=== PATIENT | male | born 1955 | race Caucasian/White ===

== ENCOUNTER 2020-06-25 13:45 | Outpatient (REF) | payer MEDICARE, BC, SELFPAY ==
--- NOTE | 2020-06-25 13:50 | US_ITS ---
EXAMINATION: US EXTRACRANIAL CAROTID DUPLEX, BILATERAL CLINICAL INFORMATION: Bilateral carotid stenosis. COMPARISON: None. TECHNIQUE: Real-time ultrasound and Doppler techniques (integrating B-mode 2-D vascular images, Doppler spectral analysis and color-flow Doppler imaging) were utilized to interrogate the extracranial carotid arteries, the vertebral arteries and proximal subclavian arteries bilaterally. The degree of stenosis is determined by criteria similar to NASCET. FINDINGS: Right Side: 1. There is hard atherosclerotic plaque seen in the bifurcation/proximal ICA region. 2. The common carotid artery PSV proximally is 107 cm/s and distally 70.4 cm/s. 3. The proximal internal carotid artery velocities are 70.9 cm/s systolic and 17.6 cm/s diastolic. 4. The proximal external carotid artery PSV is 145 cm/s. 5. The vertebral artery shows 38.9 flow. 6. The subclavian artery waveforms are normal. Left Side: 1. There is hard atherosclerotic plaque seen in the bifurcation/proximal ICA region. 2. The common carotid artery PSV proximally is 121 cm/s and distally 115 cm/s. 3. The proximal internal carotid artery velocities are 75.8 cm/s systolic and 19.9 cm/s diastolic. 4. The proximal external carotid artery PSV is 145 cm/s. 5. The vertebral artery shows antegrade flow. 6. The subclavian artery waveforms are normal. US/US carotid duplex BI IMPRESSION: 1. RIGHT: No hemodynamically significant stenosis in the right carotid artery. There is minimal soft atherosclerotic plaque in both common carotid bulbs and proximal ICA. 2. LEFT: No hemodynamically significant stenosis in the left carotid artery. There is minimal soft atherosclerotic plaque in both common carotid bulbs and proximal ICA. 3. There are decreased velocities in the left common carotid arteries since the last exam 09/19/2018. Patient is status post left endarterectomy in 2018.
== END 2020-06-25 13:46 | disposition home or self-care (01) ==
LOC: HO.HMGCX 13:45
PROVIDERS: PCP Internal Medicine; Visit Provider Surgery Vascular Surgery
DX: I65.23 Occlusion and stenosis of bilateral carotid arteries (principal)
CPT/HCPCS: 93880

== ENCOUNTER 2020-12-14 06:46 | Outpatient (REF) | payer MEDICARE, BC, SELFPAY ==
[2020-12-14 11:18] LABS: MANUAL DIFF FLAG NO
[2020-12-14 11:23] LABS: Glucose Urine UA 250 MG/DL (NEG); Leukocyte Esterase Urine NEG (NEG); Nitrite Urine NEG (NEG); PH 5.5 (5.0-8.0); Specific Gravity - Urine >= 1.030 (1.005-1.025); Urine Blood NEG (NEG); Urine Ketones NEG (NEG); Urine Protein NEG (NEG-TRACE)
[2020-12-14 11:25] LABS: Appearance Urine TURBID; Color Urine YELLOW
[2020-12-14 11:26] LABS: Basophils Percent Auto 0.5 % (0-2); Eosinophils Absolute Auto 0.2 X10*3/uL (0.0-0.4); Hematocrit 42.7 % (42-52); Hemoglobin 14.5 g/dl (14.0-18.0); Imm Gran Abs Auto 0.03 X10*3/uL (0.00-0.03); Imm Gran Pct Auto 0.4 % (0.0-0.4); Lymphocytes Absolute Auto 2.4 X10*3/uL (1.2-4.9); Lymphocytes Percent Auto 31.5 % (20-40); Mean Corpuscular Hemoglobin 29.5 pg (27.0-33.0); Mean Platelet Volume 11.5 fL (9.4-12.4); Monocytes Absolute Auto 0.7 X10*3/uL (0.1-1.2); Monocytes Percent Auto 8.9 % (2-11); Neutrophils Absolute Auto 4.3 X10*3/uL (2.0-8.3); Neutrophils Percent Auto 56.7 % (45-73); Platelet Count 242 X10*3/uL (160-400); Red Blood Count 4.91 X10*6/uL (4.60-5.80); White Blood Count 7.6 X10*3/uL (4.8-10.8)
[2020-12-14 11:49] LABS: Creatinine Urine 126.78 mg/dL; Microalbum/Creatinine Ratio Ur 11.8 ug/mg cr
[2020-12-14 12:06] LABS: Alanine Aminotransferase 46 U/L (0-40); Albumin Level 4.3 g/dL (3.5-5.0); Alkaline Phosphatase 44 U/L (39-117); Anion Gap 14 (12-20); Aspartate Amino Transferase 39 U/L (5-37); Bilirubin Total 0.3 mg/dL (0.0-1.0); Blood Urea Nitrogen 22 mg/dL (9-16); Calcium 9.2 mg/dL (8.4-10.2); Carbon Dioxide 28 mmol/L (22-29); Chloride 101 mmol/L (96-108); Cholesterol 184 mg/dL; Estimated Glomerular Filt Rate > 60; Glucose Fasting 196 mg/dL (60-99); HDL Cholesterol 38 mg/dL; LDL Cholesterol Calculated 84 mg/dl; Potassium 4.8 mmol/L (3.3-5.1); Sodium 138 mmol/L (135-145); Total Protein 6.9 g/dL (6.5-8.0); Triglycerides 314 mg/dL
[2020-12-14 12:11] LABS: Estimated Average Glucose 200 mg/dL; Hemoglobin A1c % 8.6 %
[2020-12-14 12:29] LABS: TSH reflex Free T4 2.21 uIU/mL (0.32-4.0); Vitamin D 25-OH Total 22.2 ng/mL (>30)
== END 2020-12-14 06:47 | disposition home or self-care (01) ==
LOC: HO.HMGCLDS 06:46
PROVIDERS: PCP Internal Medicine; Visit Provider Internal Medicine
DX: E55.9 Vitamin D deficiency, unspecified (principal); I10 Essential (primary) hypertension; E11.9 Type 2 diabetes mellitus without complications; E66.9 Obesity, unspecified; E78.2 Mixed hyperlipidemia
CPT/HCPCS: 36415; 80053; 80061; 81003; 82043; 82306; 83036; 84443; 85025

== ENCOUNTER 2021-09-02 15:17 | Outpatient (REF) | payer MEDICARE, BC, SELFPAY ==
--- NOTE | ~2021-09-02 | US_ITS ---
EXAMINATION: US EXTRACRANIAL CAROTID DUPLEX, BILATERAL CLINICAL INFORMATION: Carotid artery stenosis. History of left endarterectomy in 2018. COMPARISON: June 25, 2020 and June 16, 2019 TECHNIQUE: Real-time ultrasound and Doppler techniques (integrating B-mode 2-D vascular images, Doppler spectral analysis and color-flow Doppler imaging) were utilized to interrogate the extracranial carotid arteries, the vertebral arteries and proximal subclavian arteries bilaterally. The degree of stenosis is determined by criteria similar to NASCET. FINDINGS: Right Side: 1. There is minimal atherosclerotic plaque seen in the bifurcation/proximal ICA region. 2. The common carotid artery PSV proximally is 113 cm/s and distally 87.4 cm/s. 3. The proximal internal carotid artery velocities are 90.9 cm/s systolic and 19.3 cm/s diastolic. 4. The proximal external carotid artery PSV is 142 cm/s. 5. The vertebral artery shows antegrade flow. 6. The subclavian artery waveforms are normal. Left Side: 1. There is minimal atherosclerotic plaque seen in the bifurcation/proximal ICA region. 2. The common carotid artery PSV proximally is 138 cm/s and distally 104 cm/s. 3. The proximal internal carotid artery velocities are 118 cm/s systolic and 29.5 cm/s diastolic. 4. The proximal external carotid artery PSV is 149 cm/s. 5. The vertebral artery shows antegrade flow. 6. The subclavian artery waveforms are normal. US/US carotid duplex BI IMPRESSION: 1. RIGHT: Minimal, non-hemodynamically significant stenosis of the proximal right internal carotid artery corresponding to a 0-49% stenosis by velocity criteria. 2. LEFT: Minimal, non-hemodynamically significant stenosis of the proximal left internal carotid artery corresponding to a 0-49% stenosis by velocity criteria. 3. There is no change in the category severity of disease when compared to the previous study dated June 25, 2020.
== END 2021-09-02 15:18 | disposition home or self-care (01) ==
LOC: HO.HMGCX 15:17
PROVIDERS: PCP Internal Medicine; Visit Provider Surgery Vascular Surgery
DX: I65.23 Occlusion and stenosis of bilateral carotid arteries (principal)
CPT/HCPCS: 93880

== ENCOUNTER → 2021-09-05 14:23 | Outpatient (BNVA) | payer MEDICARE, BC, SELFPAY | PROVIDERS: PCP Internal Medicine; Visit Provider Surgery Vascular Surgery | DX: I65.22 Occlusion and stenosis of left carotid artery (principal) | CPT/HCPCS: 99212 ==

== ENCOUNTER 2021-12-06 06:44 | Outpatient (REF) | payer MEDICARE, BC, SELFPAY ==
[2021-12-06 11:43] LABS: MANUAL DIFF FLAG NO
[2021-12-06 11:48] LABS: Basophils Percent Auto 0.3 % (0-2); Eosinophils Absolute Auto 0.1 X10*3/uL (0.0-0.4); Eosinophils Percent Auto 1.4 % (0-4); Hematocrit 40.8 % (42.0-52.0); Hemoglobin 13.8 g/dl (14.0-18.0); Imm Gran Abs Auto 0.04 X10*3/uL (0.00-0.03); Imm Gran Pct Auto 0.6 % (0.0-0.4); Lymphocytes Absolute Auto 1.7 X10*3/uL (1.2-4.9); Lymphocytes Percent Auto 26.8 % (20-40); Mean Corpuscular HGB Conc 33.8 g/dl (31.0-36.0); Mean Corpuscular Hemoglobin 29.6 pg (27.0-33.0); Mean Corpuscular Volume 87.4 fL (80.0-98.0); Mean Platelet Volume 11.5 fL (9.4-12.4); Monocytes Absolute Auto 0.6 X10*3/uL (0.1-1.2); Monocytes Percent Auto 8.7 % (2-11); Neutrophils Percent Auto 62.2 % (45-73); Platelet Count 193 X10*3/uL (160-400); Red Blood Count 4.67 X10*6/uL (4.60-5.80); Red Cell Distribution Width 12.6 % (11.0-16.0); White Blood Count 6.4 X10*3/uL (4.8-10.8)
[2021-12-06 11:51] LABS: Appearance Urine TURBID; Color Urine YELLOW; Glucose Urine UA >=1000 MG/DL (NEG); Leukocyte Esterase Urine NEG (NEG); Nitrite Urine NEG (NEG); PH 5.5 (5.0-8.0); Specific Gravity - Urine 1.025 (1.005-1.025); Urine Blood NEG (NEG); Urine Ketones NEG (NEG); Urine Protein NEG (NEG-TRACE)
[2021-12-06 12:17] LABS: Alanine Aminotransferase 55 U/L (0-40); Albumin Level 4.1 g/dL (3.5-5.0); Alkaline Phosphatase 43 U/L (39-117); Anion Gap 13 (12-20); Aspartate Amino Transferase 49 U/L (5-37); Bilirubin Total 0.5 mg/dL (0.0-1.0); Blood Urea Nitrogen 22 mg/dL (9-16); Carbon Dioxide 25 mmol/L (22-29); Chloride 101 mmol/L (96-108); Cholesterol 184 mg/dL; Estimated Glomerular Filt Rate > 60; Glucose Fasting 241 mg/dL (60-99); HDL Cholesterol 35 mg/dL; LDL Cholesterol Calculated 84 mg/dl; Potassium 4.5 mmol/L (3.3-5.1); Sodium 134 mmol/L (135-145); Total Protein 6.5 g/dL (6.5-8.0); Triglycerides 327 mg/dL
[2021-12-06 12:19] LABS: Estimated Average Glucose 232 mg/dL; Hemoglobin A1c % 9.7 %
[2021-12-06 12:24] LABS: Vitamin D 25-OH Total 22.9 ng/mL (>30)
[2021-12-06 12:29] LABS: Bacteria Urine 2+ /LPF; RBC Urine 0 /HPF (0); Uric Acid Crystals Urine 2+ /LPF; WBC Urine 0 /HPF (0-4)
[2021-12-06 12:30] LABS: Amorphous Sediment Urine 3+ /LPF
[2021-12-06 12:32] LABS: Folate 13.5 ng/mL (> or = 4.0); Vitamin B12 294 pg/mL (200-900)
[2021-12-06 12:33] LABS: Creatinine Urine 103.33 mg/dL; Microalbum/Creatinine Ratio Ur 10.6 ug/mg cr
== END 2021-12-06 06:45 | disposition home or self-care (01) ==
LOC: HO.HMGCLDS 06:44
PROVIDERS: PCP Internal Medicine; Visit Provider Internal Medicine
DX: E11.9 Type 2 diabetes mellitus without complications (principal); E78.00 Pure hypercholesterolemia, unspecified; E55.9 Vitamin D deficiency, unspecified; E53.8 Deficiency of other specified B group vitamins; I10 Essential (primary) hypertension
CPT/HCPCS: 36415; 80053; 80061; 81001; 82043; 82306; 82607; 82746; 83036; 84443; 85025

== ENCOUNTER 2022-04-14 06:54 | Outpatient (REF) | payer MEDICARE, BC, SELFPAY ==
[2022-04-14 11:38] LABS: MANUAL DIFF FLAG NO
[2022-04-14 11:55] LABS: Estimated Average Glucose 180 mg/dL; Hemoglobin A1c % 7.9 %
[2022-04-14 11:59] LABS: Basophils Percent Auto 0.5 % (0-2); Eosinophils Absolute Auto 0.1 X10*3/uL (0.0-0.4); Eosinophils Percent Auto 1.6 % (0-4); Hematocrit 42.9 % (42.0-52.0); Hemoglobin 14.4 g/dl (14.0-18.0); Imm Gran Abs Auto 0.03 X10*3/uL (0.00-0.03); Imm Gran Pct Auto 0.4 % (0.0-0.4); Lymphocytes Absolute Auto 2.2 X10*3/uL (1.2-4.9); Lymphocytes Percent Auto 28.9 % (20-40); Mean Corpuscular HGB Conc 33.6 g/dl (31.0-36.0); Mean Corpuscular Hemoglobin 29.3 pg (27.0-33.0); Mean Corpuscular Volume 87.4 fL (80.0-98.0); Mean Platelet Volume 11.5 fL (9.4-12.4); Monocytes Absolute Auto 0.7 X10*3/uL (0.1-1.2); Monocytes Percent Auto 9.5 % (2-11); Neutrophils Absolute Auto 4.5 x10*3/uL (2.0-8.3); Neutrophils Percent Auto 59.1 % (45-73); Platelet Count 223 X10*3/uL (160-400); Red Blood Count 4.91 X10*6/uL (4.60-5.80); Red Cell Distribution Width 12.4 % (11.0-16.0); White Blood Count 7.7 X10*3/uL (4.8-10.8)
[2022-04-14 12:11] LABS: Alanine Aminotransferase 47 U/L (0-40); Albumin Level 4.4 g/dL (3.5-5.0); Alkaline Phosphatase 42 U/L (39-117); Anion Gap 15 (12-20); Aspartate Amino Transferase 34 U/L (5-37); Bilirubin Total 0.5 mg/dL (0.0-1.0); Blood Urea Nitrogen 26 mg/dL (9-16); Calcium 9.7 mg/dL (8.4-10.2); Carbon Dioxide 28 mmol/L (22-29); Chloride 99 mmol/L (96-108); Cholesterol 185 mg/dL; Estimated Glomerular Filt Rate 56; Glucose Fasting 217 mg/dL (60-99); HDL Cholesterol 41 mg/dL; LDL Cholesterol Calculated 97 mg/dl; Potassium 5.2 mmol/L (3.3-5.1); Sodium 137 mmol/L (135-145); Total Protein 7.1 g/dL (6.5-8.0); Triglycerides 238 mg/dL
[2022-04-14 12:13] LABS: Appearance Urine CLEAR; Color Urine YELLOW; Glucose Urine UA 250 MG/DL (NEG); Leukocyte Esterase Urine NEG (NEG); Nitrite Urine NEG (NEG); PH 5.5 (5.0-8.0); Specific Gravity - Urine 1.025 (1.005-1.025); Urine Blood NEG (NEG); Urine Ketones NEG (NEG); Urine Protein NEG (NEG-TRACE)
[2022-04-14 12:20] LABS: TSH reflex Free T4 2.26 uIU/mL (0.32-4.0); Vitamin D 25-OH Total 36.4 ng/mL (>30)
[2022-04-14 12:30] LABS: Folate 16.3 ng/mL (> or = 4.0); Vitamin B12 379 pg/mL (200-900)
[2022-04-14 12:45] LABS: Creatinine Urine 103.31 mg/dL; Microalbum/Creatinine Ratio Ur 7.7 ug/mg cr
== END 2022-04-14 06:55 | disposition home or self-care (01) ==
LOC: HO.HMGCLDS 06:54
PROVIDERS: PCP Internal Medicine; Visit Provider Internal Medicine
DX: E11.9 Type 2 diabetes mellitus without complications (principal); I10 Essential (primary) hypertension; E78.00 Pure hypercholesterolemia, unspecified; E53.8 Deficiency of other specified B group vitamins; E55.9 Vitamin D deficiency, unspecified
CPT/HCPCS: 36415; 80053; 80061; 81003; 82043; 82306; 82607; 82746; 83036; 84443; 85025

== ENCOUNTER 2022-08-12 08:09 | Outpatient (REF) | payer MEDICARE, BC, SELFPAY ==
[2022-08-12 11:33] LABS: Appearance Urine Clear; Color Urine Yellow; Glucose Urine UA Negative (Negative); Leukocyte Esterase Urine Trace (Negative); Nitrite Urine Negative (Negative); UMIC TRIGGER UACC YES; Urine Blood Negative (Negative); Urine Ketones Negative (Negative); Urine Protein Negative (Neg-Trace)
[2022-08-12 11:36] LABS: Bacteria Urine None Seen (None Seen); Hyaline Casts Urine 0-2 /LPF (0-2); RBC Urine 0-2 /HPF (0-2); Squamous Epithelial Cell Urine 0-2 /HPF (0-2); UACC Culture Trigger YES
[2022-08-12 11:45] LABS: MANUAL DIFF FLAG NO
[2022-08-12 12:21] LABS: Estimated Average Glucose 197 mg/dL; Hemoglobin A1c % 8.5 %
[2022-08-12 12:26] LABS: Basophils Absolute Auto 0.1 X10*3/uL (0.0-0.2); Basophils Percent Auto 0.4 % (0-2); Eosinophils Absolute Auto 0.1 X10*3/uL (0.0-0.4); Eosinophils Percent Auto 1.2 % (0-4); Hematocrit 43.2 % (42.0-52.0); Hemoglobin 14.5 g/dl (14.0-18.0); Imm Gran Abs Auto 0.06 X10*3/uL (0.00-0.03); Imm Gran Pct Auto 0.5 % (0.0-0.4); Lymphocytes Percent Auto 17.9 % (20-40); Mean Corpuscular HGB Conc 33.6 g/dl (31.0-36.0); Mean Corpuscular Hemoglobin 28.7 pg (27.0-33.0); Mean Corpuscular Volume 85.5 fL (80.0-98.0); Mean Platelet Volume 10.9 fL (9.4-12.4); Monocytes Absolute Auto 0.7 X10*3/uL (0.1-1.2); Monocytes Percent Auto 6.5 % (2-11); Neutrophils Absolute Auto 8.2 x10*3/uL (2.0-8.3); Neutrophils Percent Auto 73.5 % (45-73); Platelet Count 272 X10*3/uL (160-400); Red Blood Count 5.05 X10*6/uL (4.60-5.80); Red Cell Distribution Width 12.3 % (11.0-16.0); White Blood Count 11.2 X10*3/uL (4.8-10.8)
[2022-08-12 12:46] LABS: Alanine Aminotransferase 38 U/L (0-40); Albumin Level 4.4 g/dL (3.5-5.0); Alkaline Phosphatase 46 U/L (39-117); Anion Gap 15 (12-20); Aspartate Amino Transferase 35 U/L (5-37); Bilirubin Total 0.5 mg/dL (0.0-1.0); Blood Urea Nitrogen 22 mg/dL (9-16); Calcium 9.6 mg/dL (8.4-10.2); Carbon Dioxide 28 mmol/L (22-29); Chloride 100 mmol/L (96-108); Cholesterol 207 mg/dL; Estimated Glomerular Filt Rate > 60; Glucose Fasting 205 mg/dL (60-99); HDL Cholesterol 38 mg/dL; LDL Cholesterol Calculated 106 mg/dl; Sodium 138 mmol/L (135-145); TSH reflex Free T4 1.42 uIU/mL (0.32-4.0); Total Protein 7.1 g/dL (6.5-8.0); Triglycerides 319 mg/dL; Vitamin D 25-OH Total 38.8 ng/mL (>30)
[2022-08-12 12:51] LABS: Creatinine Urine 105.42 mg/dL; Microalbum/Creatinine Ratio Ur 14.2 ug/mg cr
== END 2022-08-12 08:10 | disposition home or self-care (01) ==
LOC: HO.HMGCLDS 08:09
PROVIDERS: PCP Internal Medicine; Visit Provider Internal Medicine
DX: E78.00 Pure hypercholesterolemia, unspecified (principal); I10 Essential (primary) hypertension; E11.9 Type 2 diabetes mellitus without complications; E55.9 Vitamin D deficiency, unspecified
CPT/HCPCS: 36415; 80053; 80061; 81001; 82043; 82306; 83036; 84443; 85025; 87086

== ENCOUNTER 2022-09-08 14:23 | Outpatient (REF) | payer MEDICARE, BC, SELFPAY ==
--- NOTE | ~2022-09-08 | US_ITS ---
EXAMINATION: US EXTRACRANIAL CAROTID DUPLEX, BILATERAL CLINICAL INFORMATION: Carotid stenosis, status post left carotid endarterectomy COMPARISON: 09/02/2021 TECHNIQUE: Real-time ultrasound and Doppler techniques (integrating B-mode 2-D vascular images, Doppler spectral analysis and color-flow Doppler imaging) were utilized to interrogate the extracranial carotid arteries, the vertebral arteries and proximal subclavian arteries bilaterally. The degree of stenosis is determined by criteria similar to NASCET. FINDINGS: Right Side: 1. There is mild to moderate atherosclerotic plaque seen in the bifurcation/proximal ICA region. 2. The common carotid artery PSV proximally is 116 cm/s and distally 85.6 cm/s. 3. The proximal internal carotid artery velocities are 101 cm/s systolic and 26.7 cm/s diastolic. 4. The proximal external carotid artery PSV is 220 cm/s. 5. The vertebral artery shows antegrade flow. 6. The subclavian artery waveforms are normal. Left Side: 1. There is mild atherosclerotic plaque seen in the bifurcation/proximal ICA region. 2. The common carotid artery PSV proximally is 145 cm/s and distally 151 cm/s. 3. The proximal internal carotid artery velocities are 119 cm/s systolic and 21.2 cm/s diastolic. 4. The proximal external carotid artery PSV is 161 cm/s. 5. The vertebral artery shows antegrade flow. 6. The subclavian artery waveforms are normal. US/US carotid duplex BI IMPRESSION: 1. RIGHT: Minimal, non-hemodynamically significant stenosis of the proximal right internal carotid artery corresponding to a 0-49% stenosis by velocity criteria. 2. LEFT: Minimal, non-hemodynamically significant stenosis of the proximal left internal carotid artery corresponding to a 0-49% stenosis by velocity criteria. 3. There is no change in the category severity of disease when compared to the previous study dated 09/02/2021.
== END 2022-09-08 14:24 | disposition home or self-care (01) ==
LOC: HO.HMGCX 14:23
PROVIDERS: PCP Internal Medicine; Visit Provider Surgery Vascular Surgery
DX: I65.23 Occlusion and stenosis of bilateral carotid arteries (principal)
CPT/HCPCS: 93880

== ENCOUNTER → 2022-09-25 14:45 | Outpatient (BNVA) | payer MEDICARE, BC, SELFPAY | PROVIDERS: PCP Internal Medicine; Visit Provider Surgery Vascular Surgery | DX: I65.22 Occlusion and stenosis of left carotid artery (principal) | CPT/HCPCS: 99212 ==

== ENCOUNTER 2022-11-22 13:10 | Emergency (ER) | payer MEDICARE, BC, SELFPAY ==
--- NOTE | 2022-11-22 13:54 | ED_ITS ---
HPI - URI/Sore Throat General Chief Complaint: General Medical <SRINIVAS Lemus - Last Filed: 11/22/22 13:57> Stated Complaint: covid <SRINIVAS Lemus - Last Filed: 11/22/22 13:57> Time Seen by Provider: 11/22/22 15:05 <SRINIVAS Lemus - Last Filed: 11/22/22 13:57> Source: patient <Nadya Mohamud NP - Last Filed: 11/22/22 16:58> Mode of arrival: ambulatory <Nadya Mohamud NP - Last Filed: 11/22/22 16:58> Limitations: no limitations <Nadya Mohamud NP - Last Filed: 11/22/22 16:58> History of Present Illness HPI Narrative: 67-year-old male with a history of [id number] diabetes, hypertension, hyperlipidemia who presents the ER with complaints of being COVID positive at home. Patient reports since yesterday he has had poor p.o. intake, fevers, chills, malaise since yesterday. Took a home COVID test which was positive. No shortness of breath, chest pain, vomiting, diarrhea, abdominal pain, leg swelling or leg pain, headache, neck pain or neck stiffness. <Nadya Mohamud NP - Last Filed: 11/22/22 16:58> Related Data Home Medications: Previous Rx's Medication Instructions Recorded ergocalciferol (vitamin D2) 1,250 1,250 mcg PO QWEEK 90 days #13 caps 09/24/21 mcg (50,000 unit) capsule (Vitamin D2) blood-glucose meter (FreeStyle #1 ea 12/13/21 Lite Meter kit) dulaglutide 1.5 mg/0.5 mL 1.5 mg (0.5 mL) subcut QWEEK 90 12/13/21 subcutaneous pen injector days #13 mL ezetimibe 10 mg tablet 10 mg PO DAILY 90 days #90 caps 12/13/21 fenofibrate 160 mg tablet 160 mg PO DAILY 90 days #90 caps 12/13/21 lancets 28 gauge (FreeStyle #100 ea 12/13/21 Lancets) sitagliptin phosphate 100 mg 100 mg PO DAILY 90 days #90 caps 12/13/21 tablet (Januvia) metformin 1,000 mg tablet 1,000 mg PO BID 90 days #180 tabs 01/24/22 blood sugar diagnostic (FreeStyle #100 ea 08/18/22 Lite Strips) hydrochlorothiazide 12.5 mg tablet 12.5 mg PO QAM #90 caps 08/18/22 losartan 100 mg tablet 100 mg PO DAILY 90 days #90 tabs 08/18/22 pantoprazole 40 mg tablet,delayed 40 mg PO DAILY PRN for acid reflux 08/18/22 release #90 tabs nirmatrelvir 300 mg (150 mg See Rx Instructions PO .COMPLEX 11/22/22 x2)-ritonavir 100 mg tablet,dose #30 ea pack(EUA) (Paxlovid) <SRINIVAS Lemus - Last Filed: 11/22/22 13:57> Allergies/Adverse Reactions: Allergies Allergy/AdvReac Type Severity Reaction Status Date / Time simvastatin Allergy Unknown Unknown Verified 09/25/22 14:54 atorvastatin AdvReac Unknown diarrhea Verified 09/25/22 14:54 and abdominal pain, diarrhea rosuvastatin AdvReac Unknown diarrhea Verified 09/25/22 14:54 and abdominal pain, diarrhea <SRINIVAS Lemus - Last Filed: 11/22/22 13:57> Review of Systems Review of Systems: Yes all other systems are reviewed and are negative <Nadya Mohamud NP - Last Filed: 11/22/22 16:58> Constitutional: Constitutional: Reports no additional constitutional complaints, Denies body ache(s), Reports chills, Reports fever(s), Denies headache(s), Reports malaise, Reports poor appetite and Denies weakness <Nadya Mohamud NP - Last Filed: 11/22/22 16:58> Eyes: Eyes: Reports no additional eye complaints and Denies change in vision <Nadya Mohamud NP - Last Filed: 11/22/22 16:58> ENT: Reports system reviewed and no additional complaints, except as documented, Denies dizziness, Denies headache(s), Denies nasal congestion, Denies nasal discharge and Denies neck pain <Nadya Mohamud NP - Last Filed: 11/22/22 16:58> Cardiovascular: Cardiovascular: Reports no additional cardiovascular complaints, Denies chest pain, Denies leg edema and Denies dyspnea <Nadya Mohamud NP - Last Filed: 11/22/22 16:58> Respiratory: Respiratory: Reports no additional respiratory complaints, Denies cough and Denies dyspnea <Nadya Mohamud NP - Last Filed: 11/22/22 16:58> Gastrointestinal: Gastrointestinal: Reports no additional gastrointestinal complaints, Denies abdominal pain, Denies diarrhea, Denies nausea and Denies vomiting <Nadya Mohamud NP - Last Filed: 11/22/22 16:58> Genitourinary: Genitourinary: Denies urinary incontinence <Nadya Mohamud NP - Last Filed: 11/22/22 16:58> Musculoskeletal: Musculoskeletal: Reports no additional musculoskeletal complaints, Denies back pain, Denies arthralgias, Denies joint swelling, Denies neck pain, Denies numbness and Denies tingling <Nadya Mohamud NP - Last Filed: 11/22/22 16:58> Integumentary/Breasts: Skin/Breast: Reports system reviewed and no additional complaints, except as docu and Denies rash <Nadya Mohamud NP - Last Filed: 11/22/22 16:58> Neurologic: Reports system reviewed and no additional complaints, except as documented, Denies Abnormal speech present, Denies dizziness, Denies headache(s), Denies numbness, Denies tingling and Denies weakness <Nadya Mohamud NP - Last Filed: 11/22/22 16:58> [facility] Past Medical History Attestation statement: The following information was validated with the patient. <Nadya Mohamud NP - Last Filed: 11/22/22 16:58> Source: old records reviewed and nursing notes reviewed <Nadya Mohamud NP - Last Filed: 11/22/22 16:58> Medical History: Medical History Benign essential hypertension Diabetes mellitus GERD without esophagitis Left carotid artery stenosis Lumbar spinal stenosis Mixed hyperlipidemia Neuropathy Obesity (BMI 30-39.9) Obstructive sleep apnea Vitamin D deficiency <SRINIVAS Lemus - Last Filed: 11/22/22 13:57> Surgical History: Surgical History History of colonoscopy History of endarterectomy <SRINIVAS Lemus - Last Filed: 11/22/22 13:57> Family History Family History: Family History Father Hypertension Cancer Mother Hypertension Diabetes <SRINIVAS Lemus - Last Filed: 11/22/22 13:57> Social History Social History: Social History Housing: House Alcohol intake: current Alcohol intake frequency: holidays/special occasions only Patient Tobacco Use Status: Former Tobacco user Smoked in Last 30 Days: No Second Hand Smoke Exposure: Yes Use of substances other than those prescribed or required for medical reasons: No Advance Directives: No Advance Directives Information Provided: No service: No Current occupational status: employed Cognitive needs: No Hearing needs: No Vision needs: Yes <SRINIVAS Lemus - Last Filed: 11/22/22 13:57> Physical Exam Vital Signs: Vital Signs: Last Vital Signs Temp 99.0 F 11/22/22 16:50 Pulse 94 11/22/22 16:50 Resp 16 11/22/22 16:50 BP 139/57 L 11/22/22 16:50 Pulse Ox 94 11/22/22 16:50 O2 Del Method Room Air 11/22/22 16:50 BMI result Body Mass Index 32.8 <SRINIVAS Lemus - Last Filed: 11/22/22 13:57> Vital Signs: Last Vital Signs Temp 99.0 F 11/22/22 16:50 Pulse 94 11/22/22 16:50 Resp 16 11/22/22 16:50 BP 139/57 L 11/22/22 16:50 Pulse Ox 94 11/22/22 16:50 O2 Del Method Room Air 11/22/22 16:50 BMI result Body Mass Index 32.8 <Nadya Mohamud NP - Last Filed: 11/22/22 16:58> Const: General: cooperative, healthy appearing, comfortable and no acute distress <Nadya Mohamud [employer] - Last Filed: 11/22/22 16:58> Orientation/consciousness: patient oriented x3 <Nadya Mohamud [employer] - Last Filed: 11/22/22 16:58> Limitations: no limitations <Nadya Mohamud [employer] - Last Filed: 11/22/22 16:58> HEENT: Head: Yes normal to inspection <Nadya Mohamud [employer] - Last Filed: 11/22/22 16:58> Ears: hearing grossly normal bilaterally <Nadya Mohamud, [employer] - Last Filed: 11/22/22 16:58> General nose exam: Normal external nose present <Nadya Mohamud [employer] - Last Filed: 11/22/22 16:58> Face and sinus: Yes normal facial exam <Nadya Mohamud [employer] - Last Filed: 11/22/22 16:58> Mouth: Normal oral and palatal mucosa present <Nadya Mohamud [employer] - Last Filed: 11/22/22 16:58> Throat: Yes posterior oropharynx normal <Nadya Mohamud [employer] - Last Filed: 11/22/22 16:58> Eyes: General: appearance normal, both eyes and all related structures <Naday Mohamud [employer] - Last Filed: 11/22/22 16:58> Pupils: Equal, round and reactive pupils present <Nadya Mohamud [employer] - Last Filed: 11/22/22 16:58> Neck: Neck: Yes normal visual inspection <Nadya Mohamud [employer] - Last Filed: 11/22/22 16:58> Chest: Chest palpation & inspection: normal inspection of the chest <Nadya Mohamud [employer] - Last Filed: 11/22/22 16:58> Resp: Effort & Inspection: normal respiratory effort <Nadya Mohamud [employer] - Last Filed: 11/22/22 16:58> Auscultation: clear to auscultation bilaterally <Nadya Mohamud [employer] - Last Filed: 11/22/22 16:58> Cardio: Rate: regular rate <Nadya Bluecci, [employer] - Last Filed: 11/22/22 16:58> Rhythm: regular rhythm <Nadya Mohamud [employer] - Last Filed: 11/22/22 16:58> Peripheral pulses: Peripheral pulses 2+ throughout <Nadya Mohamud, [employer] - Last Filed: 11/22/22 16:58> GI: Inspection: Yes normal to inspection <Nadya Mohamud, [employer] - Last Filed: 11/22/22 16:58> Palpation (GI): Soft to palpation and nontender <Nadya Mohamud, [employer] - Last Filed: 11/22/22 16:58> Auscultation: normal bowel sounds <Nadya Mohamud, [employer] - Last Filed: 11/22/22 16:58> Back/Spine/Pelvis: Thoracic/Lumbar Spine: thoracic and lumbar spine normal to inspection <Nadya Mohamud, [employer] - Last Filed: 11/22/22 16:58> Skin: General skin exam: no rashes or lesions noted <Nadya Mohamud, [employer] - Last Filed: 11/22/22 16:58> Neuro: General: patient oriented x3, moves all extremities, no focal motor deficits and normal sensation to monofilament <Nadya Mohamud, [employer] - Last Filed: 11/22/22 16:58> Cranial nerves: Yes CN's II-XII intact bilaterally, Yes Equal, round and reactive pupils present, Yes Bilaterally intact EOM present, Yes Nystagmus not present, Yes Normal facial strength present and Yes Midline tongue present <Nadya Mohamud [employer] - Last Filed: 11/22/22 16:58> Cognition (Neuro): normal cognition <Nadya Cade, [employer] - Last Filed: 11/22/22 16:58> Speech: No Abnormal speech present <Nadya Mohamud, [employer] - Last Filed: 11/22/22 16:58> Gait exam (Neuro): Normal gait present <Nadya Mohamud, [employer] - Last Filed: 11/22/22 16:58> Motor exam (neuro): 5/5 motor strength present throughout <Nadya Mohamud, [employer] - Last Filed: 11/22/22 16:58> Sensory Exam: Normal double simultaneous stimulation for sensation <Nadya zamora NP - Last Filed: 11/22/22 16:58> Extrem: General: Yes normal to inspection, Yes no pedal edema and Yes no calf tenderness <Nadya Mohamud NP - Last Filed: 11/22/22 16:58> Course Course Course Narrative: RME--67yo M w/PMHx DM, HTN, HLD, BARAK, c/o fatigue, generalized weakness, decreased PO intake, & + home COVID test today. Reports anorexia. Denies CP/SOB, abd pain, N/V Mildly tachy 109 in triage, nontoxic appearing Labs, COVID testing ordered <SRINIVAS Lemus - Last Filed: 11/22/22 13:57> Reevaluation(s) Reevaluation #1: 1540-patient reports after having his blood drawn (4 attempts) he felt very lightheaded and he believes he may have passed out. He is now alert and oriented with normal neuro exam. Likely vasovagal syncope. Will check EKG. Labs show hypo magnesemia. COVID screen positive. No hypoxia or tachypnea. Will give replacement and IV fluids as well as antipyretic for fever <Nadya Mohamud NP - Last Filed: 11/22/22 16:58> Reevaluation #2: 1700-patient feeling improved. Heart rate and temperature are improved after receiving antipyretic. We discussed Paxlovid in patient would like to continue with treatment aware that it is not FDA approved and only has an emergency use authorization. We discussed common side effects. Reviewed worrisome signs and symptoms of when to return to the emergency room. Comfortable plan for discharge home. <Nadya Mohamud NP - Last Filed: 11/22/22 16:58> Medications Administered Generic Name Dose Route Start Last Admin Trade Name Freq PRN Reason Stop Dose Admin Magnesium Sulfate 2 gm in 50 mls @ 25 mls/hr 11/22/22 15:19 11/22/22 15:45 Magnesium Sulfate/H2o IV 11/22/22 17:18 25 mls/hr ONCE ONE Administration Discontinued Medications Generic Name Dose Route Start Last Admin Trade Name Freq PRN Reason Stop Dose Admin Acetaminophen 975 mg 11/22/22 15:07 11/22/22 15:14 Acetaminophen 325 Mg Tablet PO 11/22/22 15:08 975 mg ONCE ONE Administration Sodium Chloride 1,000 mls @ 999 mls/hr 11/22/22 15:19 11/22/22 15:43 Ns IV 11/22/22 16:19 999 mls/hr .Q1H1M STA Administration <SRINIVAS Lemus - Last Filed: 11/22/22 13:57> Medications Administered Generic Name Dose Route Start Last Admin Trade Name Freq PRN Reason Stop Dose Admin Magnesium Sulfate 2 gm in 50 mls @ 25 mls/hr 11/22/22 15:19 11/22/22 15:45 Magnesium Sulfate/H2o IV 11/22/22 17:18 25 mls/hr ONCE ONE Administration Discontinued Medications Generic Name Dose Route Start Last Admin Trade Name Freq PRN Reason Stop Dose Admin Acetaminophen 975 mg 11/22/22 15:07 11/22/22 15:14 Acetaminophen 325 Mg Tablet PO 11/22/22 15:08 975 mg ONCE ONE Administration Sodium Chloride 1,000 mls @ 999 mls/hr 11/22/22 15:19 11/22/22 15:43 Ns IV 11/22/22 16:19 999 mls/hr .Q1H1M STA Administration <Nadya Mohamud NP - Last Filed: 11/22/22 16:58> Medical Decision Making Medical Decision Making [facility] Narrative: 67-year-old male coming in COVID positive but with complaints of malaise, poor appetite, fevers and chills since yesterday. Vitals are stable. Patient does have low-grade fever and mild tachycardia which is likely secondary fever Lungs are clear Will obtain labs, COVID screen <Nadya Mohamud NP - Last Filed: 11/22/22 16:58> Differential Diagnosis Differential Diagnoses: The differential diagnosis associated with the presentation includes <Nadya Mohamud NP - Last Filed: 11/22/22 16:58> Low concern for PE/pneumonia likely viral syndrome <Nadya Mohamud NP - Last Filed: 11/22/22 16:58> Lab Data [facility] Lab Attestation statement: I reviewed the patient's lab results. <Nadya Mohamud NP - Last Filed: 11/22/22 16:58> Result Diagrams: 11/22/22 14:42 11/22/22 14:42 <SRINIVAS Lemus - Last Filed: 11/22/22 13:57> Labs: Lab Results 11/22/22 11/22/22 11/22/22 Range/Units 14:41 14:42 14:42 WBC 11.2 H (4.8-10.8) X10*3/uL RBC 5.31 (4.60-5.80) X10*6/uL Hgb 15.6 (14.0-18.0) g/dl Hct 45.0 (42.0-52.0) % MCV 84.7 (80.0-98.0) fL MCH 29.4 (27.0-33.0) pg MCHC 34.7 (31.0-36.0) g/dl RDW 12.4 (11.0-16.0) % Plt Count 184 D (160-400) X10*3/uL MPV 11.2 (9.4-12.4) fL Immature Gran % (Auto) 0.5 H (0.0-0.4) % Neut % (Auto) 86.7 H (45-73) % Lymph % (Auto) 5.2 L (20-40) % Campbell % (Auto) 7.1 (2-11) % Eos % (Auto) 0.1 (0-4) % Baso % (Auto) 0.4 (0-2) % Lymph # (Auto) 0.6 L (1.2-4.9) X10*3/uL Campbell # (Auto) 0.8 (0.1-1.2) X10*3/uL Eos # (Auto) 0.0 (0.0-0.4) X10*3/uL Baso # (Auto) 0.1 (0.0-0.2) X10*3/uL Abs Immat Gran (auto) 0.06 H (0.00-0.03) X10*3/uL Absolute Neuts (auto) 9.7 H (2.0-8.3) x10*3/uL Absolute Nucleated RBC 0.000 (0.0-0.012) X10*3/uL Nucleated RBC % (auto) 0.0 (0.0-0.2) /100WBC Sodium 134 L (135-145) mmol/L Potassium 4.4 (3.3-5.1) mmol/L Chloride 97 (96-108) mmol/L Carbon Dioxide 23 (22-29) mmol/L Anion Gap 18 (12-20) BUN 18 H (9-16) mg/dL Creatinine 1.17 (0.5-1.4) mg/dL Estim Creat Clear Calc 74.0 Estimated GFR > 60 POC Glucose (60-115) mg/dL Random Glucose 265 H (60-115) mg/dL Calcium 9.6 (8.4-10.2) mg/dL Magnesium 1.2 L* (1.6-2.6) mg/dL Total Bilirubin 1.1 H (0.0-1.0) mg/dL Direct Bilirubin 0.3 (0.0-0.5) mg/dL AST 37 (5-37) U/L ALT 51 H (0-40) U/L Alkaline Phosphatase 54 (39-117) U/L Total Protein 7.2 (6.5-8.0) g/dL Albumin 4.5 (3.5-5.0) g/dL COVID-19 (JAQUELIN) Positive A (Negative) COVID-19 Clin Com See Note 11/22/22 Range/Units 14:48 WBC (4.8-10.8) X10*3/uL RBC (4.60-5.80) X10*6/uL Hgb (14.0-18.0) g/dl Hct (42.0-52.0) % MCV (80.0-98.0) fL MCH (27.0-33.0) pg MCHC (31.0-36.0) g/dl RDW (11.0-16.0) % Plt Count (160-400) X10*3/uL MPV (9.4-12.4) fL Immature Gran % (Auto) (0.0-0.4) % Neut % (Auto) (45-73) % Lymph % (Auto) (20-40) % Campbell % (Auto) (2-11) % Eos % (Auto) (0-4) % Baso % (Auto) (0-2) % Lymph # (Auto) (1.2-4.9) X10*3/uL Campbell # (Auto) (0.1-1.2) X10*3/uL Eos # (Auto) (0.0-0.4) X10*3/uL Baso # (Auto) (0.0-0.2) X10*3/uL Abs Immat Gran (auto) (0.00-0.03) X10*3/uL Absolute Neuts (auto) (2.0-8.3) x10*3/uL Absolute Nucleated RBC (0.0-0.012) X10*3/uL Nucleated RBC % (auto) (0.0-0.2) /100WBC Sodium (135-145) mmol/L Potassium (3.3-5.1) mmol/L Chloride (96-108) mmol/L Carbon Dioxide (22-29) mmol/L Anion Gap (12-20) BUN (9-16) mg/dL Creatinine (0.5-1.4) mg/dL Estim Creat Clear Calc Estimated GFR POC Glucose 253 H (60-115) mg/dL Random Glucose (60-115) mg/dL Calcium (8.4-10.2) mg/dL Magnesium (1.6-2.6) mg/dL Total Bilirubin (0.0-1.0) mg/dL Direct Bilirubin (0.0-0.5) mg/dL AST (5-37) U/L ALT (0-40) U/L Alkaline Phosphatase (39-117) U/L Total Protein (6.5-8.0) g/dL Albumin (3.5-5.0) g/dL COVID-19 (JAQUELIN) (Negative) COVID-19 Clin Com <SRINIVAS Lemus - Last Filed: 11/22/22 13:57> Lab Results 11/22/22 11/22/22 11/22/22 Range/Units 14:41 14:42 14:42 WBC 11.2 H (4.8-10.8) X10*3/uL RBC 5.31 (4.60-5.80) X10*6/uL Hgb 15.6 (14.0-18.0) g/dl Hct 45.0 (42.0-52.0) % MCV 84.7 (80.0-98.0) fL MCH 29.4 (27.0-33.0) pg MCHC 34.7 (31.0-36.0) g/dl RDW 12.4 (11.0-16.0) % Plt Count 184 D (160-400) X10*3/uL MPV 11.2 (9.4-12.4) fL Immature Gran % (Auto) 0.5 H (0.0-0.4) % Neut % (Auto) 86.7 H (45-73) % Lymph % (Auto) 5.2 L (20-40) % Campbell % (Auto) 7.1 (2-11) % Eos % (Auto) 0.1 (0-4) % Baso % (Auto) 0.4 (0-2) % Lymph # (Auto) 0.6 L (1.2-4.9) X10*3/uL Campbell # (Auto) 0.8 (0.1-1.2) X10*3/uL Eos # (Auto) 0.0 (0.0-0.4) X10*3/uL Baso # (Auto) 0.1 (0.0-0.2) X10*3/uL Abs Immat Gran (auto) 0.06 H (0.00-0.03) X10*3/uL Absolute Neuts (auto) 9.7 H (2.0-8.3) x10*3/uL Absolute Nucleated RBC 0.000 (0.0-0.012) X10*3/uL Nucleated RBC % (auto) 0.0 (0.0-0.2) /100WBC Sodium 134 L (135-145) mmol/L Potassium 4.4 (3.3-5.1) mmol/L Chloride 97 (96-108) mmol/L Carbon Dioxide 23 (22-29) mmol/L Anion Gap 18 (12-20) BUN 18 H (9-16) mg/dL Creatinine 1.17 (0.5-1.4) mg/dL Estim Creat Clear Calc 74.0 Estimated GFR > 60 POC Glucose (60-115) mg/dL Random Glucose 265 H (60-115) mg/dL Calcium 9.6 (8.4-10.2) mg/dL Magnesium 1.2 L* (1.6-2.6) mg/dL Total Bilirubin 1.1 H (0.0-1.0) mg/dL Direct Bilirubin 0.3 (0.0-0.5) mg/dL AST 37 (5-37) U/L ALT 51 H (0-40) U/L Alkaline Phosphatase 54 (39-117) U/L Total Protein 7.2 (6.5-8.0) g/dL Albumin 4.5 (3.5-5.0) g/dL COVID-19 (JAQUELIN) Positive A (Negative) COVID-19 Clin Com See Note 11/22/22 Range/Units 14:48 WBC (4.8-10.8) X10*3/uL RBC (4.60-5.80) X10*6/uL Hgb (14.0-18.0) g/dl Hct (42.0-52.0) % MCV (80.0-98.0) fL MCH (27.0-33.0) pg MCHC (31.0-36.0) g/dl RDW (11.0-16.0) % Plt Count (160-400) X10*3/uL MPV (9.4-12.4) fL Immature Gran % (Auto) (0.0-0.4) % Neut % (Auto) (45-73) % Lymph % (Auto) (20-40) % Campbell % (Auto) (2-11) % Eos % (Auto) (0-4) % Baso % (Auto) (0-2) % Lymph # (Auto) (1.2-4.9) X10*3/uL Campbell # (Auto) (0.1-1.2) X10*3/uL Eos # (Auto) (0.0-0.4) X10*3/uL Baso # (Auto) (0.0-0.2) X10*3/uL Abs Immat Gran (auto) (0.00-0.03) X10*3/uL Absolute Neuts (auto) (2.0-8.3) x10*3/uL Absolute Nucleated RBC (0.0-0.012) X10*3/uL Nucleated RBC % (auto) (0.0-0.2) /100WBC Sodium (135-145) mmol/L Potassium (3.3-5.1) mmol/L Chloride (96-108) mmol/L Carbon Dioxide (22-29) mmol/L Anion Gap (12-20) BUN (9-16) mg/dL Creatinine (0.5-1.4) mg/dL Estim Creat Clear Calc Estimated GFR POC Glucose 253 H (60-115) mg/dL Random Glucose (60-115) mg/dL Calcium (8.4-10.2) mg/dL Magnesium (1.6-2.6) mg/dL Total Bilirubin (0.0-1.0) mg/dL Direct Bilirubin (0.0-0.5) mg/dL AST (5-37) U/L ALT (0-40) U/L Alkaline Phosphatase (39-117) U/L Total Protein (6.5-8.0) g/dL Albumin (3.5-5.0) g/dL COVID-19 (JAQUELIN) (Negative) COVID-19 Clin Com <Nadya Mohamud NP - Last Filed: 11/22/22 16:58> Independent Interpretation I performed an independent interpretation of an: EKG <Nadya Mohamud NP - Last Filed: 11/22/22 16:58> Interpretation: I independetely reviewed the EKG which is sinus tachycardia with a rate of 104, normal MN, normal QRS, normal QT <Nadya Mohamud NP - Last Filed: 3 16:58> Independent Historian Clinical information obtained from an independent historian. History obtained from or confirmed by: Spouse <Nadya Mohamud NP - Last Filed: 11/22/22 16:58> Prescription Management I considered prescription management with: Antiviral <Nadya Mohamud NP - Last Filed: 11/22/22 16:58> see discussion in the course <Nadya Mohamud NP - Last Filed: 11/22/22 16:58> Discharge Plan Discharge Clinical Impression: COVID-19 <SRINIVAS Lemus - Last Filed: 11/22/22 13:57> Patient Disposition: Home, Self-Care <SRINIVAS Lemus Last Filed: 11/22/22 13:57> Instructions: COVID-19 (Coronavirus Disease 2019) (ED) <SRINIVAS Lemus Last Filed: 11/22/22 13:57> Additional Instructions: Your COVID test is positive. Quarantine for 5 days and mask up for an additional 5 days Your magnesium level was mildly decreased. You received some magnesium and IV fluids through your IV. Make sure that you are drinking plenty of fluids and staying hydrated Alternate Motrin and Tylenol for any pain or fever they you may have We did discuss Paxlovid which is a current medication available for the treatment of COVID. It is not FDA approved and has an emergency use authori zation for the medication. Your provided with the information sheet on the medication. Common side effects or vomiting and diarrhea. You may discontinue the medication if these side effects occur <SRINIVAS Lemus Last Filed: 11/22/22 13:57> Prescriptions: New Paxlovid (EUA) 300 mg (150 mg x 2)-100 mg tablets,dose pack See Rx Instructions .ROUTE .COMPLEX Qty: 30 0RF Rx Instructions: take TWO 150 mg tablets of nirmatrelvir with ONE 100 mg tablet of ritonavir twice daily for 5 days No Action ergocalciferol (vitamin D2) [Vitamin D2] 1,250 mcg (50,000 unit) capsule 1,250 mcg PO QWEEK 90 Days Qty: 13 5RF metformin 1,000 mg tablet 1,000 mg PO BID 90 Days Qty: 180 3RF dulaglutide 1.5 mg/0.5 mL pen injector 1.5 mg subcut QWEEK 90 Days Qty: 13 3RF ezetimibe 10 mg tablet 10 mg PO DAILY 90 Days Qty: 90 3RF fenofibrate 160 mg tablet 160 mg PO DAILY 90 Days Qty: 90 3RF Januvia 100 mg tablet 100 mg PO DAILY 90 Days Qty: 90 3RF (DME) blood-glucose meter [FreeStyle Lite Meter] Kit See Rx Instructions .ROUTE .MEDSUPPLY Qty: 1 0RF Rx Instructions: As directed (DME) lancets [FreeStyle Lancets] 28 gauge misc See Rx Instructions .ROUTE .MEDSUPPLY Qty: 100 3RF Rx Instructions: As directed (DME) FreeStyle Lite Strips Strip See Rx Instructions .ROUTE .MEDSUPPLY Qty: 100 12RF Rx Instructions: As directed once a day hydrochlorothiazide 12.5 mg tablet 12.5 mg PO QAM Qty: 90 3RF pantoprazole 40 mg tablet,delayed release (DR/EC) 40 mg PO DAILY PRN (Reason: for acid reflux) Qty: 90 1RF losartan 100 mg tablet 100 mg PO DAILY 90 Days Qty: 90 1RF <SRINIVAS Lemus - Last Filed: 11/22/22 13:57> Referrals: Gustavo Watts MD [Primary Care Provider] - 1 week <SRINIVAS Lemus - Last Filed: 11/22/22 13:57>
[2022-11-22 13:55] VITALS: BP 160/85; PULSE 111; RESP 18; TEMP 37.7; O2SAT 96; BMI 32.8
[2022-11-22 14:49] VITALS: BP 152/65; RESP 18; TEMP 38.1; O2SAT 92
[2022-11-22 14:53] LABS: MANUAL DIFF FLAG NO
[2022-11-22 15:00] LABS: Glucose, Whole Blood 253 mg/dL (60-115)
[2022-11-22 15:02] LABS: Basophils Absolute Auto 0.1 X10*3/uL (0.0-0.2); Basophils Percent Auto 0.4 % (0-2); Eosinophils Percent Auto 0.1 % (0-4); Hemoglobin 15.6 g/dl (14.0-18.0); Imm Gran Abs Auto 0.06 X10*3/uL (0.00-0.03); Imm Gran Pct Auto 0.5 % (0.0-0.4); Lymphocytes Absolute Auto 0.6 X10*3/uL (1.2-4.9); Lymphocytes Percent Auto 5.2 % (20-40); Mean Corpuscular HGB Conc 34.7 g/dl (31.0-36.0); Mean Corpuscular Hemoglobin 29.4 pg (27.0-33.0); Mean Corpuscular Volume 84.7 fL (80.0-98.0); Mean Platelet Volume 11.2 fL (9.4-12.4); Monocytes Absolute Auto 0.8 X10*3/uL (0.1-1.2); Monocytes Percent Auto 7.1 % (2-11); Neutrophils Absolute Auto 9.7 x10*3/uL (2.0-8.3); Neutrophils Percent Auto 86.7 % (45-73); Platelet Count 184 X10*3/uL (160-400); Red Blood Count 5.31 X10*6/uL (4.60-5.80); Red Cell Distribution Width 12.4 % (11.0-16.0); White Blood Count 11.2 X10*3/uL (4.8-10.8)
[2022-11-22 15:06] LABS: COVID-19 Test Positive (Negative); IDNOW Serial# 9DB6401D
[2022-11-22] MEDS: Acetaminophen 325 MG TABLET 975 MG PO (15:14)
--- NOTE | 2022-11-22 15:16 | ECG_ITS ---
Test Reason : SYNCOPEE Blood Pressure : / mmHG Vent. Rate : 104 BPM Atrial Rate : 104 BPM P-R Int : 162 ms QRS Dur : 086 ms QT Int : 310 ms P-R-T Axes : 029 012 063 degrees QTc Int : 407 ms Sinus tachycardia Low voltage QRS Septal infarct , age undetermined Abnormal ECG When compared with ECG of 18-SEP-2017 12:18, Vent. rate has increased BY 36 BPM Septal infarct is now Present Referred By: Nadya Mohamud Electronically Signed By:TEMI SMITH
[2022-11-22 15:19] LABS: Alanine Aminotransferase 51 U/L (0-40); Albumin Level 4.5 g/dL (3.5-5.0); Alkaline Phosphatase 54 U/L (39-117); Anion Gap 18 (12-20); Aspartate Amino Transferase 37 U/L (5-37); Bilirubin Direct 0.3 mg/dL (0.0-0.5); Bilirubin Total 1.1 mg/dL (0.0-1.0); Blood Urea Nitrogen 18 mg/dL (9-16); Calcium 9.6 mg/dL (8.4-10.2); Carbon Dioxide 23 mmol/L (22-29); Chloride 97 mmol/L (96-108); Estimated Glomerular Filt Rate > 60; Glucose Random 265 mg/dL (60-115); Magnesium 1.2 mg/dL (1.6-2.6); Potassium 4.4 mmol/L (3.3-5.1); Sodium 134 mmol/L (135-145); Total Protein 7.2 g/dL (6.5-8.0)
[2022-11-22 15:38] VITALS: BP 154/71; PULSE 103; RESP 22; TEMP 38.1; O2SAT 94
[2022-11-22] MEDS: 0.9 % Sodium Chloride 1,000 ML 999 ML IV (15:43)
[2022-11-22] MEDS: Magnesium Sulfate/H2O 2 GM/50 ML PIGGYBACK IV (15:45)
--- NOTE | 2022-11-22 15:47 | MHC.EDTECH ---
this pct assumed care of pt at 1500 ,ekg done and was read by provider ,vitals sign taken .
[2022-11-22 16:50] VITALS: BP 139/57; PULSE 94; RESP 16; TEMP 37.2; O2SAT 94
== END 2022-11-22 17:17 | disposition home or self-care (01) ==
PROVIDERS: Physician Assistant; Emergency Provider Emergency Medicine; PCP Internal Medicine
DX: U07.1 COVID-19 (principal); E83.42 Hypomagnesemia; E11.9 Type 2 diabetes mellitus without complications; I10 Essential (primary) hypertension; E78.5 Hyperlipidemia, unspecified; Z79.84 Long term (current) use of oral hypoglycemic drugs; Z79.899 Other long term (current) drug therapy
CPT/HCPCS: 80048; 80076; 82947; 83735; 85025; 87635; 93005; 99283; 99285; J3475

== ENCOUNTER → 2022-12-10 07:55 | Outpatient (BNVA) | payer MEDICARE, BC, SELFPAY | PROVIDERS: PCP Internal Medicine; Visit Provider Physician Assistant | DX: K21.9 Gastro-esophageal reflux disease without esophagitis (principal); Z86.010 Personal history of colon polyps | CPT/HCPCS: 99202 ==

== ENCOUNTER 2022-12-16 08:04 | Outpatient (REF) | payer MEDICARE, BC, SELFPAY ==
[2022-12-16 11:03] LABS: Appearance Urine Clear; Color Urine Yellow; Glucose Urine UA 250 mg/dL (Negative); Leukocyte Esterase Urine Negative (Negative); Nitrite Urine Negative (Negative); PH 6.5 (5.0-9.0); Urine Blood Negative (Negative); Urine Ketones Negative (Negative); Urine Protein Trace mg/dL (Neg-Trace)
[2022-12-16 11:11] LABS: MANUAL DIFF FLAG NO
[2022-12-16 11:35] LABS: Basophils Percent Auto 0.3 % (0-2); Eosinophils Absolute Auto 0.1 X10*3/uL (0.0-0.4); Eosinophils Percent Auto 1.3 % (0-4); Hematocrit 44.1 % (42.0-52.0); Hemoglobin 14.8 g/dl (14.0-18.0); Imm Gran Abs Auto 0.03 X10*3/uL (0.00-0.03); Imm Gran Pct Auto 0.3 % (0.0-0.4); Lymphocytes Absolute Auto 2.4 X10*3/uL (1.2-4.9); Lymphocytes Percent Auto 26.4 % (20-40); Mean Corpuscular HGB Conc 33.6 g/dl (31.0-36.0); Mean Corpuscular Hemoglobin 28.9 pg (27.0-33.0); Mean Corpuscular Volume 86.1 fL (80.0-98.0); Mean Platelet Volume 11.9 fL (9.4-12.4); Monocytes Absolute Auto 0.9 X10*3/uL (0.1-1.2); Monocytes Percent Auto 9.6 % (2-11); Neutrophils Absolute Auto 5.6 x10*3/uL (2.0-8.3); Neutrophils Percent Auto 62.1 % (45-73); Platelet Count 246 X10*3/uL (160-400); Red Blood Count 5.12 X10*6/uL (4.60-5.80); Red Cell Distribution Width 12.8 % (11.0-16.0)
[2022-12-16 11:52] LABS: Alanine Aminotransferase 50 U/L (0-40); Albumin Level 4.2 g/dL (3.5-5.0); Alkaline Phosphatase 51 U/L (39-117); Anion Gap 16 (12-20); Aspartate Amino Transferase 39 U/L (5-37); Bilirubin Total 0.6 mg/dL (0.0-1.0); Blood Urea Nitrogen 20 mg/dL (9-16); Calcium 9.4 mg/dL (8.4-10.2); Carbon Dioxide 28 mmol/L (22-29); Chloride 99 mmol/L (96-108); Cholesterol 187 mg/dL; Estimated Glomerular Filt Rate 59; Glucose Fasting 222 mg/dL (60-99); HDL Cholesterol 34 mg/dL; LDL Cholesterol Calculated 75 mg/dl; Potassium 4.8 mmol/L (3.3-5.1); Sodium 138 mmol/L (135-145); Total Protein 6.7 g/dL (6.5-8.0); Triglycerides 391 mg/dL
[2022-12-16 12:10] LABS: TSH reflex Free T4 2.27 uIU/mL (0.32-4.0)
[2022-12-16 12:12] LABS: Estimated Average Glucose 232 mg/dL; Hemoglobin A1c % 9.7 %
[2022-12-16 12:20] LABS: Creatinine Urine 131.77 mg/dL; Microalbum/Creatinine Ratio Ur 29.5 ug/mg cr
== END 2022-12-16 08:05 | disposition home or self-care (01) ==
LOC: HO.HMGCLDS 08:04
PROVIDERS: PCP Internal Medicine; Visit Provider Internal Medicine
DX: E78.00 Pure hypercholesterolemia, unspecified (principal); E11.9 Type 2 diabetes mellitus without complications; E55.9 Vitamin D deficiency, unspecified; R30.0 Dysuria; I10 Essential (primary) hypertension
CPT/HCPCS: 36415; 80053; 80061; 81003; 82043; 82306; 83036; 84443; 85025

== ENCOUNTER 2023-02-27 11:12 | Outpatient (REF) | payer MEDICARE, BC, SELFPAY ==
--- NOTE | ~2023-02-27 | XR_ITS ---
EXAMINATION: XR CHEST CLINICAL INFORMATION: Cough COMPARISON: 09/03/2017 TECHNIQUE: 2 views of the chest were obtained. FINDINGS: No significant abnormality is noted involving the heart, lungs, mediastinum, bony thorax or soft tissues. XR/XR chest 2V IMPRESSION: Unremarkable examination with no interval change.
== END 2023-02-27 11:13 | disposition home or self-care (01) ==
LOC: HO.HMGCX 11:12
PROVIDERS: PCP Internal Medicine; Visit Provider Nurse Practitioner Family
DX: R05.9 Cough, unspecified (principal); R50.9 Fever, unspecified
CPT/HCPCS: 71046

== ENCOUNTER 2023-04-14 07:03 | Outpatient (REF) | payer MEDICARE, BC, SELFPAY ==
[2023-04-14 11:17] LABS: MANUAL DIFF FLAG NO
[2023-04-14 11:26] LABS: Basophils Absolute Auto 0.1 X10*3/uL (0.0-0.2); Basophils Percent Auto 0.7 % (0-2); Eosinophils Absolute Auto 0.1 X10*3/uL (0.0-0.4); Eosinophils Percent Auto 1.2 % (0-4); Hematocrit 48.7 % (42.0-52.0); Hemoglobin 15.8 g/dl (14.0-18.0); Imm Gran Abs Auto 0.02 X10*3/uL (0.00-0.03); Imm Gran Pct Auto 0.3 % (0.0-0.4); Lymphocytes Absolute Auto 2.1 X10*3/uL (1.2-4.9); Lymphocytes Percent Auto 28.7 % (20-40); Mean Corpuscular HGB Conc 32.4 g/dl (31.0-36.0); Mean Corpuscular Hemoglobin 28.8 pg (27.0-33.0); Mean Corpuscular Volume 88.9 fL (80.0-98.0); Mean Platelet Volume 11.6 fL (9.4-12.4); Monocytes Absolute Auto 0.5 X10*3/uL (0.1-1.2); Neutrophils Absolute Auto 4.5 x10*3/uL (2.0-8.3); Neutrophils Percent Auto 62.1 % (45-73); Platelet Count 242 X10*3/uL (160-400); Red Blood Count 5.48 X10*6/uL (4.60-5.80); White Blood Count 7.2 X10*3/uL (4.8-10.8)
[2023-04-14 11:33] LABS: Estimated Average Glucose 200 mg/dL; Hemoglobin A1c % 8.6 %
[2023-04-14 11:45] LABS: Appearance Urine Clear; Color Urine Yellow; Glucose Urine UA >=1000 mg/dL (Negative); Leukocyte Esterase Urine Negative (Negative); Nitrite Urine Negative (Negative); PH 5.5 (5.0-9.0); Specific Gravity - Urine >= 1.030 (1.005-1.025); UMIC TRIGGER UACC YES; Urine Blood Negative (Negative); Urine Ketones Negative (Negative); Urine Protein Negative (Neg-Trace)
[2023-04-14 11:53] LABS: Bacteria Urine None Seen (None Seen); Hyaline Casts Urine 0-2 /LPF (0-2); RBC Urine 0-2 /HPF (0-2); Squamous Epithelial Cell Urine 0-2 /HPF (0-2); WBC Urine 0-5 /HPF (0-5)
[2023-04-14 12:01] LABS: Alanine Aminotransferase 44 U/L (0-40); Albumin Level 4.4 g/dL (3.5-5.0); Alkaline Phosphatase 41 U/L (39-117); Anion Gap 15 (12-20); Aspartate Amino Transferase 37 U/L (5-37); Bilirubin Total 0.6 mg/dL (0.0-1.0); Blood Urea Nitrogen 28 mg/dL (9-16); Calcium 9.8 mg/dL (8.4-10.2); Carbon Dioxide 24 mmol/L (22-29); Chloride 103 mmol/L (96-108); Cholesterol 188 mg/dL; Estimated Glomerular Filt Rate 53; Glucose Fasting 192 mg/dL (60-99); HDL Cholesterol 41 mg/dL; LDL Cholesterol Calculated 75 mg/dl; Potassium 4.4 mmol/L (3.3-5.1); Sodium 138 mmol/L (135-145); Total Protein 7.5 g/dL (6.5-8.0); Triglycerides 361 mg/dL
[2023-04-14 12:19] LABS: TSH reflex Free T4 2.41 uIU/mL (0.32-4.0); Vitamin D 25-OH Total 47.3 ng/mL (>30)
[2023-04-14 12:22] LABS: Creatinine Urine 83.02 mg/dL; Microalbum/Creatinine Ratio Ur 30.1 ug/mg cr
== END 2023-04-14 07:04 | disposition home or self-care (01) ==
LOC: HO.HMGCLDS 07:03
PROVIDERS: PCP Internal Medicine; Visit Provider Internal Medicine
DX: Z12.5 Encounter for screening for malignant neoplasm of prostate (principal); E11.9 Type 2 diabetes mellitus without complications; E78.00 Pure hypercholesterolemia, unspecified; E55.9 Vitamin D deficiency, unspecified; N40.0 Benign prostatic hyperplasia without lower urinary tract symptoms; I10 Essential (primary) hypertension
CPT/HCPCS: 36415; 80053; 80061; 81001; 82043; 82306; 83036; 83735; 84153; 84443; 85025

== ENCOUNTER 2023-04-20 15:48 | Outpatient (AMB) | payer MEDICARE, BC, SELFPAY ==
[2023-04-20 15:50] VITALS: BP 118/76; PULSE 73; O2SAT 93; BMI 32.0
--- NOTE | 2023-04-20 15:50 | MHC.PC.OV ---
Vital Signs 04/20/23 15:50 Height 5 ft 11 in Weight 229 lb 2 oz BMI 32.0 BP 118/76 Blood Pressure Location Lt brachial Position Sitting Pulse 73 Pulse Source Pulse Oximeter Pulse Oximetry (%) 93 Oxygen Delivery Method Room Air Intake Visit Reasons: DM, hyperlipidemia, HTN Machine Tracer Required: No Accompanied by: Self / Same As Patient Allergies simvastatin Allergy (Unknown, Verified 08/26/23 16:17) Unknown atorvastatin Adverse Reaction (Unknown, Verified 08/26/23 16:17) diarrhea and abdominal pain, diarrhea rosuvastatin Adverse Reaction (Unknown, Verified 08/26/23 16:17) diarrhea and abdominal pain, diarrhea Medication List - Last Reconciled 09/01/23 by Gustavo Watts MD bisacodyl (Dulcolax (bisacodyl)) 10 mg (2 x 5 mg) PO ONCE 1 day blood sugar diagnostic (FreeStyle Lite Strips) As directed once a day blood-glucose meter (FreeStyle Lite Meter kit) As directed dulaglutide 3 mg (0.5 mL) subcut QWEEK 90 days ergocalciferol (vitamin D2) (Vitamin D2) 1,250 mcg PO QWEEK 90 days ezetimibe 10 mg PO DAILY 90 days fenofibrate 160 mg PO DAILY 90 days hydrochlorothiazide 12.5 mg PO QAM Jardiance (empagliflozin) 25 mg PO QAM 90 days NS lancets (FreeStyle Lancets) As directed losartan 100 mg PO DAILY 90 days metformin 1,000 mg PO BID 90 days methylcellulose (laxative) (Citrucel) 500 mg PO TID nystatin 1 appl topical TID 10 days pantoprazole 40 mg PO DAILY PRN polyethylene glycol 3350 (Miralax) 238 grams PO ONCE PRN 1 day tramadol 50 mg PO BID PRN 15 days Tobacco use date assessed: 04/20/23 Fall risk assessment: No Falls in past year Last assessed Fall Risk: 04/20/23 Dental Screening Dental Screen Date: 04/20/23 Did you have a dental visit in the last 12 months?: No Did you have a dental problem in the last 6 months where you did not have access to dental care?: No Was dental information given to patient?: Patient has dentist HPI DM, hyperlipidemia, HTN HPI Details Patient comes in today for his follow up visit States that he feels okay He denies any headaches or dizziness Denies any chest pains, no SOB No nausea/vomiting, no abdominal pain No change in bowel habits noted Had his follow up labs done last week - to discuss his results [facility] Medical History Hypomagnesemia Hx of adenomatous colonic polyps Lumbar spinal stenosis Obstructive sleep apnea GERD without esophagitis Vitamin D deficiency Neuropathy Left carotid artery stenosis Obesity (BMI 30-39.9) Mixed hyperlipidemia Benign essential hypertension Diabetes mellitus Surgical History History of endarterectomy History of colonoscopy Family History Father Hypertension Cancer Mother Hypertension Diabetes Social History Housing: House Alcohol intake: current Alcohol intake frequency: holidays/special occasions only Patient Tobacco Use Status: Former Tobacco user e-Cigarette/Vaping Use: Never Used Second Hand Smoke Exposure: Yes service: No Current occupational status: employed Cognitive needs: No Hearing needs: No Vision needs: Yes (glasses) Questionnaire PHQ-9 Over the last 2 weeks, how often have you been bothered by any of the following problems? 1. Little interest or pleasure in doing things: not at all 2. Feeling down, depressed, or hopeless: not at all 3. Trouble falling or staying asleep, or sleeping too much: not at all 4. Feeling tired or having little energy: not at all 5. Poor appetite or overeating: not at all 6. Feeling bad about yourself - or that you are a failure or have let yourself or your family down: not at all 7. Trouble concentrating on things, such as reading the newspaper or watching television: not at all 8. Moving or speaking so slowly that other people could have noticed. Or the opposite - being so fidgety or restless that you have been moving around a lot more than usual: not at all 9. Thoughts that you would be better off or of hurting yourself in some way: not at all Total score: 0 Depression Screening Interpretation: Negative [id number] - PHQ-9 Billing: Yes Source: Developed by Drs. Felix Poole, Elizabeth Mcmahan, Jason Olivas and colleagues, with an educational martha from [email or web address] Thrive Questionnaire Date Thrive assessed: 04/20/23 I am a: Patient What is your living situation today?: I have a steady place to live Within the past 12 months, did the food you bought not last and you didn't have the money to get more?: Never true Within the past 12 months, did you worry whether your food would run out before you got money to buy more?: Never true Do you have trouble paying for medicines?: No Do you have trouble getting transportation to medical appointments?: No Do you have trouble paying your heating and electricity bill?: No Do you have trouble taking care of your child, family member or friend?: No Do you have trouble with day-to-day activities such as bathing, preparing meals, shopping, managing finances, etc.?: No Are you currently unemployed and looking for a job?: No Are you interested in more education?: No Please select the resources that you would like help with: None Currently or been in a relationship where the following occur: no concerns reported AUDIT C Alcohol Use Questionnaire (AUDIT-C) 1. How often do you have a drink containing alcohol?: Monthly or less 2. How many drinks containing alcohol do you have on a typical day when you are drinking?: 1 or 2 3. How often do you have six or more drinks on one occasion?: Never Total Score: 1 Score Reviewed/Action Taken: Yes MALATHI-7 AMB Questionnaire MALATHI-7 Date MALATHI - 7 assessed: 04/20/23 Feeling nervous, anxious, or on edge: 0 = Not at all Not being able to stop or control worryin = Not at all Worrying too much about different things: 0 = Not at all Trouble relaxin = Not at all Being so restless that it is hard to sit still: 0 = Not at all Becoming easily annoyed or irritable: 0 = Not at all Feeling afraid as if something awful might happen: 0 = Not at all Total MALATHI-7 score (0-4 normal; 5-9 mild; 10-14 moderate; 15-21 severe): 0 Source: Developed by Elizabeth Moreno Kurt Kroenke and colleagues, with an educational martha from [email or web address] Review of Systems Const Denies chills, Denies fatigue, Denies fever(s) and Denies headache(s) ENT Denies dysphagia, Denies dizziness, Denies otalgia, Denies headache(s), Denies odynophagia, Denies tinnitus and Denies sore throat Card Denies chest pain, Denies rapid heart rate, Denies irregular heart rhythm, Denies palpitations and Denies dyspnea Resp Denies chest congestion, Denies cough, Denies dyspnea and Denies wheezing GI Denies abdominal pain, Denies bloating, Denies constipation, Denies dysphagia, Denies heartburn, Denies diarrhea, Denies nausea, Denies odynophagia and Denies vomiting Denies difficulty urinating, Denies nocturia and Denies urinary frequency Musc Reports back pain (over the lower back, on and off but seems to be better with oral Mg), Denies arthralgias and Denies joint swelling Skin/Breast Denies rash Neuro Denies dizziness, Denies headache(s) and Denies paresthesias Endo Denies fatigue and Denies palpitations Aller/Immun Denies wheezing Physical exam (Primary Care) Vital Signs: Last Vital Signs Pulse 73 04/20/23 15:50 BP 118/76 04/20/23 15:50 Pulse Ox 93 04/20/23 15:50 Oxygen Delivery Method Room Air 04/20/23 15:50 BMI result Body Mass Index 32.0 Tobacco/Smoking Status: Tobacco use Status Tobacco use date assessed 04/20/23 04/20/23 15:56 Patient Tobacco Use Status Former Tobacco user 04/20/23 15:56 e-Cigarette/Vaping Use Never Used 04/20/23 15:56 PHQ-9: PHQ-9 Score PHQ-9: Total score 0 04/20/23 16:44 Depression Screening Interpretation: Negative Thrive Assessment: Date of Thrive Assessment Date Thrive assessed 04/20/23 04/20/23 15:56 Currently or been in a relationship where the following occur: no concerns reported Const General: no acute distress and alert HENMT Ears: TM's normal bilaterally and EAC's normal Throat: Yes posterior oropharynx normal and Yes tonsils normal (no TP congestion) Neck Neck: Yes no lymphadenopathy and Yes supple Resp Auscultation: clear to auscultation bilaterally, no rales and no wheezes Cardio Rate: regular rate Rhythm: regular rhythm Heart sounds: no murmurs GI Palpation (GI): Soft to palpation and nontender Auscultation: normal bowel sounds Back/Spine/Pelvis Thoracic/Lumbar Spine: lumbar spinal tenderness (especially on the left side) Skin Rashes: no rashes Extrem General: Yes no clubbing, cyanosis or edema Results Reviewed Results Reviewed: Laboratory Tests 04/14/23 04/14/23 04/14/23 07:10 07:10 07:10 WBC 7.2 Hgb 15.8 Hct 48.7 Plt Count 242 Sodium 138 Potassium 4.4 Creatinine 1.33 Estimated GFR 53 Fasting Glucose 192 H Hemoglobin A1c % 8.6 Calcium 9.8 Magnesium 2.0 AST 37 ALT 44 H Triglycerides 361 Cholesterol 188 LDL Cholesterol, Calc 75 HDL Cholesterol 41 Prostate Specific Ag 25-OH Vitamin D Total 47.3 TSH 2.41 Ur Specific [place] Urine Protein Urine Glucose (UA) Urine Blood Microalb/Creat Ratio 04/14/23 04/14/23 04/14/23 07:10 07:15 07:15 WBC Hgb Hct Plt Count Sodium Potassium Creatinine Estimated GFR Fasting Glucose Hemoglobin A1c % Calcium Magnesium AST ALT Triglycerides Cholesterol LDL Cholesterol, Calc HDL Cholesterol Prostate Specific Ag 0.50 25-OH Vitamin D Total TSH Ur Specific [place] >= 1.030 H Urine Protein Negative Urine Glucose (UA) >=1000 H Urine Blood Negative Microalb/Creat Ratio 30.1 Assessment and Plan Assessment & Plan (1) Mixed hyperlipidemia: Code(s): E78.2 - Mixed hyperlipidemia Plan: Results of his labs done a few days ago reviewed and discussed with patient Reinforced low cholesterol diet Continue Ezetimibe 10 mg QD and Fenofibrate 160 mg QD; patient has NOT been able to tolerate any of the commercially available statins in the past Will recheck his labs and fasting lipids in 4 months for follow up (2) Diabetes mellitus: Code(s): E11.9 - Type 2 diabetes mellitus without complications Qualifiers: Diabetes mellitus complication detail: with unspecified neuropathy Diabetes mellitus complication status: with neurologic complications Diabetes mellitus long-term insulin use: without ocean transportation intermediary use Diabetes mellitus type: type 2 Qualified Code(s): E11.40 - Type 2 diabetes mellitus with diabetic neuropathy, unspecified Plan: HgbA1c was at 8.6% on his labs done last week (was at 9.7% a few months ago) - goal is <7.0% Reinforced diabetic diet Continue Metformin 500 mg BID, Trulicity 1.5 mg SQ once a week and Jardiance 25 mg Q AM (3) Benign essential hypertension: Code(s): I10 - Essential (primary) hypertension Plan: Reinforced low sodium diet - goal is systolic BP of at least 130 to 140 mm or less Continue HCTZ 12.5 mg Q AM and Losartan 100 mg QD; had recurrent coughing when he was on Lisinopril in the past Patient is reminded to continue monitoring his blood pressure regularly (4) Left carotid artery stenosis: Comment: S/P left carotid endarterectomy - 08/2017 Code(s): I65.22 - Occlusion and stenosis of left carotid artery Plan: Follow up with vascular surgery (Dr. Palmer) as scheduled (5) GERD without esophagitis: Comment: Dietary modifications, rare symptoms- Code(s): K21.9 - Gastro-esophageal reflux disease without esophagitis Plan: Dietary restrictions reinforced Continue Pantoprazole 40 mg QD (6) Lumbar spinal stenosis: Code(s): M48.061 - Spinal stenosis, lumbar region without neurogenic claudication Qualifiers: Neurogenic claudication status: without neurogenic claudication Qualified Code(s): M48.061 - Spinal stenosis, lumbar region without neurogenic claudication Plan: Lumbar spine MRI done on 07/10/2017 revealed moderate to severe L4-L5 spinal canal stenosis and marked facet joint arthropathy at L3-L4, L4-L5 and L5-S1 Was seen by neurosurgery (Dr. Cheema) for consultation on 11/26/2017 - was advised against surgery at that time as he just had a TIA and left carotid endarterectomy earlier in the year in August 2017 and instructed to return in the fall of 2017 for consideration of L4-L5 decompression surgery if his symptoms continue to persist or progress Patient states that he did not go back to Neurosurgery as his symptoms were tolerable at the time Has been seeing his chiropractor since his low back pains started flaring up about a year ago; states that his low back pain has again been much better controlled lately and he has not had to take any Rx recently for his low back pain (7) Neuropathy: Comment: NCV done in 2018 showed findings compatible with mild to moderate sensory and motor neuropathy Code(s): G62.9 - Polyneuropathy, unspecified Plan: Was started on a trial of Gabapentin previously but patient has not needed to take it - symptoms are minimal and remain tolerable still (8) Vitamin D deficiency: Code(s): E55.9 - Vitamin D deficiency, unspecified Plan: Corrected; continue Vitamin D2 72716 units once a week and OTC Vitamin D3 1000 units QD (9) Hypomagnesemia: Code(s): E83.42 - Hypomagnesemia Plan: Continue oral Magnesium supplements daily (10) Obstructive sleep apnea: Code(s): G47.33 - Obstructive sleep apnea (adult) (pediatric) Plan: Continue using his CPAP device daily when sleeping at night (11) Obesity (BMI 30-39.9): Code(s): E66.9 - Obesity, unspecified Plan: Reinforced diet/exercise as tolerated/lose weight Plan Follow up in 4 months Orders: Orders Complete Blood Count Auto Diff 4 Months I10 - Essential (primary) hypertension Microalbumin, Random (w Creat) 4 Months E11.9 - Type 2 diabetes mellitus without complications TSH reflex Free T4 4 Months E78.00 - Pure hypercholesterolemia, unspecified UA CC w/rflx Micro + Cult 4 Months R30.0 - Dysuria Comprehensive [place]. Panel Fast 4 Months E78.00 - Pure hypercholesterolemia, unspecified Lipid Panel 4 Months E78.00 - Pure hypercholesterolemia, unspecified Hemoglobin A1c 4 Months E11.9 - Type 2 diabetes mellitus without complications Vitamin D 25-OH Total 4 Months E55.9 - Vitamin D deficiency, unspecified Coding Level of Care Code Est Pt Level 4 (51545) Diagnoses Mixed hyperlipidemia E78.2 Type 2 diabetes mellitus with diabetic neuropathy, without long-term current use of insulin E11.40 Diabetes mellitus complication detail: with unspecified neuropathy Diabetes mellitus complication status: with neurologic complications Diabetes mellitus ocean transportation intermediary insulin use: without ocean transportation intermediary use Diabetes mellitus type: type 2 Benign essential hypertension I10 Left carotid artery stenosis I65.22 GERD without esophagitis K21.9 Spinal stenosis of lumbar region without neurogenic claudication M48.061 Neurogenic claudication status: without neurogenic claudication Neuropathy G62.9 Vitamin D deficiency E55.9 Hypomagnesemia E83.42 Obstructive sleep apnea G47.33 Obesity (BMI 30-39.9) E66.9
== END 2023-04-20 16:58 | disposition home or self-care (01) ==
PROVIDERS: Visit Provider Internal Medicine
DX: E78.2 Mixed hyperlipidemia (principal); E11.40 Type 2 diabetes mellitus with diabetic neuropathy, unspecified; I10 Essential (primary) hypertension; I65.22 Occlusion and stenosis of left carotid artery; K21.9 Gastro-esophageal reflux disease without esophagitis; M48.061 Spinal stenosis, lumbar region without neurogenic claudication; E66.9 Obesity, unspecified; Z68.32 Body mass index [BMI] 32.0-32.9, adult; G62.9 Polyneuropathy, unspecified; E55.9 Vitamin D deficiency, unspecified; E83.42 Hypomagnesemia; G47.33 Obstructive sleep apnea (adult) (pediatric)
CPT/HCPCS: 99214

== ENCOUNTER 2023-07-17 14:05 | Outpatient (AMB) | payer MEDICARE, SELFPAY ==
--- NOTE | 2023-07-17 14:13 | AM.OFFVISNUR ---
Intake Intake Visit Reasons: flu shot Allergies simvastatin Allergy (Unknown, Verified 04/20/23 15:50) Unknown atorvastatin Adverse Reaction (Unknown, Verified 04/20/23 15:50) diarrhea and abdominal pain, diarrhea rosuvastatin Adverse Reaction (Unknown, Verified 04/20/23 15:50) diarrhea and abdominal pain, diarrhea Office Procedures Flu Questionnaire Does the patient have a severe egg allergy?: No Does the patient have severe life threatening allergies?: No Does the patient have a fever or illness today?: No Has the patient ever had Guillain-[place] Syndrome?: No Has the patient ever had any past reaction to a flu shot?: No Immunizations flu vacc [id number] 6mos up(PF) 60 mcg(15 mcgx4)/0.5 mL IM syringe Performing Provider: Gustavo Watts MD [facility] Administered by: Kiley Alonzo RN on 07/17/23 14:13 Dose Route Admin Location Dispensed Lot Number Expiration Date NDC Applications Processor 0.5 mL IM Left Deltoid 0.5 mL [id number] 02/28/24 [id number] [employer] VIS Given Date VIS Provided VIS Publication Date 07/17/23 Single Vaccine 21 Eligibility Eligibility Date Funding Source Not [facility] Eligible 07/17/23 Private Coding Assessment & Plan Assessment & Plan Orders: Orders Influenza [id number] Immunization Today Z23 - Encounter for immunization
== END 2023-07-17 14:14 | disposition home or self-care (01) ==
LOC: HO.HMGH 14:05
PROVIDERS: PCP Internal Medicine; Visit Provider Internal Medicine
DX: Z23 Encounter for immunization (principal)
CPT/HCPCS: 90471; 90686

== ENCOUNTER 2023-08-18 06:25 | Outpatient (REF) | payer MEDICARE, BC, SELFPAY ==
[2023-08-18 11:24] LABS: MANUAL DIFF FLAG NO
[2023-08-18 11:31] LABS: Basophils Absolute Auto 0.1 X10*3/uL (0.0-0.2); Basophils Percent Auto 0.7 % (0-2); Eosinophils Absolute Auto 0.1 X10*3/uL (0.0-0.4); Eosinophils Percent Auto 1.5 % (0-4); Hematocrit 47.7 % (42.0-52.0); Hemoglobin 16.1 g/dl (14.0-18.0); Imm Gran Abs Auto 0.02 X10*3/uL (0.00-0.03); Imm Gran Pct Auto 0.3 % (0.0-0.4); Lymphocytes Absolute Auto 2.4 X10*3/uL (1.2-4.9); Lymphocytes Percent Auto 33.1 % (20-40); Mean Corpuscular HGB Conc 33.8 g/dl (31.0-36.0); Mean Corpuscular Hemoglobin 29.3 pg (27.0-33.0); Mean Corpuscular Volume 86.7 fL (80.0-98.0); Mean Platelet Volume 11.3 fL (9.4-12.4); Monocytes Absolute Auto 0.6 X10*3/uL (0.1-1.2); Monocytes Percent Auto 8.4 % (2-11); Neutrophils Absolute Auto 4.1 x10*3/uL (2.0-8.3); Platelet Count 221 X10*3/uL (160-400); Red Cell Distribution Width 12.6 % (11.0-16.0); White Blood Count 7.4 X10*3/uL (4.8-10.8)
[2023-08-18 11:36] LABS: Estimated Average Glucose 200 mg/dL; Hemoglobin A1c % 8.6 % (<6.0)
[2023-08-18 11:38] LABS: Appearance Urine Clear; Color Urine Yellow; Glucose Urine UA >=1000 mg/dL (Negative); Leukocyte Esterase Urine Negative (Negative); Nitrite Urine Negative (Negative); PH 5.5 (5.0-9.0); Specific Gravity - Urine >= 1.030 (1.005-1.025); UMIC TRIGGER UACC YES; Urine Blood Negative (Negative); Urine Ketones Negative (Negative); Urine Protein Negative (Neg-Trace)
[2023-08-18 11:42] LABS: Bacteria Urine None Seen (None Seen); Hyaline Casts Urine 0-2 /LPF (0-2); RBC Urine 0-2 /HPF (0-2); Squamous Epithelial Cell Urine 0-2 /HPF (0-2); WBC Urine 0-5 /HPF (0-5)
[2023-08-18 12:03] LABS: Alanine Aminotransferase 44 U/L (0-40); Albumin Level 4.2 g/dL (3.5-5.0); Alkaline Phosphatase 44 U/L (39-117); Anion Gap 14 (12-20); Aspartate Amino Transferase 35 U/L (5-37); Bilirubin Total 0.5 mg/dL (0.0-1.0); Blood Urea Nitrogen 26 mg/dL (9-16); Calcium 9.4 mg/dL (8.4-10.2); Carbon Dioxide 27 mmol/L (22-29); Chloride 101 mmol/L (96-108); Cholesterol 182 mg/dL (<200); Estimated Glomerular Filt Rate > 60; Glucose Fasting 185 mg/dL (60-99); HDL Cholesterol 37 mg/dL (>40); LDL Cholesterol Calculated 79 mg/dL (<100); Potassium 4.1 mmol/L (3.3-5.1); Sodium 138 mmol/L (135-145); Total Protein 7.2 g/dL (6.5-8.0); Triglycerides 330 mg/dL (<150)
[2023-08-18 12:26] LABS: Creatinine Urine 63.98 mg/dL; Microalbum/Creatinine Ratio Ur 10.9 ug/mg cr (<30)
[2023-08-18 13:17] LABS: TSH reflex Free T4 1.88 uIU/mL (0.32-4.0); Vitamin D 25-OH Total 67.9 ng/mL (>30)
== END 2023-08-18 06:26 | disposition home or self-care (01) ==
LOC: HO.HMGCLDS 06:25
PROVIDERS: PCP Internal Medicine; Visit Provider Internal Medicine
DX: I10 Essential (primary) hypertension (principal); E11.9 Type 2 diabetes mellitus without complications; E78.00 Pure hypercholesterolemia, unspecified; E55.9 Vitamin D deficiency, unspecified; R30.0 Dysuria
CPT/HCPCS: 36415; 80053; 80061; 81001; 82043; 82306; 82570; 83036; 84443; 85025

== ENCOUNTER 2023-08-26 15:19 | Outpatient (AMB) | payer MEDICARE, SELFPAY ==
--- NOTE | 2023-08-26 15:39 | A.OFFPC_ITS ---
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: No General Accountant: Present Accompanied by: Spouse Allergies simvastatin Allergy (Unknown, Verified 08/26/23 16:17) Unknown atorvastatin Adverse Reaction (Unknown, Verified 08/26/23 16:17) diarrhea and abdominal pain, diarrhea rosuvastatin Adverse Reaction (Unknown, Verified 08/26/23 16:17) diarrhea and abdominal pain, diarrhea Medication List - Last Reconciled 08/26/23 by Gustavo Watts MD bisacodyl (Dulcolax (bisacodyl)) 10 mg (2 x 5 mg) PO ONCE 1 day blood sugar diagnostic (FreeStyle Lite Strips) As directed once a day blood-glucose meter (FreeStyle Lite Meter kit) As directed dulaglutide 1.5 mg (0.5 mL) subcut QWEEK 90 days ergocalciferol (vitamin D2) (Vitamin D2) 1,250 mcg PO QWEEK 90 days ezetimibe 10 mg PO DAILY 90 days fenofibrate 160 mg PO DAILY 90 days hydrochlorothiazide 12.5 mg PO QAM Jardiance (empagliflozin) 25 mg PO QAM 90 days NS lancets (FreeStyle Lancets) As directed losartan 100 mg PO DAILY 90 days metformin 1,000 mg PO BID 90 days methylcellulose (laxative) (Citrucel) 500 mg PO TID pantoprazole 40 mg PO DAILY PRN polyethylene glycol 3350 (Miralax) 238 grams PO ONCE PRN 1 day Tobacco use date assessed: 08/26/23 Fall risk assessment: No Falls in past year Last assessed Fall Risk: 08/26/23 Dental Screening Dental Screen Date: 08/26/23 Did you have a dental visit in the last 12 months?: No Did you have a dental problem in the last 6 months where you did not have access to dental care?: No Was dental information given to patient?: Patient has dentist HPI DM, hyperlipidemia, HTN HPI Details Patient comes in today for his follow up visit States that he has been experiencing increased pain around his left shoulder area for the past 2 weeks now Has been seeing his chiropractor for his shoulder lately - states that his chiropractor is still working on getting his shoulder pain to calm down Patient feels that his shoulder pain is probably from a pinched nerve or a torn muscle States that he has been taking OTC Ibuprofen and Tylenol for his shoulder pains lately but they have not helped much and he has been having trouble sleeping at night lately due to the pain States that he has also tried applying some heating pad over his shoulder, which helps somewhat; has also tried icing his shoulder but finds that ice does not help Would like to get something stronger that he can take at night to help with the pain and allow him to get some sleep Adds that he has been experiencing what he thinks is a yeast infection over his genital area recently and he ended up using his 's Monistat cream and his symptoms have since cleared up completely Wants to know if he can get some similar Rx when his symptoms flare up again States that he feels okay otherwise He denies any headaches or dizziness Denies any chest pains, no SOB No nausea/vomiting, no abdominal pain No change in bowel habits noted Had his follow up labs done last week - to discuss his results [facility] Medical History Hypomagnesemia Hx of adenomatous colonic polyps Lumbar spinal stenosis Obstructive sleep apnea GERD without esophagitis Vitamin D deficiency Neuropathy Left carotid artery stenosis Obesity (BMI 30-39.9) Mixed hyperlipidemia Benign essential hypertension Diabetes mellitus Surgical History History of endarterectomy History of colonoscopy Family History Father Hypertension Cancer Mother Hypertension Diabetes Social History Housing: House Alcohol intake: current Alcohol intake frequency: holidays/special occasions only Patient Tobacco Use Status: Former Tobacco user e-Cigarette/Vaping Use: Never Used Second Hand Smoke Exposure: Yes service: No Current occupational status: employed Cognitive needs: No Hearing needs: No Vision needs: Yes (glasses) Questionnaire Thrive Questionnaire Date Thrive assessed: 04/20/23 MALATHI-7 AMB Questionnaire MALATHI-7 Date MALATHI - 7 assessed: 04/20/23 Source: Developed by Drs. Felix Poole, Elizabeth Mcmahan, Jason Olivas and colleagues, with an educational martha from [employer]. Review of Systems Const Denies chills, Reports difficulty sleeping (lately due to increased left shoulder pain), Reports fatigue, Denies fever(s) and Denies headache(s) ENT Denies dysphagia, Denies dizziness, Denies otalgia, Denies headache(s), Denies odynophagia, Denies tinnitus and Denies sore throat Card Denies chest pain, Denies rapid heart rate, Denies irregular heart rhythm, Denies palpitations and Denies dyspnea Resp Denies chest congestion, Denies cough, Denies dyspnea and Denies wheezing GI Denies abdominal pain, Denies bloating, Denies constipation, Denies dysphagia, Denies heartburn, Denies diarrhea, Denies nausea, Denies odynophagia and Denies vomiting Denies difficulty urinating, Denies nocturia and Denies urinary frequency Musc Reports back pain (over the lower back, on and off), Reports arthralgias (increased over the left shoulder for the past 2 weeks) and Denies joint swelling Skin/Breast Denies rash Neuro Denies dizziness, Denies headache(s) and Denies paresthesias Endo Reports fatigue and Denies palpitations Aller/Immun Denies wheezing Physical exam (Primary Care) Vital Signs: Last Vital Signs Pulse 81 08/26/23 15:41 BP 132/72 08/26/23 15:41 Pulse Ox 94 08/26/23 15:41 Oxygen Delivery Method Room Air 08/26/23 15:41 BMI result Body Mass Index 32.8 Tobacco/Smoking Status: Tobacco use Status Tobacco use date assessed 08/26/23 08/26/23 15:49 Patient Tobacco Use Status Former Tobacco user 08/26/23 15:49 e-Cigarette/Vaping Use Never Used 08/26/23 15:49 Thrive Assessment: Date of Thrive Assessment Date Thrive assessed 04/20/23 08/26/23 15:49 Const General: no acute distress and alert HENMT Ears: TM's normal bilaterally and EAC's normal Throat: Yes posterior oropharynx normal and Yes tonsils normal (no TP congestion) Neck Neck: Yes no lymphadenopathy and Yes supple Resp Auscultation: clear to auscultation bilaterally, no rales and no wheezes Cardio Rate: regular rate Rhythm: regular rhythm Heart sounds: no murmurs GI Palpation (GI): Soft to palpation and nontender Auscultation: normal bowel sounds Back/Spine/Pelvis Thoracic/Lumbar Spine: lumbar spinal tenderness (especially on the left side) Skin Rashes: no rashes Extrem General: Yes no clubbing, cyanosis or edema Left upper extremity: shoulder/upper arm Details: tenderness Location: of the A- C joint; no swelling Results Reviewed Results Reviewed: Laboratory Tests 08/18/23 06:45 WBC 7.4 Hgb 16.1 Hct 47.7 Plt Count 221 Sodium 138 Potassium 4.1 Creatinine 1.10 Estimated GFR > 60 Fasting Glucose 185 H Hemoglobin A1c % 8.6 H Calcium 9.4 AST 35 ALT 44 H Triglycerides 330 H Cholesterol 182 LDL Cholesterol, Calc 79 HDL Cholesterol 37 L 25-OH Vitamin D Total 67.9 TSH 1.88 Ur Specific [place] >= 1.030 H Urine Protein Negative Urine Glucose (UA) >=1000 H Urine Blood Negative Urine Nitrite Negative Ur Leukocyte Esterase Negative Microalb/Creat Ratio 10.9 Assessment and Plan Assessment & Plan (1) Diabetes mellitus: Code(s): E11.9 - Type 2 diabetes mellitus without complications Qualifiers: Diabetes mellitus complication detail: with unspecified neuropathy Diabetes mellitus complication status: with neurologic complications Diabetes mellitus buttermaker continuous churn insulin use: without buttermaker continuous churn use Diabetes mellitus type: type 2 Qualified Code(s): E11.40 - Type 2 diabetes mellitus with diabetic neuropathy, unspecified Plan: HgbA1c was at 8.6% on his labs done last week (was at 9.7% a few months ago) - goal is <7.0% Reinforced diabetic diet Continue Metformin 500 mg BID and Jardiance 25 mg Q AM Will increase his Trulicity now to 3 mg SQ once a week (2) Mixed hyperlipidemia: Code(s): E78.2 - Mixed hyperlipidemia Plan: Results of his labs done last week reviewed and discussed with patient Reinforced low cholesterol diet Continue Ezetimibe 10 mg QD and Fenofibrate 160 mg QD; patient has NOT been able to tolerate any of the commercially available statins in the past Will recheck his labs and fasting lipids in 4 months for follow up (3) Benign essential hypertension: Code(s): I10 - Essential (primary) hypertension Plan: Reinforced low sodium diet - goal is systolic BP of at least 130 to 140 mm or less Continue HCTZ 12.5 mg Q AM and Losartan 100 mg QD; had a recurrent coughing when he was on Lisinopril in the past Patient is reminded to continue monitoring his blood pressure regularly (4) Left carotid artery stenosis: Comment: S/P left carotid endarterectomy - 08/2017 Code(s): I65.22 - Occlusion and stenosis of left carotid artery Plan: Follow up with vascular surgery (Dr. Palmer) as scheduled (5) GERD without esophagitis: Comment: Dietary modifications, rare symptoms- Code(s): K21.9 - Gastro-esophageal reflux disease without esophagitis Plan: Dietary restrictions reinforced Continue Pantoprazole 40 mg QD (6) Neuropathy: Comment: NCV done in 2019 showed findings compatible with mild to moderate sensory and motor neuropathy Code(s): G62.9 - Polyneuropathy, unspecified Plan: Was started on a trial of Gabapentin previously but patient has not needed to take it - symptoms are minimal and remain tolerable still (7) Left shoulder pain: Code(s): M25.512 - Pain in left shoulder Qualifiers: Chronicity: acute Qualified Code(s): M25.512 - Pain in left shoulder Plan: Suspect that he may have some rotator cuff tendinitis /bursitis or injury Have offered to send him for x-rays of the left shoulder but patient declined - states that he will call for the x-ray order if he changes his mind and decides to get it States that he will continue following up with his chiropractor for his left shoulder pain for now Will start him on Tramadol 50 mg PRN for his shoulder pain - cautioned that the Rx can cause drowsiness and he states that he plans to just take this at nighttime for now to help him get some sleep (8) Vitamin D deficiency: Code(s): E55.9 - Vitamin D deficiency, unspecified Plan: Continue Vitamin D2 64554 units once a week and OTC Vitamin D3 1000 units QD (9) Hypomagnesemia: Code(s): E83.42 - Hypomagnesemia Plan: Continue oral Magnesium supplements daily Will recheck serum Magnesium level in a few months for follow up (10) Lumbar spinal stenosis: Code(s): M48.061 - Spinal stenosis, lumbar region without neurogenic claudication Qualifiers: Neurogenic claudication status: without neurogenic claudication Qualified Code(s): M48.061 - Spinal stenosis, lumbar region without neurogenic claudication Plan: Lumbar spine MRI done on 07/10/2017 revealed moderate to severe L4-L5 spinal canal stenosis and marked facet joint arthropathy at L3-L4, L4-L5 and L5-S1 Was seen by neurosurgery (Dr. Cheema) for consultation on 11/26/2017 - was advised against surgery at that time as he just had a TIA and left carotid endarterectomy earlier in the year in August 2017 and instructed to return in the fall of 2017 for consideration of L4-L5 decompression surgery if his symptoms continue to persist or progress Patient states that he did not go back to Neurosurgery as his symptoms were tolerable at the time Has been seeing his chiropractor since his low back pains started flaring up over a year ago - states that his low back pain is again now much better controlled and he hardly has to take any Rx lately for low back pain Reinforced activity and weight-lifting restrictions to minimize aggravating his low back pain (11) Rash of genital area: Code(s): R21 - Rash and other nonspecific skin eruption Plan: Was likely candidal balanitis due to his diabetes Will send in Rx for Nystatin cream that he can apply to his genital rash TID if it flares up again Advised that better control of his diabetes will significantly reduce or prevent recurrence of his genital rash (12) Obstructive sleep apnea: Code(s): G47.33 - Obstructive sleep apnea (adult) (pediatric) Plan: Continue using his CPAP device daily when sleeping at night (13) Obesity (BMI 30-39.9): Code(s): E66.9 - Obesity, unspecified Plan: Reinforced diet/exercise as tolerated/lose weight Plan Follow up in 4 months Medications: New tramadol 50 mg PO BID 15 days PRN 30 tabs 0RF pain nystatin 1 appl topical TID 10 days 30 grams 0RF Changed From dulaglutide 1.5 mg (0.5 mL) subcut QWEEK 90 days 13 mL 3RF E11.9 - Type 2 diabetes mellitus without complications To dulaglutide 3 mg (0.5 mL) subcut QWEEK 90 days 6.5 mL 3RF E11.9 - Type 2 diabetes mellitus without complications Coding Level of Care Code Est Pt Level 4 (65584) Diagnoses Type 2 diabetes mellitus with diabetic neuropathy, without long-term current use of insulin E11.40 Diabetes mellitus complication detail: with unspecified neuropathy Diabetes mellitus complication status: with neurologic complications Diabetes mellitus buttermaker continuous churn insulin use: without prison use Diabetes mellitus type: type 2 Mixed hyperlipidemia E78.2 Benign essential hypertension I10 Left carotid artery stenosis I65.22 GERD without esophagitis K21.9 Neuropathy G62.9 Acute pain of left shoulder M25.512 Chronicity: acute Vitamin D deficiency E55.9 Hypomagnesemia E83.42 Spinal stenosis of lumbar region without neurogenic claudication M48.061 Neurogenic claudication status: without neurogenic claudication Rash of genital area R21 Obstructive sleep apnea G47.33 Obesity (BMI 30-39.9) E66.9
[2023-08-26 15:41] VITALS: BP 132/72; PULSE 81; O2SAT 94; BMI 32.8
== END 2023-08-26 16:44 | disposition home or self-care (01) ==
PROVIDERS: PCP Internal Medicine; Visit Provider Internal Medicine
DX: E11.40 Type 2 diabetes mellitus with diabetic neuropathy, unspecified (principal); E78.2 Mixed hyperlipidemia; I10 Essential (primary) hypertension; I65.22 Occlusion and stenosis of left carotid artery; K21.9 Gastro-esophageal reflux disease without esophagitis; G62.9 Polyneuropathy, unspecified; M25.512 Pain in left shoulder; E55.9 Vitamin D deficiency, unspecified; E83.42 Hypomagnesemia; M48.061 Spinal stenosis, lumbar region without neurogenic claudication; G47.33 Obstructive sleep apnea (adult) (pediatric); E66.9 Obesity, unspecified
CPT/HCPCS: 99214

== ENCOUNTER 2023-08-27 09:59 | Outpatient (REF) | payer MEDICARE, BC, SELFPAY | END 2023-08-27 10:00 | disposition home or self-care (01) | LOC: HO.HMGCX 09:59 | PROVIDERS: PCP Internal Medicine; Visit Provider Internal Medicine | DX: M25.512 Pain in left shoulder (principal) | CPT/HCPCS: 73030 ==

== ENCOUNTER 2023-09-04 15:18 | Outpatient (REF) | payer MEDICARE, BC, SELFPAY | END 2023-09-04 15:19 | disposition home or self-care (01) | LOC: HO.HMGCX 15:18 | PROVIDERS: PCP Internal Medicine; Visit Provider Surgery Vascular Surgery | DX: I65.22 Occlusion and stenosis of left carotid artery (principal) | CPT/HCPCS: 93880 ==

== ENCOUNTER 2023-09-10 14:51 | Outpatient (AMB) | payer MEDICARE, SELFPAY ==
[2023-09-10 15:00] VITALS: BP 102/60; BMI 31.5
--- NOTE | 2023-09-10 15:00 | MHC.OFFVIS ---
Intake Vital Signs 09/10/23 15:00 Height 5 ft 11 in Weight 226 lb BMI 31.5 BP 102/60 Blood Pressure Location Rt brachial Position Sitting Intake Visit Reasons: Follow up 09/04 Carotid Intake Note: 1 yr follow up carotid ultrasound w/ Hx of Left CEA 09/17/2017. Pt states occasional loss of balance since surgery and some occasional blurred vision in the a.m., otherwise feeling good. Pt states he does get leg cramping in his calves. Accompanied by: Spouse Allergies simvastatin Allergy (Unknown, Verified 09/10/23 15:04) Unknown atorvastatin Adverse Reaction (Unknown, Verified 09/10/23 15:04) diarrhea and abdominal pain, diarrhea rosuvastatin Adverse Reaction (Unknown, Verified 09/10/23 15:04) diarrhea and abdominal pain, diarrhea HPI Follow up 09/04 Carotid HPI Details Very pleasant 67-year-old gentleman presents for routine surveillance follow-up regarding his carotids. He is about 6 years out from his left carotid endarterectomy. Has no interval issues. Denies any lateralizing signs or symptoms, speech disturbances or visual changes. He is doing well otherwise. Continues to work part-time at home. He now presents for surveillance follow-up regarding his carotids [facility] Medical History Hypomagnesemia Hx of adenomatous colonic polyps Lumbar spinal stenosis Obstructive sleep apnea GERD without esophagitis Vitamin D deficiency Neuropathy Left carotid artery stenosis Obesity (BMI 30-39.9) Mixed hyperlipidemia Benign essential hypertension Diabetes mellitus Surgical History History of endarterectomy History of colonoscopy Family History Father Hypertension Cancer Mother Hypertension Diabetes Social History Housing: House Alcohol intake: current Alcohol intake frequency: holidays/special occasions only Patient Tobacco Use Status: Former Tobacco user e-Cigarette/Vaping Use: Never Used Second Hand Smoke Exposure: Yes service: No Current occupational status: employed Cognitive needs: No Hearing needs: No Vision needs: Yes (glasses) Review of Systems Const All systems reviewed & are unremarkable except as noted in HPI and below Reports no additional complaints ENT Reports Normal hearing present Card Denies chest pain, Denies chest pain at rest, Denies chest pain with activity and Denies pedal edema Resp Denies cough GI Denies abdominal pain Musc Denies abnormal gait, Denies muscle cramps and Denies radiating pain into limb Skin/Breast Denies skin ulcer and Denies wounds Neuro Reports Normal hearing present and Denies abnormal gait Psych Reports no additional complaints Physical Exam Vital Signs: Last Vital Signs BP 102/60 09/10/23 15:00 BMI result Body Mass Index 31.5 Const General: cooperative, healthy appearing and comfortable Orientation/consciousness: oriented to person, oriented to place and oriented to time HEENT Head: Yes normal to inspection Neck Neck: Yes normal visual inspection Carotids: no bruits Chest Chest palpation & inspection: normal inspection of the chest Resp Effort & Inspection: normal respiratory effort and able to speak in complete sentences Auscultation: clear to auscultation bilaterally, no crackles, no rales, no rhonchi and no wheezes Cardio Rate: regular rate Rhythm: regular rhythm Heart sounds: S1 normal heart sound present and S2 normal heart sound present Bruits: no carotid bruits Peripheral pulses: Peripheral pulses 2+ throughout GI Inspection: Yes normal to inspection Skin Wounds: no wounds Hair: normal Neuro General: oriented to person, oriented to place and oriented to time Cranial nerves: Yes CN's II-XII intact bilaterally and Yes Normal hearing present Cognition (Neuro): normal cognition Motor exam (neuro): 5/5 motor strength present throughout Extrem Other: venous exam: No significant superficial varicosities or spider telangiectasias, minimal edema General: No clubbing, No cyanosis and No edema Psych Appearance: grossly normal Mental Status: mental status grossly normal Speech and movement: Normal speech and movement present Results Reviewed Results Reviewed: Carotid ultrasound dated 09/04/2023 demonstrates bilateral 0-49% stenosis Assessment & Plan Assessment & Plan (1) Carotid stenosis, bilateral: Code(s): I65.23 - Occlusion and stenosis of bilateral carotid arteries Plan: In short patient has asymptomatic carotid disease. We have reviewed signs and symptoms of a stroke. We also discussed risk factor modification inclusive a healthy diet low in cholesterol. The patient will follow up with us with surveillance ultrasound of the carotids 1 year. Should there be any changes or signs or symptoms of a stroke we will be happy to see them back sooner. Thank you for allowing us to participate in this patient's care. If there are any questions or concerns please do not hesitate to contact us. Orders: Orders US carotid duplex BI 364 Days I65.23 - Occlusion and stenosis of bilateral carotid arteries Coding Level of Care Code Est Pt Level 4 (91383) Diagnoses Carotid stenosis, bilateral I65.23
== END 2023-09-10 15:31 | disposition home or self-care (01) ==
PROVIDERS: PCP Internal Medicine; Visit Provider Surgery Vascular Surgery
DX: I65.23 Occlusion and stenosis of bilateral carotid arteries (principal)
CPT/HCPCS: 99213

== ENCOUNTER → 2023-09-10 14:51 | Outpatient (BNVA) | payer MEDICARE, SELFPAY | PROVIDERS: PCP Internal Medicine; Visit Provider Surgery Vascular Surgery | DX: I65.23 Occlusion and stenosis of bilateral carotid arteries (principal) | CPT/HCPCS: 99212 ==

== ENCOUNTER 2023-09-17 12:33 | Outpatient (AMB) | payer MEDICARE, BC, SELFPAY ==
[2023-09-17 12:37] VITALS: BMI 31.5
--- NOTE | 2023-09-17 12:37 | MHC.OFFVIS ---
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 Since that time he has had difficulty lifting his left hand above shoulder height. He has done physical therapy exercises which aggravated his pain. Has also tried Tylenol and anti-inflammatory medicines as well as oxycodone which gave him only mild relief. Allergies simvastatin Allergy (Unknown, Verified 09/10/23 15:04) Unknown atorvastatin Adverse Reaction (Unknown, Verified 09/10/23 15:04) diarrhea and abdominal pain, diarrhea rosuvastatin Adverse Reaction (Unknown, Verified 09/10/23 15:04) diarrhea and abdominal pain, diarrhea Medication List - Last Reconciled 09/17/23 by Omar Gilliam MD bisacodyl (Dulcolax (bisacodyl)) 10 mg (2 x 5 mg) PO ONCE 1 day blood sugar diagnostic (FreeStyle Lite Strips) As directed once a day blood-glucose meter (FreeStyle Lite Meter kit) As directed dulaglutide 3 mg (0.5 mL) subcut QWEEK 90 days ergocalciferol (vitamin D2) (Vitamin D2) 1,250 mcg PO QWEEK 90 days ezetimibe 10 mg PO DAILY 90 days fenofibrate 160 mg PO DAILY 90 days hydrochlorothiazide 12.5 mg PO QAM Jardiance (empagliflozin) 25 mg PO QAM 90 days NS lancets (FreeStyle Lancets) As directed losartan 100 mg PO DAILY 90 days metformin 1,000 mg PO BID 90 days methylcellulose (laxative) (Citrucel) 500 mg PO TID nystatin 1 appl topical TID 10 days pantoprazole 40 mg PO DAILY PRN polyethylene glycol 3350 (Miralax) 238 grams PO ONCE PRN 1 day tramadol 50 mg PO BID PRN 15 days [facility] Medical History Hypomagnesemia Hx of adenomatous colonic polyps Lumbar spinal stenosis Obstructive sleep apnea GERD without esophagitis Vitamin D deficiency Neuropathy Left carotid artery stenosis Obesity (BMI 30-39.9) Mixed hyperlipidemia Benign essential hypertension Diabetes mellitus Surgical History History of endarterectomy History of colonoscopy Family History Father Hypertension Cancer Mother Hypertension Diabetes Social History Housing: House Alcohol intake: current Alcohol intake frequency: holidays/special occasions only Patient Tobacco Use Status: Former Tobacco user e-Cigarette/Vaping Use: Never Used Second Hand Smoke Exposure: Yes service: No Current occupational status: employed Cognitive needs: No Hearing needs: No Vision needs: Yes (glasses) Physical Exam Vital Signs: BMI result Body Mass Index 31.5 Const Other: Well-nourished well-developed very friendly male awake alert and oriented x3 in no acute distress Extrem Other: Bilateral upper extremity examination shows good capillary refill, no skin lesions noted, normal sensation light touch Left shoulder examination shows decreased range of motion when compared to his right shoulder, 4/5 strength with supraspinatus testing, positive impingement signs, tenderness over his acromioclavicular joint, no instability Results Reviewed Results Reviewed: X-rays of the patient's left shoulder show severe acromioclavicular joint narrowing, a type 2 acromion, no acute bony abnormalities Assessment & Plan Assessment & Plan (1) Left shoulder pain: Code(s): M25.512 - Pain in left shoulder Qualifiers: Chronicity: acute Qualified Code(s): M25.512 - Pain in left shoulder Plan Mr. Soto presents with progressively worsening left shoulder pain and weakness most likely due to a full-thickness rotator cuff tear. Thus, I will send the patient for an MRI of his left shoulder for further evaluation of his rotator cuff tendons. If he does have a full-thickness tear I will recommend surgical repair to optimize his future functional level. Will continue with his range of motion exercises in the meantime to prevent stiffness. Feel free to call me at any time should questions regarding his orthopedic management arise. Thank you very much for asking me to see this very friendly gentleman. I spent 22 minutes in reviewing the patient's records and imaging studies, seeing the patient and documenting in the medical record. Orders: Orders MR shoulder LT wo con Today M75.122 - Complete rotator cuff tear or rupture of left shoulder, not specified as traumatic Medications: New oxycodone Partial Fill upon patient request. 5 mg PO Q12H PRN 30 tabs 0RF pain Discontinued oxycodone Take only as needed for severe pain Discontinued Reason: Doctor's Order 5 mg PO TID PRN 20 tabs 0RF pain Coding Level of Care Code New Pt Level 2 (61428) Diagnoses Acute pain of left shoulder M25.512 Chronicity: acute
== END 2023-09-17 13:08 | disposition home or self-care (01) ==
PROVIDERS: PCP Internal Medicine; Visit Provider Orthopaedic Surgery
DX: M25.512 Pain in left shoulder (principal)
CPT/HCPCS: 99202

== ENCOUNTER → 2023-09-17 12:33 | Outpatient (BNVA) | payer MEDICARE, BC, SELFPAY | PROVIDERS: PCP Internal Medicine; Visit Provider Orthopaedic Surgery | DX: M25.512 Pain in left shoulder (principal) | CPT/HCPCS: 99202 ==

== ENCOUNTER 2023-09-30 13:15 | Outpatient (AMB) | payer MEDICARE, BC, SELFPAY ==
[2023-09-30 13:21] VITALS: BMI 31.5
--- NOTE | 2023-09-30 13:21 | MHC.OFFVIS ---
Intake Vital Signs 09/30/23 13:21 Height 5 ft 11 in Weight 226 lb BMI 31.5 Intake Visit Reasons: ov- Review MRI left shoulder Intake Note: Ismael is a 67 year old male who present for a MRI review of his Left shoulder. The patient states that his discomfort has improved somewhat since his last visit. He continues with his activity modifications. Denies any weakness in his shoulder. Allergies simvastatin Allergy (Unknown, Verified 09/30/23 13:23) Unknown atorvastatin Adverse Reaction (Unknown, Verified 09/30/23 13:23) diarrhea and abdominal pain, diarrhea rosuvastatin Adverse Reaction (Unknown, Verified 09/30/23 13:23) diarrhea and abdominal pain, diarrhea Medication List - Last Reconciled 09/30/23 by Omar Gilliam MD bisacodyl (Dulcolax (bisacodyl)) 10 mg (2 x 5 mg) PO ONCE 1 day blood sugar diagnostic (FreeStyle Lite Strips) As directed once a day blood-glucose meter (FreeStyle Lite Meter kit) As directed dulaglutide 3 mg (0.5 mL) subcut QWEEK 90 days ergocalciferol (vitamin D2) (Vitamin D2) 1,250 mcg PO QWEEK 90 days ezetimibe 10 mg PO DAILY 90 days fenofibrate 160 mg PO DAILY 90 days hydrochlorothiazide 12.5 mg PO QAM Jardiance (empagliflozin) 25 mg PO QAM 90 days NS lancets (FreeStyle Lancets) As directed losartan 100 mg PO DAILY 90 days metformin 1,000 mg PO BID 90 days methylcellulose (laxative) (Citrucel) 500 mg PO TID nystatin 1 appl topical TID 10 days oxycodone 5 mg PO Q12H PRN pantoprazole 40 mg PO DAILY PRN polyethylene glycol 3350 (Miralax) 238 grams PO ONCE PRN 1 day tramadol 50 mg PO BID PRN 15 days PFSH Medical History Hypomagnesemia Hx of adenomatous colonic polyps Lumbar spinal stenosis Obstructive sleep apnea GERD without esophagitis Vitamin D deficiency Neuropathy Left carotid artery stenosis Obesity (BMI 30-39.9) Mixed hyperlipidemia Benign essential hypertension Diabetes mellitus Surgical History History of endarterectomy History of colonoscopy Family History Father Hypertension Cancer Mother Hypertension Diabetes Social History Housing: House Alcohol intake: current Alcohol intake frequency: holidays/special occasions only Patient Tobacco Use Status: Former Tobacco user e-Cigarette/Vaping Use: Never Used Second Hand Smoke Exposure: Yes service: No Current occupational status: employed Cognitive needs: No Hearing needs: No Vision needs: Yes (glasses) Physical Exam Vital Signs: BMI result Body Mass Index 31.5 Const Other: Well-nourished well-developed very friendly male awake alert and oriented x3 in no acute distress Extrem Other: Bilateral upper extremity examination shows good capillary refill, no skin lesions noted, normal sensation light touch Left shoulder examination shows almost full range of motion when compared to his right shoulder, 4+ out of 5 strength with supraspinatus testing, positive impingement signs, tenderness over his acromioclavicular joint, no instability Results Reviewed Results Reviewed: MRI of the patient's left shoulder shows severe acromioclavicular joint narrowing, a type 3 acromion, signal change within the supraspinatus tendon due to a partial-thickness rotator cuff tear versus a small full-thickness tear Assessment & Plan Assessment & Plan (1) Left shoulder pain: Code(s): M25.512 - Pain in left shoulder Qualifiers: Chronicity: acute Qualified Code(s): M25.512 - Pain in left shoulder Plan Mr. Soto presents with intermittent left shoulder pain due to impingement syndrome, acromioclavicular joint arthritis and a partial-thickness rotator cuff tear versus a small full-thickness tear. I had a lengthy discussion with the patient regarding the treatment options. At this point the patient's symptoms are tolerable to him. The do's and don'ts of lifting were discussed at length with the patient. Will continue with his activity modifications. He will follow up with me on an as-needed basis should his symptoms worsen in any way. Feel free to call me at any time should questions regarding his orthopedic management arise. I spent 22 minutes in reviewing the patient's records and imaging studies, seeing the patient and documenting in the medical record. Coding Level of Care Code Est Pt Level 2 (83202) Diagnoses Acute pain of left shoulder M25.512 Chronicity: acute
== END 2023-09-30 13:38 | disposition home or self-care (01) ==
PROVIDERS: PCP Internal Medicine; Visit Provider Orthopaedic Surgery
DX: M75.42 Impingement syndrome of left shoulder (principal); M19.012 Primary osteoarthritis, left shoulder; M75.111 Incomplete rotator cuff tear or rupture of right shoulder, not specified as traumatic
CPT/HCPCS: 99213

== ENCOUNTER → 2023-09-30 13:15 | Outpatient (BNVA) | payer MEDICARE, BC, SELFPAY | PROVIDERS: PCP Internal Medicine; Visit Provider Orthopaedic Surgery | DX: M75.42 Impingement syndrome of left shoulder (principal); M19.012 Primary osteoarthritis, left shoulder | CPT/HCPCS: 99212 ==

== ENCOUNTER 2023-10-14 09:40 | Outpatient (AMB) | payer MEDICARE, BC, SELFPAY ==
[2023-10-14 09:47] VITALS: BMI 31.5
--- NOTE | 2023-10-14 09:47 | MHC.OFFVIS ---
Intake Vital Signs 10/14/23 09:47 Height 5 ft 11 in Weight 226 lb BMI 31.5 Intake Visit Reasons: Newprob-Neck pain/ Confirmed Intake Note: Ismael is a 67 year old male who presents with complaints of progressively worsening neck pain which radiates down his left arm as well as associated left arm numbness and weakness. The patient describes his pain as sharp and severe in nature. His symptoms have gotten worse over the last year in spite of continued non operative treatments. He has done physical therapy which aggravated his pain. The patient has tried Tylenol and anti-inflammatory medicines which gave him minimal relief. The patient has difficulty sleeping and difficulty performing his activities of daily living because of his neck pain and left arm weakness. Patient reports his pain has been going on for about 3 weeks and is taking pain medicine and muscle relaxers that are not working. Allergies simvastatin Allergy (Unknown, Verified 10/14/23 10:13) Unknown atorvastatin Adverse Reaction (Unknown, Verified 10/14/23 10:13) diarrhea and abdominal pain, diarrhea rosuvastatin Adverse Reaction (Unknown, Verified 10/14/23 10:13) diarrhea and abdominal pain, diarrhea Medication List - Last Reconciled 10/14/23 by Omar Gilliam MD bisacodyl (Dulcolax (bisacodyl)) 10 mg (2 x 5 mg) PO ONCE 1 day blood sugar diagnostic (FreeStyle Lite Strips) As directed once a day blood-glucose meter (FreeStyle Lite Meter kit) As directed dulaglutide 3 mg (0.5 mL) subcut QWEEK 90 days ergocalciferol (vitamin D2) (Vitamin D2) 1,250 mcg PO QWEEK 90 days ezetimibe 10 mg PO DAILY 90 days fenofibrate 160 mg PO DAILY 90 days hydrochlorothiazide 12.5 mg PO QAM Jardiance (empagliflozin) 25 mg PO QAM 90 days NS lancets (FreeStyle Lancets) As directed losartan 100 mg PO DAILY 90 days metformin 1,000 mg PO BID 90 days methocarbamol 750 mg PO TID PRN methylcellulose (laxative) (Citrucel) 500 mg PO TID methylprednisolone (Medrol (Eris)) PO PER PKG DIR nystatin 1 appl topical TID 10 days oxycodone 5 mg PO Q12H PRN pantoprazole 40 mg PO DAILY PRN polyethylene glycol 3350 (Miralax) 238 grams PO ONCE PRN 1 day tramadol 50 mg PO BID PRN 15 days PFS Medical History Hypomagnesemia Hx of adenomatous colonic polyps Lumbar spinal stenosis Obstructive sleep apnea GERD without esophagitis Vitamin D deficiency Neuropathy Left carotid artery stenosis Obesity (BMI 30-39.9) Mixed hyperlipidemia Benign essential hypertension Diabetes mellitus Surgical History History of endarterectomy History of colonoscopy Family History Father Hypertension Cancer Mother Hypertension Diabetes Social History Housing: House Alcohol intake: current Alcohol intake frequency: holidays/special occasions only Patient Tobacco Use Status: Former Tobacco user e-Cigarette/Vaping Use: Never Used Second Hand Smoke Exposure: Yes service: No Current occupational status: employed Cognitive needs: No Hearing needs: No Vision needs: Yes (glasses) Physical Exam Vital Signs: BMI result Body Mass Index 31.5 Const Other: Well-nourished well-developed very friendly male awake alert and oriented x3 in no acute distress Neck Other: Cervical spine examination shows left-sided paraspinal muscle tenderness, pain with range of motion, positive Spurling's test, 4/5 strength with testing of his left biceps and wrist extensors when compared to 5/5 strength on his right side Results Reviewed Results Reviewed: X-rays of the patient's cervical spine taken today show moderate to severe diffuse degenerative disc disease most significant at level C6-C7, no acute bony abnormalities Assessment & Plan Assessment & Plan (1) Neck pain on left side: Code(s): M54.2 - Cervicalgia Plan Mr. Soto presents with progressively worsening neck pain which radiates down his left arm as well as associated left arm weakness most likely due to cervical stenosis or a disc herniation. Thus, I will send the patient for an MRI of the cervical spine for further evaluation. I did give him a prescription for a Medrol Dosepak to help with his symptoms in the meantime. I will contact him by phone once the MRI results are available. He will call me prior to that time should his symptoms worsen in any way. Feel free to call me at any time should questions regarding his orthopedic management arise. I spent 22 minutes in reviewing the patient's records and imaging studies, seeing the patient and documenting in the medical record. Orders: Orders XR cervical spine 2V Today M54.2 - Cervicalgia MR cervical spine wo con Today M54.2 - Cervicalgia Medications: New methylprednisolone (Medrol (Eris)) PO PER PKG DIR 21 ea 0RF lorazepam (Ativan) Take 1 tab two hours before your MRI; take 2nd tab thirty minutes before your MRI 1 mg PO ONCE 2 tabs 0RF Coding Level of Care Code Est Pt Level 2 (83239) Diagnoses Neck pain on left side M54.2
== END 2023-10-14 10:33 | disposition home or self-care (01) ==
PROVIDERS: PCP Internal Medicine; Visit Provider Orthopaedic Surgery
DX: M54.2 Cervicalgia (principal)
CPT/HCPCS: 99213

== ENCOUNTER 2023-10-14 09:51 | Outpatient (REF) | payer MEDICARE, BC, SELFPAY ==
--- NOTE | ~2023-10-14 | XR_ITS ---
EXAMINATION: XR CERVICAL SPINE CLINICAL INFORMATION: Cervicalgia COMPARISON: None available. TECHNIQUE: 2 views of the cervical spine were obtained. FINDINGS: No acute visible fracture or dislocation. Reversal of the normal cervical curvature. Multilevel degenerative changes greatest at C6-C7 with anterior disc osteophyte formation, disc space narrowing, sclerosis, and facet arthropathy. Vertebral body heights and disc spaces are maintained. Prevertebral soft tissue prominence along C5-T1, nonspecific. Posterior elements are intact. Paraspinal soft tissues are unremarkable. Visualized portions of the upper chest are unremarkable. XR/XR cervical spine 2V IMPRESSION: 1. No acute visible fracture or dislocation. 2. Reversal of the normal cervical curvature. 3. Multilevel degenerative changes greatest at C6-C7. 4. Prevertebral soft tissue prominence along C5-T1, nonspecific. Correlation with physical exam and if further evaluation is warranted consider further evaluation with cross-sectional imaging.
== END 2023-10-14 09:52 | disposition home or self-care (01) ==
LOC: HO.HOSX 09:51
PROVIDERS: Visit Provider Orthopaedic Surgery
DX: M54.2 Cervicalgia (principal); Z79.899 Other long term (current) drug therapy
CPT/HCPCS: 72040; 99212

== ENCOUNTER 2023-10-23 09:46 | Outpatient (AMB) | payer MEDICARE, BC, SELFPAY ==
--- NOTE | 2023-10-23 10:11 | A.SPINEOV_ITS ---
Intake Intake Visit Reasons: Cervicalgia Intake Note: Mr. Soto is here today c/o neck pain. 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 It started about 2 months ago but has been progressively worsening. He does feel weakness in his arm. He has been through medication trials including prednisone, muscle relaxers, anti- inflammatories such as Aleve and ibuprofen, oxycodone etc.. Nothing seems to be helping. He is losing sleep at night as he is barely able to get comfortable. He underwent cervical MRI showing spinal cord compression at C5-6 with early myelomalacia as well as significant nerve compression at multiple levels. He was sent today to see us for an evaluation. To this point he has not done any physical therapy or cortisone injections. PMH: He is diabetic, his last A1c was 8.6. History of hypertension, left carotid endarterectomy after a TIA. High cholesterol, GERD, sleep apnea Social hx: He quit smoking 30 years ago, no alcohol or drugs. Medications: Jardiance, metformin, losartan, hydrochlorothiazide, Trulicity, baby aspirin, fenofibrate, pantoprazole Zetia Allergies: Please see the [employer] list Physical exam: The patient appears anxious and very uncomfortable in the office today. He has a tremendous hard time even turning his head without inducing pain down his arm. He has very limited range of motion of his neck. His strength exam reveals diffuse weakness of the left arm, some of this is pain related but there does appear to be some weakness of his left biceps and possibly his left hand. He has absent reflexes bilaterally in the upper extremities. No Avlera's, no clonus. Imaging review: Cervical MRI done at [facility] shows multilevel degenerative disc disease with reversal of the normal lordotic curvature of the cervical spine. At C5-6 he has severe central canal stenosis with what looks like possible myelomalacia. He has bilateral neuroforaminal narrowing at this level which is severe. C6-7 on the sagittal image also appears to have moderate to severe central canal stenosis. There is moderate foraminal narrowing at this level as well. At C4-5 there is also moderate central canal stenosis with right sided foraminal narrowing. Impression: 67-year-old male presents for evaluation of 2 months of progressively worsening severe radiculopathy going down his arm into his hand which I suspect is coming from the C5-6 level. He has weakness of his arm as described above. The pain has become relentless and he is unable to sleep perform almost any activity . Even turning his head can induce a pain that is debilitating. He is tried multiple medications and tincture of time. He has spinal cord compression at C5-6 in addition to foraminal stenosis. There is maybe some degree of myelomalacia here as well as suggested by the report. With his history of diabetes, it is well-known that patients will not demonstrate hyperreflexia on the exam. Based on all these findings I think the patient is a good candidate for an anterior cervical fusion. The targeted area of C5-6 would obviously be the main objective. I will need to review the imaging however with Dr. Gibson to see if he thinks we should address any of these adjacent levels as there is significant encroachment on the spinal cord especially at C6-7. Once I have a final plan I will call and update the patient and try to get his surgery expedited. We discussed stopping his Jardiance and Trulicity, baby aspirin and any NSAIDs 1 week before surgery. He will also need a preoperative anesthesia evaluation. Pt was given risk and benefits of surgery including but not limited to infection, hematoma , nerve injury,durotomy, weakness,bowel/bladder injury, persistent pain, vocal hoarseness, neck pain, dysphagia as well as the option to continue with conservative treatment and patient wishes to proceed with surgery. Pt is aware they should stop their motrin, aspirin 7 days prior to surgery. All questions were answered to the best of our ability. If there is anything about this patients medical history that we have overlooked or concerns you have about us proceeding with surgery we would appreciate any input you can offer. Thank you for allowing us to care for your patient. The total time spent with this visit with this patient was 45 minutes reviewing history, physical exam, cervical MRI imaging review, and implementation of treatment plan or further diagnostic testing Ismael Gibson MD,PhD [facility] Coding Level of Care Code New Pt Level 4 (33846) Diagnoses Cervical radiculopathy M54.12 Cervical myelopathy G95.9
== END 2023-10-23 10:58 | disposition home or self-care (01) ==
PROVIDERS: PCP Internal Medicine; Referring Provider Orthopaedic Surgery; Visit Provider Physician Assistant
DX: M54.12 Radiculopathy, cervical region (principal); G95.9 Disease of spinal cord, unspecified
CPT/HCPCS: 99204; 99214

== ENCOUNTER → 2023-10-23 09:46 | Outpatient (BNVA) | payer MEDICARE, BC, SELFPAY | PROVIDERS: PCP Internal Medicine; Visit Provider Physician Assistant | DX: M54.12 Radiculopathy, cervical region (principal); G95.9 Disease of spinal cord, unspecified | CPT/HCPCS: 99202 ==

== ENCOUNTER → 2023-11-02 10:15 | Outpatient (BNV) | payer MEDICARE, BC, SELFPAY | PROVIDERS: PCP Internal Medicine; Visit Provider Internal Medicine Cardiovascular Disease | DX: R94.31 Abnormal electrocardiogram [ECG] [EKG] (principal); Z01.810 Encounter for preprocedural cardiovascular examination | CPT/HCPCS: 93010 ==

== ENCOUNTER 2023-11-03 05:55 | Day surgery (SDC) | payer MEDICARE, BC, SELFPAY ==
--- NOTE | 2023-11-02 | ECG_ITS ---
Test Reason : PREOP Blood Pressure : / mmHG Vent. Rate : 078 BPM Atrial Rate : 078 BPM P-R Int : 190 ms QRS Dur : 084 ms QT Int : 364 ms P-R-T Axes : 054 023 070 degrees QTc Int : 414 ms Normal sinus rhythm Septal infarct (cited on or before 22-NOV-2022) Abnormal ECG When compared with ECG of 22-NOV-2022 15:33, No significant change was found Referred By: Gladys David Electronically Signed By:Bandar Ahmadi
[2023-11-02 09:22] VITALS: BP 176/70; PULSE 82; RESP 16; O2SAT 96; BMI 33.2
--- NOTE | 2023-11-02 09:39 | P.CONAN_ITS ---
Documented by User: Gladys David NP 11/02/23 12:29 HPI - Anesthesia Eval Consult details Narrative: 68yo M for C5-6,C6-7 Ant Cerv Discectomy w/ fusion No recent illness No CP/SOB with very minimal activity BARAK. Cant tolerate CPAP at this time d/t rosa henderson. Educated on post op risk GERD. Well controlled with ppi DM. FBS ~215 since stopping meds preop, prior ~ 175 TIA s/p L CEA 2017 Anesthesia Pre-Procedure Meds Is the patient on any of the following meds?: Dulaglutide (Trulicity) (Last dose 10/25) and Any other SGL-1 drugs or drugs that delay gastric emptying (Jardiance - last dose 10/26) PMFSH Active Problems Active Problems: All Active Problems (Updated 11/02/23 @ 09:12 by Donna Willis, RN) Cervical myelopathy (Acute) Cervical radiculopathy (Acute) Neck pain on left side (Acute) Neck pain (Acute) Rash of genital area (Acute) Left shoulder pain (Acute) Fever (Acute) Hyperpigmented skin lesion (Acute) Colon cancer screening (Acute) Cough (Acute) Annual physical exam (Acute) Adult general medical exam (Acute) Screening for prostate cancer (Acute) COVID-19 (Acute) Carotid stenosis, bilateral (Acute) Hypomagnesemia (Acute) Hx of adenomatous colonic polyps (Acute) Lumbar spinal stenosis (Acute) Obstructive sleep apnea (Acute) GERD without esophagitis (Acute) Vitamin D deficiency (Acute) Neuropathy (Acute) Left carotid artery stenosis (Acute) Obesity (BMI 30-39.9) (Acute) Mixed hyperlipidemia (Acute) Benign essential hypertension (Acute) Diabetes mellitus (Acute) Past Medical History Medical History (Updated 11/02/23 @ 09:12 by Donna Willis, JULIANE) Arthritis Back pain Weakness Numbness TIA (transient ischemic attack) Hypomagnesemia Hx of adenomatous colonic polyps Lumbar spinal stenosis Obstructive sleep apnea GERD without esophagitis Vitamin D deficiency Neuropathy Left carotid artery stenosis Obesity (BMI 30-39.9) Mixed hyperlipidemia Benign essential hypertension Diabetes mellitus Family History Family History Father Hypertension Cancer Mother Hypertension Diabetes Family history of problems with anesthesia: No Surgical History Surgical History History of facial surgery History of endarterectomy History of colonoscopy History of Problems with Anesthesia: No Social History Social History Housing: House Are you a primary healthcare administrative assistant to a significant other at home: No Do you presently have visiting nurse or other home services: No Alcohol intake: current Alcohol intake frequency: does not drink Patient Tobacco Use Status: Former Tobacco user Quit Date: 09/16/1992 e-Cigarette/Vaping Use: Never Used Second Hand Smoke Exposure: Yes Use of substances other than those prescribed or required for medical reasons: No Have you been hit, kicked, punched, or otherwise hurt by someone within the past year? If so, by whom?: No Are you DNR?: No Advance Directives: No Advance Directives Information Provided: Yes Advance Directives on File: No Recently lost weight without trying: No Eating poorly because of decreased appetite: No Nutrition Risks: No Nutritional Risk Poor oral hygiene: Yes (Broken teeth upper and lower) service: No Current occupational status: employed Cognitive needs: No Hearing needs: No Vision needs: Yes (glasses) Meds Allergies Allergy/AdvReac Type Severity Reaction Status Date / Time simvastatin Allergy Intermediate diarrhea Verified 11/03/23 06:10 and abdominal pain, diarrhea atorvastatin AdvReac Intermediate diarrhea Verified 11/03/23 06:10 and abdominal pain, diarrhea rosuvastatin AdvReac Intermediate diarrhea Verified 11/03/23 06:10 and abdominal pain, diarrhea Home Medications Medication Instructions Recorded Confirmed Last Taken Type acetaminophen 325 mg tablet 650 mg PO Q6H PRN Pain 11/02/23 11/03/23 11/02/23 20:00 History 650 aspirin 81 mg tablet,delayed 81 mg PO DAILY 11/02/23 11/03/23 10/26/23 History release cholecalciferol (vitamin D3) 25 25 mcg PO DAILY 11/02/23 11/03/23 Unknown History mcg (1,000 unit) capsule (Vitamin D3) ezetimibe 10 mg tablet 10 mg PO BEDTIME 11/02/23 11/03/23 Unknown History magnesium oxide 500 mg capsule 500 mg PO DAILY 11/02/23 11/03/23 Unknown History [id number] 300 mcg-K 60 1 tab PO DAILY 11/02/23 11/03/23 Unknown History mcg-lycop 600 mcg-lutein 300 mcg tablet (Centrum Silver Men) peg 400-propylene glycol 0.4 %-0.3 1 drp ophthalmic (eye) DAILY PRN 11/02/23 11/03/23 Unknown History % eye drops (Systane (propylene Dry Eyes glycol)) turmeric 400 mg capsule 400 mg PO DAILY 11/02/23 11/02/23 Unknown History vitamin B complex 1 cap PO DAILY 11/02/23 11/02/23 Unknown History Exam Height,Weight and Vital Signs: Height 5 ft 11 in Weight 107.955 kg Last Vital Signs Pulse 82 11/02/23 09:22 Resp 16 11/02/23 09:22 BP 176/70 H 11/02/23 09:22 Pulse Ox 96 11/02/23 09:22 O2 Del Method Room Air 11/02/23 09:22 Pertinent Lab Results Pertinent Lab Results: Laboratory Tests 08/18/23 06:45 WBC 7.4 Hgb 16.1 Hct 47.7 Plt Count 221 Sodium 138 Potassium 4.1 Chloride 101 Carbon Dioxide 27 BUN 26 H Creatinine 1.10 Narrative Narrative: EKG 10/2023 Vent. Rate : 078 BPM Atrial Rate : 078 BPM P-R Int : 190 ms QRS Dur : 084 ms QT Int : 364 ms P-R-T Axes : 054 023 070 degrees QTc Int : 414 ms Normal sinus rhythm Septal infarct (cited on or before 22-NOV-2022) Abnormal ECG When compared with ECG of 22-NOV-2022 15:33, No significant change was found Airway Mallampati Class: II TM Dist: >3cm Neck ROM: Limited Loose/Missing/Broken Teeth: Yes (Broken molars, pulled molars, 2 x crowned molars) Heart: RRR Lungs: CTAB Assessment and Plan Assessment Anesthesia Assessment: Anesthesia Plan Discussed and PAT Visit Final Anesthetic Review Family History of Problems with Anesthesia: No History of Problems with Anesthesia: No Documented by User: Lyly Partida MD 11/03/23 07:23 HPI - Anesthesia Eval Anesthesia Pre-Procedure Meds If Yes to any meds - educate patient: Pt education - increased risk of aspiration PMFSH Past Medical History Medical History (Updated 11/02/23 @ 09:12 by Donna Willis RN) Arthritis Back pain Weakness Numbness TIA (transient ischemic attack) Hypomagnesemia Hx of adenomatous colonic polyps Lumbar spinal stenosis Obstructive sleep apnea GERD without esophagitis Vitamin D deficiency Neuropathy Left carotid artery stenosis Obesity (BMI 30-39.9) Mixed hyperlipidemia Benign essential hypertension Diabetes mellitus Family History Family History Father Hypertension Cancer Mother Hypertension Diabetes Surgical History Surgical History History of facial surgery History of endarterectomy History of colonoscopy Social History Social History Housing: House Are you a primary healthcare administrative assistant to a significant other at home: No Do you presently have visiting nurse or other home services: No Alcohol intake: current Alcohol intake frequency: does not drink Patient Tobacco Use Status: Former Tobacco user Quit Date: 09/16/1992 e-Cigarette/Vaping Use: Never Used Second Hand Smoke Exposure: Yes Use of substances other than those prescribed or required for medical reasons: No Have you been hit, kicked, punched, or otherwise hurt by someone within the past year? If so, by whom?: No Are you DNR?: No Advance Directives: No Advance Directives Information Provided: Yes Advance Directives on File: No Recently lost weight without trying: No Eating poorly because of decreased appetite: No Nutrition Risks: No Nutritional Risk Poor oral hygiene: Yes (Broken teeth upper and lower) service: No Current occupational status: employed Cognitive needs: No Hearing needs: No Vision needs: Yes (glasses) Meds Allergies Allergy/AdvReac Type Severity Reaction Status Date / Time simvastatin Allergy Intermediate diarrhea Verified 11/03/23 06:10 and abdominal pain, diarrhea atorvastatin AdvReac Intermediate diarrhea Verified 11/03/23 06:10 and abdominal pain, diarrhea rosuvastatin AdvReac Intermediate diarrhea Verified 11/03/23 06:10 and abdominal pain, diarrhea Home Medications Medication Instructions Recorded Confirmed Last Taken Type acetaminophen 325 mg tablet 650 mg PO Q6H PRN Pain 11/02/23 11/03/23 11/02/23 20:00 History 650 aspirin 81 mg tablet,delayed 81 mg PO DAILY 11/02/23 11/03/23 10/26/23 History release cholecalciferol (vitamin D3) 25 25 mcg PO DAILY 11/02/23 11/03/23 Unknown History mcg (1,000 unit) capsule (Vitamin D3) ezetimibe 10 mg tablet 10 mg PO BEDTIME 11/02/23 11/03/23 Unknown History magnesium oxide 500 mg capsule 500 mg PO DAILY 11/02/23 11/03/23 Unknown History [id number] 300 mcg-K 60 1 tab PO DAILY 11/02/23 11/03/23 Unknown History mcg-lycop 600 mcg-lutein 300 mcg tablet (Centrum Silver Men) peg 400-propylene glycol 0.4 %-0.3 1 drp ophthalmic (eye) DAILY PRN 11/02/23 11/03/23 Unknown History % eye drops (Systane (propylene Dry Eyes glycol)) turmeric 400 mg capsule 400 mg PO DAILY 11/02/23 11/02/23 Unknown History vitamin B complex 1 cap PO DAILY 11/02/23 11/02/23 Unknown History Assessment and Plan Assessment Anesthesia Assessment: Chart Reviewed Final Anesthetic Review NPO: Yes ASA Class: III Final Preanesthetic Review: No Changes in Pt Med Stat, Meds/Allgs Chart Reviewed, Consent Obtained/Reviewed and Anes Risks/Benef Reviewed Patient Risk: Intermediate Procedure Risk: Intermediate Anesthetic Plan Anesthetic Plan: GA Disposition: Standard PACU
[2023-11-03] VITALS (13 sets, daily range): BP systolic 168–196; BP diastolic 74–93; PULSE 68–84; RESP 14–18; TEMP 36.1; O2SAT 94–99; BMI 33.2
--- NOTE | ~2023-11-03 | FL_ITS ---
EXAMINATION: XR FLUOROSCOPY WITH IMAGES CLINICAL INFORMATION: C5-C6 and C6-C7 anterior cervical discectomies and fusions. COMPARISON: Cervical spine radiographs dated 10/14/2023. TECHNIQUE: Fluoroscopy Supervised By: Dr. Gibson. Fluoroscopy Time: 6.5 seconds. Cumulative Dose: 3.5348 mGy. DAP: 0.9879 Gycm2. Images: 3. FINDINGS: The frontal and lateral views of the cervical spine show anterior Low Profile fixator devices applied to the C5-C6 and C6-C7 levels. FL/FL guidance in OR IMPRESSION: Intraoperative fluoroscopic guidance is provided during C5-C6 and C6-C7 anterior cervical discectomies and fusions. Please see the Patient's Operative Report for full procedural details.
[2023-11-03 06:52] LABS: Glucose, Whole Blood 205 mg/dL (60-115)
--- NOTE | 2023-11-03 06:56 | MHC.SHP ---
Pre-Procedural Eval Section A - 24 Hr Update-Section A only Date of Service: 11/03/23 The patient is an INPATIENT: No Changes since office visit: No Cold of Flu in the past 2 weeks, No New Medical Problems, No Changes in Medication and No Patient answered all questions The patient has been examined within 24 hours of the surgical procedure. The History & Physical has been completed within 30 days and I have reviewed it.: No Section B - Complete if H&P > 30 days Chief Complaint: Radiculopathy, cervical region Allergies: Allergies Allergy/AdvReac Type Severity Reaction Status Date / Time simvastatin Allergy Intermediate diarrhea Verified 11/03/23 06:10 and abdominal pain, diarrhea atorvastatin AdvReac Intermediate diarrhea Verified 11/03/23 06:10 and abdominal pain, diarrhea rosuvastatin AdvReac Intermediate diarrhea Verified 11/03/23 06:10 and abdominal pain, diarrhea Review of Systems Sugical H&P ROS: Negative: Constitution, Cardiovascular, Respiratory, Neurological, Psychiatric, Hem-Onc, Allergic/Immunologic, Gastrointestinal, Genitourinary, Musculoskeletal, Integumentary, Endocrine and Eyes/Ears/Nose/Throat Exam Surgical H&P Exam: Not Evaluated: HEENT, Not Evaluated: Heart, Not Evaluated: Lungs, Not Evaluated: Extremities, Not Evaluated: Abdomen, Not Evaluated: Skin and Not Evaluated: Neurological Plan Diagnosis/Plan: Unchanged C5-6,, C6-7 ACDF Time Spent With Patient Time: Total time managing care of this patient today __7__ minutes.
[2023-11-03] MEDS: Lactated Ringers 1,000 ML 100 ML IVCONT (06:58)
[2023-11-03] MEDS: Gabapentin 300 MG CAPSULE PO (07:01)
[2023-11-03] MEDS: methocarbamoL 750 MG TABLET PO (07:02)
--- NOTE | 2023-11-03 09:48 | P.OP_ITS ---
Operative Note Operative Note Date of Service: 11/03/23 Narrative: Preoperative Diagnosis: Left cervical radiculopathy with weakness Procedure: C5-6, C6-7 Anterior discectomy, arthrodesis and implantation cage ; C5-C7 anterior instrumentation ; local autograft; microscope Informed Consent was obtained for this operation. I have explained the nature, purpose and benefits of the operation. I have discussed the risks and benefit of the operation including possible complications or adverse events with patient/family. Alternative(s) were discussed with the patient with their relative benefits and risks as well as the consequences of not accepting the operation were included in obtaining consent. Surgeon: ABBY RAMSEY MD, PHD Procedure Assisted By: pearl Anderson Description of Procedure: Patient is suffering from severe left cervical radiculopathy including weakness of the biceps and hand muscles. An MRI shows degenerative disc disease and C6 and C7 nerve root compression. Patient was offered an anterior diskectomy and fusion C5-6, C6-7. The procedure complications were explained. The patient was consented. The patient was brought to the operating room and endotracheally intubated. The patient was put in supine position with slight extension of the neck. Prep and drape was done followed by timeout. A mid cervical incision was made followed by opening of the platysma. The prevertebral fascia was reached following the natural planes while the physician high school assistant football coach provided manual retraction. The prevertebral fascia was opened to expose the disc space. A spinal needle was placed in the disk space to confirm the correct level with xray. The longus colli muscles were released bilaterally and a self retaining retractor was inserted. An initial diskectomy was done of C5-C6 and C6-7. To enter the C6-7 disc space large anterior osteophyte had to be resected and was saved for autograft. Two [place]ras[place] pins were placed in the C5 and C6 vertebral bodies and distraction was give over the interspace. The discectomy was completed toward the posterior annulus of the disc. The microscope was brought in. The remainder of the discectomy was completed. The posterior ligament was opened and resected to expose the underlying dura. Osteophytes were resected from the body of C5-C6 and saved for autograft. A disc fragment was removed from the left C6 foramen to decompress the C6 nerve root. Bilateral foraminotomies were done. The endplates were prepared after which a 7 mm cage filled with autograft was inserted into the disc space. A separate attached plate was locked down with 2 x 14 mm screws as anterior instrumentation. The [place] pin was removed of the body of C5 and placed into the body of C7. Distraction was giving of the C6-7 interspace. The diskectomy was completed towards the PLL. Significant hypertrophied posterior longitudinal ligament was encountered and opened to expose the underlying dura. Severe bilateral foraminal stenosis was present from osteophytes which were resected to decompress the exiting nerve roots. The endplates were prepared after which a 6 mm cage filled with autograft was inserted into the disc space. Separate attached plate was locked down with 2 x 14 mm screws as anterior instrumentation. Final x-rays in AP and lateral projection showed a satisfactory position of the implant. The physician high school assistant football coach took over. The [place] pin was removed. Hemostasis was done. He closed the incision in 2 layers with a 3-0 Vicryl. Steri-Strips used to approximate incision. An OpSite with Tegaderm was used to cover the incision. All sponge and needle counts were correct. Patient was extubated and transported in stable is to recovery room. Anesthesia: General Estimated Blood Loss (ml): 15 mL Duration of Surgery: 90 minutes Postoperative Plan: Discharge home Complications: None
--- NOTE | 2023-11-03 10:06 | PM.DS ---
DS: Providers Provider Date of Service: 11/03/23 Date of discharge: 11/03/23 Primary care physician: Gustavo Watts MD Admitting clinician: Rory Gibson DS: Diagnosis Discharge Diagnosis (1) Cervical radiculopathy: Status: Acute DS: Summary Time Attestation Discharge Coordination Time: discharge time of ____ minutes Quality: Safe Use of Opioids Does Pt have an Active Cancer Diagnosis on the Problem List?: No Quality: Stroke Does the patient have a stroke diagnosis?: No Physical Exam Vital Signs: Vital Signs: Last Vital Signs Pulse 82 11/02/23 09:22 Resp 16 11/02/23 09:22 BP 176/70 H 11/02/23 09:22 Pulse Ox 96 11/02/23 09:22 O2 Del Method Room Air 11/02/23 09:22 BMI result Body Mass Index 33.2 DS: Data Data Completed and Pending Labs on day of discharge: Laboratory Results - last 24 hr 11/03/23 06:49 POC Glucose 205 H Discharge Plan Discharge Patient Disposition: Home, Self-Care Referrals: Gustavo Watts MD [Primary Care Provider] - 1 Week Discharge Medications: New docusate sodium [Colace] 100 mg capsule 100 mg PO BID Qty: 20 0RF oxycodone 5 mg tablet 5 mg PO Q4H PRN (Reason: pain) Qty: 30 0RF Rx Instructions: Partial Fill upon patient request. Continued ergocalciferol (vitamin D2) [Vitamin D2] 1,250 mcg (50,000 unit) capsule 1,250 mcg PO QWEEK 90 Days Qty: 13 5RF Patient Comments: every Thursday fenofibrate 160 mg tablet 160 mg PO DAILY 90 Days Qty: 90 3RF Jardiance 25 mg tablet 25 mg PO QAM 90 Days Qty: 90 3RF pantoprazole 40 mg tablet,delayed release (DR/EC) 40 mg PO DAILY PRN (Reason: for acid reflux) Qty: 90 1RF losartan 100 mg tablet 100 mg PO DAILY 90 Days Qty: 90 1RF hydrochlorothiazide 12.5 mg tablet 12.5 mg PO QAM Qty: 90 3RF methocarbamol 750 mg tablet 750 mg PO TID PRN (Reason: back pain/spasms) Qty: 90 0RF ezetimibe 10 mg tablet 10 mg PO BEDTIME vitamin B complex Capsule 1 cap PO DAILY cholecalciferol (vitamin D3) [Vitamin D3] 25 mcg (1,000 unit) Capsule 25 mcg PO DAILY magnesium oxide 500 mg Capsule 500 mg PO DAILY Centrum Silver Men [phone] mcg Tablet 1 tab PO DAILY turmeric 400 mg Capsule 400 mg PO DAILY aspirin 81 mg Tablet,Delayed Release (Dr/Ec) 81 mg PO DAILY acetaminophen 325 mg Tablet 650 mg PO Q6H PRN (Reason: Pain) Systane (propylene glycol) 0.4-0.3 % Drops 1 drp OPHTHALMIC (EYE) DAILY PRN (Reason: Dry Eyes) dulaglutide 3 mg/0.5 mL pen injector 3 mg subcut QWEEK 90 Days Qty: 6.5 3RF Patient Comments: every Thursday (DME) blood-glucose meter [FreeStyle Lite Meter] Kit See Rx Instructions .ROUTE .MEDSUPPLY Qty: 1 0RF Rx Instructions: As directed (DME) lancets [FreeStyle Lancets] 28 gauge misc See Rx Instructions .ROUTE .MEDSUPPLY Qty: 100 3RF Rx Instructions: As directed (DME) FreeStyle Lite Strips Strip See Rx Instructions .ROUTE .MEDSUPPLY Qty: 100 12RF Rx Instructions: As directed once a day metformin 1,000 mg tablet 1,000 mg PO BID 90 Days Qty: 180 3RF Discharge Orders: Discharge Order (Routine); Ordered 11/03/23 Ordered By: Ismael See Diet: Advance to usual diet Activity on Discharge: As tolerated Activity Restrictions/Additional Instructions: After your spinal surgery we ask you to observe the following restrictions/guidelines: Activity: It is normal to feel some discomfort as you increase your activity, but that will improve with time. We ask you avoid heavy lifting or acitivities that cause pain. As a general rule, 8lbs is a safe limit for lifting right after surgery. Walk as much as you feel comfortable but not to exhaustion. You will feel extra tired the first few days after surgery. Stay well hydrated. It is OK to walk up and down stairs You may return to driving when you are off narcotics (such as vicodin, oxycodone, dilaudid, etc), and you are back to normal functional capacity. If you have any concerns please check with office before driving. Return to work is specific to each patient and each surgery, so please speak with your doctor/PA at first follow up. Please bring paperwork such as FMLA at that time if you need it filled out. Medications: For optimum pain control, it is best to start with a combination of 500 mg of Tylenol every 4 hours with 600 mg of Motrin every 8 hours, and use narcotics as needed in between for breakthrough pain. We will give you a short supply of narcotics after surgery (usually one weeks worth). If you need more please call the office but do not use more than prescribed. You will need to give our office 48 hours notice if you need narcotics refilled and we do not fill narcotics on weekends or evenings. If you are on a narcotic, it is a good idea to take a stool softener such as colace or senna to avoid constipation If you take blood thinner such as aspirin, Plavix, Coumadin, Effient, Eliquis etc for conditions such as Afib, DVT, Pulmonary embolus, coronary disease, stents etc please speak with your surgeon about specific details as to when you can resume these medications. You can resume NSAIDs on post op day 1 (eg: Motrin, Naproxen, etc). Follow up: Please call the office, , after surgery to arrange a 3 week follow up for wound check. Wound Care: You may remove your dressing on the first day after surgery. ?You may ?leave open to air. Please do not remove the steri strips underneath. they will fall off on their own in one week. IT IS NORMAL FOR THE WOUND TO OOZE OR BE BLOODY FOR A FEW DAYS AFTER SURGERY. ?IF THIS HAPPENS JUST PLACE NEW DRESSING OVER IT TO AVOID STAINING CLOTHES. You may shower on post op day # 1 We ask that you do not let the water soak the wound. If it does get wet, just towel dry lightly. Please do not scrub your incision or place any type of chemical/ointment on the wound. No tub baths, pools or jacuzzis for one month. If you have any leaking or redness from your wound, or fevers, please call office
[2023-11-03] MEDS: fentaNYL citrate/PF 100 MCG/2 ML VIAL 50 MCG IVPUSH ×2 (10:37→10:45)
--- NOTE | 2023-11-03 10:37 | PHA.MEDREC ---
Pharmacy Consult ? Medication Reconciliation Pharmacy has completed the medication reconciliation. Reviewed med rec done by nursing
[2023-11-03] MEDS: oxyCODONE HCl Immed Release 5 MG TABLET 10 MG PO (10:38)
== END 2023-11-03 12:30 | disposition home or self-care (01) ==
PROVIDERS: PCP Internal Medicine; Visit Provider Neurological Surgery
PROC: (CPT 22551; principal; 2023-11-03 07:30)
DX: M54.12 Radiculopathy, cervical region (principal); G95.9 Disease of spinal cord, unspecified; M54.2 Cervicalgia; R53.1 Weakness; E11.9 Type 2 diabetes mellitus without complications; I10 Essential (primary) hypertension; Z86.73 Personal history of transient ischemic attack (TIA), and cerebral infarction without residual deficits; E78.00 Pure hypercholesterolemia, unspecified; G47.33 Obstructive sleep apnea (adult) (pediatric); Z79.84 Long term (current) use of oral hypoglycemic drugs; Z79.85 Long-term (current) use of injectable non-insulin antidiabetic drugs; Z87.891 Personal history of nicotine dependence; Z79.82 Long term (current) use of aspirin; Z79.899 Other long term (current) drug therapy; Z88.8 Allergy status to other drugs, medicaments and biological substances
CPT/HCPCS: 22551; 22552; 22853; 20936; 22845; 82947; 93005; C1713; J0131; J0690; J1100; J1596; J2250; J2405; J2704; J3010

== ENCOUNTER → 2023-11-03 05:55 | Outpatient (BNV) | payer MEDICARE, BC, SELFPAY | PROVIDERS: PCP Internal Medicine; Visit Provider Neurological Surgery | DX: M54.12 Radiculopathy, cervical region (principal) | CPT/HCPCS: 20936; 22551; 22552; 22845; 22853; 99499 ==

== ENCOUNTER 2023-11-25 09:46 | Outpatient (AMB) | payer MEDICARE, BC, SELFPAY ==
--- NOTE | 2023-11-25 10:04 | HO.SPINEOV ---
Intake Intake Visit Reasons: 1st post op Intake Note: Mr. Soto is here today for 1st Post op. Bilingual Spanish Inbound Sales Required: No Allergies simvastatin Allergy (Intermediate, Verified 11/03/23 06:10) diarrhea and abdominal pain, diarrhea atorvastatin Adverse Reaction (Intermediate, Verified 11/03/23 06:10) diarrhea and abdominal pain, diarrhea rosuvastatin Adverse Reaction (Intermediate, Verified 11/03/23 06:10) diarrhea and abdominal pain, diarrhea Do you need a note to return to daycare/school/sports/work: No Assessment & Plan Assessment & Plan (1) Cervical myelopathy: Code(s): G95.9 - Disease of spinal cord, unspecified Plan Procedure: C5-6, C6-7 ACDF Ismael comes in today for his 1st postoperative visit. He reports he is satisfied with the surgery and feels much better than he did pre-operatively. He reports he is up walking around and completing the majority of his ADLs. He reports no neck pain and no shooting pains into his bilateral arms. His left upper extremity symptoms have resolved. The dysphagia that he called the office to discuss with us has resolved. He is only taking the occasional ibuprofen at this time. He had several questions regarding postoperative care which I answered to the best of my ability. No new neurological deficits. Patient is able to ambulate well, rises from a seated position without difficulty. Incision sites are closed, well healing, with no signs of drainage. We will follow-up with the patient in 6 weeks for his 2nd postoperative visit. At that time we will get x-rays to review with the patient. Jarad Gibson MD,PhD [facility] Coding Level of Care Code Global (55678) Diagnoses Cervical myelopathy G95.9
== END 2023-11-25 13:14 | disposition home or self-care (01) ==
PROVIDERS: PCP Internal Medicine; Visit Provider Physician Assistant
DX: G95.9 Disease of spinal cord, unspecified (principal)
CPT/HCPCS: 99024

== ENCOUNTER → 2023-11-25 09:46 | Outpatient (BNVA) | payer MEDICARE, BC, SELFPAY | PROVIDERS: PCP Internal Medicine; Visit Provider Physician Assistant | DX: G95.9 Disease of spinal cord, unspecified (principal) | CPT/HCPCS: 99212 ==

== ENCOUNTER 2023-12-15 06:15 | Day surgery (SDC) | payer MEDICARE, BC, SELFPAY ==
[2023-09-04 14:27] VITALS: BMI 32.9
--- NOTE | 2023-09-07 11:50 | HO.ANESPROP2 ---
HPI - Anesthesia Eval Consult details Narrative: 67yo M for Colonoscopy PMFSH Active Problems Active Problems: All Active Problems (Updated 09/01/23 @ 06:01 by Gustavo Watts MD) Rash of genital area (Acute) Left shoulder pain (Acute) Fever (Acute) Hypomagnesemia (Acute) Hyperpigmented skin lesion (Acute) Hx of adenomatous colonic polyps (Acute) Colon cancer screening (Acute) Cough (Acute) Annual physical exam (Acute) Lumbar spinal stenosis (Acute) Adult general medical exam (Acute) Screening for prostate cancer (Acute) Obstructive sleep apnea (Acute) GERD without esophagitis (Acute) Vitamin D deficiency (Acute) Neuropathy (Acute) Left carotid artery stenosis (Acute) Obesity (BMI 30-39.9) (Acute) Mixed hyperlipidemia (Acute) Benign essential hypertension (Acute) Diabetes mellitus (Acute) COVID-19 (Acute) Carotid stenosis, bilateral (Acute) Past Medical History Medical History Hypomagnesemia Hx of adenomatous colonic polyps Lumbar spinal stenosis Obstructive sleep apnea GERD without esophagitis Vitamin D deficiency Neuropathy Left carotid artery stenosis Obesity (BMI 30-39.9) Mixed hyperlipidemia Benign essential hypertension Diabetes mellitus Family History Family History Father Hypertension Cancer Mother Hypertension Diabetes Surgical History Surgical History History of endarterectomy History of colonoscopy Social History Social History Housing: House Alcohol intake: current Alcohol intake frequency: holidays/special occasions only Patient Tobacco Use Status: Former Tobacco user e-Cigarette/Vaping Use: Never Used Second Hand Smoke Exposure: Yes service: No Current occupational status: employed Cognitive needs: No Hearing needs: No Vision needs: Yes (glasses) Meds Allergies Allergy/AdvReac Type Severity Reaction Status Date / Time simvastatin Allergy Unknown Unknown Verified 08/26/23 16:17 atorvastatin AdvReac Unknown diarrhea Verified 08/26/23 16:17 and abdominal pain, diarrhea rosuvastatin AdvReac Unknown diarrhea Verified 08/26/23 16:17 and abdominal pain, diarrhea Exam Height,Weight and Vital Signs: Height 5 ft 11 in Weight 107.048 kg Pertinent Lab Results Pertinent Lab Results: Laboratory Tests 08/18/23 06:45 WBC 7.4 Hgb 16.1 Hct 47.7 Plt Count 221 Sodium 138 Potassium 4.1 Chloride 101 Carbon Dioxide 27 BUN 26 H Creatinine 1.10 Narrative Narrative: EKG 10/2022 Vent. Rate : 104 BPM Atrial Rate : 104 BPM P-R Int : 162 ms QRS Dur : 086 ms QT Int : 310 ms P-R-T Axes : 029 012 063 degrees QTc Int : 407 ms Sinus tachycardia Low voltage QRS Septal infarct , age undetermined Abnormal ECG When compared with ECG of 18-SEP-2017 12:18, Vent. rate has increased BY 36 BPM Septal infarct is now Present Assessment and Plan Assessment Anesthesia Assessment: Chart Reviewed
--- NOTE | 2023-12-15 06:28 | MHC.SHP ---
Pre-Procedural Eval Section A - 24 Hr Update-Section A only Date of Service: 12/15/23 Section B - Complete if H&P > 30 days Chief Complaint: Encounter for screening for malignant neoplasm Relevant Family History (Specify if Yes): No Relevant Social History: None Present Medications: see Short Stay Collaborative assessment Medical History: Significant History (Arthritis Back pain Weakness Numbness TIA (transient ischemic attack) Hypomagnesemia Hx of adenomatous colonic polyps Lumbar spinal stenosis Obstructive sleep apnea GERD without esophagitis Vitamin D deficiency Neuropathy Left carotid artery stenosis Obesity (BMI 30-39.9) Mixed hyperlipidemia Benign) History of Previous Operations: Relevant previous surgery/procedure and date(s) ( History of facial surgery History of endarterectomy History of colonoscopy) Allergies: Allergies Allergy/AdvReac Type Severity Reaction Status Date / Time simvastatin Allergy Intermediate diarrhea Verified 12/15/23 06:22 and abdominal pain, diarrhea atorvastatin AdvReac Intermediate diarrhea Verified 12/15/23 06:22 and abdominal pain, diarrhea rosuvastatin AdvReac Intermediate diarrhea Verified 12/15/23 06:22 and abdominal pain, diarrhea Review of Systems Sugical H&P ROS: Negative: Constitution, Cardiovascular, Respiratory, Neurological, Psychiatric, Hem-Onc, Allergic/Immunologic, Gastrointestinal, Genitourinary, Musculoskeletal, Integumentary, Endocrine and Eyes/Ears/Nose/Throat Exam Surgical H&P Exam: Normal: HEENT, Normal: Heart, Normal: Lungs, Normal: Extremities, Normal: Abdomen, Normal: Skin and Normal: Neurological Plan Diagnosis/Plan: Unchanged I have reviewed the history and physical and performed a pertinent physical examination on my patient. No changes have occurred unless specified. Time Spent With Patient Time: Total time managing care of this patient today ____ minutes.
[2023-12-15 06:29] VITALS: BMI 33.4
[2023-12-15 06:38] VITALS: BP 184/72; PULSE 72; RESP 16; TEMP 36.4; O2SAT 99
[2023-12-15 06:40] LABS: Glucose, Whole Blood 186 mg/dL (60-115)
[2023-12-15] MEDS: Lactated Ringers 1,000 ML 80 ML IVCONT (07:30)
--- NOTE | 2023-12-15 07:30 | PC.NURSE ---
Patient last took aspirin 3 days ago, and tumeric [address] Mckoy made aware. Okay to proceed per him.
--- NOTE | 2023-12-15 08:02 | W.PM.OPN ---
Operative Note Operative Note Date of Service: 12/15/23 Narrative: Operative Information Procedure Description: Colonoscopy Indication: screening Anesthesia: MAC COLONOSCOPY Instrument: Olympus variable stiffness pediatric scope 190L Colonoscopy Monitoring: Vital signs and clinical assessment, continuous EKG monitoring, Pulse oximetry, Carbon Dioxide monitoring and blood pressure monitoring were done throughout the procedure. Colon withdrawal time was 10 minutes. Procedure: The patient was placed in the left lateral decubitis position and pre-procedure medications were administered. After a digital rectal examination of the ano-rectum, the video colonoscope was inserted into the rectum and advanced through the colon to the cecum/TI. The colonoscope was slowly withdrawn in a retrograde panoramic fashion and the colon mucosa was carefully examined including a retroflexed view of the rectum. Findings and interventions are described below. Procedure Difficulty: easy Findings: Terminal Ileum-normal Cecum:normal Right sided retroflexion- normal Ascending Colon: normal Transverse Colon -normal Descending Colon:normal Sigmoid Colon: normal Rectum: Retroflexion with medium sized internal hemorrhoids seen, grade I Anorectum - normal Intervention: none Colon preparation: [place] Bowel Preparation Scale Right colon; 2 Transverse colon: 2 Left colon; 2 (0 = Unprepared colon segment with mucosa not seen due to solid stool that cannot be cleared. 1 = Portion of mucosa of the colon segment seen, but other areas of the colon segment not well seen due to staining, residual stool and/or opaque liquid. 2 = Minor amount of residual staining, small fragments of stool and/or opaque liquid, but mucosa of colon segment seen well. 3 = Entire mucosa of colon segment seen well with no residual staining, small fragments of stool or opaque liquid) Impression and Post Procedure Diagnosis: internal hemorrhoids Plan: High fiber diet leaflet Avoid straining at stool, epsom salts and sitz bath, anusol supps or cream Repeat Colonoscopy in 10 years or earlier if clinically indicated Above findings were reviewed with the patient and relevant handouts were provided if indicated.
[2023-12-15 08:05] VITALS: BP 119/62; PULSE 74; RESP 16; TEMP 36.6; O2SAT 100
[2023-12-15 08:20] VITALS: BP 129/68; PULSE 71; RESP 20; TEMP 36.2; O2SAT 97
--- NOTE | 2023-12-15 08:39 | HO.ANESPROP2 ---
[facility] Active Problems Active Problems: All Active Problems Cervical myelopathy (Acute) Cervical radiculopathy (Acute) Neck pain on left side (Acute) Neck pain (Acute) Rash of genital area (Acute) Left shoulder pain (Acute) Fever (Acute) Hyperpigmented skin lesion (Acute) Colon cancer screening (Acute) Cough (Acute) Annual physical exam (Acute) Adult general medical exam (Acute) Screening for prostate cancer (Acute) COVID-19 (Acute) Carotid stenosis, bilateral (Acute) Hypomagnesemia (Acute) Hx of adenomatous colonic polyps (Acute) Lumbar spinal stenosis (Acute) Obstructive sleep apnea (Acute) GERD without esophagitis (Acute) Vitamin D deficiency (Acute) Neuropathy (Acute) Left carotid artery stenosis (Acute) Obesity (BMI 30-39.9) (Acute) Mixed hyperlipidemia (Acute) Benign essential hypertension (Acute) Diabetes mellitus (Acute) Past Medical History Medical History (Updated 11/02/23 @ 09:12 by Donna Willis RN) Arthritis Back pain Weakness Numbness TIA (transient ischemic attack) Hypomagnesemia Hx of adenomatous colonic polyps Lumbar spinal stenosis Obstructive sleep apnea GERD without esophagitis Vitamin D deficiency Neuropathy Left carotid artery stenosis Obesity (BMI 30-39.9) Mixed hyperlipidemia Benign essential hypertension Diabetes mellitus Family History Family History Father Hypertension Cancer Mother Hypertension Diabetes Family history of problems with anesthesia: No Surgical History Surgical History (Updated 12/15/23 @ 06:21 by Margarita Mariano) H/O cervical spine surgery History of facial surgery History of endarterectomy History of colonoscopy History of Problems with Anesthesia: No Social History Social History Housing: House Are you a primary home care and home health aides teacher to a significant other at home: No Do you presently have visiting nurse or other home services: No Alcohol intake: current Alcohol intake frequency: does not drink Patient Tobacco Use Status: Former Tobacco user Quit Date: 1991 Tobacco use type: Cigarette Years Smoked: 20 Smoked in Last 30 Days: No e-Cigarette/Vaping Use: Never Used Second Hand Smoke Exposure: Yes Use of substances other than those prescribed or required for medical reasons: No Are you DNR?: No Advance Directives: No Advance Directives Information Provided: Yes service: No Current occupational status: employed Cognitive needs: No Hearing needs: No Vision needs: Yes (glasses) Meds Allergies Allergy/AdvReac Type Severity Reaction Status Date / Time simvastatin Allergy Intermediate diarrhea Verified 12/15/23 06:22 and abdominal pain, diarrhea atorvastatin AdvReac Intermediate diarrhea Verified 12/15/23 06:22 and abdominal pain, diarrhea rosuvastatin AdvReac Intermediate diarrhea Verified 12/15/23 06:22 and abdominal pain, diarrhea Active Medications: Current Medications Lactated Ringer's (Lr) 1,000 mls @ 80 mls/hr IVCONT .[id number] AUDREY Last Admin: 12/15/23 07:30 Dose: 80 mls/hr Home Medications ?Medication ?Instructions ?Recorded ?Confirmed ?Last Taken ?Type acetaminophen 325 mg tablet 650 mg PO Q6H PRN Pain 11/02/23 12/15/23 11/02/23 20:00 History 650 aspirin 81 mg tablet,delayed 81 mg PO DAILY 11/02/23 12/15/23 12/12/23 History release cholecalciferol (vitamin D3) 25 25 mcg PO DAILY 11/02/23 12/15/23 Unknown History mcg (1,000 unit) capsule (Vitamin D3) magnesium oxide 500 mg capsule 500 mg PO DAILY 11/02/23 12/15/23 Unknown History dlaxgbir-lh-xzpcr 300 mcg-K 60 1 tab PO DAILY 11/02/23 12/15/23 Unknown History mcg-lycop 600 mcg-lutein 300 mcg tablet (Centrum Silver Men) peg 400-propylene glycol 0.4 %-0.3 1 drp ophthalmic (eye) DAILY PRN 11/02/23 12/15/23 Unknown History % eye drops (Systane (propylene Dry Eyes glycol)) turmeric 400 mg capsule 400 mg PO DAILY 11/02/23 12/15/23 12/13/23 History vitamin B complex 1 cap PO DAILY 11/02/23 12/15/23 Unknown History Exam Height,Weight and Vital Signs: Height 5 ft 11 in Weight 108.681 kg Last Vital Signs Temp 97.2 F 12/15/23 08:20 Pulse 71 12/15/23 08:20 Resp 20 12/15/23 08:20 BP 129/68 12/15/23 08:20 Pulse Ox 97 12/15/23 08:20 O2 Del Method Room Air 12/15/23 08:20 O2 Flow Rate 6 12/15/23 08:05 Pertinent Lab Results Pertinent Lab Results: Laboratory Tests 12/15/23 06:36 POC Glucose 186 H Airway Mallampati Class: III TM Dist: >3cm Neck ROM: Full Assessment and Plan Assessment Anesthesia Assessment: Anesthesia Plan Discussed and Chart Reviewed Final Anesthetic Review Family History of Problems with Anesthesia: No History of Problems with Anesthesia: No NPO: Yes ASA Class: III Final Preanesthetic Review: No Changes in Pt Med Stat, Meds/Allgs Chart Reviewed, Consent Obtained/Reviewed and Anes Risks/Benef Reviewed Patient Risk: Intermediate Procedure Risk: Low Anesthetic Plan Anesthetic Plan: TIVA Disposition: Standard PACU
== END 2023-12-15 08:41 | disposition home or self-care (01) ==
PROVIDERS: PCP Internal Medicine; Visit Provider Internal Medicine Gastroenterology
PROC: 0DJD8ZZ Inspection of Lower Intestinal Tract, Via Natural or Artificial Opening Endoscopic (ICD-10-PCS; CPT 45378; principal; 2023-12-15 07:30)
DX: Z12.11 Encounter for screening for malignant neoplasm of colon (principal); K64.0 First degree hemorrhoids; Z86.010 Personal history of colon polyps; E11.9 Type 2 diabetes mellitus without complications; I10 Essential (primary) hypertension; G47.33 Obstructive sleep apnea (adult) (pediatric); Z86.73 Personal history of transient ischemic attack (TIA), and cerebral infarction without residual deficits
CPT/HCPCS: G0105; 82947; J2704

== ENCOUNTER → 2023-12-15 06:15 | Outpatient (BNV) | payer MEDICARE, BC, SELFPAY | PROVIDERS: PCP Internal Medicine; Visit Provider Internal Medicine Gastroenterology | DX: Z12.11 Encounter for screening for malignant neoplasm of colon (principal); Z80.0 Family history of malignant neoplasm of digestive organs; K64.0 First degree hemorrhoids | CPT/HCPCS: G0105 ==

== ENCOUNTER 2023-12-29 15:20 | Outpatient (AMB) | payer MEDICARE, BC, SELFPAY ==
--- NOTE | 2023-12-29 15:20 | A.OFFPC_ITS ---
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 Required: No Allergies simvastatin Allergy (Intermediate, Verified 05/06/24 14:59) diarrhea and abdominal pain, diarrhea atorvastatin Adverse Reaction (Intermediate, Verified 05/06/24 14:59) diarrhea and abdominal pain, diarrhea rosuvastatin Adverse Reaction (Intermediate, Verified 05/06/24 14:59) diarrhea and abdominal pain, diarrhea Medication List - Last Reconciled 12/29/23 by Gustavo Watts MD acetaminophen 650 mg PO Q6H PRN aspirin 81 mg PO DAILY blood sugar diagnostic (FreeStyle Lite Strips) As directed once a day blood-glucose meter (FreeStyle Lite Meter kit) As directed cholecalciferol (vitamin D3) (Vitamin D3) 25 mcg PO DAILY docusate sodium (Colace) 100 mg PO BID dulaglutide 3 mg (0.5 mL) subcut QWEEK 90 days ergocalciferol (vitamin D2) (Vitamin D2) 1,250 mcg PO QWEEK 90 days ezetimibe 10 mg PO DAILY fenofibrate 160 mg PO DAILY 90 days hydrochlorothiazide 12.5 mg PO QAM Jardiance (empagliflozin) 25 mg PO QAM 90 days NS lancets (FreeStyle Lancets) As directed losartan 100 mg PO DAILY 90 days magnesium oxide 500 mg PO DAILY metformin 1,000 mg PO BID 90 days methocarbamol 750 mg PO TID PRN [id number] mcg (Centrum Silver Men) 1 tab PO DAILY pantoprazole 40 mg PO DAILY PRN peg 400-propylene glycol 0.4-0.3 % (Systane (propylene glycol)) 1 drp ophthalmic (eye) DAILY PRN turmeric 400 mg PO DAILY vitamin B complex 1 cap PO DAILY Tobacco use date assessed: 12/29/23 Fall risk assessment: No Falls in past year Last assessed Fall Risk: 12/29/23 Dental Screening Dental Screen Date: 12/29/23 Did you have a dental visit in the last 12 months?: No Did you have a dental problem in the last 6 months where you did not have access to dental care?: No Was dental information given to patient?: Patient has dentist HPI DM, hyperlipidemia HPI Details Patient comes in today for his follow up visit States that he had cervical spine surgery (C5-6, C6-7 Anterior discectomy, arthrodesis and implantation cage) done early last month on 11/03/[address] [place] [facility] [place] and that his surgery was successful as he no longer has the left-sided arm pain and left shoulder pain that he used to have earlier this yea r He also had his repeat colonoscopy with Dr. Mckoy a couple of weeks ago on 12/15/23 - was advised that his colonoscopy came back normal and he does not need a repeat colonoscopy again until 10 yrs from now Feels that he is doing well overall He denies any headaches or dizziness Denies any chest pains, no SOB No nausea/vomiting, no abdominal pain No change in bowel habits noted He was not able to get his follow up labs done prior to his appointment today [facility] Medical History Arthritis Back pain Weakness Numbness TIA (transient ischemic attack) Hypomagnesemia Hx of adenomatous colonic polyps Lumbar spinal stenosis Obstructive sleep apnea GERD without esophagitis Vitamin D deficiency Neuropathy Left carotid artery stenosis Obesity (BMI 30-39.9) Mixed hyperlipidemia Benign essential hypertension Diabetes mellitus Surgical History History of lumbosacral spine surgery H/O cervical spine surgery History of facial surgery History of endarterectomy History of colonoscopy Family History Father Hypertension Cancer Mother Hypertension Diabetes Social History Household Members: Spouse Housing: House Are you a primary care program resident to a significant other at home: No Do you presently have visiting nurse or other home services: No Alcohol intake: current Alcohol intake frequency: does not drink Patient Tobacco Use Status: Former Tobacco user Tobacco use type: Cigarette Years Smoked: 15 e-Cigarette/Vaping Use: Never Used Second Hand Smoke Exposure: No service: No Current occupational status: employed Cognitive needs: No Hearing needs: No Vision needs: Yes (glasses) Questionnaire PHQ-9 Over the last 2 weeks, how often have you been bothered by any of the following problems? 1. Little interest or pleasure in doing things: not at all 2. Feeling down, depressed, or hopeless: not at all 3. Trouble falling or staying asleep, or sleeping too much: not at all 4. Feeling tired or having little energy: not at all 5. Poor appetite or overeating: not at all 6. Feeling bad about yourself - or that you are a failure or have let yourself or your family down: not at all 7. Trouble concentrating on things, such as reading the newspaper or watching television: not at all 8. Moving or speaking so slowly that other people could have noticed. Or the opposite - being so fidgety or restless that you have been moving around a lot more than usual: not at all 9. Thoughts that you would be better off or of hurting yourself in some way: not at all Total score: 0 Depression Screening Interpretation: Negative Depression Screening Done: Yes 55524 - PHQ-9 Billing: Yes Source: Developed by Drs. Felix Poole, Elizabeth Mcmahan, Jason Olivas and colleagues, with an educational martha from [employer]. Thrive Questionnaire Date Thrive assessed: 12/29/23 I am a: Patient What is your living situation today?: I have a steady place to live Within the past 12 months, did the food you bought not last and you didn't have the money to get more?: Never true Within the past 12 months, did you worry whether your food would run out before you got money to buy more?: Never true Do you have trouble paying for medicines?: No Do you have trouble getting transportation to medical appointments?: No Do you have trouble paying your heating and electricity bill?: No Do you have trouble taking care of your child, family member or friend?: No Do you have trouble with day-to-day activities such as bathing, preparing meals, shopping, managing finances, etc.?: No Are you currently unemployed and looking for a job?: No Are you interested in more education?: No Please select the resources that you would like help with: None Currently or been in a relationship where the following occur: no concerns reported THRIVE Score: 0 AUDIT C Alcohol Use Questionnaire (AUDIT-C) 1. How often do you have a drink containing alcohol?: Monthly or less 2. How many drinks containing alcohol do you have on a typical day when you are drinking?: 1 or 2 3. How often do you have six or more drinks on one occasion?: Never Total Score: 1 Score Reviewed/Action Taken: Yes MALATHI-7 AMB Questionnaire MALATHI-7 Date MALATHI - 7 assessed: 12/29/23 Feeling nervous, anxious, or on edge: 0 = Not at all Not being able to stop or control worryin = Not at all Worrying too much about different things: 0 = Not at all Trouble relaxin = Not at all Being so restless that it is hard to sit still: 0 = Not at all Becoming easily annoyed or irritable: 0 = Not at all Feeling afraid as if something awful might happen: 0 = Not at all Total MALATHI-7 score (0-4 normal; 5-9 mild; 10-14 moderate; 15-21 severe): 0 Source: Developed by Drs. Felix Poole, Elizabeth Mcmahan, Jason Olivas and colleagues, with an educational martha from [employer]. MALATHI-7 Assessment Billing MALATHI-7 Assessment Tool: MALATHI-7 Assessment 27171 Review of Systems Const Denies chills, Denies difficulty sleeping, Denies fatigue, Denies fever(s) and Denies headache(s) ENT Denies dysphagia, Denies dizziness, Denies otalgia, Denies headache(s), Reports neck pain (mild), Denies odynophagia and Denies sore throat Card Denies chest pain, Denies irregular heart rhythm, Denies palpitations and Denies dyspnea Resp Denies chest congestion, Denies cough and Denies dyspnea GI Denies abdominal pain, Denies constipation, Denies dysphagia, Denies heartburn, Denies diarrhea, Denies nausea, Denies odynophagia and Denies vomiting Denies difficulty urinating, Denies nocturia and Denies urinary frequency Musc Reports back pain (over the lower back), Denies arthralgias, Reports neck pain (mild) and Denies radiating pain into limb Skin/Breast Denies rash Neuro Denies dizziness, Denies headache(s) and Denies paresthesias Endo Denies fatigue and Denies palpitations Physical exam (Primary Care) Vital Signs: Last Vital Signs Pulse 78 12/29/23 15:24 BP 148/72 H 12/29/23 15:24 Pulse Ox 95 12/29/23 15:24 Oxygen Delivery Method Room Air 12/29/23 15:24 BMI result Body Mass Index 32.6 Tobacco/Smoking Status: Tobacco use Status Tobacco use date assessed 12/29/23 12/29/23 15:26 Patient Tobacco Use Status Former Tobacco user 12/29/23 15:26 Tobacco use type Cigarette 12/29/23 15:26 e-Cigarette/Vaping Use Never Used 12/29/23 15:26 PHQ-9: PHQ-9 Score PHQ-9: Total score 0 12/29/23 15:52 Depression Screening Interpretation: Negative Thrive Assessment: Date of Thrive Assessment Date Thrive assessed 12/29/23 12/29/23 15:26 Currently or been in a relationship where the following occur: no concerns reported Const General: no acute distress and alert HENMT Ears: TM's normal bilaterally and EAC's normal Throat: Yes posterior oropharynx normal and Yes tonsils normal (no TP conges tion) Neck Neck: Yes no lymphadenopathy and Yes supple Thyroid: Thyroid normal Resp Auscultation: clear to auscultation bilaterally, no rales and no wheezes Cardio Rate: regular rate Rhythm: regular rhythm Heart sounds: no murmurs GI Palpation (GI): Soft to palpation and nontender Auscultation: normal bowel sounds General: Yes no CVA tenderness Back/Spine/Pelvis Back: no CVA tenderness Cervical Spine: Cervical spine tenderness (mild) Thoracic/Lumbar Spine: lumbar spinal tenderness (increased especially on the left side) Skin Rashes: no rashes Extrem General: Yes no clubbing, cyanosis or edema Results AMB Hemoglobin A1c AMB Hemoglobin A1c 8.6 % Last Edit by NANNETTE Santiago on 12/29/23 15:34 Results Reviewed Results Reviewed: Laboratory Last Values Hgb A1c (Clinic) 8.6 % (4.0-6.0) H 12/29/23 14:58 Assessment and Plan Assessment & Plan (1) Diabetes mellitus: Comment: dx ~ age 53-glucose range 430-450-uccuvs Trulicity on Sundays, Jardiance daily, metformin daily Code(s): E11.9 - Type 2 diabetes mellitus without complications Qualifiers: Diabetes mellitus complication detail: with unspecified neuropathy Diabetes mellitus complication status: with neurologic complications Diabetes mellitus intermediate manager insulin use: without intermediate manager use Diabetes mellitus type: type 2 Qualified Code(s): E11.40 - Type 2 diabetes mellitus with diabetic neuropathy, unspecified Plan: His in-office HgbA1c done today is at 8.6% (his HgbA1c was also at 8.6% a few months ago in July 2023) - goal is <7.0% Reinforced diabetic diet Continue Metformin 500 mg BID and Jardiance 25 mg Q AM He is also supposed to be on Trulicity 3 mg SQ once a week but he has been ab pyle trouble getting this refilled at the pharmacy lately due to unavailability of the Rx Advised that if he continues to not be able to get this at the pharmacy, then we may need to consider switching him over to an alternative brand like Ozempic or Mounjaro (2) Mixed hyperlipidemia: Code(s): E78.2 - Mixed hyperlipidemia Plan: He was not able to get his follow up labs done recently Reinforced low cholesterol diet Continue Ezetimibe 10 mg QD and Fenofibrate 160 mg QD; patient has NOT been able to tolerate any of the commercially available statins in the past As his previous cholesterol numbers were at or near goal and his cholesterol levels have been well-controlled for a while now, will just have him recheck his labs and fasting lipids in 4 months for follow up (3) Benign essential hypertension: Code(s): I10 - Essential (primary) hypertension Plan: Reinforced low sodium diet - goal is systolic BP of at least 130 to 140 mm or less Continue HCTZ 12.5 mg Q AM and Losartan 100 mg QD; had a recurrent coughing when he was on Lisinopril in the past Patient is reminded to continue monitoring his blood pressure regularly (4) Left carotid artery stenosis: Comment: S/P left carotid endarterectomy - 08/2017 Code(s): I65.22 - Occlusion and stenosis of left carotid artery Plan: Follow up with vascular surgery (Dr. Palmer) as scheduled (5) GERD without esophagitis: Comment: Dietary modifications, rare symptoms- Code(s): K21.9 - Gastro-esophageal reflux disease without esophagitis Plan: Dietary restrictions reinforced Continue Pantoprazole 40 mg QD (6) Neuropathy: Comment: NCV done in 2019 showed findings compatible with mild to moderate sensory and motor neuropathy Code(s): G62.9 - Polyneuropathy, unspecified Plan: He was started on a trial of Gabapentin previously but patient has not needed to take it - symptoms are minimal and remain tolerable still and he prefers not to take anymore additional meds if he can avoid them (7) Left shoulder pain: Code(s): M25.512 - Pain in left shoulder Qualifiers: Chronicity: acute Qualified Code(s): M25.512 - Pain in left shoulder Plan: He reports that this has improved significantly since his cervical spine surgery and thinks that this was mostly radicular pain from his cervical spine back then (8) Cervical spondylosis with myelopathy: Code(s): M47.12 - Other spondylosis with myelopathy, cervical region Plan: He had C5-6, C6-7 Anterior discectomy, arthrodesis and implantation cage early last month on 11/03/[address] Gibson States that his neck and cervical radicular symptoms (and left shoulder symptoms) have improved significantly since his surgery Follow up with neurosurgery as scheduled (9) Lumbar spinal stenosis: Code(s): M48.061 - Spinal stenosis, lumbar region without neurogenic claudication Qualifiers: Neurogenic claudication status: without neurogenic claudication Qualified Code(s): M48.061 - Spinal stenosis, lumbar region without neurogenic claudication Plan: Lumbar spine MRI done on 07/10/2017 revealed moderate to severe L4-L5 spinal canal stenosis and marked facet joint arthropathy at L3-L4, L4-L5 and L5-S1 Was seen by neurosurgery (Dr. Cheema) for consultation on 11/26/2017 - was advised against surgery at that time as he just had a TIA and left carotid endarterectomy earlier in the year in August 2017 and instructed to return in the fall of 2017 for consideration of L4-L5 decompression surgery if his symptoms continue to persist or progress Patient states that he did not go back to Neurosurgery as his symptoms were tolerable at the time He has been seeing his chiropractor since his low back pains started flaring up over a year ago and that his low back pain is again now somewhat better controlled lately Reinforced activity and weight-lifting restrictions to minimize aggravating his low back pain He is advised that if his low back pain persists or gets worse again, he should consider seeing Dr. Gibson as well for further evaluation and management (10) Vitamin D deficiency: Code(s): E55.9 - Vitamin D deficiency, unspecified Plan: Continue Vitamin D2 51451 units once a week and OTC Vitamin D3 1000 units QD (11) Hypomagnesemia: Code(s): E83.42 - Hypomagnesemia Plan: Continue oral Magnesium supplements daily Will recheck serum Magnesium level in a few months for follow up (12) Obstructive sleep apnea: Comment: uses CPAP Code(s): G47.33 - Obstructive sleep apnea (adult) (pediatric) Plan: Continue using his CPAP device daily when sleeping at night (13) Obesity (BMI 30-39.9): Code(s): E66.9 - Obesity, unspecified Plan: Reinforced diet/exercise as tolerated/lose weight Plan Follow up in 4 months Orders: Orders Complete Blood Count Auto Diff 4 Months D64.9 - Anemia, unspecified Comprehensive [place]. Panel Fast 4 Months E78.00 - Pure hypercholesterolemia, unspecified Vitamin D 25-OH Total 4 Months E55.9 - Vitamin D deficiency, unspecified Hemoglobin A1c 4 Months E11.9 - Type 2 diabetes mellitus without complications AMB Hemoglobin A1c 12/28/24 E11.40 - Type 2 diabetes mellitus with diabetic neuropathy, unspecified Lipid Panel 4 Months E78.00 - Pure hypercholesterolemia, unspecified Microalbumin, Random (w Creat) 4 Months E11.9 - Type 2 diabetes mellitus without complications TSH reflex Free T4 4 Months E78.00 - Pure hypercholesterolemia, unspecified UA CC w/rflx Micro + Cult 4 Months R30.0 - Dysuria Vitamin B12 and Folate 4 Months E53.8 - Deficiency of other specified B group vitamins Coding Level of Care Code Est Pt Level 4 (22846) Complex EM visit Add On G2211 Diagnoses Type 2 diabetes mellitus with diabetic neuropathy, without long-term current use of insulin E11.40 Diabetes mellitus complication detail: with unspecified neuropathy Diabetes mellitus complication status: with neurologic complications Diabetes mellitus intermediate manager insulin use: without senior care use Diabetes mellitus type: type 2 Mixed hyperlipidemia E78.2 Benign essential hypertension I10 Left carotid artery stenosis I65.22 GERD without esophagitis K21.9 Neuropathy G62.9 Acute pain of left shoulder M25.512 Chronicity: acute Cervical spondylosis with myelopathy M47.12 Spinal stenosis of lumbar region without neurogenic claudication M48.061 Neurogenic claudication status: without neurogenic claudication Vitamin D deficiency E55.9 Hypomagnesemia E83.42 Obstructive sleep apnea G47.33 Obesity (BMI 30-39.9) E66.9 Additional Codes MALATHI-7 Assessment Billing - MALATHI-7 Assessment Tool: MALATHI-7 Assessment [id number])
[2023-12-29 15:24] VITALS: BP 148/72; PULSE 78; O2SAT 95; BMI 32.6
== END 2023-12-29 16:08 | disposition home or self-care (01) ==
PROVIDERS: PCP Internal Medicine; Visit Provider Internal Medicine
DX: E11.40 Type 2 diabetes mellitus with diabetic neuropathy, unspecified (principal); E78.2 Mixed hyperlipidemia; I10 Essential (primary) hypertension; I65.22 Occlusion and stenosis of left carotid artery; K21.9 Gastro-esophageal reflux disease without esophagitis; G62.9 Polyneuropathy, unspecified; M25.512 Pain in left shoulder; M47.12 Other spondylosis with myelopathy, cervical region; M48.061 Spinal stenosis, lumbar region without neurogenic claudication; E55.9 Vitamin D deficiency, unspecified; E83.42 Hypomagnesemia; G47.33 Obstructive sleep apnea (adult) (pediatric)
CPT/HCPCS: 83036; 99214; G2211

== ENCOUNTER 2024-01-06 13:28 | Outpatient (REF) | payer MEDICARE, BC, SELFPAY ==
--- NOTE | ~2024-01-06 | XR_ITS ---
EXAMINATION: XR CERVICAL SPINE CLINICAL INFORMATION: Disease or spinal cord unspecified. COMPARISON: 11/03/2023 intraoperative images, 10/14/2023 x-ray cervical spine. TECHNIQUE: 4 views of the cervical spine inclusive of AP, lateral neutral, flexion and extension views. FINDINGS: Redemonstration of fixator devices at C5-C6 and C6-C7 levels for anterior cervical discectomies and fusions. Hardware appears intact. Minimal anterolisthesis of C5 on C6. Alignment similar on flexion and extension views. XR/XR cervical spine 4V IMPRESSION: 1. Redemonstration of fixator devices at C5-C6 and C6-C7 levels for anterior cervical discectomies and fusions. Hardware appears intact. 2. Minimal anterolisthesis of C5 on C6.
== END 2024-01-06 13:29 | disposition home or self-care (01) ==
LOC: HO.HOSX 13:28
PROVIDERS: Visit Provider Physician Assistant
DX: G95.9 Disease of spinal cord, unspecified (principal)
CPT/HCPCS: 72050

== ENCOUNTER 2024-01-13 14:50 | Outpatient (AMB) | payer MEDICARE, BC, SELFPAY ==
--- NOTE | 2024-01-13 14:52 | HO.SPINEOV ---
Intake Visit Reasons: evaluation for lower back pain Intake Note: Mr. Soto is here today for an evaluation of his lower back pain. 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 He has a pertinent past medical history of diabetes (last A1C 8.6) diabetic neuropathy, hypertension, left carotid endarterectomy after a TIA. High cholesterol, GERD, sleep apnea. He is known to our service and had a C5-6, C6-7 ACDF completed earlier this year. Today he comes in with low back pain complaints. He reports that he has had back pain for the majority of his adult life, however it became much worse over the course of the last 7-8 years. As his back pain has worsened, his ability to walk has also declined. He is unable to walk long distances without needing to stop and rest. After resting for a few minutes he feels better and can continue to ambulate. Additionally, he experiences bilateral lower extremity numbness from the knee down when engaging in activities. He states it is now to the point where he is unable to ambulate around the grocery store without needing to stabilize himself on a grocery cart. He is tried taking Aleve, ibuprofen, and Tylenol without significant symptom relief. He has also tried at-home stretching/exercise without significant relief of symptoms. On exam today and Ismael has 5/5 strength in his upper and lower extremities. He reports no sensational deficits. His reflexes are 2+ intact (even in his lower extremities). He is able to ambulate well (although slow) and rises from seated position without difficulty. (-) Valera's. (-) clonus. (-) straight leg raise bilaterally. Based on Ismael's history and physical he is most likely suffering from spinal stenosis with neurogenic claudication. I will order him a set of flexion/extension x-rays to ensure that he does not have any instability causing this issue. If his x-rays unremarkable I will follow up with an MRI to evaluate for nerve compression. Total amount of time spent in this visit was 35 minutes in discussion of symptoms, MRI imaging results and subsequent plan of care. Jarad Gibson MD,PhD [facility] Orders: Orders XR lumbar spine 4V min 01/13/24 M54.50 - Low back pain, unspecified MR lumbar spine wo con 01/14/24 M48.062 - Spinal stenosis, lumbar region with neurogenic claudication Coding Level of Care Code Est Pt Level 4 (67162) Diagnoses Lumbago M54.50
== END 2024-01-13 15:28 | disposition home or self-care (01) ==
PROVIDERS: PCP Internal Medicine; Visit Provider Physician Assistant
DX: M54.50 Low back pain, unspecified (principal)
CPT/HCPCS: 99214

== ENCOUNTER 2024-01-13 14:50 | Outpatient (REF) | payer MEDICARE, BC, SELFPAY ==
--- NOTE | ~2024-01-13 | XR_ITS ---
EXAMINATION: XR LUMBOSACRAL SPINE WITH FLEXION AND EXTENSION VIEWS CLINICAL INFORMATION: Low back pain, unspecified COMPARISON: None available. TECHNIQUE: Standing AP and lateral views and lateral flexion and extension views of the lumbar spine were obtained. FINDINGS: There 5 nonrib-bearing lumbar-type vertebral bodies. The height of vertebral bodies is well-maintained. There is mild disc space narrowing with marginal osteophyte formation at L4-L5. There is spondylolysis of L4 with grade 1 anterolisthesis of L4 with respect to L5. This increases with flexion and is unchanged with extension. There is multilevel degenerative facet joint disease. There is calcification of the down aorta without evidence of aneurysmal dilatation. XR/XR lumbar spine 4V min IMPRESSION: 1. 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 This increases with flexion and is unchanged with extension. 2. Degenerative disc disease at L4-L5.
== END 2024-01-13 14:51 | disposition home or self-care (01) ==
LOC: HO.HOSX 14:50
PROVIDERS: PCP Internal Medicine; Visit Provider Physician Assistant
DX: M48.062 Spinal stenosis, lumbar region with neurogenic claudication (principal); E11.40 Type 2 diabetes mellitus with diabetic neuropathy, unspecified; Z86.73 Personal history of transient ischemic attack (TIA), and cerebral infarction without residual deficits
CPT/HCPCS: 72110; 99212

== ENCOUNTER 2024-01-26 15:05 | Outpatient (AMB) | payer MEDICARE, BC, SELFPAY ==
--- NOTE | 2024-01-26 14:58 | A.SPINEOV_ITS ---
Intake Visit Reasons: MRI follow up Intake Note: Mr. George is here today for MRI F/u. Tetryl Boiling Tub Operator Required: No Allergies simvastatin Allergy (Intermediate, Verified 01/13/24 14:55) diarrhea and abdominal pain, diarrhea atorvastatin Adverse Reaction (Intermediate, Verified 01/13/24 14:55) diarrhea and abdominal pain, diarrhea rosuvastatin Adverse Reaction (Intermediate, Verified 01/13/24 14:55) diarrhea and abdominal pain, diarrhea Assessment & Plan Assessment & Plan (1) Spinal stenosis, lumbar region with neurogenic claudication: Code(s): M48.062 - Spinal stenosis, lumbar region with neurogenic claudication Category: Medical Plan Ismael comes in today for a follow up visit after being seen in the office for his low back pain and ambulation difficulties. He says that his back pain has worsened over the course of the last 7-8 years. As his back pain has worsened, his ability to walk has also declined. He is unable to walk long distances without needing to stop and rest. After resting for a few minutes he feels better and can continue to ambulate. I reviewed his MRI imaging and X-ray imaging with him during this visit. This imaging was also reviewed by Dr. Gibson who noted a grade 1 Spondylolithesis at L4-5 which worsens with spine flexion. He asked many questions regarding the surgery, and postoperative healing course all of which I answered to the best of my ability. I used the spine model in office to extensively described the L4-5 OLIF procedure to the patient. He understands he will need to spend a night in the hospital and stop his diabetic medications/NSAIDs 7 days before surgery as he did for his previous surgery. Ismael was given risk and benefits of surgery including but not limited to infection, hematoma, nerve injury, durotomy, weakness, bowel/bladder injury, persistent pain, as well as the option to continue with conservative treatment and patient wishes to proceed with surgery. They are aware they should stop NSAIDs 7 days prior to surgery. All questions were answered to the best of our ability. If there is anything about this patients medical history that we have overlooked or concerns you have about us proceeding with surgery we would appreciate any input you can offer. Total amount of time spent in this visit was 30 minutes in discussion of symptoms, MRI imaging results and subsequent plan of care Jarad Gibson MD,PhD [facility] Coding Level of Care Code Est Pt Level 4 (46305) Diagnoses Spinal stenosis, lumbar region with neurogenic claudication M48.062
== END 2024-01-26 15:57 | disposition home or self-care (01) ==
PROVIDERS: PCP Internal Medicine; Visit Provider Physician Assistant
DX: M48.062 Spinal stenosis, lumbar region with neurogenic claudication (principal)
CPT/HCPCS: 99214

== ENCOUNTER → 2024-01-26 15:05 | Outpatient (BNVA) | payer MEDICARE, BC, SELFPAY | PROVIDERS: PCP Internal Medicine; Visit Provider Physician Assistant | DX: M48.062 Spinal stenosis, lumbar region with neurogenic claudication (principal) | CPT/HCPCS: 99212 ==

== ENCOUNTER 2024-04-08 07:53 | Outpatient (REF) | payer MEDICARE, BC, SELFPAY ==
[2024-04-08 10:00] LABS: MANUAL DIFF FLAG NO
[2024-04-08 10:06] LABS: Basophils Percent Auto 0.6 % (0-2); Eosinophils Absolute Auto 0.1 X10*3/uL (0.0-0.4); Eosinophils Percent Auto 1.1 % (0-4); Hemoglobin 16.1 g/dl (14.0-18.0); Imm Gran Abs Auto 0.04 X10*3/uL (0.00-0.03); Imm Gran Pct Auto 0.6 % (0.0-0.4); Lymphocytes Absolute Auto 2.1 X10*3/uL (1.2-4.9); Lymphocytes Percent Auto 28.6 % (20-40); Mean Corpuscular HGB Conc 34.3 g/dl (31.0-36.0); Mean Corpuscular Hemoglobin 29.6 pg (27.0-33.0); Mean Corpuscular Volume 86.4 fL (80.0-98.0); Mean Platelet Volume 10.9 fL (9.4-12.4); Monocytes Absolute Auto 0.6 X10*3/uL (0.1-1.2); Monocytes Percent Auto 8.7 % (2-11); Neutrophils Absolute Auto 4.4 x10*3/uL (2.0-8.3); Neutrophils Percent Auto 60.4 % (45-73); Platelet Count 235 X10*3/uL (160-400); Red Blood Count 5.44 X10*6/uL (4.60-5.80); Red Cell Distribution Width 13.1 % (11.0-16.0); White Blood Count 7.3 X10*3/uL (4.8-10.8)
[2024-04-08 10:08] LABS: Appearance Urine Clear; Color Urine Dark Yellow; Glucose Urine UA >=1000 mg/dL (Negative); Leukocyte Esterase Urine Negative (Negative); Nitrite Urine Negative (Negative); Specific Gravity - Urine >= 1.030 (1.005-1.025); UMIC TRIGGER UACC YES; Urine Blood Negative (Negative); Urine Ketones Negative (Negative); Urine Protein Negative (Neg-Trace)
[2024-04-08 10:15] LABS: Bacteria Urine None Seen (None Seen); Hyaline Casts Urine 0-2 /LPF (0-2); RBC Urine 0-2 /HPF (0-2); Squamous Epithelial Cell Urine 0-2 /HPF (0-2); WBC Urine 0-5 /HPF (0-5)
[2024-04-08 10:35] LABS: Alanine Aminotransferase 59 U/L (0-40); Albumin Level 4.4 g/dL (3.5-5.0); Alkaline Phosphatase 55 U/L (39-117); Anion Gap 15 (12-20); Aspartate Amino Transferase 48 U/L (5-37); Bilirubin Total 0.5 mg/dL (0.0-1.0); Blood Urea Nitrogen 25 mg/dL (9-16); Calcium 9.8 mg/dL (8.4-10.2); Carbon Dioxide 30 mmol/L (22-29); Chloride 97 mmol/L (96-108); Cholesterol 201 mg/dL (<200); Estimated Glomerular Filt Rate 50; Glucose Fasting 178 mg/dL (60-99); HDL Cholesterol 40 mg/dL (>40); LDL Cholesterol Calculated 83 mg/dL (<100); Potassium 4.8 mmol/L (3.3-5.1); Sodium 137 mmol/L (135-145); Total Protein 7.3 g/dL (6.5-8.0); Triglycerides 391 mg/dL (<150)
[2024-04-08 10:57] LABS: Folate 14.9 ng/mL (> or = 4.0); Vitamin B12 678 pg/mL (200-900)
[2024-04-08 11:00] LABS: TSH reflex Free T4 1.76 uIU/mL (0.32-4.0)
[2024-04-08 11:03] LABS: Estimated Average Glucose 189 mg/dL; Hemoglobin A1c % 8.2 % (<6.0)
[2024-04-08 11:13] LABS: Creatinine Urine 82.88 mg/dL
== END 2024-04-08 07:54 | disposition home or self-care (01) ==
LOC: HO.HMGCLDS 07:53
PROVIDERS: PCP Internal Medicine; Visit Provider Internal Medicine
DX: E78.00 Pure hypercholesterolemia, unspecified (principal); E11.9 Type 2 diabetes mellitus without complications; E53.8 Deficiency of other specified B group vitamins; E55.9 Vitamin D deficiency, unspecified; D64.9 Anemia, unspecified
CPT/HCPCS: 36415; 80053; 80061; 81001; 81003; 82043; 82306; 82570; 82607; 82746; 83036; 84443; 85025

== ENCOUNTER 2024-04-12 10:06 | Outpatient (AMB) | payer MEDICARE, BC, SELFPAY ==
[2024-04-12 10:09] VITALS: BP 138/64; PULSE 80; O2SAT 99; BMI 32.6
--- NOTE | 2024-04-12 10:09 | MHC.PC.OV ---
Vital Signs 04/12/24 10:09 Height 5 ft 11 in Weight 234 lb 0.5 oz BMI 32.6 BP 138/64 Blood Pressure Location Lt brachial Position Sitting Pulse 80 Pulse Source Pulse Oximeter Pulse Oximetry (%) 99 Oxygen Delivery Method Room Air Intake Visit Reasons: Lumbar Fusion on 04/26/24 Soliciting Freight Agent Required: No Allergies simvastatin Allergy (Intermediate, Verified 04/12/24 10:51) diarrhea and abdominal pain, diarrhea atorvastatin Adverse Reaction (Intermediate, Verified 04/12/24 10:51) diarrhea and abdominal pain, diarrhea rosuvastatin Adverse Reaction (Intermediate, Verified 04/12/24 10:51) diarrhea and abdominal pain, diarrhea Medication List - Last Reconciled 04/12/24 by Mariaelena Stoll PA-C amlodipine 2.5 mg PO DAILY aspirin 81 mg PO DAILY blood sugar diagnostic (FreeStyle Lite Strips) As directed once a day blood-glucose meter (FreeStyle Lite Meter kit) As directed cholecalciferol (vitamin D3) (Vitamin D3) 25 mcg PO DAILY ergocalciferol (vitamin D2) (Vitamin D2) 1,250 mcg PO QWEEK 90 days ezetimibe 10 mg PO DAILY fenofibrate 160 mg PO DAILY 90 days hydrochlorothiazide 12.5 mg PO QAM Jardiance (empagliflozin) 25 mg PO QAM 90 days NS lancets (FreeStyle Lancets) As directed losartan 100 mg PO DAILY 90 days magnesium oxide 500 mg PO DAILY metformin 1,000 mg PO BID 90 days [id number] mcg (Centrum Silver Men) 1 tab PO DAILY pantoprazole 40 mg PO Q2D peg 400-propylene glycol 0.4-0.3 % (Systane (propylene glycol)) 1 drp ophthalmic (eye) DAILY PRN semaglutide (Ozempic) 1 mg (0.75 mL) subcut QWEEK 4 weeks turmeric 400 mg PO DAILY vitamin B complex 1 cap PO DAILY Tobacco use date assessed: 12/29/23 Fall risk assessment: No Falls in past year Last assessed Fall Risk: 04/12/24 Dental Screening Dental Screen Date: 12/29/23 HPI Lumbar Fusion on 04/26/24 HPI Details 68-year-old male with past medical history diabetes mellitus, hypertension, hyperlipidemia, GERD, obstructive sleep apnea last seen by Dr. Watts November 2023 coming in for preop.?In review of the notes, patient was seen by [facility] december 2023 for review of MRI which showed grade 1 spondylolisthesis at L4-5 which worsens with spine flexion.? Patient was scheduled for L4-5 OLIF procedure 04/19/2024. Patient regularly uses his CPAP and has good management of his obstructive sleep apnea. HTN: 138/64 in the office today - well controlled on amlodipine, HCTZ and losartan DM: A1c 8.2 on last blood work - A1c has come down since previous visit. On metformin, Jardiance, and Trulicity. Patient does not have history of CVA, GA or CHF. History of TIA 7 years ago with carotid endarterectomy and follows with vascular surgeon. Has had anesthesia in the past with no issue. [facility] Medical History (Updated 04/12/24 @ 10:17 by Mariaelena Stoll PA-C) Arthritis Back pain Weakness Numbness TIA (transient ischemic attack) Hypomagnesemia Hx of adenomatous colonic polyps Lumbar spinal stenosis Obstructive sleep apnea GERD without esophagitis Vitamin D deficiency Neuropathy Left carotid artery stenosis Obesity (BMI 30-39.9) Mixed hyperlipidemia Benign essential hypertension Diabetes mellitus Surgical History (Updated 04/12/24 @ 09:14 by Mel Veronica RN) H/O cervical spine surgery History of facial surgery History of endarterectomy History of colonoscopy Family History Father Hypertension Cancer Mother Hypertension Diabetes Social History Housing: House Are you a primary care connector to a significant other at home: No Do you presently have visiting nurse or other home services: No Alcohol intake: current Alcohol intake frequency: does not drink Patient Tobacco Use Status: Former Tobacco user Tobacco use type: Cigarette Years Smoked: 15 e-Cigarette/Vaping Use: Never Used Second Hand Smoke Exposure: Yes service: No Current occupational status: employed Cognitive needs: No Hearing needs: No Vision needs: Yes (glasses) Questionnaire Thrive Questionnaire Date Thrive assessed: 12/29/23 AUDIT C Alcohol Use Questionnaire (AUDIT-C) 1. How often do you have a drink containing alcohol?: Monthly or less 2. How many drinks containing alcohol do you have on a typical day when you are drinking?: 1 or 2 3. How often do you have six or more drinks on one occasion?: Never Total Score: 1 Score Reviewed/Action Taken: Yes MALATHI-7 AMB Questionnaire MALATHI-7 Date MALATHI - 7 assessed: 12/29/23 Source: Developed by Drs. Felix Poole, Elizabeth Mcmahan, Jason Olivas and colleagues, with an educational martha from [employer]. Review of Systems Const Denies body aches, Denies fatigue, Denies fever(s), Denies frequent falls, Denies headache(s) and Denies weakness Eyes Reports no additional complaints and Denies change in vision ENT Denies dysphagia, Denies dizziness, Denies facial pain, Denies headache(s), Denies nasal congestion and Denies odynophagia Card Denies chest pain, Denies syncope, Denies irregular heart rhythm, Denies leg edema, Denies lightheadedness and Denies dyspnea Resp Denies cough and Denies dyspnea GI Denies constipation, Denies dysphagia, Denies dyspepsia, Denies diarrhea, Denies nausea, Denies odynophagia and Denies vomiting Denies dysuria, Denies urinary frequency, Denies urinary hesitancy and Denies urinary urgency Musc Denies back pain and Denies myalgias Skin/Breast Details: Dry cracking feet Reports system reviewed and no additional complaints, except as documented Neuro Denies dizziness, Denies syncope, Denies frequent falls, Denies headache(s) and Denies weakness Psych Reports no additional complaints Endo Denies fatigue Physical exam (Primary Care) Vital Signs: Last Vital Signs Pulse 80 04/12/24 10:09 BP 138/64 04/12/24 10:09 Pulse Ox 99 04/12/24 10:09 Oxygen Delivery Method Room Air 04/12/24 10:09 BMI result Body Mass Index 32.6 Tobacco/Smoking Status: Tobacco use Status Tobacco use date assessed 12/29/23 04/12/24 10:15 Patient Tobacco Use Status Former Tobacco user 04/12/24 10:15 Tobacco use type Cigarette 04/12/24 10:15 e-Cigarette/Vaping Use Never Used 04/12/24 10:15 Thrive Assessment: Date of Thrive Assessment Date Thrive assessed 12/29/23 04/12/24 10:15 Const General: cooperative, healthy appearing, comfortable and no acute distress Orientation/consciousness: patient oriented x3 HENMT Head: Yes normocephalic Ears: hearing grossly normal bilaterally, TM's normal bilaterally and EAC's normal General nose exam: Normal external nose present Eyes General: appearance normal, both eyes and all related structures Conjunctivae: conjunctivae normal Neck Neck: Yes full ROM and Yes no lymphadenopathy Resp Effort & Inspection: normal respiratory effort Auscultation: clear to auscultation bilaterally, no crackles, no rales, no rhonchi and no wheezes Cardio Rate: regular rate Rhythm: regular rhythm Skin General skin exam: no rashes or lesions noted Neuro General: patient oriented x3 Gait exam (Neuro): Normal gait present Extrem Other: Right great toe has noninfected healing crack with surrounding callus General: Yes normal to inspection, Yes full ROM and No edema Psych Affect: normal affect Attitude: cooperative Insight: Good insight present (Psych) Judgement: Good judgement present (Psych) Assessment and Plan Assessment & Plan (1) Pre-op evaluation: Code(s): Z01.818 - Encounter for other preprocedural examination Plan: Regarding preop clearance, the patient is at moderate risk for proposed surgery due to age and comorbidities. Reviewed with the patient that no surgery is completely free of risk and that this examination is to assist the surgeon in reviewing informed consent. A1c is not within target goal but has been improving. Patient must discontinue aspirin and semaglutide 1 week prior to surgery and Jardiance 4 days prior surgery. All other medications can be taken up to the day prior to surgery. The day of the procedure with hold all medications except for amlodipine, and pantoprazole per surgeon recommendation for blood pressure and GERD management the remainder of the medications may be taken after the procedure. Blood work is updated and within normal limits. Plan This note was constructed using voice recognition software. While every effort has been made to ensure accuracy and software product manager, still areas may have been included sometimes these areas may affect the content or meeting of the given symptoms. Total time spent caring for the patient today was 30 minutes. This includes time spent before the visit reviewing the chart, time spent during the visit, and time spent after the visit and documentation. Orders: Referrals Podiatry Referral E11.40 - Type 2 diabetes mellitus with diabetic neuropathy, unspecified Coding Level of Care Code Est Pt Level 4 (68560) Diagnoses Pre-op evaluation Z01.818
== END 2024-04-12 11:06 | disposition home or self-care (01) ==
PROVIDERS: PCP Internal Medicine
DX: Z01.818 Encounter for other preprocedural examination (principal); E11.40 Type 2 diabetes mellitus with diabetic neuropathy, unspecified
CPT/HCPCS: 99214

== ENCOUNTER 2024-04-19 06:51 | Inpatient (IN) | payer MEDICARE, BC, SELFPAY ==
[2024-04-12 09:21] VITALS: BP 166/71; PULSE 78; RESP 20; O2SAT 97; BMI 32.8
[2024-04-19] VITALS (12 sets, daily range): BP systolic 115–163; BP diastolic 53–74; PULSE 63–82; RESP 16–20; TEMP 36.1–36.7; O2SAT 93–99; BMI 34.0
[2024-04-19] MEDS: Lactated Ringers 1,000 ML 100 ML IVCONT (07:13)
[2024-04-19 07:47] LABS: Glucose, Whole Blood 246 mg/dL (60-115)
[2024-04-19] MEDS: Gabapentin 300 MG CAPSULE PO (08:12)
[2024-04-19] MEDS: methocarbamoL 750 MG TABLET PO (08:12)
--- NOTE | 2024-04-19 10:05 | HO.ANESPROP2 ---
Documented by User: Gladys David NP 04/13/24 12:52 HPI - Anesthesia Eval Consult details Narrative: 68yo M for L4-5 Oblique Lumbar Interbody Fusion, 04/19/24 Medically optimized for surgery per PCP - notes A1C not within goal, but improving from previous s/p C5-6,C6-7 Ant Cerv Discectomy w/ fusion 10/2023 - no anesthetic issues per patient No recent illness No CP/SOB with minimal activity BARAK. CPAP QHS GERD. Well controlled with ppi DM. FBS ~120-200 TIA s/p L CEA 2018 Anesthesia Pre-Procedure Meds Is the patient on any of the following meds?: GLP1/DPP4 PMFSH Active Problems Active Problems: All Active Problems Lumbago (Acute) Spinal stenosis, lumbar region with neurogenic claudication (Acute) Cervical myelopathy (Acute) Cervical radiculopathy (Acute) Neck pain on left side (Acute) Neck pain (Acute) Rash of genital area (Acute) Left shoulder pain (Acute) Fever (Acute) Hyperpigmented skin lesion (Acute) Colon cancer screening (Acute) Cough (Acute) Annual physical exam (Acute) Adult general medical exam (Acute) Screening for prostate cancer (Acute) COVID-19 (Acute) Carotid stenosis, bilateral (Acute) Hypomagnesemia (Acute) Hx of adenomatous colonic polyps (Acute) Lumbar spinal stenosis (Acute) Obstructive sleep apnea (Acute) GERD without esophagitis (Acute) Vitamin D deficiency (Acute) Neuropathy (Acute) Left carotid artery stenosis (Acute) Obesity (BMI 30-39.9) (Acute) Mixed hyperlipidemia (Acute) Benign essential hypertension (Acute) Diabetes mellitus (Acute) Past Medical History Medical History Arthritis Back pain Weakness Numbness TIA (transient ischemic attack) Hypomagnesemia Hx of adenomatous colonic polyps Lumbar spinal stenosis Obstructive sleep apnea GERD without esophagitis Vitamin D deficiency Neuropathy Left carotid artery stenosis Obesity (BMI 30-39.9) Mixed hyperlipidemia Benign essential hypertension Diabetes mellitus Family History Family History Father Hypertension Cancer Mother Hypertension Diabetes Family history of problems with anesthesia: No Surgical History Surgical History H/O cervical spine surgery History of facial surgery History of endarterectomy History of colonoscopy History of Problems with Anesthesia: No Social History Social History Housing: House Are you a primary small animal caretaker to a significant other at home: No Do you presently have visiting nurse or other home services: No Alcohol intake: current Alcohol intake frequency: does not drink Patient Tobacco Use Status: Former Tobacco user Tobacco use type: Cigarette Years Smoked: 15 e-Cigarette/Vaping Use: Never Used Second Hand Smoke Exposure: Yes Use of substances other than those prescribed or required for medical reasons: No Have you been hit, kicked, punched, or otherwise hurt by someone within the past year? If so, by whom?: No Are you DNR?: No Advance Directives Information Provided: Yes (as above noted) Advance Directives on File: No Recently lost weight without trying: No Eating poorly because of decreased appetite: No Nutrition Risks: No Nutritional Risk Poor oral hygiene: No (crowns, broken teeth) service: No Current occupational status: employed Cognitive needs: No Hearing needs: No Vision needs: Yes (glasses) Meds Allergies Allergy/AdvReac Type Severity Reaction Status Date / Time simvastatin Allergy Intermediate diarrhea Verified 04/19/24 07:00 and abdominal pain, diarrhea atorvastatin AdvReac Intermediate diarrhea Verified 04/19/24 07:00 and abdominal pain, diarrhea rosuvastatin AdvReac Intermediate diarrhea Verified 04/19/24 07:00 and abdominal pain, diarrhea Home Medications ?Medication ?Instructions ?Recorded ?Confirmed ?Last Taken ?Type aspirin 81 mg tablet,delayed 81 mg PO DAILY 11/02/23 04/12/24 04/11/24 History release cholecalciferol (vitamin D3) 25 25 mcg PO DAILY 11/02/23 04/12/24 Unknown History mcg (1,000 unit) capsule (Vitamin D3) magnesium oxide 500 mg capsule 500 mg PO DAILY 11/02/23 04/12/24 Unknown History mmxrrlsc-lq-ymkkv 300 mcg-K 60 1 tab PO DAILY 11/02/23 04/12/24 Unknown History mcg-lycop 600 mcg-lutein 300 mcg tablet (Centrum Silver Men) peg 400-propylene glycol 0.4 %-0.3 1 drp ophthalmic (eye) DAILY PRN 11/02/23 04/12/24 Unknown History % eye drops (Systane (propylene Dry Eyes glycol)) turmeric 400 mg capsule 400 mg PO DAILY 11/02/23 04/12/24 12/13/23 History vitamin B complex 1 cap PO DAILY 11/02/23 04/12/24 Unknown History pantoprazole 40 mg tablet,delayed 40 mg PO Q2D for acid reflux 04/12/24 04/12/24 04/19/24 History release Exam Height,Weight and Vital Signs: Height 5 ft 11 in Weight 106.594 kg Last Vital Signs Pulse 78 04/12/24 09:21 Resp 20 04/12/24 09:21 BP 166/71 H 04/12/24 09:21 Pulse Ox 97 04/12/24 09:21 O2 Del Method Room Air 04/12/24 09:21 Pertinent Lab Results Pertinent Lab Results: Laboratory Tests 04/08/24 08:00 WBC 7.3 Hgb 16.1 Hct 47.0 Plt Count 235 Sodium 137 Potassium 4.8 Chloride 97 Carbon Dioxide 30 H BUN 25 H Creatinine 1.40 Laboratory Tests 04/08/24 08:00 Hemoglobin A1c % 8.2 H Narrative Narrative: EKG 10/2023 Vent. Rate : 078 BPM Atrial Rate : 078 BPM P-R Int : 190 ms QRS Dur : 084 ms QT Int : 364 ms P-R-T Axes : 054 023 070 degrees QTc Int : 414 ms Normal sinus rhythm Septal infarct (cited on or before 22-NOV-2022) Abnormal ECG When compared with ECG of 22-NOV-2022 15:33, No significant change was found Airway Mallampati Class: II TM Dist: >3cm Neck ROM: Limited Loose/Missing/Broken Teeth: Yes (Broken molars, pulled molars, 2 x crowned molars) Heart: RRR Lungs: CTAB Assessment and Plan Assessment Anesthesia Assessment: Anesthesia Plan Discussed and PAT Visit Final Anesthetic Review Family History of Problems with Anesthesia: No History of Problems with Anesthesia: No Documented by User: Sabrina Hart DO 04/19/24 10:08 HPI - Anesthesia Eval Anesthesia Pre-Procedure Meds Is the patient on any of the following meds?: GLP1/DPP4 If yes to any meds - educate patient: Pt education - increased risk of aspiration and/or euvolemic DKA [facility] Past Medical History Medical History Arthritis Back pain Weakness Numbness TIA (transient ischemic attack) Hypomagnesemia Hx of adenomatous colonic polyps Lumbar spinal stenosis Obstructive sleep apnea GERD without esophagitis Vitamin D deficiency Neuropathy Left carotid artery stenosis Obesity (BMI 30-39.9) Mixed hyperlipidemia Benign essential hypertension Diabetes mellitus Family History Family History Father Hypertension Cancer Mother Hypertension Diabetes Family history of problems with anesthesia: No Surgical History Surgical History H/O cervical spine surgery History of facial surgery History of endarterectomy History of colonoscopy History of Problems with Anesthesia: No Social History Social History Housing: House Are you a primary small animal caretaker to a significant other at home: No Do you presently have visiting nurse or other home services: No Alcohol intake: current Alcohol intake frequency: does not drink Patient Tobacco Use Status: Former Tobacco user Tobacco use type: Cigarette Years Smoked: 15 e-Cigarette/Vaping Use: Never Used Second Hand Smoke Exposure: Yes Use of substances other than those prescribed or required for medical reasons: No Have you been hit, kicked, punched, or otherwise hurt by someone within the past year? If so, by whom?: No Are you DNR?: No Advance Directives Information Provided: Yes (as above noted) Advance Directives on File: No Recently lost weight without trying: No Eating poorly because of decreased appetite: No Nutrition Risks: No Nutritional Risk Poor oral hygiene: No (crowns, broken teeth) service: No Current occupational status: employed Cognitive needs: No Hearing needs: No Vision needs: Yes (glasses) Meds Allergies Allergy/AdvReac Type Severity Reaction Status Date / Time simvastatin Allergy Intermediate diarrhea Verified 04/19/24 07:00 and abdominal pain, diarrhea atorvastatin AdvReac Intermediate diarrhea Verified 04/19/24 07:00 and abdominal pain, diarrhea rosuvastatin AdvReac Intermediate diarrhea Verified 04/19/24 07:00 and abdominal pain, diarrhea Home Medications ?Medication ?Instructions ?Recorded ?Confirmed ?Last Taken ?Type aspirin 81 mg tablet,delayed 81 mg PO DAILY 11/02/23 04/12/24 04/11/24 History release cholecalciferol (vitamin D3) 25 25 mcg PO DAILY 11/02/23 04/12/24 Unknown History mcg (1,000 unit) capsule (Vitamin D3) magnesium oxide 500 mg capsule 500 mg PO DAILY 11/02/23 04/12/24 Unknown History lwklhqgl-gj-kfzbl 300 mcg-K 60 1 tab PO DAILY 11/02/23 04/12/24 Unknown History mcg-lycop 600 mcg-lutein 300 mcg tablet (Centrum Silver Men) peg 400-propylene glycol 0.4 %-0.3 1 drp ophthalmic (eye) DAILY PRN 11/02/23 04/12/24 Unknown History % eye drops (Systane (propylene Dry Eyes glycol)) turmeric 400 mg capsule 400 mg PO DAILY 11/02/23 04/12/24 12/13/23 History vitamin B complex 1 cap PO DAILY 11/02/23 04/12/24 Unknown History pantoprazole 40 mg tablet,delayed 40 mg PO Q2D for acid reflux 04/12/24 04/12/24 04/19/24 History release Exam Exam Date and Time: April 19, 20241004 Height,Weight and Vital Signs: Height 5 ft 11 in Weight 106.594 kg Last Vital Signs Pulse 78 04/12/24 09:21 Resp 20 04/12/24 09:21 BP 166/71 H 04/12/24 09:21 Pulse Ox 97 04/12/24 09:21 O2 Del Method Room Air 04/12/24 09:21 Height 5 ft 11 in Weight 106.594 kg Vital Signs Pulse Rate 78 04/12/24 09:21 Respiratory Rate 20 04/12/24 09:21 Blood Pressure 166/71 H 04/12/24 09:21 Pulse Oximetry 97 04/12/24 09:21 Oxygen Delivery Method Room Air 04/12/24 09:21 Temperature 98.0 F 04/19/24 07:15 Pulse Rate 74 04/19/24 07:15 Respiratory Rate 18 04/19/24 07:15 Blood Pressure 163/61 H 04/19/24 07:15 Pulse Oximetry 97 04/19/24 07:15 Oxygen Delivery Method Room Air 04/19/24 07:15 Airway Mallampati Class: II TM Dist: >3cm Neck ROM: Limited Loose/Missing/Broken Teeth: Yes (Broken molars, pulled molars, 2 x crowned molars) Heart: S1S2 Assessment and Plan Assessment Anesthesia Assessment: Anesthesia Plan Discussed and Chart Reviewed Final Anesthetic Review Family History of Problems with Anesthesia: No History of Problems with Anesthesia: No NPO: Yes ASA Class: III Final Preanesthetic Review: No Changes in Pt Med Stat, Meds/Allgs Chart Reviewed, Consent Obtained/Reviewed and Anes Risks/Benef Reviewed Patient Risk: Intermediate Procedure Risk: Intermediate Anesthetic Plan Anesthetic Plan: GA and Agree w/ Assess. and Plan Disposition: Standard PACU
--- NOTE | 2024-04-19 10:11 | MHC.SHP ---
Pre-Procedural Eval Section A - 24 Hr Update-Section A only Date of Service: 04/19/24 The patient is an INPATIENT: Yes Section B - Complete if H&P > 30 days Chief Complaint: S/P L4-5 OLIF Details of Present Illness: Back pain Allergies: Allergies Allergy/AdvReac Type Severity Reaction Status Date / Time simvastatin Allergy Intermediate diarrhea Verified 04/19/24 07:00 and abdominal pain, diarrhea atorvastatin AdvReac Intermediate diarrhea Verified 04/19/24 07:00 and abdominal pain, diarrhea rosuvastatin AdvReac Intermediate diarrhea Verified 04/19/24 07:00 and abdominal pain, diarrhea Review of Systems Sugical H&P ROS: Negative: Constitution, Cardiovascular, Respiratory, Neurological, Psychiatric, Hem-Onc, Allergic/Immunologic, Gastrointestinal, Genitourinary, Musculoskeletal, Integumentary, Endocrine and Eyes/Ears/Nose/Throat Exam Surgical H&P Exam: Normal: HEENT, Normal: Heart, Normal: Lungs, Normal: Extremities, Normal: Abdomen, Normal: Skin and Normal: Neurological (Awake, alert) Plan Diagnosis/Plan: Unchanged I have reviewed the history and physical and performed a pertinent physical examination on my patient. No changes have occurred unless specified. Oblique lumbar interbody fusion L4-5 Time Spent With Patient Time: Total time managing care of this patient today 5____ minutes.
--- NOTE | 2024-04-19 12:46 | W.PM.OPN ---
Operative Note Operative Note Date of Service: 04/19/24 Narrative: Preop Diagnosis: 1.) L4-5 spondylolisthesis 2.) Neurogenic claudication Procedure: 1) L4-5 discectomy, arthrodesis and implantation cage through an anterolateral, retroperitoneal approach 2) L4-5 posterior instrumented fusion 3) allograft 4) injection of 10 cc of Exparel at the L4 transverse process for a muscular erector spinae block and additional Exparel in paravertebral tissue for postop management Consent Informed Consent was obtained for this operation. I have explained the nature, purpose and benefits of the operation. I have discussed the risks and benefit of the operation including possible complications or adverse events with patient/family. Alternative(s) were discussed with the patient with their relative benefits and risks as well as the consequences of not accepting the operation were included in obtaining consent. Surgeon: ABBY RAMSEY MD, PHD Procedure Assisted By: Ismael kang Description of Procedure This patient is suffering from neurogenic claudication. MRI shows a L4-5 spondylolisthesis and spinal stenosis. The patient was offered an oblique lumbar interbody fusion L4-5. The procedure complications were explained. The patient was consented. The patient was brought to the operating room and endotracheally intubated. The patient was turned in a lateral position with the left side up. Prep and drape was done followed by timeout. A small incision was made in the left lower abdominal quadrant. The muscle fascia was opened after which the 3 muscle layer was split to enter the retroperitoneal space. Dilators were docked in the anterior one third of the L4-5 disc space followed by a retractor. The retractor was opened. The L4-5 disc space was exposed. An annulotomy was done after which an elevator Cohen was used to release the disc material from its endplates and to perforate the contralateral side. A partial discectomy was done. An 8, 10 and 12 height trial implant were inserted. The discectomy was completed. The endplates were prepared. An 12 x 50 mm with 0 degree lordosis 4 web cage filled with allograft was inserted into the disc space under fluoroscopic guidance. This resulted in correction of spondylolisthesis and an indirect decompression of the nervous structures. The retractor was removed. Hemostasis was done. The incision was closed in 2 layers. Steri-Strips used to approximate incision. An OpSite with Tegaderm was used to cover the incision. This marked first part of the procedure. The patient was turned prone on the Sergey spine table. 2C arms were installed for fluoroscopy. Prep and drape was done followed by a second timeout. 2 paramedian incisions were made lateral from the L4 and L5 pedicles. The muscle fascia was opened after which the muscle layer was split bluntly to expose the posterolateral gutter. The following steps were taken. A pediguard tap was used to create a transpedicular trajectory into the vertebral body. A K wire was placed. A specially designed instrument was advanced over the K wire to decorticate the posterolateral gutter in preparation for the posterolateral fusion. A pedicle screw was advanced over the K wire and the K wire was removed. The steps were done for the bilateral L4 and L5 pedicles. A total of 4 screws were placed with a diameter of 6.5 x 45 mm. Pedicle screws were connected with 45 mm loraine bilaterally and locked down with locking caps. The extension towers were removed. The posterolateral gutter was filled with allograft to complete the posterolateral L4-5 fusion Hemostasis was done and the incision was closed in 2 layers. Steri-Strips were used to approximate the incision. An OpSite were taken and was used to cover the incision. All sponge and needle counts were correct. Patient was extubated and transferred in stable is to recovery room. Anesthesia: General Estimated Blood Loss (ml): 30 mL Duration of Surgery: 1 hour 45 minutes Complications: None Postoperative Plan: Admit to inpatient for observation
[2024-04-19] MEDS: 0.9 % Sodium Chloride 1,000 ML 75 ML IVCONT (16:08)
[2024-04-19 16:39] LABS: Glucose, Whole Blood 302 mg/dL (60-115)
[2024-04-19] MEDS: ceFAZolin Sodium/Dextrose,Iso 2 GM/50 ML PIGGYBACK IV ×2 (17:18→22:36)
[2024-04-19] MEDS: metFORMIN HCl 1,000 MG TABLET 1000 MG PO (17:27)
[2024-04-19] MEDS: Insulin Lispro 100 UNIT/ML 3 ML VIAL SUBCUT ×2 (17:27→21:02)
[2024-04-19] MEDS: Acetaminophen 1,000 MG/100 ML PIGGYBACK 400 MG IV (18:49)
[2024-04-19] MEDS: Ketorolac Tromethamine 15 MG/ML VIAL IVPUSH (18:55)
--- NOTE | 2024-04-19 19:33 | PHA.MEDREC ---
Addendum entered by Jake Grady [facility] 04/19/24 20:20: med rec checked by [facility] Original Note: Pharmacy Consult ? Medication Reconciliation Pharmacy has completed the medication reconciliation. Confirmed medications with patient and patient who had a list on their phone. Patient confirmed his Vitamin D2 once a week dosing, he states he does it on Saturdays and he did it this past Thursday04/16/24. He is also taking a Trulicity injection one a week on Sundays and he states he has not taken it since 04/10/24 due to the surgery but will be starting it again this upcoming Thursday04/24/24. He also states he has not taken his Jardiance 25mg tab or his Baby Aspirin since 04/11 due to the surgery.
[2024-04-19 19:59] LABS: Glucose, Whole Blood 345 mg/dL (60-115)
[2024-04-19] MEDS: Docusate Sodium 100 MG CAPSULE PO (21:01)
[2024-04-19] MEDS: oxyCODONE HCl Immed Release 5 MG TABLET PO (21:06)
[2024-04-20] MEDS: Ketorolac Tromethamine 15 MG/ML VIAL IVPUSH ×2 (00:12→06:15)
[2024-04-20] MEDS: Acetaminophen 1,000 MG/100 ML PIGGYBACK 400 MG IV ×2 (00:15→06:08)
[2024-04-20 03:28] VITALS: BP 132/65; PULSE 79; RESP 20; TEMP 36.3; O2SAT 97
[2024-04-20] MEDS: ceFAZolin Sodium/Dextrose,Iso 2 GM/50 ML PIGGYBACK IV (04:11)
--- NOTE | 2024-04-20 04:21 | PC.NURSE ---
Assumed care of patient since 0700. Patient is AAOX4 with c/o lower back pain 5-02/07. Pain controlled with scheduled acetaminophen 1000 mg iv given, 2 and Ketorolac 15 mg iv given also x 2 and oxycodone 5 mg x1 during the delivery man. Patient out of chair to bathroom and walking in the [address] with one person assistance and a walker. Lower back dressing remains CDI as well as a small left flank dressing. Safety precautions in place. CPAP in use. VSS. No signs of distress noted.
[2024-04-20] MEDS: 0.9 % Sodium Chloride 1,000 ML 75 ML IVCONT (06:07)
--- NOTE | 2024-04-20 07:02 | PM.DS ---
DS: Providers Provider Date of Service: 04/20/24 Date of admission: 04/19/24 06:51 Primary care physician: Gustavo Watts MD DS: Summary Time Attestation Discharge Coordination Time (in mins): 15 Quality: Safe Use of Opioids Does Pt have an Active Cancer Diagnosis on the Problem List?: No Quality: Stroke Does the patient have a stroke diagnosis?: No Physical Exam Vital Signs: Vital Signs: Last Vital Signs Temp 97.3 F 04/20/24 03:28 Pulse 79 04/20/24 03:28 Resp 20 04/20/24 03:28 BP 132/65 04/20/24 03:28 Pulse Ox 97 04/20/24 03:28 O2 Del Method CPAP 04/20/24 03:28 O2 Flow Rate 2 04/19/24 15:00 BMI result Body Mass Index 34.0 DS: Data Data Completed and Pending Labs on day of discharge: Laboratory Results - last 24 hr 04/19/24 04/19/24 04/19/24 07:39 16:25 19:51 POC Glucose 246 H 302 H 345 H Discharge Plan Discharge Anticipated Discharge Date/Time: 04/20/24 07:03 Patient Disposition: Home, Self-Care Discharge Diagnosis: S/P l4-5 olif Referrals: Gustavo Watts MD [Primary Care Provider] - 1 Week Discharge Medications: New hydrocodone-acetaminophen 5-325 mg tablet 1 tab PO Q6H PRN (Reason: severe pain (scale score 7-10)) Qty: 30 0RF Rx Instructions: Partial Fill upon patient request. Continued hydrochlorothiazide 12.5 mg tablet 12.5 mg PO QAM Qty: 90 3RF Jardiance 25 mg tablet 25 mg PO QAM 90 Days Qty: 90 3RF losartan 100 mg tablet 100 mg PO DAILY 90 Days Qty: 90 1RF metformin 1,000 mg tablet 1,000 mg PO BID 90 Days Qty: 180 3RF amlodipine 2.5 mg tablet 2.5 mg PO DAILY Qty: 30 1RF vitamin B complex Capsule 1 cap PO DAILY cholecalciferol (vitamin D3) [Vitamin D3] 25 mcg (1,000 unit) Capsule 25 mcg PO DAILY magnesium oxide 500 mg Capsule 500 mg PO DAILY Centrum Silver Men [id number] mcg Tablet 1 tab PO DAILY turmeric 400 mg Capsule 400 mg PO DAILY Systane (propylene glycol) 0.4-0.3 % Drops 1 drp OPHTHALMIC (EYE) DAILY PRN (Reason: Dry Eyes) pantoprazole 40 mg tablet,delayed release (DR/EC) 40 mg PO Q2D ergocalciferol (vitamin D2) 1,250 mcg (50,000 unit) Capsule 1,250 mcg PO SA Trulicity 3 mg/0.5 mL pen injector 3 mg subcut FONTANA ezetimibe 10 mg tablet 10 mg PO BEDTIME fenofibrate 160 mg tablet 160 mg PO BEDTIME (DME) blood-glucose meter [FreeStyle Lite Meter] Kit See Rx Instructions .ROUTE .MEDSUPPLY Qty: 1 0RF Rx Instructions: As directed (DME) lancets [FreeStyle Lancets] 28 gauge misc See Rx Instructions .ROUTE .MEDSUPPLY Qty: 100 3RF Rx Instructions: As directed (DME) FreeStyle Lite Strips Strip See Rx Instructions .ROUTE .MEDSUPPLY Qty: 100 12RF Rx Instructions: As directed once a day Held aspirin 81 mg Tablet,Delayed Release (Dr/Ec) 81 mg PO DAILY Hold Instructions: Resume on 04/23/24. Discharge Orders: Discharge Order (Routine); Ordered 04/20/24 Ordered By: Jarad Echeverria Diet: Advance to usual diet Activity on Discharge: As tolerated Stand Alone Forms: Patient Portal Discharge page Print Language: New Zealander Activity Restrictions/Additional Instructions: After your spinal surgery we ask you to observe the following restrictions/guidelines: Activity: With lumbar fusion surgery it is normal to have days in the first couple of weeks where you have increased leg pain. This usually lasts 1-2 days and self resolves with the continuation of medication. Attempt to stay mobile and continue activity as tolerated. It is normal to feel some discomfort as you increase your activity, but that will improve with time. We ask you avoid heavy lifting or activities that cause pain. As a general rule, 8lbs is a safe limit for lifting right after surgery. Walk as much as you feel comfortable but not to exhaustion. You will feel extra tired the first few days after surgery. Stay well hydrated. It is OK to walk up and down stairs You may return to driving when you are off narcotics (such as vicodin, oxycodone, dilaudid, etc), and you are back to normal functional capacity. If you have any concerns please check with office before driving. Return to work is specific to each patient and each surgery, so please speak with your doctor/PA at first follow up. Please bring paperwork such as FMLA at that time if you need it filled out. Medications: It is recommended that you take Vicodin 5-325 every 6 hours alongside Tylenol 500mg every 6 hours not to exceed 4,000mg daily. We will give you a short supply of narcotics after surgery (usually one weeks worth). ?Please use this for breakthrough pain that is refractory to the Tylenol ibuprofen and gabapentin. If you need more please call the office but do not use more than prescribed. You will need to give our office 48 hours notice if you need narcotics refilled and we do not fill narcotics on weekends or evenings. If you are on a narcotic, it is a good idea to take a stool softener such as colace or senna to avoid constipation If you take blood thinner such as aspirin, Plavix, Coumadin, Effient, Eliquis etc for conditions such as Afib, DVT, Pulmonary embolus, coronary disease, stents etc please speak with your surgeon about specific details as to when you can resume these medications. Follow up: Please call the office, , after surgery to arrange a 3 week follow up for wound check. Wound Care: You may remove your dressing on the first day after surgery. ?You may ?leave open to air. Please do not remove the steri strips underneath. they will fall off on their own in one week. IT IS NORMAL FOR THE WOUND TO OOZE OR BE BLOODY FOR A FEW DAYS AFTER SURGERY. ?IF THIS HAPPENS JUST PLACE NEW DRESSING OVER IT TO AVOID STAINING CLOTHES. You may shower on post op day # 1 We ask that you do not let the water soak the wound. If it does get wet, just towel dry lightly. Please do not scrub your incision or place any type of chemical/ointment on the wound. No tub baths, pools or jacuzzis for one month. If you have any leaking or redness from your wound, or fevers, please call office Care Plan Goals: Return to normal activity as tolerated Health Concerns: None Plan of Treatment: Follow-up in clinic in 2-3 weeks. Assessment: POD: 1 Procedure: L4-5 OLIF Ismael is seen sitting upright in bed this morning on . He reports he is up walking around is otherwise doing well. He feels his symptoms are much better than pre-operatively. He still reports mild pain in his low back, with good relief with pain medication. He is voiding well, tolerating diet. Afebrile, vital signs stable. Full strength 5/5 UE / LE. Back dressings have some staining without signs of hematoma. No active sanguineous drainage. Area is dry. Plan: Patient meets criteria to be medically discharged home. He was seen at bedside with Dr. Gibson.
[2024-04-20 07:21] LABS: Glucose, Whole Blood 184 mg/dL (60-115)
[2024-04-20] MEDS: Insulin Lispro 100 UNIT/ML 3 ML VIAL SUBCUT (07:38)
[2024-04-20] MEDS: hydroCHLOROthiazide 12.5 MG TABLET PO (07:38)
[2024-04-20] MEDS: Fenofibrate 160 MG TABLET PO (07:38)
[2024-04-20] MEDS: oxyCODONE HCl Immed Release 5 MG TABLET 10 MG PO (07:38)
[2024-04-20] MEDS: metFORMIN HCl 1,000 MG TABLET 1000 MG PO (07:39)
[2024-04-20] MEDS: amLODIPine Besylate 2.5 MG TABLET PO (07:39)
[2024-04-20] MEDS: Ezetimibe 10 MG TABLET PO (07:39)
[2024-04-20] MEDS: Losartan Potassium 50 MG TABLET 100 MG PO (07:39)
[2024-04-20] MEDS: Magnesium Oxide 400 MG TABLET PO (07:39)
[2024-04-20] MEDS: Multivitamin TABLET 1 TAB PO (07:39)
[2024-04-20] MEDS: Cholecalciferol (Vitamin D3) 25 MCG TABLET PO (07:39)
[2024-04-20] MEDS: Docusate Sodium 100 MG CAPSULE PO (07:39)
[2024-04-20 07:40] VITALS: BP 156/70; PULSE 69; RESP 12; TEMP 36.1; O2SAT 97
[2024-04-20 09:05] LABS: Creatinine Clr Calc Pharmacy 66.8; Estimated Glomerular Filt Rate 55
--- NOTE | 2024-04-20 09:20 | MHC.CM.PN ---
IMM delivered. Patient lives in a home w/ . Functionally independent. Using a walker post-op and has one at home, but was not using at baseline. Has CPAP, supplier is [employer]. PCP Gustavo Watts MD Patient reports he has an HCP naming Mica[facility] as [facility]. Will bring copy to f/u visit w/ spine clinic. DP: Medically cleared for dc home self care. at bedside to transport. RN aware.
--- NOTE | 2024-04-20 13:13 | HO.POSTANES ---
Post Anesthesia Evaluation Post Anesthesia Evaluation Date of Service: 04/20/24 Vital Signs: Vital Signs Temp Pulse Resp BP Pulse Ox O2 Del Method 04/20/24 07:40 97.0 F 69 12 156/70 H 97 Room Air 04/20/24 03:28 97.3 F 79 20 132/65 97 CPAP Anesthesia: General Endotracheal-GETA Mental Status: Awake Pain Control: Satisfactory Nausea/Vomiting: None Hydration: Adequate Anesthesia-Related Issues: No Anes. Related Issues
== END 2024-04-20 09:51 | disposition home or self-care (01) | DRG 460 ==
LOC: HO.SSSA 11:36 → HO.S3 14:51
PROVIDERS: Neurological Surgery; Physician Assistant; Admitting Provider Physician Assistant; PCP Internal Medicine; Visit Provider Physician Assistant
PROC: 0SG00A0 Fusion of Lumbar Vertebral Joint with Interbody Fusion Device, Anterior Approach, Anterior Column, Open Approach (ICD-10-PCS; principal; 2024-04-19 09:30)
DX: M48.062 Spinal stenosis, lumbar region with neurogenic claudication (principal); E78.2 Mixed hyperlipidemia; I10 Essential (primary) hypertension; Z87.891 Personal history of nicotine dependence; Z79.4 Long term (current) use of insulin; Z79.82 Long term (current) use of aspirin; Z79.84 Long term (current) use of oral hypoglycemic drugs; Z79.85 Long-term (current) use of injectable non-insulin antidiabetic drugs; Z79.899 Other long term (current) drug therapy
CPT/HCPCS: 36415; 82565; 82947; 86850; 86900; 86901; 97161; C1713; C9290; J0131; J0665; J0690; J1100; J1170; J1885; J2250; J2371; J2405; J2704; J3010; L8699

== ENCOUNTER → 2024-04-19 06:51 | Outpatient (BNV) | payer MEDICARE, BC, SELFPAY | PROVIDERS: Admitting Provider Physician Assistant; PCP Internal Medicine; Visit Provider Neurological Surgery | DX: M48.062 Spinal stenosis, lumbar region with neurogenic claudication (principal); M47.896 Other spondylosis, lumbar region | CPT/HCPCS: 20930; 22558; 22612; 22840; 22853; 99499 ==

== ENCOUNTER 2024-04-22 15:09 | Outpatient (AMB) | payer MEDICARE, BC, SELFPAY ==
--- NOTE | 2024-04-22 14:58 | A.OFFPC_ITS ---
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 Required: No Accompanied by: Self / Same As Patient Allergies simvastatin Allergy (Intermediate, Verified 04/22/24 15:00) diarrhea and abdominal pain, diarrhea atorvastatin Adverse Reaction (Intermediate, Verified 04/22/24 15:00) diarrhea and abdominal pain, diarrhea rosuvastatin Adverse Reaction (Intermediate, Verified 04/22/24 15:00) diarrhea and abdominal pain, diarrhea Tobacco use date assessed: 12/29/23 Fall risk assessment: No Falls in past year Last assessed Fall Risk: 04/22/24 Dental Screening Dental Screen Date: 12/29/23 HPI TCM TCM Information Date of Discharge 04/20/24 Discharged From [facility] HPI Comments History of Present Illness Details Tele-health Audio only Appointment. Pt at home and provider in the office location [facility]. Pt was identified by , Name and MRN. Pt gave consent to speak with provider. 68 y/o male patient who presented for [facility] for HDF/TCM. Pt was admitted at [facility] on 04/19/24 and discharged home on 04/20/24. He had Spine Surgery on 04/19/24 (L4-5 Discectomy & Implantation Cage through A/P Approach. Fusion with instrumentation and Allograft). He has his first Post-Op Appointment on 05/12/24. He was able to call the Spine surgeons for Additional pain medications. He currently does not have much pain (well controlled). Denies any Signs of infection, reports that surgical site clean and dry and no drainage. He has a f/u Appointment with PCP on 05/06/24. No further concerns today. [facility] Medical History Arthritis Back pain Weakness Numbness TIA (transient ischemic attack) Hypomagnesemia Hx of adenomatous colonic polyps Lumbar spinal stenosis Obstructive sleep apnea GERD without esophagitis Vitamin D deficiency Neuropathy Left carotid artery stenosis Obesity (BMI 30-39.9) Mixed hyperlipidemia Benign essential hypertension Diabetes mellitus Surgical History H/O cervical spine surgery History of facial surgery History of endarterectomy History of colonoscopy Family History Father Hypertension Cancer Mother Hypertension Diabetes Social History Household Members: Spouse Housing: House Are you a primary intensive care specialist to a significant other at home: No Do you presently have visiting nurse or other home services: No Alcohol intake: current Alcohol intake frequency: does not drink Patient Tobacco Use Status: Former Tobacco user Tobacco use type: Cigarette Years Smoked: 15 e-Cigarette/Vaping Use: Never Used Second Hand Smoke Exposure: No service: No Current occupational status: employed Cognitive needs: No Hearing needs: No Vision needs: Yes (glasses) Questionnaire Thrive Questionnaire Date Thrive assessed: 04/20/24 MALATHI-7 AMB Questionnaire MALATHI-7 Date MALATHI - 7 assessed: 12/29/23 Source: Developed by Drs. Felix Poole, Elizabeth Mcmahan, Jason Olivas and colleagues, with an educational martha from [employer]. Review of Systems Const All systems reviewed & are unremarkable except as noted in HPI and below Physical exam (Primary Care) Tobacco/Smoking Status: Tobacco use Status Tobacco use date assessed 12/29/23 04/22/24 15:00 Patient Tobacco Use Status Former Tobacco user 04/22/24 15:00 Tobacco use type Cigarette 04/22/24 15:00 e-Cigarette/Vaping Use Never Used 04/22/24 15:00 Thrive Assessment: Date of Thrive Assessment Date Thrive assessed 04/20/24 04/22/24 15:00 Telehealth Telehealth Telehealth Platform: Telephone Location of provider rendering services: practice address Location of patient: address on file Patient Identification confirmed using: Name, : Yes Telehealth method: voice only Patient verbally consented to treatment: Yes Patient verbally consented to billing insurance company: Yes Patient informed of any privacy concerns related to visit: Yes Minutes spent on Phone/Video with Pt.: 10 Assessment and Plan Assessment & Plan (1) Fusion of lumbar spine: Code(s): M43.26 - Fusion of spine, lumbar region Plan: Pain well controlled Has Post Op appointment 05/12/24 Stable, no signs of infection. Coding Level of Care Code TCM Mod MDM <= 7 Days Diagnoses Fusion of lumbar spine M43.26 Time Spent (min) 20 Comment Spent on reviewing hospital notes and patient education.
== END 2024-04-22 16:48 | disposition home or self-care (01) ==
LOC: HO.HMGH 15:09
PROVIDERS: PCP Internal Medicine; Visit Provider Nurse Practitioner Family
DX: M43.26 Fusion of spine, lumbar region (principal)
CPT/HCPCS: 99213

== ENCOUNTER 2024-05-06 14:29 | Outpatient (AMB) | payer MEDICARE, BC, SELFPAY ==
--- NOTE | 2024-05-06 14:40 | MHC.PC.OV ---
Vital Signs 05/06/24 14:42 Height 5 ft 11 in Weight 232 lb 2 oz BMI 32.4 BP 132/64 Blood Pressure Location Lt brachial Position Sitting Pulse 82 Pulse Source Pulse Oximeter Pulse Oximetry (%) 93 Oxygen Delivery Method Room Air Intake Visit Reasons: 4mth f/u Network Lead Required: No Accompanied by: Self / Same As Patient Allergies simvastatin Allergy (Intermediate, Verified 05/06/24 14:59) diarrhea and abdominal pain, diarrhea atorvastatin Adverse Reaction (Intermediate, Verified 05/06/24 14:59) diarrhea and abdominal pain, diarrhea rosuvastatin Adverse Reaction (Intermediate, Verified 05/06/24 14:59) diarrhea and abdominal pain, diarrhea Medication List - Last Reconciled 05/06/24 by Gustavo Watts MD amlodipine 2.5 mg PO DAILY aspirin 81 mg PO DAILY blood sugar diagnostic (FreeStyle Lite Strips) As directed once a day blood-glucose meter (FreeStyle Lite Meter kit) As directed cholecalciferol (vitamin D3) (Vitamin D3) 25 mcg PO DAILY ergocalciferol (vitamin D2) 1,250 mcg PO SA ezetimibe 10 mg PO BEDTIME fenofibrate 160 mg PO BEDTIME hydrochlorothiazide 12.5 mg PO QAM Jardiance (empagliflozin) 25 mg PO QAM 90 days NS lancets (FreeStyle Lancets) As directed losartan 100 mg PO DAILY 90 days magnesium oxide 500 mg PO DAILY metformin 1,000 mg PO BID 90 days [id number] mcg (Centrum Silver Men) 1 tab PO DAILY pantoprazole 40 mg PO Q2D peg 400-propylene glycol 0.4-0.3 % (Systane (propylene glycol)) 1 drp ophthalmic (eye) DAILY PRN semaglutide (Ozempic) 1 mg subcut QWEEK turmeric 400 mg PO DAILY vitamin B complex 1 cap PO DAILY Tobacco use date assessed: 05/06/24 Fall risk assessment: No Falls in past year Last assessed Fall Risk: 05/06/24 Dental Screening Dental Screen Date: 05/06/24 Did you have a dental visit in the last 12 months?: No Did you have a dental problem in the last 6 months where you did not have access to dental care?: No Was dental information given to patient?: No HPI 4mth f/u HPI Details Patient comes in today for his follow up visit States that he feels okay He had C5-6, C6-7 Anterior discectomy, arthrodesis and implantation cage on 11/03/2023 and L4-5 discectomy, arthrodesis and implantation cage through an anterolateral, retroperitoneal approach and L4-5 posterior instrumented fusion with Dr. Gibson a couple of weeks ago on 04/19/2024 States that he still has some soreness and discomfort his neck but he no longer has the radicular symptoms in his arms and legs as before He has a follow up appointment with Dr. Gibson coming up next week He denies any headaches or dizziness Denies any chest pains, no SOB No nausea/vomiting, no abdominal pain No change in bowel habits noted Needs his Amlodipine Rx refilled if he is to continue on it He had his follow up labs done last month - to discuss his results [facility] Medical History Arthritis Back pain Weakness Numbness TIA (transient ischemic attack) Hypomagnesemia Hx of adenomatous colonic polyps Lumbar spinal stenosis Obstructive sleep apnea GERD without esophagitis Vitamin D deficiency Neuropathy Left carotid artery stenosis Obesity (BMI 30-39.9) Mixed hyperlipidemia Benign essential hypertension Diabetes mellitus Surgical History History of lumbosacral spine surgery H/O cervical spine surgery History of facial surgery History of endarterectomy History of colonoscopy Family History Father Hypertension Cancer Mother Hypertension Diabetes Social History Household Members: Spouse Housing: House Are you a primary critical care paramedic to a significant other at home: No Do you presently have visiting nurse or other home services: No Alcohol intake: current Alcohol intake frequency: does not drink Patient Tobacco Use Status: Former Tobacco user Tobacco use type: Cigarette Years Smoked: 15 e-Cigarette/Vaping Use: Never Used Second Hand Smoke Exposure: No service: No Current occupational status: employed Cognitive needs: No Hearing needs: No Vision needs: Yes (glasses) Questionnaire PHQ-9 Over the last 2 weeks, how often have you been bothered by any of the following problems? 1. Little interest or pleasure in doing things: not at all 2. Feeling down, depressed, or hopeless: not at all 3. Trouble falling or staying asleep, or sleeping too much: not at all 4. Feeling tired or having little energy: not at all 5. Poor appetite or overeating: not at all 6. Feeling bad about yourself - or that you are a failure or have let yourself or your family down: not at all 7. Trouble concentrating on things, such as reading the newspaper or watching television: not at all 8. Moving or speaking so slowly that other people could have noticed. Or the opposite - being so fidgety or restless that you have been moving around a lot more than usual: not at all 9. Thoughts that you would be better off or of hurting yourself in some way: not at all Total score: 0 Depression Screening Interpretation: Negative Depression Screening Done: Yes 81572 - PHQ-9 Billing: Yes Source: Developed by Drs. Felix Poole, Elizabeth Mcmahan, Jason Olivas and colleagues, with an educational martha from [employer]. Thrive Questionnaire Date Thrive assessed: 05/06/24 I am a: Patient What is your living situation today?: I have a steady place to live Within the past 12 months, did the food you bought not last and you didn't have the money to get more?: Never true Within the past 12 months, did you worry whether your food would run out before you got money to buy more?: Never true Do you have trouble paying for medicines?: No Do you have trouble getting transportation to medical appointments?: No Do you have trouble paying your heating and electricity bill?: No Do you have trouble taking care of your child, family member or friend?: No Do you have trouble with day-to-day activities such as bathing, preparing meals, shopping, managing finances, etc.?: No Are you currently unemployed and looking for a job?: No Are you interested in more education?: No Please select the resources that you would like help with: None Currently or been in a relationship where the following occur: No concerns reported THRIVE Score: 0 AUDIT C Alcohol Use Questionnaire (AUDIT-C) 1. How often do you have a drink containing alcohol?: Monthly or less 2. How many drinks containing alcohol do you have on a typical day when you are drinking?: 1 or 2 3. How often do you have six or more drinks on one occasion?: Never Total Score: 1 Score Reviewed/Action Taken: Yes MALATHI-7 AMB Questionnaire MALATHI-7 Date MALATHI - 7 assessed: 05/06/24 Feeling nervous, anxious, or on edge: 0 = Not at all Not being able to stop or control worryin = Not at all Worrying too much about different things: 0 = Not at all Trouble relaxin = Not at all Being so restless that it is hard to sit still: 0 = Not at all Becoming easily annoyed or irritable: 0 = Not at all Feeling afraid as if something awful might happen: 0 = Not at all Total MALATHI-7 score (0-4 normal; 5-9 mild; 10-14 moderate; 15-21 severe): 0 Source: Developed by Drs. Felix Poole, Elizabeth Mcmahan, Jason Olivas and colleagues, with an educational martha from [employer]. Review of Systems Const Denies chills, Denies difficulty sleeping, Denies fatigue, Denies fever(s) and Denies headache(s) ENT Denies dysphagia, Denies dizziness, Denies otalgia, Denies headache(s), Reports neck pain, Denies odynophagia, Denies tinnitus and Denies sore throat Card Denies chest pain, Denies rapid heart rate, Denies irregular heart rhythm, Denies palpitations and Denies dyspnea Resp Denies chest congestion, Denies cough, Denies dyspnea and Denies wheezing GI Denies abdominal pain, Denies bloating, Denies constipation, Denies dysphagia, Denies heartburn, Denies diarrhea, Denies nausea, Denies odynophagia and Denies vomiting Denies difficulty urinating, Denies nocturia and Denies urinary frequency Musc Reports back pain (over the lower back), Denies arthralgias, Reports neck pain and Denies radiating pain into limb Skin/Breast Denies rash Neuro Denies dizziness, Denies headache(s) and Denies paresthesias Endo Denies fatigue and Denies palpitations Aller/Immun Denies wheezing Physical exam (Primary Care) Vital Signs: Last Vital Signs Pulse 82 05/06/24 14:42 BP 132/64 05/06/24 14:42 Pulse Ox 93 05/06/24 14:42 Oxygen Delivery Method Room Air 05/06/24 14:42 BMI result Body Mass Index 32.4 Tobacco/Smoking Status: Tobacco use Status Tobacco use date assessed 05/06/24 05/06/24 14:50 Patient Tobacco Use Status Former Tobacco user 05/06/24 14:50 Tobacco use type Cigarette 05/06/24 14:50 e-Cigarette/Vaping Use Never Used 05/06/24 14:50 PHQ-9: PHQ-9 Score PHQ-9: Total score 0 05/06/24 15:12 Depression Screening Interpretation: Negative Thrive Assessment: Date of Thrive Assessment Date Thrive assessed 05/06/24 05/06/24 14:50 Currently or been in a relationship where the following occur: No concerns reported Const General: no acute distress and alert HENMT Ears: TM's normal bilaterally and EAC's normal Throat: Yes posterior oropharynx normal and Yes tonsils normal (no TP congestion) Neck Neck: Yes no lymphadenopathy and Yes supple Thyroid: Thyroid normal Resp Auscultation: clear to auscultation bilaterally, no rales and no wheezes Cardio Rate: regular rate Rhythm: regular rhythm Heart sounds: no murmurs GI Palpation (GI): Soft to palpation and nontender Auscultation: normal bowel sounds General: Yes no CVA tenderness Back/Spine/Pelvis Back: no CVA tenderness Cervical Spine: Cervical spine tenderness (mild) Thoracic/Lumbar Spine: straight leg raise negative bilaterally and lumbar spinal tenderness (especially on the left side; mild) Skin Rashes: no rashes Extrem General: Yes no clubbing, cyanosis or edema Results Reviewed Results Reviewed: Laboratory Tests 04/08/24 04/08/24 04/20/24 08:00 08:05 08:14 WBC 7.3 Hgb 16.1 Hct 47.0 Plt Count 235 Sodium 137 Potassium 4.8 Creatinine 1.30 Estimated GFR 55 Fasting Glucose 178 H Hemoglobin A1c % 8.2 H Calcium 9.8 AST 48 H ALT 59 H Triglycerides 391 H Cholesterol 201 H LDL Cholesterol, Calc 83 HDL Cholesterol 40 L Vitamin B12 678 25-OH Vitamin D Total 52.0 TSH 1.76 Ur Specific [place] >= 1.030 H Urine Protein Negative Urine Glucose (UA) >=1000 H Urine Blood Negative Urine Nitrite Negative Ur Leukocyte Esterase Negative Microalb/Creat Ratio 12.0 Assessment and Plan Assessment & Plan (1) Diabetes mellitus: Comment: dx ~ age 53-glucose range [id number] Trulicity on Sundays, Jardiance daily, metformin daily Code(s): E11.9 - Type 2 diabetes mellitus without complications Qualifiers: Diabetes mellitus complication detail: with unspecified neuropathy Diabetes mellitus complication status: with neurologic complications Diabetes mellitus skilled nursing insulin 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 Diabetes mellitus type: type 2 Qualified Code(s): E11.40 - Type 2 diabetes mellitus with diabetic neuropathy, unspecified Plan: His HgbA1c was at 8.2% on his labs done last month (was at 8.6% a few months ago) - goal is <7.0% Reinforced diabetic diet Continue Metformin 500 mg BID, Jardiance 25 mg Q AM and Ozempic 1 mg SQ once a week - he was on Trulicity previously but was switched over to Ozempic as he was having trouble getting his Trulicity Rx filled at the pharmacy Patient feels that Ozempic has been working better for him than Trulicity and he has also been able to lose some weight since he switched over to Ozempic (2) Mixed hyperlipidemia: Code(s): E78.2 - Mixed hyperlipidemia Plan: Results of his labs done last month reviewed and discussed with patient Reinforced low cholesterol diet Continue Ezetimibe 10 mg QD and Fenofibrate 160 mg QD; patient has NOT been able to tolerate any of the commercially available statins in the past Will recheck his labs and fasting lipids in 4 months for follow up (3) Benign essential hypertension: Code(s): I10 - Essential (primary) hypertension Plan: Reinforced low sodium diet - goal is systolic BP of at least 130 to 140 mm or less Continue Amlodipine 2.5 mg QD (Rx refilled), HCTZ 12.5 mg Q AM and Losartan 100 mg QD; he had a recurrent cough when he was on Lisinopril in the past Patient is reminded to continue monitoring his blood pressure regularly (4) Left carotid artery stenosis: Comment: S/P left carotid endarterectomy - 08/2017 Code(s): I65.22 - Occlusion and stenosis of left carotid artery Plan: Follow up with vascular surgery (Dr. Palmer) as scheduled (5) GERD without esophagitis: Comment: Dietary modifications, rare symptoms- Code(s): K21.9 - Gastro-esophageal reflux disease without esophagitis Plan: Dietary restrictions reinforced Continue Pantoprazole 40 mg QD (6) Neuropathy: Comment: NCV done in 2019 showed findings compatible with mild to moderate sensory and motor neuropathy Code(s): G62.9 - Polyneuropathy, unspecified Plan: He was started on a trial of Gabapentin previously but patient has not needed to take it - symptoms are minimal and remain tolerable still and he does not wish to take any additional meds at this time (7) Cervical spondylosis with myelopathy: Code(s): M47.12 - Other spondylosis with myelopathy, cervical region Plan: S/P C5-6, C6-7 Anterior discectomy, arthrodesis and implantation cage on 11/03/[address] Gibson States that his neck and cervical radicular symptoms have improved significantly since his surgery Follow up with neurosurgery as scheduled (8) Left shoulder pain: Code(s): M25.512 - Pain in left shoulder Qualifiers: Chronicity: acute Qualified Code(s): M25.512 - Pain in left shoulder Plan: He reports that this has improved significantly since his cervical spine surgery and thinks that this was mostly radicular pain from his cervical spine back then (9) Lumbar spinal stenosis: Code(s): M48.061 - Spinal stenosis, lumbar region without neurogenic claudication Qualifiers: Neurogenic claudication status: without neurogenic claudication Qualified Code(s): M48.061 - Spinal stenosis, lumbar region without neurogenic claudication Plan: Lumbar spine MRI done on 07/10/2017 revealed moderate to severe L4-L5 spinal canal stenosis and marked facet joint arthropathy at L3-L4, L4-L5 and L5-S1 Was seen by neurosurgery (Dr. Cheema) for consultation on 11/26/2017 - was advised against surgery at that time as he just had a TIA and left carotid endarterectomy earlier in the year in August 2017 and instructed to return in the fall of 2017 for consideration of L4-L5 decompression surgery if his symptoms continue to persist or progress Patient states that he did not go back to Neurosurgery as his symptoms were tolerable at the time He has been seeing his chiropractor since his low back pains started flaring up over a year ago He ended up getting L4-5 discectomy, arthrodesis and implantation cage through an anterolateral, retroperitoneal approach and L4-5 posterior instrumented fusion done with Dr. Gibson a couple of weeks ago on 04/19/2024 Feels that his lower back symptoms and radicular symptoms have improved a lot since Reinforced activity and weight-lifting restrictions to minimize aggravating his lower back Follow up with neurosurgery (Dr. Gibson) as scheduled (10) Vitamin D deficiency: Code(s): E55.9 - Vitamin D deficiency, unspecified Plan: Continue Vitamin D2 27573 units once a week and OTC Vitamin D3 1000 units QD (11) Hypomagnesemia: Code(s): E83.42 - Hypomagnesemia Plan: Continue oral Magnesium supplements daily Will recheck his serum Magnesium level in a few months for follow up (12) Obstructive sleep apnea: Comment: uses CPAP Code(s): G47.33 - Obstructive sleep apnea (adult) (pediatric) Plan: Continue using his CPAP device daily when sleeping at night (13) Obesity (BMI 30-39.9): Code(s): E66.9 - Obesity, unspecified Plan: Reinforced diet/exercise as tolerated/lose weight Plan Follow up in 4 months Orders: Orders Lipid Panel 4 Months E78.00 - Pure hypercholesterolemia, unspecified Comprehensive [place]. Panel Fast 4 Months E78.00 - Pure hypercholesterolemia, unspecified Vitamin D 25-OH Total 4 Months E55.9 - Vitamin D deficiency, unspecified Complete Blood Count Auto Diff 4 Months D64.9 - Anemia, unspecified TSH reflex Free T4 4 Months E78.00 - Pure hypercholesterolemia, unspecified UA CC w/rflx Micro + Cult 4 Months R30.0 - Dysuria Hemoglobin A1c 4 Months E11.9 - Type 2 diabetes mellitus without complications Microalbumin, Random (w Creat) 4 Months E11.9 - Type 2 diabetes mellitus without complications Magnesium 4 Months E83.42 - Hypomagnesemia Medications: Changed From amlodipine 2.5 mg PO DAILY 30 tabs 1RF To amlodipine 2.5 mg PO DAILY 90 days 90 tabs 1RF Coding Level of Care Code Est Pt Level 4 (22487) Complex EM visit Add On G2211 Diagnoses Type 2 diabetes mellitus with diabetic neuropathy, without long-term current use of insulin E11.40 Diabetes mellitus complication detail: with unspecified neuropathy Diabetes mellitus complication status: with neurologic complications Diabetes mellitus skilled nursing insulin 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
[2024-05-06 14:42] VITALS: BP 132/64; PULSE 82; O2SAT 93; BMI 32.4
== END 2024-05-06 15:23 | disposition home or self-care (01) ==
PROVIDERS: PCP Internal Medicine; Visit Provider Internal Medicine
DX: E11.42 Type 2 diabetes mellitus with diabetic polyneuropathy (principal); E78.2 Mixed hyperlipidemia; I10 Essential (primary) hypertension; I65.22 Occlusion and stenosis of left carotid artery; K21.9 Gastro-esophageal reflux disease without esophagitis; M47.12 Other spondylosis with myelopathy, cervical region; M25.512 Pain in left shoulder; M48.061 Spinal stenosis, lumbar region without neurogenic claudication; E55.9 Vitamin D deficiency, unspecified; E83.42 Hypomagnesemia; G47.33 Obstructive sleep apnea (adult) (pediatric)
CPT/HCPCS: 99214; G2211

== ENCOUNTER 2024-05-12 09:09 | Outpatient (AMB) | payer MEDICARE, BC, SELFPAY ==
--- NOTE | 2024-05-12 09:28 | A.SPINEOV_ITS ---
Intake Visit Reasons: 1st post op Intake Note: Mr. Soto is here today for his 1st post-op. Phlebotomy Instructor Required: No Allergies simvastatin Allergy (Intermediate, Verified 05/06/24 14:59) diarrhea and abdominal pain, diarrhea atorvastatin Adverse Reaction (Intermediate, Verified 05/06/24 14:59) diarrhea and abdominal pain, diarrhea rosuvastatin Adverse Reaction (Intermediate, Verified 05/06/24 14:59) diarrhea and abdominal pain, diarrhea Assessment & Plan Assessment & Plan (1) S/P spinal fusion: Code(s): Z98.1 - Arthrodesis status Category: Medical Plan Procedure: L4-5 OLIF Ismael comes in today for his 1st postoperative visit. He had a somewhat complicated postoperative course and suffered from quite a bit of inflammation related pain for the 1st 1-2 weeks after surgery. Thankfully this subsided, and he states he is feeling much better now. He has had some intermittent waxing/waning left anterior thigh pain and weakness. We discussed how this is likely related to the surgical approach. Overall he is doing well, has been getting up out of his house and walking around each day and is not using any assistive devices. We discussed the postoperative healing course, and I answered all of his questions to the best of my ability. No new neurological deficits. Patient is able to ambulate well, rises from a seated position without difficulty. Incision sites are closed, scabbing, well healing, with no signs of drainage. We will follow-up with the patient in 6 weeks for their 2nd postoperative visit. At that time we will get x-rays to review with the patient. Jarad Gibson MD,PhD [facility] Coding Level of Care Code Global (59098) Diagnoses S/P spinal fusion Z98.1
== END 2024-05-12 09:48 | disposition home or self-care (01) ==
PROVIDERS: PCP Internal Medicine; Visit Provider Physician Assistant
DX: Z98.1 Arthrodesis status (principal)
CPT/HCPCS: 99024

== ENCOUNTER → 2024-05-12 09:09 | Outpatient (BNVA) | payer MEDICARE, BC, SELFPAY | PROVIDERS: PCP Internal Medicine; Visit Provider Physician Assistant | DX: Z98.1 Arthrodesis status (principal) | CPT/HCPCS: 99212 ==

== ENCOUNTER 2024-06-23 09:05 | Outpatient (AMB) | payer MEDICARE, BC, SELFPAY ==
--- NOTE | 2024-06-23 09:08 | HO.SPINEOV ---
Intake Visit Reasons: 2nd post op with Xrays Intake Note: Mr. Soto is here for his 2nd post-op appointment with x-rays. Public Address Announcer Required: No Allergies simvastatin Allergy (Intermediate, Verified 05/06/24 14:59) diarrhea and abdominal pain, diarrhea atorvastatin Adverse Reaction (Intermediate, Verified 05/06/24 14:59) diarrhea and abdominal pain, diarrhea rosuvastatin Adverse Reaction (Intermediate, Verified 05/06/24 14:59) diarrhea and abdominal pain, diarrhea Assessment & Plan Assessment & Plan (1) S/P spinal fusion: Code(s): Z98.1 - Arthrodesis status Category: Surgical Plan Procedure: L4-5 OLIF Ismael comes in today for his 2nd postoperative visit. Thankfully reports that it is left-sided thigh pain has resolved since the surgery. He states that overall he has been doing well and is essentially back to regular activity. He did report that he experiences flare-ups of low back pain when he pushes himself too hard with things like yard work, but overall he is feeling very well. We discussed returning to activity guidelines and the postoperative healing course. I answered all of his questions to the best of my ability. We reviewed his x-ray imaging during this visit, it appears that the instrumentation regards to screws and rods remains in place, however he does have a locking cap at L4 that appears to have backed out slightly. We discussed this when reviewing his imaging. No new neurological deficits. Patient is able to ambulate well, rises from a seated position without difficulty. I will review the patient's x-ray imaging with Dr. Gibson later today. Because he is doing much better now in his only really experiencing low back pain with excessive activity, I do not believe this to be a case in which we would need to revise anything, as the locking caps still sits just above the screw head. I will call him later today with a follow-up report after discussing it with Dr. Gibson. Jarad Gibson MD,PhD [facility] Orders: Orders XR lumbar spine 4V min Today Z98.1 - Arthrodesis status Coding Level of Care Code Global (96593) Diagnoses S/P spinal fusion Z98.1
== END 2024-06-23 09:58 | disposition home or self-care (01) ==
PROVIDERS: PCP Internal Medicine; Visit Provider Physician Assistant
DX: Z98.1 Arthrodesis status (principal)
CPT/HCPCS: 99024

== ENCOUNTER 2024-06-23 09:05 | Outpatient (REF) | payer MEDICARE, BC, SELFPAY | END 2024-06-23 09:06 | disposition home or self-care (01) | LOC: HO.HOSX 09:05 | PROVIDERS: PCP Internal Medicine; Visit Provider Physician Assistant | DX: Z47.89 Encounter for other orthopedic aftercare (principal); Z98.1 Arthrodesis status | CPT/HCPCS: 99212 ==

== ENCOUNTER 2024-08-29 06:49 | Outpatient (REF) | payer MEDICARE, BC, SELFPAY ==
[2024-08-29 09:59] LABS: MANUAL DIFF FLAG NO
[2024-08-29 10:03] LABS: Basophils Absolute Auto 0.1 X10*3/uL (0.0-0.2); Basophils Percent Auto 0.7 % (0-2); Eosinophils Absolute Auto 0.1 X10*3/uL (0.0-0.4); Eosinophils Percent Auto 1.5 % (0-4); Hematocrit 47.1 % (42.0-52.0); Hemoglobin 15.7 g/dl (14.0-18.0); Imm Gran Abs Auto 0.03 X10*3/uL (0.00-0.03); Imm Gran Pct Auto 0.4 % (0.0-0.4); Lymphocytes Absolute Auto 2.3 X10*3/uL (1.2-4.9); Lymphocytes Percent Auto 31.4 % (20-40); Mean Corpuscular HGB Conc 33.3 g/dl (31.0-36.0); Mean Corpuscular Hemoglobin 28.9 pg (27.0-33.0); Mean Corpuscular Volume 86.7 fL (80.0-98.0); Mean Platelet Volume 11.4 fL (9.4-12.4); Monocytes Absolute Auto 0.6 X10*3/uL (0.1-1.2); Monocytes Percent Auto 8.7 % (2-11); Neutrophils Absolute Auto 4.2 x10*3/uL (2.0-8.3); Neutrophils Percent Auto 57.3 % (45-73); Platelet Count 228 X10*3/uL (160-400); Red Blood Count 5.43 X10*6/uL (4.60-5.80); Red Cell Distribution Width 12.9 % (11.0-16.0); White Blood Count 7.4 X10*3/uL (4.8-10.8)
[2024-08-29 10:08] LABS: Appearance Urine Clear; Color Urine Yellow; Glucose Urine UA >=1000 mg/dL (Negative); Leukocyte Esterase Urine Negative (Negative); Nitrite Urine Negative (Negative); PH 7.5 (5.0-9.0); Specific Gravity - Urine >= 1.030 (1.005-1.025); UMIC TRIGGER UACC YES; Urine Blood Negative (Negative); Urine Ketones Negative (Negative); Urine Protein Negative (Neg-Trace)
[2024-08-29 10:18] LABS: Bacteria Urine None Seen (None Seen); Hyaline Casts Urine 0-2 /LPF (0-2); RBC Urine 0-2 /HPF (0-2); Squamous Epithelial Cell Urine 0-2 /HPF (0-2); WBC Urine 0-5 /HPF (0-5)
[2024-08-29 10:25] LABS: Alanine Aminotransferase 53 U/L (0-40); Albumin Level 4.2 g/dL (3.5-5.0); Alkaline Phosphatase 52 U/L (39-117); Anion Gap 14 (12-20); Aspartate Amino Transferase 36 U/L (5-37); Bilirubin Total 0.4 mg/dL (0.0-1.0); Blood Urea Nitrogen 24 mg/dL (9-16); Calcium 9.6 mg/dL (8.4-10.2); Carbon Dioxide 28 mmol/L (22-29); Chloride 101 mmol/L (96-108); Cholesterol 192 mg/dL (<200); Estimated Glomerular Filt Rate > 60; Glucose Fasting 205 mg/dL (60-99); HDL Cholesterol 37 mg/dL (>40); Potassium 5.2 mmol/L (3.3-5.1); Sodium 138 mmol/L (135-145); Total Protein 6.9 g/dL (6.5-8.0); Triglycerides 494 mg/dL (<150)
[2024-08-29 10:28] LABS: Estimated Average Glucose 194 mg/dL; Hemoglobin A1c % 8.4 % (<6.0); Total Hemoglobin (HGBA1C) 3864.1086 umol/L
[2024-08-29 10:46] LABS: Creatinine Urine 56.09 mg/dL; Microalbumin Urine < 5.0 mg/L
[2024-08-29 10:47] LABS: TSH reflex Free T4 2.05 uIU/mL (0.32-4.0); Vitamin D 25-OH Total 62.9 ng/mL (>30)
== END 2024-08-29 06:50 | disposition home or self-care (01) ==
LOC: HO.HMGCLDS 06:49
PROVIDERS: PCP Internal Medicine; Visit Provider Internal Medicine
DX: E78.00 Pure hypercholesterolemia, unspecified (principal); D64.9 Anemia, unspecified; E55.9 Vitamin D deficiency, unspecified; E11.9 Type 2 diabetes mellitus without complications; E83.42 Hypomagnesemia; R30.0 Dysuria
CPT/HCPCS: 36415; 80053; 80061; 81001; 81003; 82043; 82306; 82570; 83036; 83735; 84443; 85025

== ENCOUNTER 2024-09-06 15:02 | Outpatient (AMB) | payer MEDICARE, BC, SELFPAY ==
[2024-09-06 15:03] VITALS: BP 130/62; PULSE 85; O2SAT 96; BMI 32.9
--- NOTE | 2024-09-06 15:03 | MHC.PC.OV ---
Vital Signs 09/06/24 15:03 Height 5 ft 11 in Weight 236 lb BMI 32.9 BP 130/62 Blood Pressure Location Lt brachial Position Sitting Pulse 85 Pulse Source Pulse Oximeter Pulse Oximetry (%) 96 Oxygen Delivery Method Room Air Intake Visit Reasons: 4 Month Follow Up Operations Support Coordinator Required: No Accompanied by: Self / Same As Patient Allergies simvastatin Allergy (Intermediate, Verified 09/06/24 15:12) diarrhea and abdominal pain, diarrhea atorvastatin Adverse Reaction (Intermediate, Verified 09/06/24 15:12) diarrhea and abdominal pain, diarrhea rosuvastatin Adverse Reaction (Intermediate, Verified 09/06/24 15:12) diarrhea and abdominal pain, diarrhea Medication List - Last Reconciled 09/06/24 by BARBARA Stoll amlodipine 2.5 mg PO DAILY 90 days aspirin 81 mg PO DAILY blood sugar diagnostic (FreeStyle Lite Strips) As directed once a day blood-glucose meter (FreeStyle Lite Meter kit) As directed cholecalciferol (vitamin D3) (Vitamin D3) 25 mcg PO DAILY ergocalciferol (vitamin D2) 1,250 mcg PO SA ezetimibe 10 mg PO BEDTIME fenofibrate 160 mg PO BEDTIME hydrochlorothiazide 12.5 mg PO QAM Jardiance (empagliflozin) 25 mg PO QAM 90 days NS lancets (FreeStyle Lancets) As directed losartan 100 mg PO DAILY 90 days magnesium oxide 500 mg PO DAILY metformin 1,000 mg PO BID 90 days [id number] mcg (Centrum Silver Men) 1 tab PO DAILY pantoprazole 40 mg PO DAILY PRN 90 days peg 400-propylene glycol 0.4-0.3 % (Systane (propylene glycol)) 1 drp ophthalmic (eye) DAILY PRN semaglutide (Ozempic) 1 mg subcut QWEEK turmeric 400 mg PO DAILY vitamin B complex 1 cap PO DAILY Tobacco use date assessed: 09/06/24 Fall risk assessment: No Falls in past year Last assessed Fall Risk: 09/06/24 Dental Screening Dental Screen Date: 09/06/24 Did you have a dental visit in the last 12 months?: No Did you have a dental problem in the last 6 months where you did not have access to dental care?: No Was dental information given to patient?: No HPI 4 Month Follow Up HPI Details The patient is a 68-year-old male with significant past medical history of left carotid artery stenosis, lumbar stenosis status post surgery, obstructive sleep apnea, GERD without esophagitis, mixed hyperlipidemia, and diabetes Patient is here for follow-up appointment, labs reviewed The patient reports that he is feeling ok, but he is concern about his blood work He denies sob, chest pain, heart palpitation He reports he feels some brain fog sometimes, the feelings last briefly each time. Reports that it has not worried him to the point that he feels like he needed to do anything about it reports that he is not sure about the specific activity the leads to this feeling because he has not been paying attention Reports that he has not taken is blood sugar or blood pressure around the time of these incidents The patient does have an history of blocked carotid artery-reports that he is going to have a follow ultrasound soon and he is being followed by Dr. Estela MORRISON Medical History Arthritis Back pain Weakness Numbness TIA (transient ischemic attack) Hypomagnesemia Hx of adenomatous colonic polyps Lumbar spinal stenosis Obstructive sleep apnea GERD without esophagitis Vitamin D deficiency Neuropathy Left carotid artery stenosis Obesity (BMI 30-39.9) Mixed hyperlipidemia Benign essential hypertension Diabetes mellitus Surgical History History of lumbosacral spine surgery H/O cervical spine surgery History of facial surgery History of endarterectomy History of colonoscopy Family History Father Hypertension Cancer Mother Hypertension Diabetes Social History Household Members: Spouse Housing: House Are you a primary animal caretaker supervisor to a significant other at home: No Do you presently have visiting nurse or other home services: No Alcohol intake: current Alcohol intake frequency: does not drink Patient Tobacco Use Status: Former Tobacco user Tobacco use type: Cigarette Years Smoked: 15 e-Cigarette/Vaping Use: Never Used Second Hand Smoke Exposure: No service: No Current occupational status: employed Cognitive needs: No Hearing needs: No Vision needs: Yes (glasses) Questionnaire PHQ-9 Over the last 2 weeks, how often have you been bothered by any of the following problems? 1. Little interest or pleasure in doing things: not at all 2. Feeling down, depressed, or hopeless: not at all 3. Trouble falling or staying asleep, or sleeping too much: not at all 4. Feeling tired or having little energy: not at all 5. Poor appetite or overeating: not at all 6. Feeling bad about yourself - or that you are a failure or have let yourself or your family down: not at all 7. Trouble concentrating on things, such as reading the newspaper or watching television: not at all 8. Moving or speaking so slowly that other people could have noticed. Or the opposite - being so fidgety or restless that you have been moving around a lot more than usual: not at all 9. Thoughts that you would be better off or of hurting yourself in some way: not at all Total score: 0 Depression Screening Interpretation: Negative Depression Screening Done: Yes 62319 - PHQ-9 Billing: Yes Source: Developed by Drs. Felix Poole, Elizabeth Mcmahan, Jason Olivas and colleagues, with an educational martha from [employer]. Thrive Questionnaire Date Thrive assessed: 09/06/24 I am a: Patient What is your living situation today?: I have a steady place to live Within the past 12 months, did the food you bought not last and you didn't have the money to get more?: Never true Within the past 12 months, did you worry whether your food would run out before you got money to buy more?: Never true Do you have trouble paying for medicines?: No Do you have trouble getting transportation to medical appointments?: No Do you have trouble paying your heating and electricity bill?: No Do you have trouble taking care of your child, family member or friend?: No Do you have trouble with day-to-day activities such as bathing, preparing meals, shopping, managing finances, etc.?: No Are you currently unemployed and looking for a job?: No Are you interested in more education?: No Please select the resources that you would like help with: None Currently or been in a relationship where the following occur: No concerns reported THRIVE Score: 0 AUDIT C Alcohol Use Questionnaire (AUDIT-C) 1. How often do you have a drink containing alcohol?: Monthly or less 2. How many drinks containing alcohol do you have on a typical day when you are drinking?: 1 or 2 3. How often do you have six or more drinks on one occasion?: Never Total Score: 1 Score Reviewed/Action Taken: Yes MALATHI-7 AMB Questionnaire MALATHI-7 Date MALATHI - 7 assessed: 09/06/24 Feeling nervous, anxious, or on edge: 0 = Not at all Not being able to stop or control worryin = Not at all Worrying too much about different things: 0 = Not at all Trouble relaxin = Not at all Being so restless that it is hard to sit still: 0 = Not at all Becoming easily annoyed or irritable: 0 = Not at all Feeling afraid as if something awful might happen: 0 = Not at all Total MALATHI-7 score (0-4 normal; 5-9 mild; 10-14 moderate; 15-21 severe): 0 Source: Developed by Drs. Felix Poole, Elizabeth Mcmahan, Jason Olivas and colleagues, with an educational martha from [employer]. MALATHI-7 Assessment Billing MALATHI-7 Assessment Tool: MALATHI-7 Assessment 60055 Review of Systems Const Details: Const Denies chills, Denies fatigue, Denies fever(s), Denies headache(s) and Denies weakness ENT Denies headache(s) Card Denies chest pain, reports lightheadedness when feeling fogged-very short lived, Denies dyspnea and Denies other (Palpitations) Resp Denies cough, Denies dyspnea, Denies wheezing and Denies other ( shortness of breath) GI Denies abdominal pain, Denies melena, Denies hematochezia, Denies change in bowel habits, Denies dyspepsia and Denies nausea Denies hematuria and Denies dysuria Musc Denies abnormal gait,reports recurrent muscle cramps bilaterally , Denies arthralgias, Denies numbness and Denies tingling Skin/Breast Denies rash, Denies unusual bruising and Denies wounds Neuro Denies abnormal gait, Denies dizziness, Denies headache(s), Denies memory loss, Denies numbness, Denies Sensory deficit (Neuro), Denies tingling and Denies weakness Psych Denies anxiety, Denies depression, Denies memory loss Endo Denies cold intolerance, Denies fatigue, Denies heat intolerance, Denies polydipsia and Denies polyuria Aller/Immun Denies wheezing Physical exam (Primary Care) Vital Signs: Last Vital Signs Pulse 85 09/06/24 15:03 BP 130/62 09/06/24 15:03 Pulse Ox 96 09/06/24 15:03 Oxygen Delivery Method Room Air 09/06/24 15:03 BMI result Body Mass Index 32.9 Tobacco/Smoking Status: Tobacco use Status Tobacco use date assessed 09/06/24 09/06/24 15:08 Patient Tobacco Use Status Former Tobacco user 09/06/24 15:08 Tobacco use type Cigarette 09/06/24 15:08 e-Cigarette/Vaping Use Never Used 09/06/24 15:08 PHQ-9: PHQ-9 Score PHQ-9: Total score 0 09/06/24 19:16 Depression Screening Interpretation: Negative Thrive Assessment: Date of Thrive Assessment Date Thrive assessed 09/06/24 09/06/24 15:08 Currently or been in a relationship where the following occur: No concerns reported Const Other: General: no acute distress and well developed Nutritional Appearance: well nourished Orientation/consciousness: patient oriented x3 HENMT Head: Yes normocephalic and Yes atraumatic Eyes General: appearance normal, both eyes and all related structures Pupils: Equal, round and reactive pupils present EOM: EOMs intact bilaterally Resp Effort & Inspection: normal respiratory effort Auscultation: clear to auscultation bilaterally Cardio Rate: regular rate Rhythm: regular rhythm Heart sounds: S1 normal heart sound present, S2 normal heart sound present, no gallops, no murmurs and no rubs GI Palpation (GI): No Abdominal aortic bruit present, Soft to palpation, nontender, No hepatosplenomegaly present and No Rebound tenderness present Auscultation: normal bowel sounds General: Yes no CVA tenderness Back/Spine/Pelvis Back: no CVA tenderness Cervical Spine: cervical ROM normal and No Cervical spine tenderness Thoracic/Lumbar Spine: thoraco-lumbar ROM normal, No pain with thoraco-lumbar ROM, No thoracic spinal tenderness and No lumbar spinal tenderness Extrem General: Yes normal to inspection and No calf tenderness Skin General: warm and dry. Normal skin color. Normal skin turgor Lesions: no lesions Rashes: no rashes Trauma: no lacerations or abrasions Wounds: no wounds Nails: normal Neuro General: patient oriented x3, gait normal and no focal neuro deficit Cranial nerves: Yes Equal, round and reactive pupils present Cognition (Neuro): normal cognition Gait exam (Neuro): Normal gait present Sensory Exam: No Sensory deficit (Neuro) Psych Appearance: grossly normal Affect: normal affect Attitude: cooperative Thought process: Normal thought process present Results Reviewed Results Reviewed: Laboratory Tests 08/29/24 06:56 WBC 7.4 RBC 5.43 Hgb 15.7 Hct 47.1 Sodium 138 Potassium 5.2 H Chloride 101 BUN 24 H Creatinine 1.17 Estimated GFR > 60 Fasting Glucose 205 H Hemoglobin A1c % 8.4 H Magnesium 2.0 AST 36 ALT 53 H Alkaline Phosphatase 52 Triglycerides 494 H Cholesterol 192 HDL Cholesterol 37 L 25-OH Vitamin D Total 62.9 TSH 2.05 Urine Color Yellow Urine Appearance Clear Urine pH 7.5 Ur Specific [place] >= 1.030 H Urine Glucose (UA) >=1000 H Urine Nitrite Negative Ur Leukocyte Esterase Negative Urine Microalbumin < 5.0 Coding Level of Care Code Est Pt Level 4 (40005) Diagnoses Mixed hyperlipidemia E78.2 Type 2 diabetes mellitus with diabetic neuropathy, without long-term current use of insulin E11.40 Diabetes mellitus complication detail: with unspecified neuropathy Diabetes mellitus complication status: with neurologic complications 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 home 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 Diabetes mellitus type: type 2 Benign essential hypertension I10 Left carotid artery stenosis I65.22 Obstructive sleep apnea G47.33 Serum potassium elevated E87.5 Hypomagnesemia E83.42 Spinal stenosis of lumbar region without neurogenic claudication M48.061 Neurogenic claudication status: without neurogenic claudication GERD without esophagitis K21.9 Vitamin D deficiency E55.9 Brain fog R41.89 Obesity (BMI 30-39.9) E66.9 Additional Codes MALATHI-7 Assessment Billing - MALATHI-7 Assessment Tool: MALATHI-7 Assessment 59423 ([id number]) PHQ-9 - 09134 - PHQ-9 Billing: Yes ([id number]) Assessment & Plan Assessment & Plan (1) Mixed hyperlipidemia: Code(s): E78.2 - Mixed hyperlipidemia Category: Medical Plan: The patient triglycerides is 494, cholesterol 192, and HDL 37. Discussed in the length the risk involving having such high triglycerides The patient thinks he has been making dietary changes, but has been sedentary. He vowed to increase his activity as tolerated Continue ezetimibe 10 mg and fenofibrate 160 mg at bedtime Will recheck labs in 3 months for follow appt (2) Diabetes mellitus: Comment: dx ~ age 53-glucose range [id number] Trulicity on Sundays, Jardiance daily, metformin daily Code(s): E11.9 - Type 2 diabetes mellitus without complications Category: Medical Qualifiers: Diabetes mellitus complication detail: with unspecified neuropathy Diabetes mellitus complication status: with neurologic complications Diabetes mellitus nursing home insulin use: without nursing home use Diabetes mellitus type: type 2 Qualified Code(s): E11.40 - Type 2 diabetes mellitus with diabetic neuropathy, unspecified Plan: The patient a1c is 8.4%, it was 8.2% prior and 8.6%-not much change in the a1c. The patient reported that he finished up the trulicity that he had prior to starting on ozempic. Ideally, he has been on ozempic 1mg for about 4 months. Discussed in length about the possibility of increasing the ozempic to 2mg or changing the ozempic to mounjaro with is slightly more potent. SDM: The patient wants to try and increase his physical activity first then revisit med changes if he needs to down the road. Will recheck labs in 3 months (3) Benign essential hypertension: Code(s): I10 - Essential (primary) hypertension Category: Medical Plan: reinforced a low sodium diet continue amlodipine 2.5 mg daily (4) Left carotid artery stenosis: Comment: S/P left carotid endarterectomy - 08/2017 Code(s): I65.22 - Occlusion and stenosis of left carotid artery Category: Medical Plan: Reports that he has a follow ultrasound of carotid coming up soon Follow up with vascular surgery as scheduled (5) Obstructive sleep apnea: Comment: uses CPAP Code(s): G47.33 - Obstructive sleep apnea (adult) (pediatric) Category: Medical Plan: Continue using cpap at HS (6) Serum potassium elevated: Code(s): E87.5 - Hyperkalemia Category: Medical Plan: potassium level slightly elevated, the patient reports eating bananas due to muscle cramps Encouraged decreasing the amount of bananas he is eating Will recheck level in 2 weeks (7) Hypomagnesemia: Code(s): E83.42 - Hypomagnesemia Category: Medical Plan: continue mangnesum oxide 500mg daily (8) Lumbar spinal stenosis: Code(s): M48.061 - Spinal stenosis, lumbar region without neurogenic claudication Category: Medical Qualifiers: Neurogenic claudication status: without neurogenic claudication Qualified Code(s): M48.061 - Spinal stenosis, lumbar region without neurogenic claudication Plan: He ended up getting L4-5 discectomy, arthrodesis and implantation cage through an anterolateral, retroperitoneal approach and L4-5 posterior instrumented fusion done with Dr. Gibson on 04/19/2024 symptoms are stable at this time Follow with neurosurgery as scheduled (9) GERD without esophagitis: Comment: Dietary modifications, rare symptoms- Code(s): K21.9 - Gastro-esophageal reflux disease without esophagitis Category: Medical Plan: reinforced dietary restrictions continue pantoprazole 40mg daily (10) Vitamin D deficiency: Code(s): E55.9 - Vitamin D deficiency, unspecified Category: Medical Plan: Continue ergocalciferol 1250 mcg and choecalciferol 25 mcg will recheck labs in 3 months (11) Brain fog: Code(s): R41.89 - Other symptoms and signs involving cognitive functions and awareness Category: Medical Plan: The reports non-specific symptoms of feeling like has a brain fog that at times to be associated with headlightedness-reports that they are infrequent and very short lived. The patient was instructed to check his blood sugar and blood pressure if these symptoms reoccur. Hydration was also encouraged to decrease any chance of dehydration May refer to neurology if symptoms continue, the patient also have a upcoming carotid ultrasound; this could add valuable information in the process of ruling out causes. (12) Obesity (BMI 30-39.9): Code(s): E66.9 - Obesity, unspecified Category: Medical Plan: Talked in length about dietary options, the patient thinks that he has started being sedentary due to the weather Reports that they have a treadmill at home and he will try and do 30 minutes a day Plan order potassium labs in 2 weeks, repeat labs for 3 month appt. Follow up in 3 months I personally spent 37 minutes reviewing the chart, caring for the patient and documenting after the visit. Orders: Orders Potassium 2 Weeks E87.5 - Hyperkalemia Complete Blood Count Auto Diff 3 Months I10 - Essential (primary) hypertension, E11.40 - Type 2 diabetes mellitus with diabetic neuropathy, unspecified, E78.2 - Mixed hyperlipidemia, E66.9 - Obesity, unspecified, E55.9 - Vitamin D deficiency, unspecified, E83.42 - Hypomagnesemia Hemoglobin A1c 3 Months I10 - Essential (primary) hypertension, E11.40 - Type 2 diabetes mellitus with diabetic neuropathy, unspecified, E78.2 - Mixed hyperlipidemia, E66.9 - Obesity, unspecified, E55.9 - Vitamin D deficiency, unspecified, E83.42 - Hypomagnesemia Vitamin D 25-OH Total 3 Months I10 - Essential (primary) hypertension, E11.40 - Type 2 diabetes mellitus with diabetic neuropathy, unspecified, E78.2 - Mixed hyperlipidemia, E66.9 - Obesity, unspecified, E55.9 - Vitamin D deficiency, unspecified, E83.42 - Hypomagnesemia Comprehensive [place]. Panel Fast 3 Months I10 - Essential (primary) hypertension, E11.40 - Type 2 diabetes mellitus with diabetic neuropathy, unspecified, E78.2 - Mixed hyperlipidemia, E66.9 - Obesity, unspecified, E55.9 - Vitamin D deficiency, unspecified, E83.42 - Hypomagnesemia Microalbumin, Random (w Creat) 3 Months I10 - Essential (primary) hypertension, E11.40 - Type 2 diabetes mellitus with diabetic neuropathy, unspecified, E78.2 - Mixed hyperlipidemia, E66.9 - Obesity, unspecified, E55.9 - Vitamin D deficiency, unspecified, E83.42 - Hypomagnesemia Lipid Panel 3 Months I10 - Essential (primary) hypertension, E11.40 - Type 2 diabetes mellitus with diabetic neuropathy, unspecified, E78.2 - Mixed hyperlipidemia, E66.9 - Obesity, unspecified, E55.9 - Vitamin D deficiency, unspecified, E83.42 - Hypomagnesemia TSH reflex Free T4 3 Months I10 - Essential (primary) hypertension, E11.40 - Type 2 diabetes mellitus with diabetic neuropathy, unspecified, E78.2 - Mixed hyperlipidemia, E66.9 - Obesity, unspecified, E55.9 - Vitamin D deficiency, unspecified, E83.42 - Hypomagnesemia Magnesium 3 Months E83.42 - Hypomagnesemia
== END 2024-09-06 15:48 | disposition home or self-care (01) ==
PROVIDERS: PCP Internal Medicine
DX: E11.40 Type 2 diabetes mellitus with diabetic neuropathy, unspecified (principal); E78.2 Mixed hyperlipidemia; I10 Essential (primary) hypertension; I65.22 Occlusion and stenosis of left carotid artery; G47.33 Obstructive sleep apnea (adult) (pediatric); E87.5 Hyperkalemia; E83.42 Hypomagnesemia; M48.061 Spinal stenosis, lumbar region without neurogenic claudication; E66.9 Obesity, unspecified; Z68.32 Body mass index [BMI] 32.0-32.9, adult; K21.9 Gastro-esophageal reflux disease without esophagitis; E55.9 Vitamin D deficiency, unspecified

== ENCOUNTER → 2024-09-06 15:02 | Outpatient (BNVA) | payer MEDICARE, BC, SELFPAY | PROVIDERS: PCP Internal Medicine | DX: I65.22 Occlusion and stenosis of left carotid artery (principal); G47.33 Obstructive sleep apnea (adult) (pediatric); K21.9 Gastro-esophageal reflux disease without esophagitis; E78.2 Mixed hyperlipidemia; E11.40 Type 2 diabetes mellitus with diabetic neuropathy, unspecified; I10 Essential (primary) hypertension; E83.42 Hypomagnesemia; M48.061 Spinal stenosis, lumbar region without neurogenic claudication; E55.9 Vitamin D deficiency, unspecified; R41.89 Other symptoms and signs involving cognitive functions and awareness; E66.9 Obesity, unspecified; Z68.32 Body mass index [BMI] 32.0-32.9, adult | CPT/HCPCS: 96127; 99212 ==

== ENCOUNTER 2024-09-07 15:12 | Outpatient (REF) | payer MEDICARE, BC, SELFPAY ==
--- NOTE | ~2024-09-07 | US_ITS ---
EXAMINATION: BILATERAL CAROTID ULTRASOUND WITH DOPPLER HISTORY: I65.23 - Occlusion and stenosis of bilateral carotid arteries COMPARISON: Comparison is made with the prior examination dated 09/04/2023. TECHNIQUE: Real time and Color and Spectral doppler ultrasonography of the carotid and vertebral arteries was performed in multiple planes. FINDINGS: There is mild plaque in the bilateral proximal internal carotid arteries. VERTEBRAL FLOW DIRECTION: Antegrade bilaterally. PEAK SYSTOLIC VELOCITIES (in cm/sec): RIGHT: CCA: Prox: 94.4 Dist: 81.5 ICA: Prox: 119 Mid: 90.9 Dist: 74.5 ICA/CCA Ratio: 1.26 ECA: 266 Peak ICA EDV: 97.5 LEFT: CCA: Prox: 148 Dist: 114 ICA: Prox: 210 Mid: 103 Dist: 112 ICA/CCA Ratio: 1.42 ECA: 118 Peak ICA EDV: 28.3 US/US carotid duplex BI IMPRESSION: Findings consistent with 0-49% stenosis of the right internal carotid artery and 50-79% stenosis of the left internal carotid artery by criteria similar to NASCET. Electronically signed by: Felix Zee MD 09/09/2024 08:35 AM [facility]
== END 2024-09-07 15:13 | disposition home or self-care (01) ==
LOC: HO.HMGCX 15:12
PROVIDERS: PCP Internal Medicine; Visit Provider Surgery Vascular Surgery
DX: I65.23 Occlusion and stenosis of bilateral carotid arteries (principal)
CPT/HCPCS: 93880

== ENCOUNTER → 2024-09-07 15:16 | Outpatient (BNV) | payer MEDICARE, BC, SELFPAY | PROVIDERS: PCP Internal Medicine; Visit Provider Radiology Diagnostic Radiology | DX: I65.23 Occlusion and stenosis of bilateral carotid arteries (principal) | CPT/HCPCS: 93880 ==

== ENCOUNTER 2024-09-20 14:44 | Outpatient (AMB) | payer MEDICARE, BC, SELFPAY ==
--- NOTE | 2024-09-20 14:45 | A.OFFVIS_ITS ---
Vital Signs 09/20/24 14:46 09/20/24 14:55 Height 5 ft 11 in Weight 236 lb BMI 32.9 BP 120/62 110/64 Blood Pressure Location Rt brachial Lt brachial Position Sitting Sitting Intake Visit Reasons: 1 yr follow up carotid US 09/07/24 Intake Note: 1 yr follow up Carotid US 09/07/24 w/ Hx of Left CEA 09/17/2017. No complaints other than sometimes getting loss of balance. Accompanied by: Spouse Allergies simvastatin Allergy (Intermediate, Verified 09/20/24 14:51) diarrhea and abdominal pain, diarrhea atorvastatin Adverse Reaction (Intermediate, Verified 09/20/24 14:51) diarrhea and abdominal pain, diarrhea rosuvastatin Adverse Reaction (Intermediate, Verified 09/20/24 14:51) diarrhea and abdominal pain, diarrhea HPI HPI 1 yr follow up carotid US 09/07/24: Details: Very pleasant 68-year-old gentleman presents for routine carotid surveillance follow-up. We had actually performed his carotid 7 years ago. He has been doing relatively well since that time. He has actually lost some weight and has been on Ozempic. Currently can walk about 1.5 miles on the treadmill without any significant difficulty. Now presents for routine carotid surveillance follow-up. [facility] Medical History Arthritis Back pain Weakness Numbness TIA (transient ischemic attack) Hypomagnesemia Hx of adenomatous colonic polyps Lumbar spinal stenosis Obstructive sleep apnea GERD without esophagitis Vitamin D deficiency Neuropathy Left carotid artery stenosis Obesity (BMI 30-39.9) Mixed hyperlipidemia Benign essential hypertension Diabetes mellitus Surgical History History of lumbosacral spine surgery H/O cervical spine surgery History of facial surgery History of endarterectomy History of colonoscopy Family History Father Hypertension Cancer Mother Hypertension Diabetes Social History Household Members: Spouse Housing: House Are you a primary critical care educator to a significant other at home: No Do you presently have visiting nurse or other home services: No Alcohol intake: current Alcohol intake frequency: does not drink Patient Tobacco Use Status: Former Tobacco user Tobacco use type: Cigarette Years Smoked: 15 e-Cigarette/Vaping Use: Never Used Second Hand Smoke Exposure: No service: No Current occupational status: employed Cognitive needs: No Hearing needs: No Vision needs: Yes (glasses) Review of Systems Const All systems reviewed & are unremarkable except as noted in HPI and below Reports no additional complaints ENT Reports Normal hearing present Card Denies chest pain, Denies chest pain at rest, Denies chest pain with activity and Denies pedal edema Resp Denies cough GI Denies abdominal pain Musc Denies abnormal gait, Denies muscle cramps and Denies radiating pain into limb Skin/Breast Denies skin ulcer and Denies wounds Neuro Reports Normal hearing present and Denies abnormal gait Psych Reports no additional complaints Physical Exam Vital Signs: Last Vital Signs BP 110/64 09/20/24 14:55 BMI result Body Mass Index 32.9 Const General: cooperative, healthy appearing and comfortable Orientation/consciousness: oriented to person, oriented to place and oriented to time HEENT Head: Yes normal to inspection Neck Neck: Yes normal visual inspection Carotids: no bruits Chest Chest palpation & inspection: normal inspection of the chest Resp Effort & Inspection: normal respiratory effort and able to speak in complete sentences Auscultation: clear to auscultation bilaterally, no crackles, no rales, no rhonchi and no wheezes Cardio Rate: regular rate Rhythm: regular rhythm Heart sounds: S1 normal heart sound present and S2 normal heart sound present Bruits: no carotid bruits Peripheral pulses: Peripheral pulses 2+ throughout GI Inspection: Yes normal to inspection Skin Wounds: no wounds Hair: normal Neuro General: oriented to person, oriented to place and oriented to time Cranial nerves: Yes CN's II-XII intact bilaterally and Yes Normal hearing present Cognition (Neuro): normal cognition Motor exam (neuro): 5/5 motor strength present throughout Extrem Other: venous exam: No significant superficial varicosities or spider telangiectasias, minimal edema General: No clubbing, No cyanosis and No edema Psych Appearance: grossly normal Mental Status: mental status grossly normal Speech and movement: Normal speech and movement present Results Reviewed Results Reviewed: Carotid ultrasound dated 09/07/2024 demonstrates right-sided 0-49% and left side 50-79% with a left peak systolic velocity about 210. Written report and images were reviewed. Assessment & Plan Assessment & Plan (1) Carotid stenosis, bilateral: Comment: 09/17/2017 - left carotid endarterectomy Code(s): I65.23 - Occlusion and stenosis of bilateral carotid arteries Category: Medical Plan: In short patient has asymptomatic carotid disease. We have reviewed signs and symptoms of a stroke. We also discussed risk factor modification inclusive a healthy diet low in cholesterol. The patient will follow up with us with surveillance ultrasound of the carotids 1 year. Should there be any changes or signs or symptoms of a stroke we will be happy to see them back sooner. Thank you for allowing us to participate in this patient's care. If there are any questions or concerns please do not hesitate to contact us. Orders: Orders US carotid duplex BI 1 Year I65.23 - Occlusion and stenosis of bilateral carotid arteries Coding Level of Care Code Est Pt Level 4 (97408) Complex EM visit Add On G2211 Diagnoses Carotid stenosis, bilateral I65.23
[2024-09-20 14:46] VITALS: BP 120/62; BMI 32.9
[2024-09-20 14:55] VITALS: BP 110/64
== END 2024-09-20 15:14 | disposition home or self-care (01) ==
PROVIDERS: PCP Internal Medicine; Visit Provider Surgery Vascular Surgery
DX: I65.23 Occlusion and stenosis of bilateral carotid arteries (principal)
CPT/HCPCS: 99214; G2211

== ENCOUNTER → 2024-09-20 14:44 | Outpatient (BNVA) | payer MEDICARE, BC, SELFPAY | PROVIDERS: PCP Internal Medicine; Visit Provider Surgery Vascular Surgery | DX: I65.23 Occlusion and stenosis of bilateral carotid arteries (principal); Z87.891 Personal history of nicotine dependence | CPT/HCPCS: 99212 ==

== ENCOUNTER 2024-09-27 07:56 | Outpatient (REF) | payer MEDICARE, BC, SELFPAY ==
[2024-09-27 10:47] LABS: Potassium 4.2 mmol/L (3.3-5.1)
== END 2024-09-27 07:57 | disposition home or self-care (01) ==
LOC: HO.HMGCLDS 07:56
PROVIDERS: PCP Internal Medicine
DX: E87.5 Hyperkalemia (principal)
CPT/HCPCS: 36415; 84132

== ENCOUNTER 2024-11-08 14:18 | Outpatient (REF) | payer MEDICARE, BC, SELFPAY ==
--- NOTE | ~2024-11-08 | XR_ITS ---
EXAMINATION: XR LUMBAR SPINE 4 OR MORE VIEWS HISTORY: Z98.1 - Arthrodesis status COMPARISON: Comparison is made with the prior examination dated 06/23/2024. FINDINGS: AP, and neutral, flexion, and extension lateral views of the lumbar spine are submitted. The patient is again noted to be status post posterior fusion of L4 and L5 with pedicle screws, spinal stabilization rods, and an intervertebral spacer. The head of the right L4 screw is displaced when compared to the prior study. There is slight spondylolisthesis of L4 on L5 without change. There is no change with flexion or extension. There is mild disc space narrowing at the thoracolumbar junction. Small anterior spurs are noted. There is calcification of the abdominal aorta. XR/XR lumbar spine 4V min IMPRESSION: 1. Status post posterior fusion of L4 and L5. The head of the right L4 screw is displaced when compared to the prior study. 2. Slight spondylolisthesis of L4 on L5 without change in flexion or extension. Electronically signed by: Felix Zee MD 11/09/2024 08:19 AM EDT
== END 2024-11-08 14:19 | disposition home or self-care (01) ==
LOC: HO.HOSX 14:18
PROVIDERS: PCP Internal Medicine; Visit Provider Physician Assistant
DX: Z98.1 Arthrodesis status (principal)
CPT/HCPCS: 72110; 99212

== ENCOUNTER 2024-11-08 14:18 | Outpatient (AMB) | payer MEDICARE, BC, SELFPAY ==
--- NOTE | 2024-11-08 14:22 | HO.SPINEOV ---
Intake Visit Reasons: LBP sx 04/19/24 Intake Note: Mr. Soto is here today c/o low back pain. Housekeeping Room Inspector Required: No Allergies simvastatin Allergy (Intermediate, Verified 09/20/24 14:51) diarrhea and abdominal pain, diarrhea atorvastatin Adverse Reaction (Intermediate, Verified 09/20/24 14:51) diarrhea and abdominal pain, diarrhea rosuvastatin Adverse Reaction (Intermediate, Verified 09/20/24 14:51) diarrhea and abdominal pain, diarrhea Assessment & Plan Assessment & Plan (1) S/P spinal fusion: Code(s): Z98.1 - Arthrodesis status Category: Surgical Plan: HPI: Ismael is a pleasant 69 year old male who comes in today for a follow up visit after having L4-5 OLIF completed by our service back in March. To recap on X-ray imaging during his 2nd postoperative visit it was noticed that the locking cap on his right L4 screw had backed out slightly. His symptoms had much improved at this point, so we were not particularly concerned. Today, he comes in for a subsequent follow-up visit to discuss a recurrence of low back pain. He states that about 2 months ago, without any inciting incident, he began experiencing fairly significant low back pain. The pain that he describes is constant throughout the day, does not change based on position. In addition to this he has some reported posterior thigh weakness. He denies any numbness/tingling outside of the normal tingling feeling he has in his bilateral feet, which he attributes to his peripheral neuropathy. He denies any issues with bowel/bladder incontinence or perineal numbness. Medications: The patient reports that he is now taking Ozempic. He was not taking this when he previously saw us. Allergies: The patient reports no changes. Exam: The patient ambulates well, but does brace himself on the chair when rising from a seated position. His bilateral lower extremity strength is 5/5, however he does elicit pain to full strength testing of bilateral iliopsoas. No significant sensational deficits. Absent left-sided Achilles reflex, however the rest of his reflexes are 2+ intact including bilateral patella. (-) bilateral straight leg raise, (-) bilateral clonus. Imaging: X-ray of the lumbar spine completed during this visit was reviewed with the patient. It shows some cranial migration of the right L4 locking cap. It also appears that the spondylolithesis has slightly increased and L4 is sitting slightly forward from its positioning compared to May 2024 AP XR. Plan: Ismael is a pleasant 69-year-old male who underwent L4-[address] Gibson back in March. He was doing well in the immediate postoperative period, and reported near complete pain resolution by a 2nd postoperative visit unfortunately, about 2 months ago he began experiencing fairly significant low back pain. I do believe there is a possibility that he has micro-instability which remains at the L4-5 segment despite lumbar fusion at this level. I would like to send him for a STAT CT scan of the L spine without contrast to further evaluate exact placement of instrumentation. Jarad Gibson MD,PhD [facility] Orders: Orders XR lumbar spine 4V min Today Z98.1 - Arthrodesis status CT lumbar spine wo IV con Today Z98.1 - Arthrodesis status Coding Level of Care Code Global (06694) Diagnoses S/P spinal fusion Z98.1
== END 2024-11-08 15:20 | disposition home or self-care (01) ==
LOC: HO.HNS 14:18
PROVIDERS: PCP Internal Medicine; Visit Provider Physician Assistant
DX: Z98.1 Arthrodesis status (principal)
CPT/HCPCS: 99213

== ENCOUNTER → 2024-11-08 14:46 | Outpatient (BNV) | payer MEDICARE, BC, SELFPAY | PROVIDERS: PCP Internal Medicine; Visit Provider Radiology Diagnostic Radiology | DX: Z98.1 Arthrodesis status (principal) | CPT/HCPCS: 72110 ==

== ENCOUNTER 2024-11-24 07:24 | Outpatient (REF) | payer MEDICARE, BC, SELFPAY ==
--- NOTE | ~2024-11-24 | CT_ITS ---
CLINICAL HISTORY: Z98.1 - Arthrodesis status CT lumbar spine without contrast Comparison: None Findings: Normal vertebral body alignment. Iatrogenic findings with well-positioned surgical hardware noted at L4-L5. No acute fractures or dislocations. No significant degenerative change. Visualized abdominal contents unremarkable. IMPRESSION: No acute findings. This document has been electronically signed by: Hill Willams MD on 11/24/2024 18:18:52
== END 2024-11-24 07:25 | disposition home or self-care (01) ==
LOC: HO.CT 07:24
PROVIDERS: PCP Internal Medicine; Visit Provider Physician Assistant
DX: Z98.1 Arthrodesis status (principal)
CPT/HCPCS: 72131

== ENCOUNTER → 2024-11-24 07:26 | Outpatient (BNV) | payer MEDICARE, BC, SELFPAY | PROVIDERS: PCP Internal Medicine; Visit Provider Specialist | DX: Z98.1 Arthrodesis status (principal) | CPT/HCPCS: 72131 ==

== ENCOUNTER 2024-12-02 07:16 | Outpatient (REF) | payer MEDICARE, BC, SELFPAY ==
[2024-12-02 10:06] LABS: MANUAL DIFF FLAG NO
[2024-12-02 10:20] LABS: Basophils Absolute Auto 0.1 X10*3/uL (0.0-0.2); Basophils Percent Auto 0.7 % (0-2); Eosinophils Absolute Auto 0.1 X10*3/uL (0.0-0.4); Eosinophils Percent Auto 0.8 % (0-4); Hematocrit 46.2 % (42.0-52.0); Hemoglobin 15.5 g/dl (14.0-18.0); Imm Gran Abs Auto 0.04 X10*3/uL (0.00-0.03); Imm Gran Pct Auto 0.5 % (0.0-0.4); Lymphocytes Absolute Auto 2.3 X10*3/uL (1.2-4.9); Lymphocytes Percent Auto 26.4 % (20-40); Mean Corpuscular HGB Conc 33.5 g/dl (31.0-36.0); Mean Corpuscular Hemoglobin 29.3 pg (27.0-33.0); Mean Corpuscular Volume 87.3 fL (80.0-98.0); Mean Platelet Volume 10.6 fL (9.4-12.4); Monocytes Absolute Auto 0.6 X10*3/uL (0.1-1.2); Neutrophils Absolute Auto 5.5 x10*3/uL (2.0-8.3); Neutrophils Percent Auto 64.6 % (45-73); Platelet Count 263 X10*3/uL (160-400); Red Blood Count 5.29 X10*6/uL (4.60-5.80); White Blood Count 8.5 X10*3/uL (4.8-10.8)
[2024-12-02 10:56] LABS: Alanine Aminotransferase 66 U/L (0-40); Albumin Level 4.1 g/dL (3.5-5.0); Alkaline Phosphatase 48 U/L (39-117); Anion Gap 12 (12-20); Aspartate Amino Transferase 47 U/L (5-37); Bilirubin Total 0.3 mg/dL (0.0-1.0); Blood Urea Nitrogen 24 mg/dL (9-16); Calcium 9.2 mg/dL (8.4-10.2); Carbon Dioxide 27 mmol/L (22-29); Chloride 104 mmol/L (96-108); Cholesterol 163 mg/dL (<200); Estimated Glomerular Filt Rate > 60; Glucose Fasting 204 mg/dL (60-99); HDL Cholesterol 36 mg/dL (>40); LDL Cholesterol Calculated 60 mg/dL (<100); Magnesium 2.3 mg/dL (1.6-2.6); Potassium 4.5 mmol/L (3.3-5.1); Sodium 138 mmol/L (135-145); Total Protein 6.6 g/dL (6.5-8.0); Triglycerides 339 mg/dL (<150)
[2024-12-02 11:20] LABS: Estimated Average Glucose 189 mg/dL; Hemoglobin A1C 273.3331 umol/L; Hemoglobin A1c % 8.2 % (<6.0); Total Hemoglobin (HGBA1C) 4129.4941 umol/L
[2024-12-02 11:27] LABS: TSH reflex Free T4 1.65 uIU/mL (0.32-4.0); Vitamin D 25-OH Total 36.6 ng/mL (>30)
[2024-12-02 11:53] LABS: Creatinine Urine 62.78 mg/dL; Microalbum/Creatinine Ratio Ur 7.9 ug/mg cr (<30)
== END 2024-12-02 07:17 | disposition home or self-care (01) ==
LOC: HO.HMGCLDS 07:16
PROVIDERS: PCP Internal Medicine
DX: I10 Essential (primary) hypertension (principal); E11.40 Type 2 diabetes mellitus with diabetic neuropathy, unspecified; E78.2 Mixed hyperlipidemia; E66.9 Obesity, unspecified; E83.42 Hypomagnesemia
CPT/HCPCS: 36415; 80053; 80061; 82043; 82306; 82570; 83036; 83735; 84443; 85025

== ENCOUNTER 2024-12-06 14:21 | Outpatient (AMB) | payer MEDICARE, BC, SELFPAY ==
--- NOTE | 2024-12-06 14:27 | A.OFFPC_ITS ---
Vital Signs 12/06/24 14:28 Height 5 ft 11 in Weight 232 lb 6 oz BMI 32.4 BP 124/72 Blood Pressure Location Lt brachial Position Sitting Pulse 74 Pulse Source Pulse Oximeter Pulse Oximetry (%) 96 Oxygen Delivery Method Room Air Intake Visit Reasons: DM/HTN/HLD Whizzer Operator Required: No Accompanied by: Self / Same As Patient Allergies simvastatin Allergy (Intermediate, Verified 12/06/24 15:07) diarrhea and abdominal pain, diarrhea atorvastatin Adverse Reaction (Intermediate, Verified 12/06/24 15:07) diarrhea and abdominal pain, diarrhea rosuvastatin Adverse Reaction (Intermediate, Verified 12/06/24 15:07) diarrhea and abdominal pain, diarrhea Medication List - Last Reconciled 12/06/24 by Gustavo Watts MD amlodipine 2.5 mg PO DAILY 90 days aspirin 81 mg PO DAILY blood sugar diagnostic (FreeStyle Lite Strips) As directed once a day blood-glucose meter (FreeStyle Lite Meter kit) As directed cholecalciferol (vitamin D3) (Vitamin D3) 25 mcg PO DAILY ergocalciferol (vitamin D2) 1,250 mcg PO SA ezetimibe 10 mg PO BEDTIME fenofibrate 160 mg PO BEDTIME hydrochlorothiazide 12.5 mg PO QAM Jardiance (empagliflozin) 25 mg PO QAM 90 days NS lancets (FreeStyle Lancets) As directed losartan 100 mg PO DAILY 90 days magnesium oxide 500 mg PO DAILY metformin 1,000 mg PO BID 90 days [id number] [phone] mcg (Centrum Silver Men) 1 tab PO DAILY pantoprazole 40 mg PO DAILY PRN 90 days peg 400-propylene glycol 0.4-0.3 % (Systane (propylene glycol)) 1 drp ophthalmic (eye) DAILY PRN semaglutide (Ozempic) 1 mg subcut QWEEK turmeric 400 mg PO DAILY vitamin B complex 1 cap PO DAILY Tobacco use date assessed: 12/06/24 Fall risk assessment: No Falls in past year Last assessed Fall Risk: 12/06/24 Dental Screening Dental Screen Date: 12/06/24 Did you have a dental visit in the last 12 months?: No Did you have a dental problem in the last 6 months where you did not have access to dental care?: No Was dental information given to patient?: No HPI DM/HTN/HLD HPI Details Patient comes in today for his follow-up visit States that he feels okay He denies any headaches or dizziness Denies any chest pain, no shortness of breath No nausea/vomiting, no abdominal pain No change in bowel habits noted Needs a couple of his Rx refilled He had his follow-up labs done a few days ago - to discuss his results [facility] Medical History Arthritis Back pain Weakness Numbness TIA (transient ischemic attack) Hypomagnesemia Hx of adenomatous colonic polyps Lumbar spinal stenosis Obstructive sleep apnea GERD without esophagitis Vitamin D deficiency Neuropathy Left carotid artery stenosis Obesity (BMI 30-39.9) Mixed hyperlipidemia Benign essential hypertension Diabetes mellitus Surgical History History of lumbosacral spine surgery H/O cervical spine surgery History of facial surgery History of endarterectomy History of colonoscopy Family History Father Hypertension Cancer Mother Hypertension Diabetes Social History Household Members: Spouse Housing: House Are you a primary career professional to a significant other at home: No Do you presently have visiting nurse or other home services: No Alcohol intake: current Alcohol intake frequency: does not drink Patient Tobacco Use Status: Former Tobacco user Tobacco use type: Cigarette Years Smoked: 15 e-Cigarette/Vaping Use: Never Used Second Hand Smoke Exposure: No service: No Current occupational status: employed Cognitive needs: No Hearing needs: No Vision needs: Yes (glasses) Questionnaire PHQ-9 Over the last 2 weeks, how often have you been bothered by any of the following problems? 1. Little interest or pleasure in doing things: not at all 2. Feeling down, depressed, or hopeless: not at all 3. Trouble falling or staying asleep, or sleeping too much: not at all 4. Feeling tired or having little energy: not at all 5. Poor appetite or overeating: not at all 6. Feeling bad about yourself - or that you are a failure or have let yourself or your family down: not at all 7. Trouble concentrating on things, such as reading the newspaper or watching television: not at all 8. Moving or speaking so slowly that other people could have noticed. Or the opposite - being so fidgety or restless that you have been moving around a lot more than usual: not at all 9. Thoughts that you would be better off or of hurting yourself in some way: not at all Total score: 0 Depression Screening Interpretation: Negative Depression Screening Done: Yes 88413 - PHQ-9 Billing: Yes Source: Developed by Drs. Felix Poole, Elizabeth Mcmahan, Jason Olivas and colleagues, with an educational martha from [employer]. Thrive Questionnaire Date Thrive assessed: 12/06/24 I am a: Patient What is your living situation today?: I have a steady place to live Within the past 12 months, did the food you bought not last and you didn't have the money to get more?: Never true Within the past 12 months, did you worry whether your food would run out before you got money to buy more?: Never true Do you have trouble paying for medicines?: No Do you have trouble getting transportation to medical appointments?: No Do you have trouble paying your heating and electricity bill?: No Do you have trouble taking care of your child, family member or friend?: No Do you have trouble with day-to-day activities such as bathing, preparing meals, shopping, managing finances, etc.?: No Are you currently unemployed and looking for a job?: No Are you interested in more education?: No Please select the resources that you would like help with: None Currently or been in a relationship where the following occur: No concerns reported THRIVE Score: 0 AUDIT C Alcohol Use Questionnaire (AUDIT-C) 1. How often do you have a drink containing alcohol?: Monthly or less 2. How many drinks containing alcohol do you have on a typical day when you are drinking?: 1 or 2 3. How often do you have six or more drinks on one occasion?: Never Total Score: 1 Score Reviewed/Action Taken: Yes MALATHI-7 AMB Questionnaire MALATHI-7 Date MALATHI - 7 assessed: 12/06/24 Feeling nervous, anxious, or on edge: 0 = Not at all Not being able to stop or control worryin = Not at all Worrying too much about different things: 0 = Not at all Trouble relaxin = Not at all Being so restless that it is hard to sit still: 0 = Not at all Becoming easily annoyed or irritable: 0 = Not at all Feeling afraid as if something awful might happen: 0 = Not at all Total MALATHI-7 score (0-4 normal; 5-9 mild; 10-14 moderate; 15-21 severe): 0 Source: Developed by Drs. Felix Poole, Elizabeth Mcmahan, Jason Olivas and colleagues, with an educational martha from [employer]. MALATHI-7 Assessment Billing MALATHI-7 Assessment Tool: MALATHI-7 Assessment 92052 Review of Systems Const Denies chills, Denies difficulty sleeping, Denies fatigue, Denies fever(s) and Denies headache(s) ENT Denies dysphagia, Denies dizziness, Denies otalgia, Denies headache(s), Reports neck pain, Denies odynophagia, Denies tinnitus and Denies sore throat Card Denies chest pain, Denies irregular heart rhythm, Denies palpitations and Denies dyspnea Resp Denies chest congestion, Denies cough and Denies dyspnea GI Denies abdominal pain, Denies constipation, Denies dysphagia, Denies heartburn, Denies diarrhea, Denies nausea, Denies odynophagia and Denies vomiting Denies difficulty urinating, Denies nocturia and Denies urinary frequency Musc Reports back pain (over the lower back), Denies arthralgias and Reports neck pain Skin/Breast Denies rash Neuro Denies dizziness, Denies headache(s) and Denies paresthesias Endo Denies fatigue and Denies palpitations Physical exam (Primary Care) Vital Signs: Last Vital Signs Pulse 74 12/06/24 14:28 BP 124/72 12/06/24 14:28 Pulse Ox 96 12/06/24 14:28 Oxygen Delivery Method Room Air 12/06/24 14:28 BMI result Body Mass Index 32.4 Tobacco/Smoking Status: Tobacco use Status Tobacco use date assessed 12/06/24 12/06/24 14:34 Patient Tobacco Use Status Former Tobacco user 12/06/24 14:34 Tobacco use type Cigarette 12/06/24 14:34 e-Cigarette/Vaping Use Never Used 12/06/24 14:34 PHQ-9: PHQ-9 Score PHQ-9: Total score 0 12/06/24 15:14 Depression Screening Interpretation: Negative Thrive Assessment: Date of Thrive Assessment Date Thrive assessed 12/06/24 12/06/24 14:34 Currently or been in a relationship where the following occur: No concerns reported Const General: no acute distress and alert HENMT Ears: TM's normal bilaterally and EAC's normal Throat: Yes posterior oropharynx normal and Yes tonsils normal (no TP congestion) Neck Neck: No lymphadenopathy Thyroid: Thyroid normal Resp Auscultation: clear to auscultation bilaterally, no rales and no wheezes Cardio Rate: regular rate Rhythm: regular rhythm Heart sounds: no murmurs GI Palpation (GI): Soft to palpation and nontender Auscultation: normal bowel sounds General: Yes no CVA tenderness Back/Spine/Pelvis Back: no CVA tenderness Cervical Spine: Cervical spine tenderness (mild) Thoracic/Lumbar Spine: straight leg raise negative bilaterally and lumbar spinal tenderness (especially on the left side; mild) Skin Rashes: no rashes Extrem General: Yes no clubbing, cyanosis or edema Results Reviewed Results Reviewed: Laboratory Tests 12/02/24 07:24 WBC 8.5 Hgb 15.5 Hct 46.2 Plt Count 263 Sodium 138 Potassium 4.5 Creatinine 1.11 Estimated GFR > 60 Fasting Glucose 204 H Hemoglobin A1c % 8.2 H Calcium 9.2 AST 47 H ALT 66 H Triglycerides 339 H Cholesterol 163 LDL Cholesterol, Calc 60 HDL Cholesterol 36 L 25-OH Vitamin D Total 36.6 TSH 1.65 Microalb/Creat Ratio 7.9 Coding Level of Care Code Est Pt Level 4 (01564) Complex EM visit Add On G2211 Diagnoses Type 2 diabetes mellitus with diabetic neuropathy, without long-term current use of insulin E11.40 Diabetes mellitus type: type 2 Diabetes mellitus residential insulin use: without equipment operator intermodal yard use Diabetes mellitus complication status: with neurologic complications Diabetes mellitus complication detail: with unspecified neuropathy Mixed hyperlipidemia E78.2 Benign essential hypertension I10 Left carotid artery stenosis I65.22 GERD without esophagitis K21.9 Neuropathy G62.9 Cervical spondylosis with myelopathy M47.12 Spinal stenosis of lumbar region without neurogenic claudication M48.061 Neurogenic claudication status: without neurogenic claudication Vitamin D deficiency E55.9 Obstructive sleep apnea G47.33 Obesity (BMI 30-39.9) E66.9 Additional Codes MALATHI-7 Assessment Billing - MALATHI-7 Assessment Tool: MALATHI-7 Assessment 13876 ([id number]) PHQ-9 - 07213 - PHQ-9 Billing: Yes ([id number]) Assessment & Plan Assessment & Plan (1) Diabetes mellitus: Comment: dx ~ age 53-glucose range [id number] Trulicity on Sundays, Jardiance daily, metformin daily Code(s): E11.9 - Type 2 diabetes mellitus without complications Category: Medical Qualifiers: Diabetes mellitus type: type 2 Diabetes mellitus residential insulin use: without residential use Diabetes mellitus complication status: with neurologic complications Diabetes mellitus complication detail: with unspecified neuropathy Qualified Code(s): E11.40 - Type 2 diabetes mellitus with diabetic neuropathy, unspecified Plan: His HgbA1c was still at 8.2% on his labs done a few days ago (was previously at 8.4% a few months agoin July 2024) - goal is <7.0% Reinforced diabetic diet Continue Metformin 500 mg BID, Jardiance 25 mg Q AM and Ozempic 2 mg SQ once a week - he was on Trulicity previously but was switched over to Ozempic as he was having trouble getting his Trulicity Rx filled at the pharmacy Patient feels that Ozempic has been working better for him than Trulicity and he has also been able to lose some weight since he switched over to Ozempic (2) Mixed hyperlipidemia: Code(s): E78.2 - Mixed hyperlipidemia Category: Medical Plan: Results of his labs done a few days ago reviewed and discussed with patient Reinforced low cholesterol diet Continue Ezetimibe 10 mg QD and Fenofibrate 160 mg QD; patient has NOT been able to tolerate any of the commercially available statins in the past Will recheck his labs and fasting lipids in 4 months for follow up (3) Benign essential hypertension: Code(s): I10 - Essential (primary) hypertension Category: Medical Plan: Reinforced low sodium diet - goal is systolic BP of at least 130 to 140 mm or less Continue Amlodipine 2.5 mg QD, HCTZ 12.5 mg Q AM and Losartan 100 mg QD (he had a recurrent cough when he was on Lisinopril in the past) Patient is reminded to continue monitoring his blood pressure regularly (4) Left carotid artery stenosis: Comment: S/P left carotid endarterectomy - 08/2017 Code(s): I65.22 - Occlusion and stenosis of left carotid artery Category: Medical Plan: Follow up with vascular surgery (Dr. Palmer) as scheduled (5) GERD without esophagitis: Comment: Dietary modifications, rare symptoms- Code(s): K21.9 - Gastro-esophageal reflux disease without esophagitis Category: Medical Plan: Dietary restrictions reinforced Continue Pantoprazole 40 mg QD (6) Neuropathy: Comment: NCV done in 2019 showed findings compatible with mild to moderate sensory and motor neuropathy Code(s): G62.9 - Polyneuropathy, unspecified Category: Medical Plan: He was started on a trial of Gabapentin previously but patient has not needed to take it - symptoms are minimal and remain tolerable still and he does not wish to take any additional meds at this time (7) Cervical spondylosis with myelopathy: Code(s): M47.12 - Other spondylosis with myelopathy, cervical region Category: Medical Plan: S/P C5-6, C6-7 Anterior discectomy, arthrodesis and implantation cage last year on 11/03/[address] Gibson States that his neck and cervical radicular symptoms have improved significantly since his surgery Follow up with neurosurgery as scheduled (8) Lumbar spinal stenosis: Code(s): M48.061 - Spinal stenosis, lumbar region without neurogenic claudication Category: Medical Qualifiers: Neurogenic claudication status: without neurogenic claudication Qualified Code(s): M48.061 - Spinal stenosis, lumbar region without neurogenic claudication Plan: Reinforced activity and weight-lifting restrictions to minimize aggravating his lower [place] Lumbar spine MRI done on 07/10/2017 revealed moderate to severe L4-L5 spinal canal stenosis and marked facet joint arthropathy at L3-L4, L4-L5 and L5-S1 Was seen by neurosurgery (Dr. Cheema) for consultation on 11/26/2017 - was advised against surgery at that time as he just had a TIA and left carotid endarterectomy earlier in the year in August 2017 and instructed to return in the fall of 2017 for consideration of L4-L5 decompression surgery if his symptoms continue to persist or progress Patient did not go back to Neurosurgery as his symptoms were tolerable at the time He has been seeing his chiropractor since his low back pains started flaring up over a year ago He ended up getting L4-5 discectomy, arthrodesis and implantation cage through an anterolateral, retroperitoneal approach and L4-5 posterior instrumented fusion done with Dr. Gibson a couple of weeks ago on 04/19/2024 Feels that his lower back symptoms and radicular symptoms have improved initially with surgery but have gradually regressed since He is now scheduled to have repeat lumbar spine surgery with Dr. Gibson next month (9) Vitamin D deficiency: Code(s): E55.9 - Vitamin D deficiency, unspecified Category: Medical Plan: Continue Vitamin D2 13828 units once a week and OTC Vitamin D3 1000 units QD (10) Obstructive sleep apnea: Comment: uses CPAP Code(s): G47.33 - Obstructive sleep apnea (adult) (pediatric) Category: Medical Plan: Continue using his CPAP device daily when sleeping at night (11) Obesity (BMI 30-39.9): Code(s): E66.9 - Obesity, unspecified Category: Medical Plan: Reinforced diet/exercise as tolerated/lose weight Plan Follow up in 4 months Orders: Orders Complete Blood Count Auto Diff 03/31/25 D64.9 - Anemia, unspecified Lipid Panel 03/31/25 E78.00 - Pure hypercholesterolemia, unspecified TSH reflex Free T4 03/31/25 E78.00 - Pure hypercholesterolemia, unspecified Vitamin B12 and Folate 03/31/25 E53.8 - Deficiency of other specified B group vitamins Comprehensive [place]. Panel Fast 03/31/25 E78.00 - Pure hypercholesterolemia, unspecified Hemoglobin A1c 03/31/25 E11.9 - Type 2 diabetes mellitus without complications Microalbumin, Random (w Creat) 03/31/25 E11.9 - Type 2 diabetes mellitus without complications UA CC w/rflx Micro + Cult 03/31/25 R30.0 - Dysuria Vitamin D 25-OH Total 03/31/25 E55.9 - Vitamin D deficiency, unspecified Medications: New semaglutide (Ozempic) 2 mg (0.75 mL) subcut QWEEK 4 weeks 3 mL 3RF semaglutide (Ozempic) 2 mg (0.75 mL) subcut QWEEK 3 months 12 mL 3RF aspirin 81 mg PO DAILY 90 tabs 3RF Refilled Jardiance (empagliflozin) 25 mg PO QAM 90 days 90 tabs 3RF NS
[2024-12-06 14:28] VITALS: BP 124/72; PULSE 74; O2SAT 96; BMI 32.4
== END 2024-12-06 15:24 | disposition home or self-care (01) ==
LOC: HO.HMCH 14:22
PROVIDERS: PCP Internal Medicine; Visit Provider Internal Medicine
DX: E11.40 Type 2 diabetes mellitus with diabetic neuropathy, unspecified (principal); E78.2 Mixed hyperlipidemia; E66.9 Obesity, unspecified; Z68.32 Body mass index [BMI] 32.0-32.9, adult; I10 Essential (primary) hypertension; I65.22 Occlusion and stenosis of left carotid artery; K21.9 Gastro-esophageal reflux disease without esophagitis; G62.9 Polyneuropathy, unspecified; M47.12 Other spondylosis with myelopathy, cervical region; M48.061 Spinal stenosis, lumbar region without neurogenic claudication; E55.9 Vitamin D deficiency, unspecified; G47.33 Obstructive sleep apnea (adult) (pediatric)

== ENCOUNTER → 2024-12-06 14:21 | Outpatient (BNVA) | payer MEDICARE, BC, SELFPAY | PROVIDERS: PCP Internal Medicine; Visit Provider Internal Medicine | DX: I10 Essential (primary) hypertension (principal); E78.5 Hyperlipidemia, unspecified; E11.40 Type 2 diabetes mellitus with diabetic neuropathy, unspecified; E78.2 Mixed hyperlipidemia; I65.22 Occlusion and stenosis of left carotid artery; K21.9 Gastro-esophageal reflux disease without esophagitis; M47.12 Other spondylosis with myelopathy, cervical region; M48.061 Spinal stenosis, lumbar region without neurogenic claudication; E55.9 Vitamin D deficiency, unspecified; G47.33 Obstructive sleep apnea (adult) (pediatric); E66.9 Obesity, unspecified; E53.8 Deficiency of other specified B group vitamins; R30.0 Dysuria; Z68.32 Body mass index [BMI] 32.0-32.9, adult | CPT/HCPCS: 96127; 99212 ==

== ENCOUNTER → 2025-01-04 13:37 | Outpatient (BNV) | payer MEDICARE, BC, SELFPAY | PROVIDERS: Admitting Provider Neurological Surgery; PCP Internal Medicine; Visit Provider Internal Medicine | DX: I49.3 Ventricular premature depolarization (principal); I49.1 Atrial premature depolarization | CPT/HCPCS: 93010 ==

== ENCOUNTER 2025-01-18 10:22 | Inpatient (IN) | payer MEDICARE, BC, SELFPAY ==
--- NOTE | 2025-01-04 | ECG_ITS ---
Test Reason : PREOP Blood Pressure : */* mmHG Vent. Rate : 77 BPM Atrial Rate : 77 BPM P-R Int : 196 ms QRS Dur : 84 ms QT Int : 374 ms P-R-T Axes : 44 20 67 degrees QTcB Int : 423 ms Sinus rhythm with occasional Premature ventricular complexes and Premature atrial complexes Otherwise normal ECG When compared with ECG of 02-Nov-2023 10:15, Premature ventricular complexes are now Present Referred By: Gladys David Electronically Signed By: TEMI SMITH
[2025-01-04 13:10] VITALS: BP 128/58; PULSE 72; RESP 20; O2SAT 97; BMI 31.9
--- NOTE | 2025-01-04 13:19 | HO.ANESPROP2 ---
Documented by User: Gladys David NP 01/05/25 14:22 HPI - Anesthesia Eval Consult details Narrative: 69yo M for Bilateral?Revision Bilateral L4 screws and posterolateral fusion @ L4-5, 01/18/25 s/p L4-5 Oblique Lumbar Interbody Fusion, 04/19/24, GA-ETT 7.5 No recent illness No CP/SOB with minimal activity, yardwork BARAK. CPAP QHS GERD. Well controlled with ppi DM. FBS ~120-200 (A1C improving on Ozempic) TIA s/p L CEA 2017 Anesthesia Pre-Procedure Meds Is the patient on any of the following meds?: GLP1/DPP4 and SGLT2 Inhib PMFSH Active Problems Active Problems: All Active Problems Brain fog (Acute) Serum potassium elevated (Acute) S/P spinal fusion (Acute) Cervical spondylosis with myelopathy (Acute) Pre-op evaluation (Acute) Lumbago (Acute) Spinal stenosis, lumbar region with neurogenic claudication (Acute) Cervical myelopathy (Acute) Cervical radiculopathy (Acute) Neck pain on left side (Acute) Neck pain (Acute) Rash of genital area (Acute) Left shoulder pain (Acute) Fever (Acute) Hyperpigmented skin lesion (Acute) Colon cancer screening (Acute) Cough (Acute) Annual physical exam (Acute) Adult general medical exam (Acute) Screening for prostate cancer (Acute) COVID-19 (Acute) Carotid stenosis, bilateral (Acute) Hypomagnesemia (Acute) Hx of adenomatous colonic polyps (Acute) Lumbar spinal stenosis (Acute) Obstructive sleep apnea (Acute) GERD without esophagitis (Acute) Vitamin D deficiency (Acute) Neuropathy (Acute) Left carotid artery stenosis (Acute) Obesity (BMI 30-39.9) (Acute) Mixed hyperlipidemia (Acute) Benign essential hypertension (Acute) Diabetes mellitus (Acute) Past Medical History Medical History Arthritis Back pain Weakness Numbness TIA (transient ischemic attack) Hypomagnesemia Hx of adenomatous colonic polyps Lumbar spinal stenosis Obstructive sleep apnea GERD without esophagitis Vitamin D deficiency Neuropathy Left carotid artery stenosis Obesity (BMI 30-39.9) Mixed hyperlipidemia Benign essential hypertension Diabetes mellitus Family History Family History Father Hypertension Cancer Mother Hypertension Diabetes Family history of problems with anesthesia: No Surgical History Surgical History History of lumbosacral spine surgery H/O cervical spine surgery History of facial surgery History of endarterectomy History of colonoscopy History of Problems with Anesthesia: No Social History Social History Household Members: Spouse Housing: House Are you a primary livestock caretaker to a significant other at home: No Do you presently have visiting nurse or other home services: No Alcohol intake: current Alcohol intake frequency: does not drink Patient Tobacco Use Status: Former Tobacco user Tobacco use type: Cigarette Years Smoked: 15 e-Cigarette/Vaping Use: Never Used Second Hand Smoke Exposure: No Use of substances other than those prescribed or required for medical reasons: No Have you been hit, kicked, punched, or otherwise hurt by someone within the past year? If so, by whom?: No Spiritual Healthcare Practices: no Sabianism Healthcare Practices: no Cultural Healthcare Practices: no Are you DNR?: No Advance Directives Information Provided: Yes (as above noted) Advance Directives on File: No Poor oral hygiene: No service: No Current occupational status: employed Cognitive needs: No Hearing needs: No Vision needs: Yes (glasses) Meds Allergies Allergy/AdvReac Type Severity Reaction Status Date / Time simvastatin Allergy Intermediate diarrhea Verified 01/18/25 07:54 and abdominal pain, diarrhea atorvastatin AdvReac Intermediate diarrhea Verified 01/18/25 07:54 and abdominal pain, diarrhea rosuvastatin AdvReac Intermediate diarrhea Verified 01/18/25 07:54 and abdominal pain, diarrhea Home Medications ?Medication ?Instructions ?Recorded ?Confirmed ?Last Taken ?Type magnesium oxide 500 mg capsule 500 mg PO BEDTIME 11/02/23 01/18/25 Unknown History peg 400-propylene glycol 0.4 %-0.3 1 drp ophthalmic (eye) DAILY PRN 11/02/23 01/18/25 01/18/25 History % eye drops (Systane (propylene Dry Eyes glycol)) vitamin B complex 1 cap PO BEDTIME 11/02/23 01/18/25 Unknown History ergocalciferol (vitamin D2) 1,250 1,250 mcg PO SA 08/01/18/25 04/16/24 History mcg (50,000 unit) capsule pantoprazole 40 mg tablet,delayed 40 mg PO Q2D for acid reflux 01/04/25 01/18/25 01/18/25 History release Exam Pertinent Lab Results Pertinent Lab Results: Laboratory Tests 12/02/24 07:24 WBC 8.5 Hgb 15.5 Hct 46.2 Plt Count 263 Sodium 138 Potassium 4.5 Chloride 104 Carbon Dioxide 27 BUN 24 H Creatinine 1.11 Narrative Narrative: EKG 12/2024 Vent. Rate : 77 BPM Atrial Rate : 77 BPM P-R Int : 196 ms QRS Dur : 84 ms QT Int : 374 ms P-R-T Axes : 44 20 67 degrees QTcB Int : 423 ms Sinus rhythm with occasional Premature ventricular complexes and Premature atrial complexes Otherwise normal ECG When compared with ECG of 02-Nov-2023 10:15, Premature ventricular complexes are now Present Airway Mallampati Class: II TM Dist: >3cm Neck ROM: Limited Loose/Missing/Broken Teeth: Yes (Broken molars, pulled molars, 2 x crowned molars) Heart: RRR Lungs: CTAB Assessment and Plan Assessment Anesthesia Assessment: Anesthesia Plan Discussed and PAT Visit Final Anesthetic Review Family History of Problems with Anesthesia: No History of Problems with Anesthesia: No Documented by User: Velvet Moore MD 01/18/25 09:25 [facility] Past Medical History Medical History Arthritis Back pain Weakness Numbness TIA (transient ischemic attack) Hypomagnesemia Hx of adenomatous colonic polyps Lumbar spinal stenosis Obstructive sleep apnea GERD without esophagitis Vitamin D deficiency Neuropathy Left carotid artery stenosis Obesity (BMI 30-39.9) Mixed hyperlipidemia Benign essential hypertension Diabetes mellitus Family History Family History Father Hypertension Cancer Mother Hypertension Diabetes Surgical History Surgical History History of lumbosacral spine surgery H/O cervical spine surgery History of facial surgery History of endarterectomy History of colonoscopy Social History Social History Household Members: Spouse Housing: House Are you a primary livestock caretaker to a significant other at home: No Do you presently have visiting nurse or other home services: No Alcohol intake: current Alcohol intake frequency: does not drink Patient Tobacco Use Status: Former Tobacco user Tobacco use type: Cigarette Years Smoked: 15 e-Cigarette/Vaping Use: Never Used Second Hand Smoke Exposure: No Use of substances other than those prescribed or required for medical reasons: No Have you been hit, kicked, punched, or otherwise hurt by someone within the past year? If so, by whom?: No Spiritual Healthcare Practices: no Sabianism Healthcare Practices: no Cultural Healthcare Practices: no Are you DNR?: No Advance Directives Information Provided: Yes (as above noted) Advance Directives on File: No Poor oral hygiene: No service: No Current occupational status: employed Cognitive needs: No Hearing needs: No Vision needs: Yes (glasses) Meds Allergies Allergy/AdvReac Type Severity Reaction Status Date / Time simvastatin Allergy Intermediate diarrhea Verified 01/18/25 07:54 and abdominal pain, diarrhea atorvastatin AdvReac Intermediate diarrhea Verified 01/18/25 07:54 and abdominal pain, diarrhea rosuvastatin AdvReac Intermediate diarrhea Verified 01/18/25 07:54 and abdominal pain, diarrhea Home Medications ?Medication ?Instructions ?Recorded ?Confirmed ?Last Taken ?Type magnesium oxide 500 mg capsule 500 mg PO BEDTIME 11/02/23 01/18/25 Unknown History peg 400-propylene glycol 0.4 %-0.3 1 drp ophthalmic (eye) DAILY PRN 11/02/23 01/18/25 01/18/25 History % eye drops (Systane (propylene Dry Eyes glycol)) vitamin B complex 1 cap PO BEDTIME 11/02/23 01/18/25 Unknown History ergocalciferol (vitamin D2) 1,250 1,250 mcg PO SA 04/19/24 01/18/25 04/16/24 History mcg (50,000 unit) capsule pantoprazole 40 mg tablet,delayed 40 mg PO Q2D for acid reflux 01/04/25 01/18/25 01/18/25 History release Assessment and Plan Assessment Anesthesia Assessment: Chart Reviewed Final Anesthetic Review ASA Class: III Final Preanesthetic Review: No Changes in Pt Med Stat, Meds/Allgs Chart Reviewed, Consent Obtained/Reviewed and Anes Risks/Benef Reviewed Patient Risk: Intermediate Procedure Risk: Intermediate Anesthetic Plan Anesthetic Plan: GA Disposition: Standard PACU
[2025-01-18] VITALS (12 sets, daily range): BP systolic 119–189; BP diastolic 47–77; PULSE 70–86; RESP 16–18; TEMP 36–36.4; O2SAT 94–97; BMI 31.9
--- NOTE | ~2025-01-18 | FL_ITS ---
EXAMINATION: FL GUIDANCE ONLY HISTORY: L4-5 REVISION COMPARISON: Correlation is made with plain films of the lumbar spine dated 11/08/2024. TECHNIQUE: Fluoroscopy time: 7.5 minutes. Cumulative Dose: 5.83 mGy. DAP: 2.54 mGym2 Images: 2. FINDINGS: Fluoroscopic spot films of the lumbar spine again demonstrate posterior fusion of L4 and L5 with pedicle screws, spinal stabilization rods, and an intervertebral spacer. The previously seen displacement of the right L4 pedicle screw head is no longer identified. FL/FL guidance in OR IMPRESSION: Fluoroscopy during procedure. Please see procedure report for additional information. Electronically signed by: Felix Zee MD 01/18/2025 12:38 PM EDT
--- NOTE | 2025-01-18 07:03 | MHC.SHP ---
Pre-Procedural Eval Section A - 24 Hr Update-Section A only Date of Service: 01/18/25 Section B - Complete if H&P > 30 days Chief Complaint: Spinal stenosis, lumbar region,Arthrodesis status Allergies: Allergies Allergy/AdvReac Type Severity Reaction Status Date / Time simvastatin Allergy Intermediate diarrhea Verified 12/06/24 15:07 and abdominal pain, diarrhea atorvastatin AdvReac Intermediate diarrhea Verified 12/06/24 15:07 and abdominal pain, diarrhea rosuvastatin AdvReac Intermediate diarrhea Verified 12/06/24 15:07 and abdominal pain, diarrhea Review of Systems Sugical H&P ROS: Negative: Constitution, Cardiovascular, Respiratory, Neurological, Psychiatric, Hem-Onc, Allergic/Immunologic, Gastrointestinal, Genitourinary, Musculoskeletal, Integumentary, Endocrine and Eyes/Ears/Nose/Throat Exam Surgical H&P Exam: Not Evaluated: HEENT, Not Evaluated: Heart, Not Evaluated: Lungs, Not Evaluated: Extremities, Not Evaluated: Abdomen, Not Evaluated: Skin and Not Evaluated: Neurological Exam Comment: The patient is awake, alert, in no acute distress. Proposed surgical incision site is clean, dry, with no signs of recent trauma. Plan Diagnosis/Plan: Unchanged I have reviewed the history and physical and performed a pertinent physical examination on my patient. No changes have occurred unless specified. Plan remains the same: 1) revision of L4 posterior instrumentation 2) postero-lateral fusion L4-5 Time Spent With Patient Time: Total time managing care of this patient today __12__ minutes.
[2025-01-18] MEDS: methocarbamoL 750 MG TABLET PO (08:15)
[2025-01-18] MEDS: Gabapentin 300 MG CAPSULE PO (08:15)
[2025-01-18 08:17] LABS: Glucose, Whole Blood 185 mg/dL (60-115)
[2025-01-18] MEDS: Lactated Ringers 1,000 ML 100 ML IVCONT (08:33)
[2025-01-18] MEDS: ceFAZolin Sodium/Dextrose,Iso 2 GM/50 ML PIGGYBACK IV ×3 (10:50→23:20)
[2025-01-18] MEDS: Acetaminophen 1,000 MG/100 ML PIGGYBACK 400 MG IV (11:09)
--- NOTE | 2025-01-18 13:11 | PHA.MEDREC ---
Pharmacy Consult ? Medication Reconciliation Pharmacy has reviewed the medication reconciliation completed by nursing. Claims matched med rec.
--- NOTE | 2025-01-18 13:13 | P.OP_ITS ---
Operative Note Operative Note Date of Service: 01/18/25 Narrative: Preoperative diagnosis: 1) hardware failure of posterior lumbar instrumentation 2) progressive back pain; pseudoarthrosis? Postoperative diagnosis: Same Procedure: Inspection of lumbar fusion; revision bilateral L4 instrumentation with removal of bilateral loose locking caps and replacement of bilateral L4 pedicle screws; posterolateral fusion L4-L5 Surgeon: Rory Gibson MD, PhD [employer] Specialist: Jarad Cantrell PA-C This 69-year-old male underwent a minimally invasive correction of an L4-5 lumbar spondylolisthesis in March of 2024. The patient was doing well but gradually developed more back pain. In conjunction with a progressive back pain imaging showed initially 1 locking cap and then 2 locking caps coming loose from the proximal L4 screws. In other words we are dealing with progressive back pa in most likely due to instability and possible nonfusion due to hardware failure. The patient was offered a revision of the posterior L4-5 instrumentation followed by additional L4-5 posterolateral fusion. The procedure complications were explained. The patient was consented. The patient was brought to the operating room and endotracheally intubated. The patient was turned in a prone position on the Sergey spine frame. Prepping and draping was done followed by time-out. The paramedian incisions were opened to expose the L4-5 instrumentation. The posterolateral gutter was inspected and no fusion was seen. The free-floating locking caps were removed bilaterally. Locking caps were removed from the bilateral L5 screws and a loraine was taken out. The bilateral L4 screws were removed and replaced with a 7.5 x 50 mm screw bilaterally. Then the posterolateral gutter and the top of the facet joints were drilled down with a high-speed drill in preparation for the posterolateral fusion. The loraine was reinserted and locked down with locking caps bilaterally. X-rays in AP and lateral projection showed good position of the instrumentation. The locking caps were inspected and were flush with the Tulip heads. The posterolateral gutter and the service top of the facet joints were covered with allograft to complete the L4-5 posterolateral fusion. Marcaine was injected intramuscularly.The paramedian incisions was closed in two layers. Steri-Strips used to approximate the incision. An op-site were taken there was used to cover the incision. All sponge and needle counts were correct. Patient was extubated and transported in stable condition to recovery room. this procedure was done with the aid of a physician volleyball assistant coach who performed unilateral exposure of the instrumentation with removal. Closure of the bilateral incisions was done by a physician volleyball assistant coach Anesthesia: General Blood loss: 30 mL Complications: None Specimen: None Surgical time: 65 minutes Disposition: Discharge home
[2025-01-18] MEDS: Empagliflozin 25 MG TABLET PO (14:32)
[2025-01-18] MEDS: hydroCHLOROthiazide 12.5 MG TABLET PO (14:33)
[2025-01-18] MEDS: oxyCODONE HCl Immed Release 5 MG TABLET PO ×2 (15:55→21:29)
[2025-01-18] MEDS: Acetaminophen 325 MG TABLET 975 MG PO ×2 (16:34→23:18)
[2025-01-18] MEDS: Ezetimibe 10 MG TABLET PO (21:26)
[2025-01-18] MEDS: Magnesium Oxide 400 MG TABLET PO (21:26)
[2025-01-18] MEDS: Multivitamin TABLET 1 TAB PO (21:26)
[2025-01-18] MEDS: Fenofibrate 160 MG TABLET PO (21:26)
[2025-01-18] MEDS: metFORMIN HCl 1,000 MG TABLET 1000 MG PO (21:26)
[2025-01-18] MEDS: Docusate Sodium 100 MG CAPSULE PO (21:26)
[2025-01-19 03:44] VITALS: BP 130/54; PULSE 73; RESP 18; TEMP 36.1; O2SAT 96
[2025-01-19] MEDS: Acetaminophen 325 MG TABLET 975 MG PO (05:03)
[2025-01-19] MEDS: ceFAZolin Sodium/Dextrose,Iso 2 GM/50 ML PIGGYBACK IV (05:07)
[2025-01-19 05:52] LABS: Creatinine Clr Calc Pharmacy 62.8; Estimated Glomerular Filt Rate 53
[2025-01-19 07:39] VITALS: PULSE 66; RESP 16; TEMP 36.2; O2SAT 98
[2025-01-19 07:47] LABS: Glucose, Whole Blood 152 mg/dL (60-115)
[2025-01-19] MEDS: hydroCHLOROthiazide 12.5 MG TABLET PO (07:58)
[2025-01-19] MEDS: Losartan Potassium 50 MG TABLET 100 MG PO (07:58)
[2025-01-19] MEDS: metFORMIN HCl 1,000 MG TABLET 1000 MG PO (07:58)
[2025-01-19] MEDS: Empagliflozin 25 MG TABLET PO (07:58)
[2025-01-19] MEDS: Docusate Sodium 100 MG CAPSULE PO (07:58)
[2025-01-19] MEDS: amLODIPine Besylate 2.5 MG TABLET PO (07:59)
--- NOTE | 2025-01-19 08:52 | HO.POSTANES ---
Post Anesthesia Evaluation Post Anesthesia Evaluation Date of Service: 01/19/25 Vital Signs: Vital Signs Temp Pulse Resp BP Pulse Ox O2 Del Method 01/19/25 07:39 97.2 F 66 16 98 Room Air 01/19/25 03:44 97 F 73 18 130/54 L 96 CPAP Anesthesia: General Endotracheal-GETA Mental Status: Awake Pain Control: Satisfactory Nausea/Vomiting: None Hydration: Adequate Anesthesia-Related Issues: No Anes. Related Issues
--- NOTE | 2025-01-19 09:30 | MHC.CM.PN ---
IMM delivered. Patient lives in a home w/ . Functionally independent. Uses CPAP, supplier is [employer]. Has a walker at home to use post-op if needed, but does not use at baseline. PCP Gustavo Watts MD Reports he has an HCP naming Micaela as [facility]. Copy requested. DP: Medically cleared for dc home self care. PT rec outpatient services. at bedside to transport. RN aware.
--- NOTE | 2025-01-19 09:47 | PM.DS ---
DS: Providers Provider Date of Service: 01/19/25 Date of admission: 01/18/25 10:22 Date of discharge: 01/19/25 Primary care physician: Gustavo Watts MD DS: Summary Time Attestation Discharge Coordination Time (in mins): 12 Quality: Safe Use of Opioids Does Pt have an Active Cancer Diagnosis on the Problem List?: No Quality: Stroke Does the patient have a stroke diagnosis?: No Physical Exam Vital Signs: Vital Signs: Last Vital Signs Temp 97.2 F 01/19/25 07:39 Pulse 66 01/19/25 07:39 Resp 16 01/19/25 07:39 BP 130/54 L 01/19/25 03:44 Pulse Ox 98 01/19/25 07:39 O2 Del Method Room Air 01/19/25 07:39 O2 Flow Rate 6 01/18/25 12:30 BMI result Body Mass Index 31.9 DS: Data Data Completed and Pending Completed studies during hospitalization [Text1]: Procedures Excision of Lumbar Vertebral Disc, Open Approach (04/19/24) Fusion of Lumbar Vertebral Joint with Interbody Fusion Device, Anterior Approach, Anterior Column, Open Approach (04/19/24) Labs on day of discharge: Laboratory Results - last 24 hr 01/19/25 01/19/25 05:28 07:42 Creatinine 1.32 Estim Creat Clear Calc 62.8 Estimated GFR 53 POC Glucose 152 H Discharge Plan Discharge Anticipated Discharge Date/Time: 01/19/25 09:47 Patient Disposition: Home, Self-Care Discharge Diagnosis: s/p revision posterior instrumentation L4-5. Referrals: Gustavo Watts MD [Primary Care Provider] - 1 Week Discharge Medications: New oxycodone 5 mg tablet 5 mg PO Q6H PRN (Reason: pain) Qty: 28 0RF Rx Instructions: Partial Fill upon patient request. Continued metformin 1,000 mg tablet 1,000 mg PO BID 90 Days Qty: 180 3RF losartan 100 mg tablet 100 mg PO DAILY 90 Days Qty: 90 1RF hydrochlorothiazide 12.5 mg tablet 12.5 mg PO QAM Qty: 90 3RF amlodipine 2.5 mg tablet 2.5 mg PO DAILY 90 Days Qty: 90 1RF ezetimibe 10 mg tablet 10 mg PO BEDTIME Qty: 90 3RF fenofibrate 160 mg tablet 160 mg PO BEDTIME Qty: 90 3RF vitamin B complex Capsule 1 cap PO BEDTIME magnesium oxide 500 mg Capsule 500 mg PO BEDTIME Systane (propylene glycol) 0.4-0.3 % Drops 1 drp OPHTHALMIC (EYE) DAILY PRN (Reason: Dry Eyes) ergocalciferol (vitamin D2) 1,250 mcg (50,000 unit) Capsule 1,250 mcg PO SA pantoprazole 40 mg tablet,delayed release (DR/EC) 40 mg PO Q2D (DME) blood-glucose meter [FreeStyle Lite Meter] Kit See Rx Instructions .ROUTE .MEDSUPPLY Qty: 1 0RF Rx Instructions: As directed (DME) lancets [FreeStyle Lancets] 28 gauge misc See Rx Instructions .ROUTE .MEDSUPPLY Qty: 100 3RF Rx Instructions: As directed (DME) FreeStyle Lite Strips Strip See Rx Instructions .ROUTE .MEDSUPPLY Qty: 100 12RF Rx Instructions: As directed once a day Jardiance 25 mg tablet 25 mg PO QAM 90 Days Qty: 90 3RF Ozempic 2 mg/dose (8 mg/3 mL) pen injector 2 mg subcut QWEEK 90 Days Qty: 12 3RF Rx Instructions: takes on Sundays Held aspirin 81 mg tablet,delayed release (DR/EC) 81 mg PO DAILY Qty: 90 3RF Hold Instructions: Resume on 01/24/25. Discharge Orders: Discharge Order (Routine); Ordered 01/19/25 Ordered By: Jarad Echeverria Diet: Advance to usual diet Activity on Discharge: As tolerated Stand Alone Forms: Patient Portal Discharge page Print Language: Tongan Care Plan Goals: Return to normal activity as tolerated Health Concerns: None Plan of Treatment: Follow-up in clinic in 2-3 weeks Assessment: POD: 1 Procedure: Revision posterior instrumentation L4-5, posterolateral fusion L4-5. Ismael was seen this morning sitting upright in bedside chair eating breakfast. He reports he is up walking around is otherwise doing well. He feels his symptoms are much better than pre-operatively. He still reports mild pain in his low back, with good relief with pain medication. He is voiding well without a Benoit, and tolerating his current diet. Afebrile, vital signs stable. Full strength 5/5 LE's. Back dressings have some staining without signs of hematoma. No active sanguineous drainage. Area is dry. Plan: Patient meets criteria to be medically discharged home. He was seen at bedside by Dr. Gibson this morning who is in agreement with this plan. I will send him in some oxycodone for pain control to the pharmacy here at [facility]. Jarad Gibson MD,PhD [facility]
--- NOTE | 2025-01-19 09:52 | HO.NEURO.PN ---
Neurosurgery Operative Note Date of Service: 01/19/25 Narrative: POD: 1 Procedure: Revision posterior instrumentation L4-5, posterolateral fusion L4-5. Ismael was seen this morning sitting upright in bedside chair eating breakfast. He reports he is up walking around is otherwise doing well. He feels his symptoms are much better than pre-operatively. He still reports mild pain in his low back, with good relief with pain medication. He is voiding well without a Benoit, and tolerating his current diet. Afebrile, vital signs stable. Full strength 5/5 LE's. Back dressings have some staining without signs of hematoma. No active sanguineous drainage. Area is dry. Plan: Patient meets criteria to be medically discharged home. He was seen at bedside by Dr. Gibson this morning who is in agreement with this plan. I will send him in some oxycodone for pain control to the pharmacy here at [facility]. Jarad Gibson MD,PhD [facility]
[2025-01-19] MEDS: oxyCODONE HCl Immed Release 5 MG TABLET PO (10:22)
== END 2025-01-19 10:28 | disposition home or self-care (01) | DRG 517 ==
LOC: HO.SSSA 10:31 → HO.S3 13:46
PROVIDERS: Admitting Provider Physician Assistant; PCP Internal Medicine; Visit Provider Neurological Surgery
PROC: 0SW004Z Revision of Internal Fixation Device in Lumbar Vertebral Joint, Open Approach (ICD-10-PCS; principal; 2025-01-18 10:10)
DX: T84.226A Displacement of internal fixation device of vertebrae, initial encounter (principal); Y82.8 Other medical devices associated with adverse incidents; E11.9 Type 2 diabetes mellitus without complications; K21.9 Gastro-esophageal reflux disease without esophagitis; G47.33 Obstructive sleep apnea (adult) (pediatric); Z87.891 Personal history of nicotine dependence; Z79.4 Long term (current) use of insulin; Z79.84 Long term (current) use of oral hypoglycemic drugs; Z79.85 Long-term (current) use of injectable non-insulin antidiabetic drugs; Z79.899 Other long term (current) drug therapy
CPT/HCPCS: 36415; 82565; 82947; 93005; 97161; C1713; J0131; J0690; J1100; J1885; J2003; J2405; J2704; J3010; L8699

== ENCOUNTER → 2025-01-18 10:22 | Outpatient (BNV) | payer MEDICARE, BC, SELFPAY | PROVIDERS: Admitting Provider Physician Assistant; PCP Internal Medicine; Visit Provider Neurological Surgery | DX: Z48.89 Encounter for other specified surgical aftercare (principal) | CPT/HCPCS: 20930; 22612; 22830; 22840; 99024; 99499 ==

== ENCOUNTER 2025-02-08 13:41 | Outpatient (AMB) | payer MEDICARE, BC, SELFPAY ==
--- NOTE | 2025-02-08 14:02 | HO.SPINEOV ---
Intake Visit Reasons: 1st post op Intake Note: Mr. Soto is here today for his 1st post op. 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 Gibson on 01/18/25. To recap he previously had L4-5 OLIF completed in March of 2024. It was noted that he had a locking cap that had backed out on x-ray imaging after surgery. See previous office visit notes for specifics regarding this issue. He ended up presenting with fairly severe low back pain a few months after his initial surgery. Thankfully, he reports that since his surgery he has been doing much better overall. He reports that his low back pain has improved, and he is completing basic activities of daily living around his home without significant issue. He does still get a quite a bit of cramping and spasming in his low back which he did raise some concerns about today. No new neurological deficits. The patient ambulates well and rises from a seated position without difficulty. He uses no assistive devices to ambulate. His posterior incision sites are closed and well healing. I would like to follow up with Ismael again in 6 weeks for his 2nd postoperative visit. We will obtain a set of x-rays during this visit. Jarad Gibson MD,PhD [facility] Coding Level of Care Code Global (91906) Diagnoses S/P spinal fusion Z98.1
== END 2025-02-08 14:33 | disposition home or self-care (01) ==
LOC: HO.HNS 13:42
PROVIDERS: PCP Internal Medicine; Visit Provider Physician Assistant
DX: Z98.1 Arthrodesis status (principal)
CPT/HCPCS: 99024

== ENCOUNTER → 2025-02-08 13:41 | Outpatient (BNVA) | payer MEDICARE, BC, SELFPAY | PROVIDERS: PCP Internal Medicine; Visit Provider Physician Assistant | DX: Z48.89 Encounter for other specified surgical aftercare (principal); Z98.890 Other specified postprocedural states; Z98.1 Arthrodesis status | CPT/HCPCS: 99212 ==

== ENCOUNTER 2025-03-22 10:38 | Outpatient (REF) | payer MEDICARE, BC, SELFPAY ==
--- NOTE | ~2025-03-22 | XR_ITS ---
EXAMINATION: X-ray lumbar spine. CLINICAL INFORMATION: Arthrodesis status. TECHNIQUE: AP and lateral views. Lateral views during flexion and extension position.. COMPARISON: November 08, 2024. FINDINGS: Transpedicular screws placed bilaterally at L4 and L5 and intervertebral disc spacer placement at L4-5. 2 mm anterolisthesis L4-5. Multilevel endplate sclerosis and small marginal osteophyte formation. No acute cortical disruption. No gross motion during flexion and extension position. No lytic or blastic lesions. Vascular complications, aorta and iliac arteries. XR/XR lumbar spine 4V min IMPRESSION: Status post posterior lumbar fusion and disc spacer placement at L4-5 without instability. Atherosclerosis disease, aorta. Electronically signed by: Romeo Ortega MD 03/22/2025 01:38 PM EDT
== END 2025-03-22 10:39 | disposition home or self-care (01) ==
LOC: HO.HOSX 10:38
PROVIDERS: Visit Provider Physician Assistant
DX: M54.50 Low back pain, unspecified (principal); Z98.1 Arthrodesis status
CPT/HCPCS: 72110; 99212

== ENCOUNTER 2025-03-22 13:14 | Outpatient (AMB) | payer MEDICARE, BC, SELFPAY ==
--- NOTE | 2025-03-22 13:46 | HO.SPINEOV ---
Intake Visit Reasons: 2nd post op with xrays Intake Note: Mr. Soto is here today for his 2nd post op with xrays. 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 Gibson on 01/18/25. He comes in today for his 2nd postoperative visit into obtain a set of x-rays. He reports that overall he is feeling better than he did prior to his surgery, however he continues to have cramping and pain in his low back just above his incision sites. Unfortunately, we have been attempting to treat his pain for about a year now, and it is likely that he is fairly significantly deconditioned as a result of the pain that he has been in. This may be contributing to his continued low back issues. He states that he did attempt to take the muscle relaxer prescription that was provided to him during his last visit, however he has only been taking half a tablet at night, and does so very occasionally. I reviewed his x-ray imaging during this visit which shows stable placement of the surgical construct with no changes from fluoroscopy. No new neurological deficits. The patient ambulates well and rises from a seated position without difficulty. He uses no assistive devices to ambulate. His posterior incision sites are closed and well healed. I would like to send Ismael for a course of physical therapy as he may be suffering from deconditioning secondary to his persistent pain and multiple surgeries. Jarad Gibson MD,PhD [facility] Orders: Orders XR lumbar spine 4V min Today Z98.1 - Arthrodesis status PT Evaluation and Treatment Today M54.50 - Low back pain, unspecified Coding Level of Care Code Global (16820) Diagnoses Lumbago M54.50
== END 2025-03-22 14:06 | disposition home or self-care (01) ==
LOC: HO.HNS 13:14
PROVIDERS: PCP Internal Medicine; Visit Provider Physician Assistant
DX: M54.50 Low back pain, unspecified (principal)
CPT/HCPCS: 99024

== ENCOUNTER → 2025-03-22 13:16 | Outpatient (BNV) | payer MEDICARE, BC, SELFPAY | PROVIDERS: Visit Provider Radiology Diagnostic Radiology | DX: M47.816 Spondylosis without myelopathy or radiculopathy, lumbar region (principal) | CPT/HCPCS: 72110 ==

== ENCOUNTER 2025-05-22 08:08 | Outpatient (AMB) | payer MEDICARE, BC, SELFPAY ==
[2025-05-22 08:14] VITALS: BP 130/78; PULSE 96; RESP 16; TEMP 36.4; O2SAT 96; BMI 32.1
--- NOTE | 2025-05-22 08:14 | MHC.OFFWIV ---
Intake Vital Signs 05/22/25 08:14 Height 5 ft 11 in Weight 230 lb BMI 32.1 BP 130/78 Blood Pressure Location Lt brachial Position Sitting Respiration 16 Pulse 96 Pulse Source Pulse Oximeter Temp 97.5 F Temp Source Oral Pulse Oximetry (%) 96 Oxygen Delivery Method Room Air Intake Visit Reasons: ep poison cruz on arms Patient Tobacco Use Status: Former Tobacco user Allergies simvastatin Allergy (Intermediate, Verified 05/22/25 08:14) diarrhea and abdominal pain, diarrhea atorvastatin Adverse Reaction (Intermediate, Verified 05/22/25 08:14) diarrhea and abdominal pain, diarrhea rosuvastatin Adverse Reaction (Intermediate, Verified 05/22/25 08:14) diarrhea and abdominal pain, diarrhea HPI HPI Comments History of Present Illness Details History - The patient is a 69-year-old male presenting with a rash suspected to be due to poison cruz/sumac exposure. - The rash began approximately one week ago and has been treated with calamine lotion and washing, but it has started to enlarge. - Various wipes have been tried without significant improvement. - He has no SOB or wheezing. - He denies fever or chills. - He denies new lotions, soaps, detergents, medications, foods, pets, or travel. Physical Exam General: Cooperative, healthy appearing, comfortable, no acute distress and well developed Orientation: Patient oriented x3 Limitations: No limitations Mouth: normal, moist oral mucosa Neck: Normal visual inspection and Yes full ROM Respiratory: Normal respiratory effort and able to speak in complete sentences. Clear to auscultation bilaterally. No w/r/r noted. Cardiovascular: RRR, no m/r/g noted. Normal S1 and S2 Skin: Erythematous raised clusters noted on the right forearm. No discharge, crusting noted. No induration noted. Patient was informed and verbally consented to the use of an ambient scribe for clinic note documentation during this visit [facility] Medical History Arthritis Back pain Weakness Numbness TIA (transient ischemic attack) Hypomagnesemia Hx of adenomatous colonic polyps Lumbar spinal stenosis Obstructive sleep apnea GERD without esophagitis Vitamin D deficiency Neuropathy Left carotid artery stenosis Obesity (BMI 30-39.9) Mixed hyperlipidemia Benign essential hypertension Diabetes mellitus Surgical History History of lumbosacral spine surgery H/O cervical spine surgery History of facial surgery History of endarterectomy History of colonoscopy Family History Father Hypertension Cancer Mother Hypertension Diabetes Social History Household Members: Spouse Housing: House Are you a primary child caregiver to a significant other at home: No Do you presently have visiting nurse or other home services: No Alcohol intake: current Alcohol intake frequency: does not drink Patient Tobacco Use Status: Former Tobacco user Tobacco use type: Cigarette Years Smoked: 15 e-Cigarette/Vaping Use: Never Used Second Hand Smoke Exposure: No service: No Current occupational status: employed Cognitive needs: No Hearing needs: No Vision needs: Yes (glasses) Review of Systems Const All systems reviewed & are unremarkable except as noted in HPI and below Physical Exam Vital Signs: Last Vital Signs Temp 97.5 F 05/22/25 08:14 Pulse 96 05/22/25 08:14 Resp 16 05/22/25 08:14 BP 130/78 05/22/25 08:14 Pulse Ox 96 05/22/25 08:14 Oxygen Delivery Method Room Air 05/22/25 08:14 BMI result Body Mass Index 32.1 Assessment & Plan Assessment & Plan (1) Rash: Code(s): R21 - Rash and other nonspecific skin eruption Plan Most likely poison cruz vs contact dermatitis Plan - Prescribe prednisone for five days to manage the rash, with the option to reduce to three days if effective. - Prescribe hydrocortisone cream for topical application to the affected areas. - Monitor blood sugar levels closely due to the potential impact of prednisone on glucose control. - follow up with PCP Medications: New hydrocortisone 2.5% 1 appl topical BID PRN 30 grams 0RF Skin Irritation prednisone 40 mg (2 x 20 mg) PO DAILY 5 days 10 tabs 0RF hydrocortisone 2.5% 1 appl topical BID PRN 30 grams 0RF Skin Irritation prednisone 40 mg (2 x 20 mg) PO DAILY 10 tabs 0RF 5 days Coding Level of Care Code Est Pt Level 3 (44328) Diagnoses Rash R21
--- OUTSIDE RECORDS SUMMARY | 2025-05-22 08:53 | XMS_ITS | Patient Health Record ---
Author Organization [facility] Address [address] [place] [address] Care Team Providers Care Learning And Development Officer Name Role Phone Mac HUTCHINS, Gustavo Primary Care Provider Luba Gaviria Unavailable [phone] Allergies Allergen (clinical drug ingredient) Drug/Non Drug Allergy documented on EMR Reaction Allergy Type Onset Date Status Substance with 3-vwyoudu-5-methylgluta ryl-coenzyme A reductase inhibitor mechanism of action (substance) Statins Unknown Drug Allergy Active Results Component Value Reference Range Notes HEMOGLOBIN A1C (GLYCOHEMOGLO BIN) Reviewed date:05/03/2025 02:13:42 PM Interpretation: Performing Lab: Notes/Report: HEMOGLOBIN A1C % (HH) 8.2 Reason For Referral No Information Medications Medication SIG (Take, Route, Frequency, Duration) Notes Start Date End Date Status Jardiance 25 MG 1 tablet Orally Once a day Active Ozempic (2 MG/DOSE) Active Vitamin D Active Fenofibrate 160 MG 1 tablet Orally Once a day Active Ezetimibe 10 MG 1 tablet Orally Once a day Active Aspirin 81 81 MG 1 tablet Orally Once a day Active hydroCHLOROthiazide 12.5 MG 1 capsule in the morning Orally Once a day Active Losartan Potassium 100 MG 1 tablet Orall y Once a day Active metFORMIN HCl 1000 MG 1 tablet with a me al Orally Once a day Active Immunizations Vaccine Route Administration Date Status Comme nts Influenza Unknown 05/31/2024 Administered Social History Tobacco Use: Social History Observation Description Date Details (start date - stop date) Never Smoker NA - NA Tobacco use other than smoking: Question Answer Notes Are you an other tobacco user? No Tobacco Control (Standard) Question Answer Notes Tobacco use: Nonsmoker Additional Findings: Tobacco non-user Current no nsmoker AUDIT-C (Standard) Question Answer Notes Did you have a drink contain ing alcohol in the past year? Yes How often did you have a dri nk containing alcohol in the past year? Monthly or less (1 point) How many drinks did you have on a typical day when you were drinking in the past year? 1 or 2 drinks (0 point) How often did you have six o r more drinks on one occasion in the past year? Never (0 point) Points 1 Interpretation Negative Problems Problem Type SNOMED Code ICD Code Onset Dates Problem Status W/U Status Risk Notes Problem Acquired hammer toe of right foot (6300291122394431 ) Other hammer toe(s) (acquired), right foot (M20.41) Active confirmed Problem Acquired hammer toe of left foot (9748693502973438 ) Other hammer toe(s) (acquired), left foot (M20.42) Active confirmed Problem Polyneuropathy due to type 2 diabetes mellitus (576505545) Type 2 diabetes mellitus with diabetic polyneuropathy (E11.42) Active confirmed Vital Signs Blood pressure diastolic 65 mm Hg 05/03/2025 Height 5ft 11in in 05/03/2025 Blood pressure systolic 120 mm Hg 05/03/2025 Weight 225 lbs 05/03/2025 BMI 31.38 kg/m2 05/03/2025 Encounters Encounter Location Date Provider Diagnosis [facility] [place] [address] [place] [address] 05/03/2025 Luba Mina Type 2 diabetes mellitus with diabetic polyneuropathy E11.42 ; Tinea unguium B35.1 ; Xerosis of skin L85.3 ; Other hammer toe(s) (acquired), right foot M20.41 and Other hammer toe(s) (acquired), left foot M20.42 Assessments Encounter Date Diagnosis (ICD Code) Assessment Notes Treatment Notes Treatment Clinical Notes Section Notes 05/03/2025 Type 2 diabetes mellitus with diabetic polyneuropathy (ICD-10 - E11.42) 05/03/2025 Tinea unguium (ICD-10 - B35.1) 05/03/2025 Xerosis of skin (ICD-10 - L85.3) 05/03/2025 Other hammer toe(s) (acquired), right foot (ICD-10 - M20.41) Patient Educated with: DIABETIC FOOT CARE INSTRUCTIONS. pdf (DIABETIC FOOT CARE INSTRUCTIONS. pdf) 05/03/2025 Other hammer toe(s) (acquired), left foot (ICD-10 - M20.42) Plan Of Treatment Next Appt Details Provider Name:Luba gilbert, 05/08/2026 04:00:00 PM, [address] [place] [address], [phone], Insurance Providers Payer Name Payer Address Payer Phone Subscriber Number Group Number Insured Name Patient Relationship to Insured Coverage Start Date Coverage End Date Medicare National [employer] [address] [place] [address] [id number] Ismael Soto Self - patient is the insured 9 [facility] [address] [place] [address] [id number] Ismael Soto Self - patient is the insured Medical (General) History Medical History History ICD Code Cataracts covid-19 type II diabetes High Blood Pressure Neuropathy Sciatica Stroke Measles Chicken pox Bone implants/screws Surgical History Surgery Date(Month/Year) back surgery 01/22
== END 2025-05-22 09:03 | disposition home or self-care (01) ==
PROVIDERS: PCP Internal Medicine; Visit Provider Physician Assistant Medical
DX: R21 Rash and other nonspecific skin eruption (principal)

== ENCOUNTER → 2025-05-22 08:08 | Outpatient (BNVA) | payer MEDICARE, BC, SELFPAY | PROVIDERS: PCP Internal Medicine; Visit Provider Physician Assistant Medical | DX: R21 Rash and other nonspecific skin eruption (principal) | CPT/HCPCS: 99212 ==

== ENCOUNTER 2025-06-02 06:53 | Outpatient (REF) | payer MEDICARE, BC, SELFPAY ==
--- OUTSIDE RECORDS SUMMARY | 2025-06-02 06:55 | XMS_ITS | Patient Health Record ---
Author Organization [facility] Address [address] [address] Care Team Providers Care Senior Marketing Associate Name Role Phone Mac HUTCHINS, Gustavo Primary Care Provider Luba Gaviria Unavailable [phone] Allergies Allergen (clinical drug ingredient) Drug/Non Drug Allergy documented on EMR Reaction Allergy Type Onset Date Status Substance with 9-rvfrtnc-9-methylgluta ryl-coenzyme A reductase inhibitor mechanism of action [...] Problem Acquired hammer toe of right foot (8269162547953500 ) Other hammer toe(s) (acquired), right foot (M20.41) Active confirmed Problem Acquired hammer toe of left foot (3464501032610423 ) Other hammer toe(s) (acquired), left foot (M20.42) Active confirmed Problem Polyneuropathy due to type 2 diabetes mellitus (321016141) Type 2 diabetes mellitus with diabetic polyneuropathy (E11.42) Active confirmed Vital Signs Blood pressure diastolic 65 mm Hg 05/03/2025 Height 5ft 11in in 05/03/2025 Blood pressure systolic 120 mm Hg 05/03/2025 Weight 225 lbs 05/03/2025 BMI 31.38 kg/m2 05/03/2025 Encounters Encounter Location Date Provider Diagnosis [facility] [place] [address] [place] [address] 05/03/2025 Luba Mina Type 2 diabetes mellitus [...] Details Provider Name:Luba gilbert, 05/08/2026 04:00:00 PM, [address] [place] [address], [phone], Insurance Providers Payer Name Payer Address Payer Phone Subscriber Number Group Number Insured Name Patient Relationship to Insured Coverage Start Date Coverage End Date Medicare National [employer] [address] [place] [address] [id number] Ismael Soto Self - patient is the insured 9 [facility] [address] [place] [address] [id number] Ismael Soto Self - patient is the insured Medical (General) History Medical History History ICD Code Cataracts covid-19 type II diabetes High Blood Pressure Neuropathy Sciatica Stroke Measles Chicken pox Bone implants/screws Surgical History Surgery Date(Month/Year) back surgery 01/22
[2025-06-02 10:17] LABS: Appearance Urine Clear; Glucose Urine UA >=1000 mg/dL (Negative); PH 5.5 (5.0-9.0); Specific Gravity - Urine >= 1.030 (1.005-1.025); UMIC TRIGGER UACC YES
[2025-06-02 10:18] LABS: MANUAL DIFF FLAG NO
[2025-06-02 10:26] LABS: Hematocrit 46.9 % (42.0-52.0); Hemoglobin 16.3 g/dl (14.0-18.0); Imm Gran Abs Auto 0.06 X10*3/uL (0.00-0.03); Imm Gran Pct Auto 0.7 % (0.0-0.4); Lymphocytes Absolute Auto 2.0 X10*3/uL (1.2-4.9); Mean Corpuscular HGB Conc 34.8 g/dl (31.0-36.0); Mean Corpuscular Hemoglobin 30.2 pg (27.0-33.0); Mean Corpuscular Volume 86.9 fL (80.0-98.0); NRBC Abs Auto 0.000 X10*3/uL (0.0-0.012); NRBC Pct Auto 0.0 /100WBC (0.0-0.2); Platelet Count 251 X10*3/uL (160-400); Red Blood Count 5.40 X10*6/uL (4.60-5.80); White Blood Count 8.7 X10*3/uL (4.8-10.8)
[2025-06-02 10:54] LABS: Cholesterol 215 mg/dL (<200); HDL Cholesterol 32 mg/dL (>40); Triglycerides 1167 mg/dL (<150)
[2025-06-02 11:23] LABS: Folate 13.1 ng/mL (> or = 4.0); Vitamin B12 441 pg/mL (200-900)
[2025-06-02 11:38] LABS: Alanine Aminotransferase 42 U/L (0-40); Albumin Level 4.3 g/dL (3.5-5.0); Alkaline Phosphatase 54 U/L (39-117); Anion Gap 14 (12-20); Aspartate Amino Transferase 46 U/L (5-37); Blood Urea Nitrogen 28 mg/dL (9-16); Calcium 9.4 mg/dL (8.4-10.2); Carbon Dioxide 27 mmol/L (22-29); Chloride 99 mmol/L (96-108); Estimated Glomerular Filt Rate > 60; Potassium 5.0 mmol/L (3.3-5.1); Sodium 135 mmol/L (135-145); Total Protein 6.7 g/dL (6.5-8.0)
== END 2025-06-02 06:54 | disposition home or self-care (01) ==
LOC: HO.HMGCLDS 06:53
PROVIDERS: PCP Internal Medicine; Visit Provider Internal Medicine
DX: E11.9 Type 2 diabetes mellitus without complications (principal); D64.9 Anemia, unspecified; E78.00 Pure hypercholesterolemia, unspecified; E55.9 Vitamin D deficiency, unspecified; E53.8 Deficiency of other specified B group vitamins
CPT/HCPCS: 36415; 80053; 80061; 81001; 82306; 82570; 82607; 82746; 83036; 84443; 85025

== ENCOUNTER 2025-06-06 15:30 | Outpatient (AMB) | payer MEDICARE, BC, SELFPAY ==
--- NOTE | 2025-06-06 15:47 | A.OFFPC_ITS ---
Vital Signs 06/06/25 15:48 Height 5 ft 11 in Weight 228 lb 8 oz BMI 31.9 BP 132/68 Blood Pressure Location Lt brachial Position Sitting Pulse 74 Pulse Source Pulse Oximeter Temp 97.3 F Temp Source Temporal Artery Scan Pulse Oximetry (%) 96 Oxygen Delivery Method Room Air Intake Visit Reasons: Follow up Commercial Real Estate Appraiser Required: No Bead Forming Machine Operator: Not Required per policy Accompanied by: Self / Same As Patient Allergies simvastatin Allergy (Intermediate, Verified 06/06/25 16:02) diarrhea and abdominal pain, diarrhea atorvastatin Adverse Reaction (Intermediate, Verified 06/06/25 16:02) diarrhea and abdominal pain, diarrhea rosuvastatin Adverse Reaction (Intermediate, Verified 06/06/25 16:02) diarrhea and abdominal pain, diarrhea Medication List - Last Reconciled 06/06/25 by Gustavo Watts MD amlodipine 2.5 mg PO DAILY 90 days aspirin 81 mg PO DAILY Held on 01/19/25. Instructions: Resume on 01/24/25. blood sugar diagnostic (FreeStyle Lite Strips) As directed once a day blood-glucose meter (FreeStyle Lite Meter kit) As directed ergocalciferol (vitamin D2) (Vitamin D2) 1,250 mcg PO QWEEK ezetimibe 10 mg PO BEDTIME fenofibrate 160 mg PO BEDTIME hydrochlorothiazide 12.5 mg PO QAM Jardiance (empagliflozin) 25 mg PO QAM 90 days NS lancets (FreeStyle Lancets) As directed losartan 100 mg PO DAILY 90 days magnesium oxide 500 mg PO BEDTIME metformin 1,000 mg PO BID 90 days pantoprazole 40 mg PO Q2D peg 400-propylene glycol 0.4-0.3 % (Systane (propylene glycol)) 1 drp ophthalmic (eye) DAILY PRN semaglutide (Ozempic) 2 mg (0.75 mL) subcut QWEEK 3 months vitamin B complex 1 cap PO BEDTIME Tobacco use date assessed: 06/06/25 Fall risk assessment: No Falls in past year Last assessed Fall Risk: 06/06/25 Dental Screening Dental Screen Date: 06/06/25 HPI Follow up HPI Details Patient comes in today for his follow-up visit States that he feels okay He denies any headaches or dizziness Denies any chest pains, no increased shortness of breath No nausea/vomiting, no abdominal pain No change in bowel habits noted States that he is currently still going to physical therapy for his low back pain He had back surgery done with Dr. Gibson back in December 2024 He had his follow-up labs done a few days ago - to discuss his results [facility] Medical History (Updated 06/06/25 @ 16:10 by Gustavo Watts MD) Arthritis Back pain Weakness Numbness TIA (transient ischemic attack) Hypomagnesemia Hx of adenomatous colonic polyps Lumbar spinal stenosis Obstructive sleep apnea GERD without esophagitis Vitamin D deficiency Neuropathy Left carotid artery stenosis Obesity (BMI 30-39.9) Mixed hyperlipidemia Benign essential hypertension Diabetes mellitus Surgical History (Updated 06/28/25 @ 17:06 by Gustavo Watts MD) History of lumbosacral spine surgery H/O cervical spine surgery History of facial surgery History of endarterectomy History of colonoscopy Family History Father Hypertension Cancer Mother Hypertension Diabetes Social History Household Members: Spouse Housing: House Are you a primary child care education coordinator to a significant other at home: No Do you presently have visiting nurse or other home services: No Alcohol intake: current Alcohol intake frequency: does not drink Patient Tobacco Use Status: Former Tobacco user Tobacco use type: Cigarette Years Smoked: 15 e-Cigarette/Vaping Use: Never Used Second Hand Smoke Exposure: Yes service: No Current occupational status: employed Cognitive needs: No Hearing needs: No Vision needs: Yes (glasses) Questionnaire PHQ-9 Over the last 2 weeks, how often have you been bothered by any of the following problems? 1. Little interest or pleasure in doing things: not at all 2. Feeling down, depressed, or hopeless: not at all 3. Trouble falling or staying asleep, or sleeping too much: not at all 4. Feeling tired or having little energy: not at all 5. Poor appetite or overeating: not at all 6. Feeling bad about yourself - or that you are a failure or have let yourself or your family down: not at all 7. Trouble concentrating on things, such as reading the newspaper or watching television: not at all 8. Moving or speaking so slowly that other people could have noticed. Or the opposite - being so fidgety or restless that you have been moving around a lot more than usual: not at all 9. Thoughts that you would be better off or of hurting yourself in some way: not at all Total score: 0 Depression Screening Interpretation: Negative Depression Screening Done: Yes 86891 - PHQ-9 Billing: Yes Source: Developed by Drs. Felix Poole, Elizabeth Mcmahan, Jason Olivas and colleagues, with an educational martha from [employer]. Thrive Questionnaire Date Thrive assessed: 01/19/25 I am a: Patient What is your living situation today?: I have a steady place to live Within the past 12 months, did the food you bought not last and you didn't have the money to get more?: Never true Within the past 12 months, did you worry whether your food would run out before you got money to buy more?: Never true Do you have trouble paying for medicines?: No Do you have trouble getting transportation to medical appointments?: No Do you have trouble paying your heating and electricity bill?: No Do you have trouble taking care of your child, family member or friend?: No Do you have trouble with day-to-day activities such as bathing, preparing meals, shopping, managing finances, etc.?: No Are you currently unemployed and looking for a job?: No Are you interested in more education?: No Please select the resources that you would like help with: None Currently or been in a relationship where the following occur: No concerns reported THRIVE Score: 0 AUDIT C Alcohol Use Questionnaire (AUDIT-C) 1. How often do you have a drink containing alcohol?: Monthly or less 2. How many drinks containing alcohol do you have on a typical day when you are drinking?: 1 or 2 3. How often do you have six or more drinks on one occasion?: Never Total Score: 1 Score Reviewed/Action Taken: Yes MALATHI-7 AMB Questionnaire MALATHI-7 Date MALATHI - 7 assessed: 12/06/24 Feeling nervous, anxious, or on edge: 0 = Not at all Not being able to stop or control worryin = Not at all Worrying too much about different things: 0 = Not at all Trouble relaxin = Not at all Being so restless that it is hard to sit still: 0 = Not at all Becoming easily annoyed or irritable: 0 = Not at all Feeling afraid as if something awful might happen: 0 = Not at all Total MALATHI-7 score (0-4 normal; 5-9 mild; 10-14 moderate; 15-21 severe): 0 Source: Developed by Drs. Felix Poole, Elizabeth Mcmahan, Jason Olivas and colleagues, with an educational martha from [employer]. Review of Systems Const Denies chills, Denies fatigue, Denies fever(s) and Denies headache(s) ENT Denies dysphagia, Denies dizziness, Denies otalgia, Denies headache(s), Reports neck pain, Denies odynophagia, Denies tinnitus and Denies sore throat Card Denies chest pain, Denies irregular heart rhythm, Denies palpitations and Denies dyspnea Resp Denies chest congestion, Denies cough and Denies dyspnea GI Denies abdominal pain, Denies constipation, Denies dysphagia, Denies heartburn, Denies diarrhea, Denies nausea, Denies odynophagia and Denies vomiting Denies difficulty urinating, Denies nocturia and Denies urinary frequency Musc Reports back pain (over the lower back), Denies arthralgias and Reports neck pain Skin/Breast Denies rash Neuro Denies dizziness, Denies headache(s) and Denies paresthesias Endo Denies fatigue and Denies palpitations Physical exam (Primary Care) Vital Signs: Last Vital Signs Temp 97.3 F 06/06/25 15:48 Pulse 74 06/06/25 15:48 BP 132/68 06/06/25 15:48 Pulse Ox 96 06/06/25 15:48 Oxygen Delivery Method Room Air 06/06/25 15:48 BMI result Body Mass Index 31.9 Tobacco/Smoking Status: Tobacco use Status Tobacco use date assessed 06/06/25 06/06/25 15:48 Patient Tobacco Use Status Former Tobacco user 06/06/25 15:48 Tobacco use type Cigarette 06/06/25 15:48 e-Cigarette/Vaping Use Never Used 06/06/25 15:48 PHQ-9: PHQ-9 Score PHQ-9: Total score 0 06/06/25 16:12 Depression Screening Interpretation: Negative Thrive Assessment: Date of Thrive Assessment Date Thrive assessed 01/19/25 06/06/25 15:48 Currently or been in a relationship where the following occur: No concerns reported Const General: no acute distress and alert HENMT Ears: TM's normal bilaterally and EAC's normal Throat: Yes posterior oropharynx normal and Yes tonsils normal (no TP congestion) Neck Neck: No lymphadenopathy Thyroid: Thyroid normal Resp Auscultation: clear to auscultation bilaterally, no rales and no wheezes Cardio Rate: regular rate Rhythm: regular rhythm Heart sounds: no murmurs GI Palpation (GI): Soft to palpation and nontender Auscultation: normal bowel sounds General: Yes no CVA tenderness Back/Spine/Pelvis Back: no CVA tenderness Cervical Spine: Cervical spine tenderness (mild) Thoracic/Lumbar Spine: straight leg raise negative bilaterally and lumbar spinal tenderness (especially on the left side; mild) Skin Rashes: no rashes Extrem General: Yes no clubbing, cyanosis or edema Results Reviewed Results Reviewed: Laboratory Tests 06/02/25 06/02/25 07:13 07:20 WBC 8.7 Hgb 16.3 Hct 46.9 Plt Count 251 Sodium 135 Potassium 5.0 Creatinine 1.19 Estimated GFR > 60 Fasting Glucose 234 H Hemoglobin A1c % 8.4 H Calcium 9.4 AST 46 H ALT 42 H Triglycerides 1167 H Cholesterol 215 H LDL Cholesterol, Calc TNP HDL Cholesterol 32 L Vitamin B12 441 25-OH Vitamin D Total 53.4 TSH 1.33 Ur Specific [place] >= 1.030 H Urine Protein Negative Urine Glucose (UA) >=1000 H Urine Blood Negative Urine Nitrite Negative Ur Leukocyte Esterase Negative Microalb/Creat Ratio TNP Coding Level of Care Code Est Pt Level 4 (26093) Complex EM visit Add On G2211 Diagnoses Hypertriglyceridemia E78.1 Type 2 diabetes mellitus with diabetic neuropathy, without long-term current use of insulin E11.40 Diabetes mellitus complication detail: with unspecified neuropathy Diabetes mellitus complication status: with neurologic complications Diabetes mellitus assisted insulin use: without predatory animal exterminator use Diabetes mellitus type: type 2 Benign essential hypertension I10 Left carotid artery stenosis I65.22 GERD without esophagitis K21.9 Neuropathy G62.9 Cervical spondylosis with myelopathy M47.12 Spinal stenosis of lumbar region without neurogenic claudication M48.061 Neurogenic claudication status: without neurogenic claudication Vitamin D deficiency E55.9 Obstructive sleep apnea G47.33 Obesity (BMI 30-39.9) E66.9 Additional Codes PHQ-9 - 74186 - PHQ-9 Billing: Yes ([id number]) Assessment & Plan Assessment & Plan (1) Hypertriglyceridemia: Code(s): E78.1 - Pure hyperglyceridemia Category: Medical Plan: Results of his labs done a few days ago reviewed and discussed with patient - have cautioned patient that his cholesterol numbers have increased significantly from previous, with his serum triglyceride level now at 1167 mg/dl Reinforced low cholesterol diet Continue Ezetimibe 10 mg QD for now Will try switching him from Fenofibrate 160 mg QD to Gemfibrozil 600 mg BID; patient has NOT been able to tolerate any of the commercially available statins in the past due to side effects Will recheck his labs and fasting lipids in 4 months for follow up (2) Diabetes mellitus: Comment: dx ~ age 53-glucose range [phone] Ozempic on Sundays, Jardiance daily, metformin daily Code(s): E11.9 - Type 2 diabetes mellitus without complications Category: Medical Qualifiers: Diabetes mellitus complication detail: with unspecified neuropathy Diabetes mellitus complication status: with neurologic complications Diabetes mellitus predatory animal exterminator insulin use: without predatory animal exterminator use Diabetes mellitus type: type 2 Qualified Code(s): E11.40 - Type 2 diabetes mellitus with diabetic neuropathy, unspecified Plan: His HgbA1c was still at 8.4% on his labs done a few days ago (was previously at 8.2% a few months ago in November 2024) - goal is <7.0% Reinforced diabetic diet Continue Metformin 500 mg BID, Jardiance 25 mg Q AM and Ozempic 2 mg SQ once a week - he was on Trulicity previously but was switched over to Ozempic as he was having trouble getting his Trulicity Rx filled at the pharmacy in a timely manner Patient feels that Ozempic has been working better for him than Trulicity and he has also been able to lose some weight since he switched over to Ozempic Have advised patient that if he still cannot get his diabetes under control by his next appointment, then we will really need to consider referring him to endocrinology for further management (3) Benign essential hypertension: Code(s): I10 - Essential (primary) hypertension Category: Medical Plan: Reinforced low sodium diet - goal is systolic BP of at least 130 to 140 mm or less Continue Amlodipine 2.5 mg QD, HCTZ 12.5 mg Q AM and Losartan 100 mg QD (he had a recurrent cough when he was on Lisinopril in the past) Patient is reminded to continue monitoring his blood pressure regularly (4) Left carotid artery stenosis: Comment: S/P left carotid endarterectomy - 08/2017 Code(s): I65.22 - Occlusion and stenosis of left carotid artery Category: Medical Plan: Follow up with vascular surgery (Dr. Palmer) as scheduled (5) GERD without esophagitis: Comment: Dietary modifications, rare symptoms- Code(s): K21.9 - Gastro-esophageal reflux disease without esophagitis Category: Medical Plan: Dietary restrictions reinforced Continue Pantoprazole 40 mg QD (6) Neuropathy: Comment: NCV done in 2019 showed findings compatible with mild to moderate sensory and motor neuropathy Code(s): G62.9 - Polyneuropathy, unspecified Category: Medical Plan: He was started on a trial of Gabapentin previously but patient has not needed to take it - symptoms are minimal and remain tolerable still and he does not wish to take any additional meds at this time (7) Cervical spondylosis with myelopathy: Code(s): M47.12 - Other spondylosis with myelopathy, cervical region Category: Medical Plan: S/P C5-6, C6-7 Anterior discectomy, arthrodesis and implantation cage last year on 11/03/[address] Gibson States that his neck and cervical radicular symptoms have improved significantly since his surgery Follow up with neurosurgery as scheduled (8) Lumbar spinal stenosis: Code(s): M48.061 - Spinal stenosis, lumbar region without neurogenic claudication Category: Medical Qualifiers: Neurogenic claudication status: without neurogenic claudication Qualified Code(s): M48.061 - Spinal stenosis, lumbar region without neurogenic claudication Plan: Reinforced activity and weight-lifting restrictions to minimize aggravating his lower [place] Lumbar spine MRI done on 07/10/2017 revealed moderate to severe L4-L5 spinal canal stenosis and marked facet joint arthropathy at L3-L4, L4-L5 and L5-S1 He was seen by neurosurgery (Dr. Cheema) for consultation on 11/26/2017 - was advised against surgery at that time as he just had a TIA and left carotid endarterectomy earlier in the year in August 2017 and instructed to return in the fall of 2017 for consideration of L4-L5 decompression surgery if his symptoms continue to persist or progress Patient did not go back to Neurosurgery as his symptoms were tolerable at the time He has been seeing his chiropractor since his low back pains started flaring up over a year ago He ended up getting L4-5 discectomy, arthrodesis and implantation cage through an anterolateral, retroperitoneal approach and L4-5 posterior instrumented fusion done with Dr. Gibson last year on 04/19/2024 Feels that his lower back symptoms and radicular symptoms have improved initially with surgery but have gradually regressed since He eventually underwent repeat lumbar spine surgery with Dr. Gibson back in December 2024 - had revision bilateral L4 instrumentation with removal of bilateral loose locking caps and replacement of bilateral L4 pedicle screws; posterolateral fusion L4-L5 He is currently going to physical therapy for his lower back Follow up with neurosurgeriy as scheduled (9) Vitamin D deficiency: Code(s): E55.9 - Vitamin D deficiency, unspecified Category: Medical Plan: Continue Vitamin D2 13401 units once a week and OTC Vitamin D3 1000 units QD (10) Obstructive sleep apnea: Comment: uses CPAP Code(s): G47.33 - Obstructive sleep apnea (adult) (pediatric) Category: Medical Plan: Continue using his CPAP device daily when sleeping at night (11) Obesity (BMI 30-39.9): Code(s): E66.9 - Obesity, unspecified Category: Medical Plan: Reinforced diet/exercise as tolerated/lose weight Plan Follow up in 4 months Orders: Orders Complete Blood Count Auto Diff 4 Months D64.9 - Anemia, unspecified Comprehensive [place]. Panel Fast 4 Months E78.00 - Pure hypercholesterolemia, unspecified TSH reflex Free T4 4 Months E78.00 - Pure hypercholesterolemia, unspecified Lipid Panel 4 Months E78.00 - Pure hypercholesterolemia, unspecified Microalbumin, Random (w Creat) 4 Months E11.9 - Type 2 diabetes mellitus without complications Hemoglobin A1c 4 Months E11.9 - Type 2 diabetes mellitus without complications UA CC w/rflx Micro + Cult 4 Months R30.0 - Dysuria Vitamin B12 and Folate 4 Months E53.8 - Deficiency of other specified B group vitamins Vitamin D 25-OH Total 4 Months E55.9 - Vitamin D deficiency, unspecified Medications: New gemfibrozil 600 mg PO BID 180 tabs 1RF 90 days E78.1 - Pure hyperglyceridemia Discontinued fenofibrate Discontinued Reason: Doctor's Order 160 mg PO BEDTIME 90 tabs 3RF
[2025-06-06 15:48] VITALS: BP 132/68; PULSE 74; TEMP 36.3; O2SAT 96; BMI 31.9
--- OUTSIDE RECORDS SUMMARY | 2025-06-06 18:36 | XMS_ITS | Patient Health Record ---
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 Name Role Phone Mac HUTCHINS, Gustavo Primary Care Provider Luba Gaviria Unavailable [phone] Allergies Allergen (clinical drug ingredient) Drug/Non Drug Allergy documented on EMR Reaction Allergy Type Onset Date Status Substance with 2-kfsegjn-4-methylgluta ryl-coenzyme A reductase inhibitor mechanism of action [...] Problem Acquired hammer toe of right foot ([id number] ) Other hammer toe(s) (acquired), right foot (M20.41) Active confirmed Problem Acquired hammer toe of left foot ([id number] ) Other hammer toe(s) (acquired), left foot (M20.42) Active confirmed Problem Polyneuropathy due to type 2 diabetes mellitus ([id number]) Type 2 diabetes mellitus with diabetic polyneuropathy (E11.42) Active confirmed Vital Signs Blood pressure diastolic 65 mm Hg 05/03/2025 Height 5ft 11in in 05/03/2025 Blood pressure systolic 120 mm Hg 05/03/2025 Weight 225 lbs 05/03/2025 BMI 31.38 kg/m2 05/03/2025 Encounters Encounter Location Date Provider Diagnosis [facility] [address] [place] [address] 05/03/2025 Luba Mina Type 2 diabetes mellitus [...] Details Provider Name:Luba gilbert, 05/08/2026 04:00:00 PM, [address] [place] [address], [id number], Insurance Providers Payer Name Payer Address Payer Phone Subscriber Number Group Number Insured Name Patient Relationship to Insured Coverage Start Date Coverage End Date Medicare National [employer] [address] [facility] [place] [address] [id number] Ismael Soto Self - patient is the insured [facility] [address] [place] [address] [id number] Ismael Soto Self - patient is the insured Medical (General) History Medical History History ICD Code Cataracts covid-19 type II diabetes High Blood Pressure Neuropathy Sciatica Stroke Measles Chicken pox Bone implants/screws Surgical History Surgery Date(Month/Year) back surgery 01/22
== END 2025-06-06 16:18 | disposition home or self-care (01) ==
LOC: HO.HMCH 15:31
PROVIDERS: PCP Internal Medicine; Visit Provider Internal Medicine
DX: E78.1 Pure hyperglyceridemia (principal); E11.40 Type 2 diabetes mellitus with diabetic neuropathy, unspecified; I10 Essential (primary) hypertension; I65.22 Occlusion and stenosis of left carotid artery; K21.9 Gastro-esophageal reflux disease without esophagitis; G62.9 Polyneuropathy, unspecified; M48.061 Spinal stenosis, lumbar region without neurogenic claudication; E66.9 Obesity, unspecified; M47.12 Other spondylosis with myelopathy, cervical region; Z68.31 Body mass index [BMI] 31.0-31.9, adult; E55.9 Vitamin D deficiency, unspecified; G47.33 Obstructive sleep apnea (adult) (pediatric)

== ENCOUNTER → 2025-06-06 15:30 | Outpatient (BNVA) | payer MEDICARE, BC, SELFPAY | PROVIDERS: PCP Internal Medicine; Visit Provider Internal Medicine | DX: E11.40 Type 2 diabetes mellitus with diabetic neuropathy, unspecified (principal); E78.1 Pure hyperglyceridemia; I10 Essential (primary) hypertension; I65.22 Occlusion and stenosis of left carotid artery; K21.9 Gastro-esophageal reflux disease without esophagitis; G62.9 Polyneuropathy, unspecified; M47.12 Other spondylosis with myelopathy, cervical region; M48.061 Spinal stenosis, lumbar region without neurogenic claudication; E55.9 Vitamin D deficiency, unspecified; G47.33 Obstructive sleep apnea (adult) (pediatric); E66.9 Obesity, unspecified | CPT/HCPCS: 96127; 99212 ==